=== PATIENT | female | born 1950 | race Caucasian/White ===

== ENCOUNTER → 2019-04-19 | Outpatient (CLI) | payer MEDICARE, OTHER, SELFPAY | PROVIDERS: Family Provider Nurse Practitioner; Visit Provider Nurse Practitioner | DX: R31.29 Other microscopic hematuria (principal) | CPT/HCPCS: 76770 ==

== ENCOUNTER 2019-06-07 19:22 | Emergency (ER) | payer MEDICARE, OTHER, SELFPAY ==
[2019-06-07 19:26] VITALS: BP 150/93; PULSE 60; RESP 16; TEMP 36.4; O2SAT 100; BMI 29.1
--- NOTE | 2019-06-07 19:33 | ED_ITS ---
Entered by Mireya Madden, acting as scribe for Stephanie Alonzo MD, MSM Documented by User: Stephanie Alonzo MD, MSM 06/08/19 00:20 HPI - Psych General: Chief Complaint: Psychiatric Symptoms Stated Complaint: DEPRESSION Time Seen by Provider: 06/07/19 19:33 Source: patient, EMS and RN notes reviewed Mode of arrival: EMS Limitations: no limitations History of Present Illness: HPI Narrative: 69 yo female presents to ED with complaints of depression. The patient states her life is falling apart. She said her oldest daughter & odlest granddaughter live in her house with her. They expect the patient to be at their [place] and call. She feels like she is a maid for them with no appreciation for everything that she does for them. When they are asked to do anything they refuse. She said her house is a disaster area and they will do nothing to help. The patient said she will put a trash bag in the garbage can and all they do is throw the trash on the cabinet or on top of the trash can. The patient's daughter has had epilepsy since she was 4 (she will soon be 38) and the patient's granddaughter is 16 and has been rebellious since she became a teenager and she just gets worse. The patien'ts spouse used to could help calm her (the granddaughter) down but since he the patient can do nothing to help. The patient has tried to get them to change and nothing helps. The patient said she cannot deal with them anymore and she needs help. She said one day they will find her laying on the floor because her body will just give out. The patient said she looked at all of her pill bottles last night and wondered which of them would help her sleep and not wake up. Her daughter had thrown out an old aquarium that had been leaking, just threw it in the yard and it broke, so the patient went out to take care of it and clean up the area when she was cut by a piece of the glass and she began bleeding; she thought of just letting it bleed but she said it would take too long. She does not feel safe at home although she knows they won't hurt her but she is afraid of what she (the patient) will do to hurt herself or them. The granddaughter took all of her granddad's knives and stashed them in different areas of her bedroom. The patient knows there is a loaded shotgun in her daughter's room. The patient said they (patient's daughter and granddaughter) will scream at each other in anger, upsetting the patient more. The patient's other daughter had the patient's granddaughter spend a couple nights at her house away from her mom and the granddaughter was fine when she got back but now it is all bad again. She knows her granddaughter is in a relationship with a 22 year old male that provides alcohol to the granddaughter. The patient knows the granddaughter's boyfriend is involved with methamphetamine users. The patient is scared her granddaughter is going to get and then the patient will have to take care of the baby. The patient is very tearful during entire interview and at times difficult to understand through her tears. MD complaint: suicidal ideation and feels depressed Onset (ago): hour(s) (today) Duration: constant and getting worse History of same: No Relieving factors: none Exacerbating factors: other (family stressors) Context: significant life stressor (family) Associated psychiatric symptoms: depression and suicidal ideation Associated symptoms: Reports depression and suicidal ideation Treatments prior to arrival: none If self harm: admits thoughts of self harm Review of Systems General: Reports: 10 or more systems reviewed and unremarkable except in HPI and below Const: Denies: fever, chills or body aches Eyes: Reports: blind spots; Denies: change in vision or blurry vision ENMT: Denies: throat pain, enlarged tonsils, painful swallowing, hoarseness, mouth pain or swelling of lips/tongue Card: Reports: chest pain; Denies: palpitations, irregular heart rhythm, edema or swelling of feet/ankles Resp: Denies: shortness of breath, productive cough or non-productive cough GI: Denies: abdominal pain, nausea or vomiting : Denies: flank pain, difficulty urinating, painful urination, urinary frequency, urinary urgency or urinary hesitancy Musc: Denies: neck pain, back pain or extremity swelling Skin/Breast: Denies: rash, itching or redness Neuro: Denies: headache, numbness in extremities or weakness in extremities Psych: Reports: depression and suicidal ideation Endo: Denies: excessive urination, excessive thirst or tired all the time PFSH ED PFSH: Social History Smoking and tobacco status: never smoked Physical Exam Const: COMMON NORMALS: average body habitus, oriented x3, no limitations, healthy appearing, alert and well nourished HENMT: COMMON NORMALS: normocephalic, head/scalp atraumatic and moist oral mucous membranes HEAD & SCALP: normocephalic and atraumatic Eye: COMMON NORMALS: PERRL, EOMs intact bilaterally, conjunctivae normal and no scleral icterus CONJUNCTIVA: Yes conjunctivae normal PUPIL: Yes PERRL Neck/C-Spine: COMMON NORMALS: full ROM, supple, no meningeal signs, no JVD and no carotid bruits Chest: COMMONS NORMALS: inspection of chest normal and palpation of chest normal Resp: COMMON NORMALS: normal respiratory effort, no retractions, no use of accessory muscles, clear to auscultation bilaterally and percussion normal AUSCULTATION: clear to auscultation bilaterally PERCUSSION: percussion normal Cardio: COMMON NORMALS: no JVD, regular rate, regular rhythm, S1 normal heart sound, S2 normal heart sound, no gallops, no clicks, no murmurs, no rub and peripheral pulses 2+ throughout RATE: regular rate RHYTHM: regular rhythm HEART SOUNDS: S1 normal and S2 normal PERIPHERAL PULSES: pulses 2+ throughout GI: COMMON NORMALS: normal to inspection, nondistended, normoactive bowel sounds, soft to palpation, non-tender, no hepatosplenomegaly, no masses and no bruits PALPATION: Yes soft and Yes no hepatosplenomegaly : COMMON NORMALS: Yes no CVA tenderness BLADDER/KIDNEY EXAM: Yes no CVA tenderness Back/Pelvis: COMMON NORMALS: no CVA tenderness Extremity: COMMON NORMALS: normal to inspection, full ROM, normal capillary refill, no calf tenderness and no pedal edema Neuro: COMMON NORMALS: oriented x3 SENSORIUM/ORIENTATION: Yes alert MENINGEAL SIGNS: Yes no meningeal signs Psych: ATTITUDE: Yes engaged and Yes other (depressed) MOOD & AFFECT: Yes depressed mood, Yes sad, Yes tearful and Yes fearful THOUGHT CONTENT: Yes suicidality Skin: COMMON NORMALS: no rashes or lesions noted, no wounds, skin turgor normal, no jaundice, no petechiae and no mottling GENERAL SKIN EXAM: no rashes or lesions noted and turgor normal MDM - Psych MDM Narrative: Medical decision making narrative: 69-year-old female patient who is having a lot of family and social issues. She has a daughter and her granddaughter living with her and they are apparently causing her a lot of stress. They do not help which was in the house. Did not help with bills in the house. She is under a lot of stress including financially and it is like the peter are closing in on her. She does not even have money to buy gas to take her to the behavioral health clinic tomorrow. Because of all the stressors this patient is feeling suicidal and feels she will be better off . She thought about overdosing on her medications are caught in her wrist with broken glass. Because of her age she cannot be admitted to this facility. After evaluation by the psychiatrist he believes she would be safer if she is admitted to an inpatient psychiatric facility for further evaluation and management. Medical Records: Attestation: I reviewed the patient's medical records. Lab Data: Attestation: I reviewed the patient's lab results. Labs: Lab Results 06/07/19 06/07/19 06/07/19 Range/Units 19:55 19:55 19:55 WBC (4.0-10.0) 10^3/ uL RBC (4.1-5.3) 10^6/u L Hgb (11.5-15.3) g/dL Hct (37.0-47.0) % MCV (81-99) fL MCH (28.0-34.0) pg MCHC (30.0-36.0) g/dL RDW (12.1-15.1) % Plt Count (130-400) 10^3/c mm MPV (7.4-10.4) fL Neut % (Auto) % Lymph % (Auto) % Roosevelt % (Auto) % Eos % (Auto) % Baso % (Auto) % Neut # (Auto) (1.8-7.7) 10^3/u L Lymph # (Auto) (0.8-4.8) 10^3/u L Roosevelt # (Auto) (0.2-0.9) 10^3/u L Eos # (Auto) (0.0-0.8) 10^3/u L Baso # (Auto) (0.0-0.1) 10^3/u L Nucleated RBC % (a uto) % Nucleated RBCs # /100WBC Sodium (136-145) mmol/L Potassium (3.5-5.1) mmol/L Chloride (98-107) mmol/L Carbon Dioxide (22-29) mmol/L Anion Gap (5-19) BUN (8-23) mg/dL Creatinine (0.5-0.9) mg/dL GFR Calculation (90-130) mL/min Glucose (65-115) mg/dL Calcium (8.5-10.5) mg/dL Total Bilirubin (0.15-1.2) mg/dL AST (0-32) U/L ALT (0-33) U/L Alkaline Phosphata se (35-105) IU/L Total Protein (6.6-8.7) g/dL Albumin (3.5-5.2) g/dL Globulin (1.3-4.6) g/dL TSH (0.27-4.20) uIU/ mL HCG, Qual Negative (Negative) Urine Color Yellow (Yellow) Urine Appearance Clear (CLEAR) Urine pH 8 H (5-7) Ur Specific Gravit y 1.010 (1.005-1.030) Urine Protein Neg (Negative) Urine Glucose (UA) Norm (Normal) Urine Ketones Negative (Negative) Urine Occult Blood Neg (Negative) Urine Nitrate Negative (Negative) Urine Bilirubin Neg (NEGATIVE) Prot Sulfosalicyli c Acd Negative Urine Urobilinogen Norm (Negative) mg/dL Ur Leukocyte Jaimee ase Negative (Negative) Salicylates (3-10) mg/dL Urine Opiates Scre en Negative (Negative) ng/mL Acetaminophen (10-30) ug/mL Ur Barbiturates Sc reen Negative (Negative) ng/mL Ur Phencyclidine S crn Negative (Negative) ng/mL Ur Amphetamines Sc reen Negative (Negative) ng/mL U Benzodiazepines Scrn Negative (Negative) ng/mL Urine Cocaine Scre en Negative (Negative) ng/mL U Marijuana (THC) Screen Negative (Negative) ng/mL Ethyl Alcohol (0-10) mg/dL 06/07/19 06/07/19 Range/Units 21:06 21:06 WBC 9.6 (4.0-10.0) 10^3/ uL RBC 4.24 (4.1-5.3) 10^6/u L Hgb 12.3 (11.5-15.3) g/dL Hct 37.2 (37.0-47.0) % MCV 87.7 (81-99) fL MCH 29.0 (28.0-34.0) pg MCHC 33.1 (30.0-36.0) g/dL RDW 11.9 L (12.1-15.1) % Plt Count 339 (130-400) 10^3/c mm MPV 9.4 (7.4-10.4) fL Neut % (Auto) 69.5 % Lymph % (Auto) 20.1 % Roosevelt % (Auto) 6.9 % Eos % (Auto) 2.5 % Baso % (Auto) 0.6 % Neut # (Auto) 6.7 (1.8-7.7) 10^3/u L Lymph # (Auto) 1.9 (0.8-4.8) 10^3/u L Roosevelt # (Auto) 0.7 (0.2-0.9) 10^3/u L Eos # (Auto) 0.2 (0.0-0.8) 10^3/u L Baso # (Auto) 0.1 (0.0-0.1) 10^3/u L Nucleated RBC % (a uto) 0 % Nucleated RBCs # 0.0 /100WBC Sodium 139 (136-145) mmol/L Potassium 3.6 (3.5-5.1) mmol/L Chloride 103 (98-107) mmol/L Carbon Dioxide 23 (22-29) mmol/L Anion Gap 16.6 (5-19) BUN 12 (8-23) mg/dL Creatinine 1.0 H (0.5-0.9) mg/dL GFR Calculation 55.0 L (90-130) mL/min Glucose 138 H (65-115) mg/dL Calcium 9.6 (8.5-10.5) mg/dL Total Bilirubin 0.8 (0.15-1.2) mg/dL AST 19 (0-32) U/L ALT 13 (0-33) U/L Alkaline Phosphata se 68 (35-105) IU/L Total Protein 7.1 (6.6-8.7) g/dL Albumin 3.8 (3.5-5.2) g/dL Globulin 3.3 (1.3-4.6) g/dL TSH 2.41 (0.27-4.20) uIU/ mL HCG, Qual (Negative) Urine Color (Yellow) Urine Appearance (CLEAR) Urine pH (5-7) Ur Specific Gravit y (1.005-1.030) Urine Protein (Negative) Urine Glucose (UA) (Normal) Urine Ketones (Negative) Urine Occult Blood (Negative) Urine Nitrate (Negative) Urine Bilirubin (NEGATIVE) Prot Sulfosalicyli c Acd Urine Urobilinogen (Negative) mg/dL Ur Leukocyte Jaimee ase (Negative) Salicylates < 0.3 L (3-10) mg/dL Urine Opiates Scre en (Negative) ng/mL Acetaminophen < 5.0 L (10-30) ug/mL Ur Barbiturates Sc reen (Negative) ng/mL Ur Phencyclidine S crn (Negative) ng/mL Ur Amphetamines Sc reen (Negative) ng/mL U Benzodiazepines Scrn (Negative) ng/mL Urine Cocaine Scre en (Negative) ng/mL U Marijuana (THC) Screen (Negative) ng/mL Ethyl Alcohol < 10 (0-10) mg/dL Sign Out Sign Out Data: Patient Sign Out occurred on 06/08/19 at 00:57. Patient's care was discussed, and care was transferred from to Lyndsay Rose. Coding Level of Care Code ED Local Az Truck Driver for Chg Fwd Exam Comprehensive Documented by User: Lyndsay Rose 06/08/19 02:02 HPI - Psych General: Chief Complaint: Psychiatric Symptoms Stated Complaint: DEPRESSION Time Seen by Provider: 06/07/19 19:33 PFSH ED PFSH: Social History Smoking and tobacco status: never smoked MDM - Psych Lab Data: Labs: Lab Results 06/07/19 06/07/19 06/07/19 Range/Units 19:55 19:55 19:55 WBC (4.0-10.0) 10^3/ uL RBC (4.1-5.3) 10^6/u L Hgb (11.5-15.3) g/dL Hct (37.0-47.0) % MCV (81-99) fL MCH (28.0-34.0) pg MCHC (30.0-36.0) g/dL RDW (12.1-15.1) % Plt Count (130-400) 10^3/c mm MPV (7.4-10.4) fL Neut % (Auto) % Lymph % (Auto) % Roosevelt % (Auto) % Eos % (Auto) % Baso % (Auto) % Neut # (Auto) (1.8-7.7) 10^3/u L Lymph # (Auto) (0.8-4.8) 10^3/u L Roosevelt # (Auto) (0.2-0.9) 10^3/u L Eos # (Auto) (0.0-0.8) 10^3/u L Baso # (Auto) (0.0-0.1) 10^3/u L Nucleated RBC % (a uto) % Nucleated RBCs # /100WBC Sodium (136-145) mmol/L Potassium (3.5-5.1) mmol/L Chloride (98-107) mmol/L Carbon Dioxide (22-29) mmol/L Anion Gap (5-19) BUN (8-23) mg/dL Creatinine (0.5-0.9) mg/dL GFR Calculation (90-130) mL/min Glucose (65-115) mg/dL Calcium (8.5-10.5) mg/dL Total Bilirubin (0.15-1.2) mg/dL AST (0-32) U/L ALT (0-33) U/L Alkaline Phosphata se (35-105) IU/L Total Protein (6.6-8.7) g/dL Albumin (3.5-5.2) g/dL Globulin (1.3-4.6) g/dL TSH (0.27-4.20) uIU/ mL HCG, Qual Negative (Negative) Urine Color Yellow (Yellow) Urine Appearance Clear (CLEAR) Urine pH 8 H (5-7) Ur Specific Gravit y 1.010 (1.005-1.030) Urine Protein Neg (Negative) Urine Glucose (UA) Norm (Normal) Urine Ketones Negative (Negative) Urine Occult Blood Neg (Negative) Urine Nitrate Negative (Negative) Urine Bilirubin Neg (NEGATIVE) Prot Sulfosalicyli c Acd Negative Urine Urobilinogen Norm (Negative) mg/dL Ur Leukocyte Jaimee ase Negative (Negative) Salicylates (3-10) mg/dL Urine Opiates Scre en Negative (Negative) ng/mL Acetaminophen (10-30) ug/mL Ur Barbiturates Sc reen Negative (Negative) ng/mL Ur Phencyclidine S crn Negative (Negative) ng/mL Ur Amphetamines Sc reen Negative (Negative) ng/mL U Benzodiazepines Scrn Negative (Negative) ng/mL Urine Cocaine Scre en Negative (Negative) ng/mL U Marijuana (THC) Screen Negative (Negative) ng/mL Ethyl Alcohol (0-10) mg/dL 06/07/19 06/07/19 Range/Units 21:06 21:06 WBC 9.6 (4.0-10.0) 10^3/ uL RBC 4.24 (4.1-5.3) 10^6/u L Hgb 12.3 (11.5-15.3) g/dL Hct 37.2 (37.0-47.0) % MCV 87.7 (81-99) fL MCH 29.0 (28.0-34.0) pg MCHC 33.1 (30.0-36.0) g/dL RDW 11.9 L (12.1-15.1) % Plt Count 339 (130-400) 10^3/c mm MPV 9.4 (7.4-10.4) fL Neut % (Auto) 69.5 % Lymph % (Auto) 20.1 % Roosevelt % (Auto) 6.9 % Eos % (Auto) 2.5 % Baso % (Auto) 0.6 % Neut # (Auto) 6.7 (1.8-7.7) 10^3/u L Lymph # (Auto) 1.9 (0.8-4.8) 10^3/u L Roosevelt # (Auto) 0.7 (0.2-0.9) 10^3/u L Eos # (Auto) 0.2 (0.0-0.8) 10^3/u L Baso # (Auto) 0.1 (0.0-0.1) 10^3/u L Nucleated RBC % (a uto) 0 % Nucleated RBCs # 0.0 /100WBC Sodium 139 (136-145) mmol/L Potassium 3.6 (3.5-5.1) mmol/L Chloride 103 (98-107) mmol/L Carbon Dioxide 23 (22-29) mmol/L Anion Gap 16.6 (5-19) BUN 12 (8-23) mg/dL Creatinine 1.0 H (0.5-0.9) mg/dL GFR Calculation 55.0 L (90-130) mL/min Glucose 138 H (65-115) mg/dL Calcium 9.6 (8.5-10.5) mg/dL Total Bilirubin 0.8 (0.15-1.2) mg/dL AST 19 (0-32) U/L ALT 13 (0-33) U/L Alkaline Phosphata se 68 (35-105) IU/L Total Protein 7.1 (6.6-8.7) g/dL Albumin 3.8 (3.5-5.2) g/dL Globulin 3.3 (1.3-4.6) g/dL TSH 2.41 (0.27-4.20) uIU/ mL HCG, Qual (Negative) Urine Color (Yellow) Urine Appearance (CLEAR) Urine pH (5-7) Ur Specific Gravit y (1.005-1.030) Urine Protein (Negative) Urine Glucose (UA) (Normal) Urine Ketones (Negative) Urine Occult Blood (Negative) Urine Nitrate (Negative) Urine Bilirubin (NEGATIVE) Prot Sulfosalicyli c Acd Urine Urobilinogen (Negative) mg/dL Ur Leukocyte Jaimee ase (Negative) Salicylates < 0.3 L (3-10) mg/dL Urine Opiates Scre en (Negative) ng/mL Acetaminophen < 5.0 L (10-30) ug/mL Ur Barbiturates Sc reen (Negative) ng/mL Ur Phencyclidine S crn (Negative) ng/mL Ur Amphetamines Sc reen (Negative) ng/mL U Benzodiazepines Scrn (Negative) ng/mL Urine Cocaine Scre en (Negative) ng/mL U Marijuana (THC) Screen (Negative) ng/mL Ethyl Alcohol < 10 (0-10) mg/dL Imaging Data^: CXR: My impression: No acute cardiopulmonary findings. Sign Out Sign Out Data: Patient Sign Out occurred on 06/08/19 at 00:57. Patient's care was discussed, and care was transferred from to [facility]. Coding Level of Care Code ED Local Az Truck Driver for Chg Fwd Exam Comprehensive The documentation recorded by the Maryanne werner Valerie R, accurately reflects the service I personally performed and the decisions made by me, Setphanie Alonzo MD, [facility] [place] 07, [place] 19:22
[2019-06-07 21:11] LABS: Basophils # 0.1 10^3/uL (0.0-0.1); Basophils % 0.6 %; Eosinophils # 0.2 10^3/uL (0.0-0.8); Eosinophils % 2.5 %; Hematocrit 37.2 % (37.0-47.0); Hemoglobin 12.3 g/dL (11.5-15.3); Lymphocytes # 1.9 10^3/uL (0.8-4.8); Lymphocytes % 20.1 %; Mean Corpuscular HGB Conc 33.1 g/dL (30.0-36.0); Mean Corpuscular Volume 87.7 fL (81-99); Mean Platelet Volume 9.4 fL (7.4-10.4); Monocytes # 0.7 10^3/uL (0.2-0.9); Monocytes % 6.9 %; Neutrophils # 6.7 10^3/uL (1.8-7.7); Neutrophils % 69.5 %; Nucleated Red Blood Cells % 0 %; Platelet Count 339 10^3/cmm (130-400); Red Blood Count 4.24 10^6/uL (4.1-5.3); Red Cell Distribution Width 11.9 % (12.1-15.1); White Blood Count 9.6 10^3/uL (4.0-10.0)
[2019-06-07 21:16] LABS: Add Urine Microscopic? NO
[2019-06-07 21:21] LABS: HCG Qualitative Urine. Negative (Negative)
[2019-06-07 21:28] LABS: Bilirubin Urine Neg (NEGATIVE); Blood Urine Neg (Negative); Glucose Urine UA Norm (Normal); Ketones Urine Negative (Negative); Leukocyte Esterase Urine Negative (Negative); Nitrate Urine Negative (Negative); Protein Urine Neg (Negative); Sulfosalicylic Acid Urine Negative; Urine Appearance Clear (CLEAR); Urine Color Yellow (Yellow); Urobilinogen Urine Norm (Negative); pH Urine 8 (5-7)
[2019-06-07 21:34] LABS: Amphetamines Screen Urine Negative (Negative); Barbiturates Screen Urine Negative (Negative); Benzodiazepines Screen Urine Negative (Negative); Cocaine Screen Urine Negative (Negative); Opiate Screen Urine Negative (Negative); PCP Screen Urine Negative (Negative); THC Screen Urine Negative (Negative)
[2019-06-07 21:36] LABS: Alanine Aminotransferase 13 U/L (0-33); Albumin Level 3.8 g/dL (3.5-5.2); Alkaline Phosphatase 68 IU/L (35-105); Anion Gap 16.6 (5-19); Aspartate Amino Transferase 19 U/L (0-32); Blood Urea Nitrogen 12 mg/dL (8-23); Calcium 9.6 mg/dL (8.5-10.5); Carbon Dioxide 23 mmol/L (22-29); Chloride 103 mmol/L (98-107); Globulin 3.3 g/dL (1.3-4.6); Glucose 138 mg/dL (65-115); Potassium 3.6 mmol/L (3.5-5.1); Sodium 139 mmol/L (136-145); Thyroid Stimulating Hormone 2.41 uIU/mL (0.27-4.20); Total Bilirubin 0.8 mg/dL (0.15-1.2); Total Protein 7.1 g/dL (6.6-8.7)
[2019-06-07 21:45] LABS: Acetaminophen < 5.0 ug/mL (10-30); Alcohol Level < 10 mg/dL (0-10); Salicylate < 0.3 mg/dL (3-10)
[2019-06-08] VITALS: BP 134/75; PULSE 84; RESP 16; TEMP 36.7; O2SAT 96
--- NOTE | 2019-06-08 00:45 | XR_ITS ---
WS: [id number] XR chest 1V portable [id number] REASON FOR EXAM: psych clearance FINDINGS: The heart and mediastinal interfaces are normal. There are scattered calcified granulomas in both lung flores the pattern is unchanged since June 27, 2017. The lung flores show no definite active infiltrates no pneumonia pleural effusion, no pneumothorax. The hilum and apices are normal. No osseous abnormalities. XR/XR chest 1V portable [id number] IMPRESSION: Granulomatous changes perihilar area unchanged since 2018 The remaining chest is within normal limits.
--- NOTE | 2019-06-08 00:45 | ECG_ITS ---
Measurements Intervals [place] Rate: 63 P: 70 NH: 190 QRS: 24 QRSD: 83 T: 63 QT: 408 QTc: [address] DEPRESSION [0.025+ mV ST DEPRESSION] Compared to ECG 06/27/2017 11:40:34 ST (T wave) deviation now present T-wave abnormality no longer present Electronically Signed On 06-08-2019 16:59:24 IMAGING SERVICES DIRECTOR by Naz Colón M.D. [id number]
[2019-06-08 02:00] VITALS: BP 142/74; PULSE 74; RESP 16; O2SAT 98
[2019-06-08 03:03] LABS: Vitamin B12 354 pg/mL (232-1245)
[2019-06-08 04:00] VITALS: BP 138/72; PULSE 82; RESP 18; O2SAT 95
[2019-06-08 06:00] VITALS: BP 152/68; PULSE 69; RESP 14; O2SAT 95
--- NOTE | 2019-06-08 08:00 | PC.NURSE ---
Pt requesting coffee and food. Ordered breakfast tray and brought pt coffee
--- NOTE | 2019-06-08 09:01 | PC.NURSE ---
Per Dr Terry, he stated it would be ok for pt to take her home meds. Gave her 1 sertraline 100mg, 1 buproprion 150mg and 2 puffs of her symbicort.
[2019-06-08 10:23] VITALS: BP 141/78; PULSE 78; RESP 16; O2SAT 98
== END 2019-06-08 12:22 ==
PROVIDERS: Family Medicine; Emergency Provider Emergency Medicine; Family Provider Nurse Practitioner
DX: F32.9 Major depressive disorder, single episode, unspecified (principal); R45.851 Suicidal ideations
CPT/HCPCS: 36415; 71045; 80053; 80307; 81003; 81025; 82607; 84443; 85025; 93005; 99284; 99285

== ENCOUNTER 2019-06-21 13:15 | Emergency (ER) | payer MEDICARE, OTHER, SELFPAY ==
[2019-06-21 13:46] VITALS: BP 138/109; PULSE 103; RESP 15; TEMP 36.7; O2SAT 95; BMI 28.8
--- NOTE | 2019-06-21 17:01 | ECG_ITS ---
Measurements Intervals [place] Rate: 79 P: 60 OK: 180 QRS: -11 QRSD: 85 T: 76 QT: 368 QTc: [address] & T-WAVE ABNORMALITY Compared to ECG 06/08/2019 01:04:35 T-wave abnormality now present ST (T wave) deviation no longer present Electronically Signed On 06-21-2019 20:25:57 DELIVERY MERCHANDISER by Sharon Pringle M.D. [id number]
[2019-06-21 17:06] VITALS: BP 125/72; PULSE 84; RESP 16; O2SAT 98
--- NOTE | 2019-06-21 17:06 | ED_ITS ---
Entered by Milly Gibson, acting as scribe for Mahendra Torres MD Jun 21, 2019 13:15 HPI - Arrhythmia/Palpitations General: Chief Complaint: Arrhythmia/Palpitations Stated Complaint: Poss afib/ chest discomfort Time Seen by Provider: 06/21/19 17:01 Source: patient Mode of arrival: ambulatory Limitations: no limitations History of Present Illness: HPI narrative: 69 yo female went to a follow up appointment at pcp clinic, they sent her here for Afib. pt denies any symptoms or pain at this time. MD complaint: rapid heart beat, palpitations and atrial fibrillation Onset (ago): day(s) (today) Duration: constant Severity: moderate Context: occurred during rest Associated symptoms: Reports no associated symptoms; Deny syncope Review of Systems General: Reports: 10 or more systems reviewed and unremarkable except as noted in History and below ENMT: Denies: enlarged tonsils Card: Reports: chest pain (twinges of chest discomfort), palpitations and lightheadedness; Denies: syncope Resp: Denies: dyspnea or productive cough PFSH ED PFSH: Medical History Anxiety and depression Asthma Atrial fibrillation by electrocardiogram Benign hypertension High risk medication use EKG from 09/22/2019 showed the QRS duration of 100 ms Mixed hyperlipidemia Vitamin D deficiency Surgical History History of cardiac radiofrequency ablation (RFA) patient is unsure but feels like this was about 20 years ago. History of section History of hysterectomy History of oophorectomy Family History Other Hypertension Social History Smoking and tobacco status: never smoked Second hand smoke exposure: No Smoking risk assessment/counseling performed?: No Alcohol intake: never Desire information about alcohol rehabilitation?: No Counseling given: No Desire information about substance/drug rehabilitation?: No Counseling given: No Caregiver/support person: No Lives independently: Yes Household members: children Marital status: / Number of children: 2 Current occupational status: unemployed Pets and animals: Yes History of recent travel: No Current gender identity: Female Physical Exam Const: COMMON NORMALS: no limitations, alert and well nourished EXAM LIMITATIONS: no altered mental status GENERAL APPEARANCE: cooperative and well developed ORIENTATION/CONSCIOUSNESS: Yes awake; not confused HENMT: COMMON NORMALS: normocephalic, atraumatic, external ears normal and Normal external nose present HEAD & SCALP: normal to inspection, normocepha lic and atraumatic FACE & SINUS: face symmetric NOSE: Normal external nose present EXTERNAL EAR: Yes external ears normal MOUTH: lip normal; no muffled voice Eye: COMMON NORMALS: EOMs intact bilaterally and conjunctivae normal GENERAL EYE: appearance normal, both eyes and all related structures CONJUNCTIVA: Yes conjunctivae normal Neck/C-Spine: COMMON NORMALS: no JVD GENERAL: Yes normal visual inspection and Yes trachea midline Resp: COMMON NORMALS: normal respiratory effort, No use of accessory muscles and clear to auscultation bilaterally EFFORT & INSPECTION: Yes able to speak in complete sentences and Yes symmetric chest movement AUSCULTATION: clear to auscultation bilaterally Cardio: COMMON NORMALS: no JVD; negative for regular rate and negative for regular rhythm RATE: abnormal rate and tachycardic RHYTHM: abnormal rhythm and abnormal rhythm GI: COMMON NORMALS: Soft to palpation INSPECTION: Yes normal to inspection PALPATION: Yes Soft to palpation, No Tenderness to palpation present (GI) and No Guarding due to palpation present (GI) Back/Pelvis: COMMON NORMALS: thoraco-lumbar ROM normal Extremity: COMMON NORMALS: normal to inspection GENERAL: Yes normal exam except as noted and Yes edema (bilateral legs) Neuro: COMMON NORMALS: moves all extremities, no focal motor deficits and no sensory deficits noted SENSORIUM/ORIENTATION: Yes alert Psych: COMMON NORMALS: mental status grossly normal, Normal thought process present, cooperative, normal affect and speech normal SPEECH: Yes normal speech THOUGHT PROCESS: Normal thought process present Skin: COMMON NORMALS: no rashes or lesions noted, turgor normal and no jaundice GENERAL SKIN EXAM: no rashes or lesions noted and turgor normal Course Vital Signs: Vital signs: Vital Signs Temperature 98.1 F 06/21/19 13:46 Pulse Rate 74 06/21/19 18:07 Respiratory Rate 16 06/21/19 18:07 Blood Pressure 131/91 06/21/19 18:07 Pulse Oximetry 100 06/21/19 18:07 MDM - Arrhythmia/Palpitations MDM Narrative: Medical decision making narrative: 69 yo f with recurrence of afib. Control rate. CHADSVASC score suggests patient needs anticoatulated. No contraindication to NOAC. As long as rate and symptoms can be controlled patient will be a candidate for dc and outpatient f/u. Lab Data: Labs: Lab Results 06/21/19 06/21/19 Range/Units 17:13 17:13 WBC 9.6 (4.0-10.0) 10^3/ uL RBC 4.43 (4.1-5.3) 10^6/u L Hgb 12.7 (11.5-15.3) g/dL Hct 39.0 (37.0-47.0) % MCV 88.0 (81-99) fL MCH 28.7 (28.0-34.0) pg MCHC 32.6 (30.0-36.0) g/dL RDW 12.2 (12.1-15.1) % Plt Count 359 (130-400) 10^3/c mm MPV 9.4 (7.4-10.4) fL Neut % (Auto) 60.5 % Lymph % (Auto) 28.1 % [place] % (Auto) 7.3 % Eos % (Auto) 3.0 % Baso % (Auto) 0.8 % Neut # (Auto) 5.8 (1.8-7.7) 10^3/u L Lymph # (Auto) 2.7 (0.8-4.8) 10^3/u L [place] # (Auto) 0.7 (0.2-0.9) 10^3/u L Eos # (Auto) 0.3 (0.0-0.8) 10^3/u L Baso # (Auto) 0.1 (0.0-0.1) 10^3/u L Nucleated RBC % (a uto) 0 % Nucleated RBCs # 0.0 /100WBC Sodium 140 (136-145) mmol/L Potassium 3.8 (3.5-5.1) mmol/L Chloride 102 (98-107) mmol/L Carbon Dioxide 26 (22-29) mmol/L Anion Gap 15.8 (5-19) BUN 12 (8-23) mg/dL Creatinine 1.0 H (0.5-0.9) mg/dL GFR Calculation 55.0 L (90-130) mL/min Glucose 104 (65-115) mg/dL Calculated Osmolal ity 286 (285-295) mOsm/k g Calcium 9.8 (8.5-10.5) mg/dL Magnesium 2.3 (1.7-2.3) mg/dL Discharge Plan Discharge Patient Disposition: Home, Self-Care Clinical Impression: Paroxysmal A-fib Condition: Stable Prescriptions: No Action nitroglycerin 0.4 mg tablet, sublingual 0.4 mg sublingual RF: 0 aspirin 81 mg tablet,delayed release (DR/EC) PO RF: 0 cetirizine 10 mg tablet 10 mg PO RF: 0 fluticasone propionate 50 mcg/actuation spray,suspension INTRANASAL RF: 0 atorvastatin 40 mg tablet 40 mg PO DAILY Qty: 90 RF: 1 budesonide-formoterol 160-4.5 mcg/actuation HFA aerosol inhaler 2 inh INHALATION BID Qty: 10.2 RF: 2 lisinopril 10 mg tablet 10 mg PO DAILY Qty: 90 RF: 1 montelukast 10 mg tablet 10 mg PO DAILY Qty: 90 RF: 1 trazodone 50 mg tablet 150 mg PO .hs Qty: 270 RF: 1 albuterol sulfate 90 mcg/actuation HFA aerosol inhaler 2 inh INHALATION Q6H Qty: 18 RF: 2 tobramycin 0.3 % drops 1 drop ophthalmic (eye) TID 7 Days Qty: 5 RF: 0 rivaroxaban 15 mg tablet 15 mg PO DAILY Qty: 90 RF: 1 aripiprazole 2 mg tablet 2 mg PO DAILY Qty: 30 RF: 0 venlafaxine 50 mg tablet 50 mg PO BID Qty: 60 RF: 0 (DME) blood pressure test kit-large Kit See Rx Instructions .ROUTE .MEDSUPPLY Qty: 1 RF: 0 flecainide 50 mg tablet 75 mg PO Q12H 90 Days Qty: 270 RF: 3 Referrals: Marsha Kelly FNP-C [Family Provider] - 1 week (F/u pAF start xarelto) Discharge Diet: Usual diet Discharge Activity: Resume usual activity Patient Instructions: Atrial Fibrillation (ED) Discharge Date/Time: 06/21/19 18:07 Coding Level of Care Code ED Residential Remodeling Subcontractor for Chg Fwd Exam Comprehensive The documentation recorded by the [email or web address] Bridget Annette, accurately reflects the service I personally performed and the decisions made by me, Mahendra Torres MD Jun 21, 2019 13:15
[2019-06-21 17:20] LABS: Basophils # 0.1 10^3/uL (0.0-0.1); Basophils % 0.8 %; Eosinophils # 0.3 10^3/uL (0.0-0.8); Hemoglobin 12.7 g/dL (11.5-15.3); Lymphocytes # 2.7 10^3/uL (0.8-4.8); Lymphocytes % 28.1 %; Mean Corpuscular HGB Conc 32.6 g/dL (30.0-36.0); Mean Corpuscular Hemoglobin 28.7 pg (28.0-34.0); Mean Platelet Volume 9.4 fL (7.4-10.4); Monocytes # 0.7 10^3/uL (0.2-0.9); Monocytes % 7.3 %; Neutrophils # 5.8 10^3/uL (1.8-7.7); Neutrophils % 60.5 %; Nucleated Red Blood Cells % 0 %; Platelet Count 359 10^3/cmm (130-400); Red Blood Count 4.43 10^6/uL (4.1-5.3); Red Cell Distribution Width 12.2 % (12.1-15.1); White Blood Count 9.6 10^3/uL (4.0-10.0)
[2019-06-21 17:35] LABS: Anion Gap 15.8 (5-19); Blood Urea Nitrogen 12 mg/dL (8-23); Calcium 9.8 mg/dL (8.5-10.5); Carbon Dioxide 26 mmol/L (22-29); Chloride 102 mmol/L (98-107); Glucose 104 mg/dL (65-115); Magnesium 2.3 mg/dL (1.7-2.3); Osmolality Calculated 286 mOsm/kg (285-295); Potassium 3.8 mmol/L (3.5-5.1); Sodium 140 mmol/L (136-145)
[2019-06-21 18:07] VITALS: BP 131/91; PULSE 74; RESP 16; O2SAT 100
--- NOTE | 2019-10-01 09:47 | W.ED.ARRPALP ---
HPI - Arrhythmia/Palpitations General: Chief Complaint: Arrhythmia/Palpitations Stated Complaint: Poss afib/ chest discomfort Time Seen by Provider: 06/21/19 17:01 Source: patient Mode of arrival: ambulatory Limitations: no limitations History of Present Illness: MD complaint: rapid heart beat, palpitations and atrial fibrillation Context: occurred during rest Associated symptoms: Deny syncope Review of Systems General: Reports: 10 or more systems reviewed and unremarkable except in HPI and below Const: Reports: fatigue; Denies: fever(s) Card: Reports: chest pain ( twinges of discomfort), palpitations, irregular heart rhythm and lightheadedness; Denies: syncope or orthopnea Resp: Reports: other (chronic unchanged cough); Denies: dyspnea Neuro: Denies: weakness in extremities or vertigo PFSH ED PFSH: Medical History Anxiety and depression Asthma Atrial fibrillation by electrocardiogram Benign hypertension High risk medication use EKG from 09/22/2019 showed the QRS duration of 100 ms Mixed hyperlipidemia Vitamin D deficiency Surgical History History of cardiac radiofrequency ablation (RFA) patient is unsure but feels like this was about 20 years ago. History of section History of hysterectomy History of oophorectomy Family History Other Hypertension Social History Smoking and tobacco status: never smoked Second hand smoke exposure: No Smoking risk assessment/counseling performed?: No Alcohol intake: never Desire information about alcohol rehabilitation?: No Counseling given: No Desire information about substance/drug rehabilitation?: No Counseling given: No Caregiver/support person: No Lives independently: Yes Household members: children Marital status: / Number of children: 2 Current occupational status: unemployed Pets and animals: Yes History of recent travel: No Current gender identity: Female Physical Exam Const: COMMON NORMALS: no limitations, alert and well nourished EXAM LIMITATIONS: no altered mental status GENERAL APPEARANCE: cooperative and well developed ORIENTATION/CONSCIOUSNESS: Yes awake; not confused HENMT: COMMON NORMALS: normocephalic, atraumatic, external ears normal and Normal external nose present HEAD & SCALP: normal to inspection, normocephalic and atraumatic FACE & SINUS: face symmetric NOSE: Normal external nose present EXTERNAL EAR: Yes external ears normal MOUTH: lip normal; no muffled voice Eye: COMMON NORMALS: EOMs intact bilaterally and conjunctivae normal GENERAL EYE: appearance normal, both eyes and all related structures CONJUNCTIVA: Yes conjunctivae normal Neck/C-Spine: GENERAL: Yes normal visual inspection and Yes trachea midline Resp: COMMON NORMALS: normal respiratory effort and No use of accessory muscles EFFORT & INSPECTION: Yes able to speak in complete sentences and Yes symmetric chest movement Cardio: RATE: tachycardic RHYTHM: abnormal rhythm PERIPHERAL PULSES: radial pulses present GI: COMMON NORMALS: Soft to palpation INSPECTION: Yes normal to inspection PALPATION: Yes Soft to palpation, No Tenderness to palpation present (GI) and No Guarding due to palpation present (GI) Back/Pelvis: COMMON NORMALS: thoraco-lumbar ROM normal Extremity: COMMON NORMALS: normal to inspection GENERAL: Yes normal exam except as noted Neuro: COMMON NORMALS: moves all extremities, no focal motor deficits and no sensory deficits noted SENSORIUM/ORIENTATION: Yes alert Psych: COMMON NORMALS: mental status grossly normal, Normal thought process present, cooperative and speech normal; negative for normal affect SPEECH: Yes normal speech THOUGHT PROCESS: Normal thought process present Skin: COMMON NORMALS: no rashes or lesions noted, turgor normal and no jaundice GENERAL SKIN EXAM: no rashes or lesions noted and turgor normal Course Vital Signs: Vital signs: Vital Signs Temperature 98.1 F 06/21/19 13:46 Pulse Rate 74 06/21/19 18:07 Respiratory Rate 16 06/21/19 18:07 Blood Pressure 131/91 06/21/19 18:07 Pulse Oximetry 100 06/21/19 18:07 MDM - Arrhythmia/Palpitations MDM Narrative: Medical decision making narrative: 69 yo f with recurrence of pAF w/ episodes of RVR reported. Sinus now. Nonspecific st and t changes. Plan for rate control. CHADSVASC score suggests anticoagulation. No contraindications to NOAC. Plan for d/c as long as rate controlled and remains stable. Lab Data: Labs: Lab Results 06/21/19 06/21/19 Range/Units 17:13 17:13 WBC 9.6 (4.0-10.0) 10^3/ uL RBC 4.43 (4.1-5.3) 10^6/u L Hgb 12.7 (11.5-15.3) g/dL Hct 39.0 (37.0-47.0) % MCV 88.0 (81-99) fL MCH 28.7 (28.0-34.0) pg MCHC 32.6 (30.0-36.0) g/dL RDW 12.2 (12.1-15.1) % Plt Count 359 (130-400) 10^3/c mm MPV 9.4 (7.4-10.4) fL Neut % (Auto) 60.5 % Lymph % (Auto) 28.1 % [place] % (Auto) 7.3 % Eos % (Auto) 3.0 % Baso % (Auto) 0.8 % Neut # (Auto) 5.8 (1.8-7.7) 10^3/u L Lymph # (Auto) 2.7 (0.8-4.8) 10^3/u L [place] # (Auto) 0.7 (0.2-0.9) 10^3/u L Eos # (Auto) 0.3 (0.0-0.8) 10^3/u L Baso # (Auto) 0.1 (0.0-0.1) 10^3/u L Nucleated RBC % (a uto) 0 % Nucleated RBCs # 0.0 /100WBC Sodium 140 (136-145) mmol/L Potassium 3.8 (3.5-5.1) mmol/L Chloride 102 (98-107) mmol/L Carbon Dioxide 26 (22-29) mmol/L Anion Gap 15.8 (5-19) BUN 12 (8-23) mg/dL Creatinine 1.0 H (0.5-0.9) mg/dL GFR Calculation 55.0 L (90-130) mL/min Glucose 104 (65-115) mg/dL Calculated Osmolal ity 286 (285-295) mOsm/k g Calcium 9.8 (8.5-10.5) mg/dL Magnesium 2.3 (1.7-2.3) mg/dL Discharge Plan Discharge Patient Disposition: Home, Self-Care Clinical Impression: Paroxysmal A-fib Condition: Stable Prescriptions: No Action nitroglycerin 0.4 mg tablet, sublingual 0.4 mg sublingual RF: 0 aspirin 81 mg tablet,delayed release (DR/EC) PO RF: 0 cetirizine 10 mg tablet 10 mg PO RF: 0 fluticasone propionate 50 mcg/actuation spray,suspension INTRANASAL RF: 0 atorvastatin 40 mg tablet 40 mg PO DAILY Qty: 90 RF: 1 budesonide-formoterol 160-4.5 mcg/actuation HFA aerosol inhaler 2 inh INHALATION BID Qty: 10.2 RF: 2 lisinopril 10 mg tablet 10 mg PO DAILY Qty: 90 RF: 1 montelukast 10 mg tablet 10 mg PO DAILY Qty: 90 RF: 1 trazodone 50 mg tablet 150 mg PO .hs Qty: 270 RF: 1 albuterol sulfate 90 mcg/actuation HFA aerosol inhaler 2 inh INHALATION Q6H Qty: 18 RF: 2 tobramycin 0.3 % drops 1 drop ophthalmic (eye) TID 7 Days Qty: 5 RF: 0 rivaroxaban 15 mg tablet 15 mg PO DAILY Qty: 90 RF: 1 aripiprazole 2 mg tablet 2 mg PO DAILY Qty: 30 RF: 0 venlafaxine 50 mg tablet 50 mg PO BID Qty: 60 RF: 0 (DME) blood pressure test kit-large Kit See Rx Instructions .ROUTE .MEDSUPPLY Qty: 1 RF: 0 flecainide 50 mg tablet 75 mg PO Q12H 90 Days Qty: 270 RF: 3 Referrals: Marsha Kelly FNP-C [Family Provider] - 1 week (F/u pAF start xarelto) Discharge Diet: Usual diet Discharge Activity: Resume usual activity Patient Instructions: Atrial Fibrillation (ED) Discharge Date/Time: 06/21/19 18:07 Coding Level of Care Code ED Ui Software Engineer for Nicole Avalos
== END 2019-06-21 18:07 | disposition home or self-care (01) ==
PROVIDERS: Emergency Provider Emergency Medicine; Family Provider Nurse Practitioner
DX: I48.0 Paroxysmal atrial fibrillation (principal); Z79.82 Long term (current) use of aspirin; I10 Essential (primary) hypertension; E78.2 Mixed hyperlipidemia
CPT/HCPCS: 12345; 36415; 80048; 83735; 85025; 93005; 99282; 99283

== ENCOUNTER 2019-07-07 14:39 | Outpatient (CLI) | payer MEDICARE, OTHER, SELFPAY ==
--- NOTE | 2019-07-07 15:45 | USCV_ITS ---
Mere Preston Age: 69 Gender: F : 1950 Exam Date: 07/07/2019 14:58 Ordering Phys: Sharon Pringle MD ([email or web address]) Technologist: Hima Torres Exam Location: [facility] Indication: IRREG HEART BEAT BP: 125 / 80 HR: 75 Rhythm: Sinus Technical Quality: Fair MEASUREMENTS (Male / Female) Normal Values 2D ECHO LV Diastolic Diameter PLAX 4.1 cm 4.2 - 5.9 / 3.9 - 5.3 cm LV Systolic Diameter PLAX 2.4 cm IVS Diastolic Thickness 1.3 cm 0.6 - 1.0 / 0.6 - 0.9 cm IVS Systolic Thickness 1.2 cm LVPW Diastolic Thickness 0.9 cm 0.6 - 1.0 / 0.6 - 0.9 cm LVPW Systolic Thickness 1.1 cm LVOT Diameter 2.0 cm LV Ejection Fraction 2D Teich 72.6 % LV Ejection Fraction MOD 2C 58.0 % LV Ejection Fraction 2C AL 58.1 % LA Diameter 4.3 cm LA Width 4.6 cm LA Height 6.0 cm RA Width 3.8 cm RA Height 5.0 cm M-MODE LV Diastolic Diameter MM 4.4 cm 4.2 - 5.9 / 3.9 - 5.3 cm LV Systolic Diameter MM 3.3 cm LV Ejection Fraction MM Teich 49.3 % IVS Diastolic Thickness MM 1.1 cm 0.6 - 1.0 / 0.6 - 0.9 cm IVS Systolic Thickness MM 1.3 cm LVPW Diastolic Thickness MM 1.1 cm 0.6 - 1.0 / 0.6 - 0.9 cm LVPW Systolic Thickness MM 1.8 cm RV Diastolic Diameter MM 1.7 cm Aortic Annulus Diameter 3.8 cm LA Ao Ratio MM 1.1 MV E Point Septal Separation 1.5 cm DOPPLER PV Peak Velocity 93.0 cm/s FINDINGS Left Ventricle Normal left ventricular size and systolic function, EF 55 %. No regional wall motion abnormalities. Right Ventricle Normal right ventricular size and systolic function. Right Atrium Mildly increased right atrial size. Left Atrium Mildly increased left atrial size. Mitral Valve Thickened mitral valve. Aortic Valve Thickened aortic valve. Tricuspid Valve No gross abnormalities noted Pulmonic Valve Trace pulmonary valve regurgitation. Pericardium Normal pericardium without effusion. Aorta Normal ascending aorta dimension. CONCLUSIONS Normal left ventricular size and systolic function, EF 55 %. No regional wall motion abnormalities. Mild biatrial enlargement. Thickened aortic and mitral valves. There is no pericardial effusion. There are no intracardiac masses. Compared to the previous study from 09/10/2013, no significant changes in the 2D findings Dr Sharon Pringle MD FACC (Electronically Signed) Final Date: 08 July 2019 08:24 S
== END 2019-07-07 14:40 | disposition home or self-care (01) ==
LOC: RAD 14:43
PROVIDERS: Family Provider Nurse Practitioner; PCP Nurse Practitioner; Visit Provider Internal Medicine Cardiovascular Disease
DX: I48.0 Paroxysmal atrial fibrillation (principal); I51.7 Cardiomegaly
CPT/HCPCS: 93308

== ENCOUNTER → 2019-12-09 13:57 | Outpatient (BNVA) | payer MEDICARE, OTHER, SELFPAY | PROVIDERS: Family Provider Nurse Practitioner; PCP Nurse Practitioner; Visit Provider Nurse Practitioner | DX: R41.3 Other amnesia (principal); I10 Essential (primary) hypertension; E78.2 Mixed hyperlipidemia; F41.9 Anxiety disorder, unspecified; J45.909 Unspecified asthma, uncomplicated; I48.0 Paroxysmal atrial fibrillation; E55.9 Vitamin D deficiency, unspecified; Z12.39 Encounter for other screening for malignant neoplasm of breast; I48.91 Unspecified atrial fibrillation; F32.9 Major depressive disorder, single episode, unspecified | CPT/HCPCS: 71046; 80053; 80061; 82306; 82607; 84443 ==

== ENCOUNTER 2019-12-18 20:30 | Emergency (ER) | payer MEDICARE, OTHER, SELFPAY ==
[2019-12-18 20:37] VITALS: BP 122/72; PULSE 84; RESP 16; TEMP 36.6; O2SAT 98; BMI 30.2
--- NOTE | 2019-12-18 21:09 | ED_ITS ---
HPI - Extremity Problem General: Chief complaint: Extremity Injury, Lower Stated complaint: dropped glass on foot/ pain Time Seen by Provider: 12/18/19 21:08 Source: patient Mode of arrival: ambulatory Limitations: no limitations History of Present Illness: HPI Narrative: Right foot injury. Patient dropped a pane of glass on dorsal right foot. Patient reports increase pain with weight bearing. Patient report incident occured this afternoon. Patient appears well. Patient appears in no acute distress. Review of Systems General: Reports: 10 or more systems reviewed and unremarkable except in HPI and below Musc: Reports: extremity pain Skin/Breast: Reports: other (right foot laceration) [facility] ED PFS: Medical History (Updated 12/18/19 @ 21:48 by MARIBEL Cavanaugh) Anxiety and depression Asthma Atrial fibrillation by electrocardiogram Benign hypertension Environmental and seasonal allergies High risk medication use EKG from 09/22/2019 showed the QRS duration of 100 ms Mixed hyperlipidemia Vitamin D deficiency Surgical History History of cardiac radiofrequency ablation (RFA) patient is unsure but feels like this was about 20 years ago. History of section History of hysterectomy History of oophorectomy Family History Other Hypertension Social History Smoking and tobacco status: never smoked Second hand smoke exposure: No Smoking risk assessment/counseling performed?: No Alcohol intake: never Desire information about alcohol rehabilitation?: No Counseling given: No Desire information about substance/drug rehabilitation?: No Counseling given: No Caregiver/support person: No Lives independently: Yes Household members: children Housing: House Marital status: / Number of children: 2 service: No Current occupational status: unemployed Pets and animals: Yes History of recent travel: Yes ([place]) Out of state: Yes Out of country: No Current gender identity: Female Physical Exam Const: COMMON NORMALS: no acute distress and patient oriented x3 GENERAL APPEARANCE: cooperative HENMT: COMMON NORMALS: normocephalic and Normal external nose present HEAD & SCALP: normal to inspection and normocephalic NOSE: Normal external nose present MOUTH: Normal oral and palatal mucosa present Eye: GENERAL EYE: appearance normal, both eyes and all related structures Neck/C-Spine: COMMON NORMALS: full ROM Chest: COMMONS NORMALS: normal inspection of the chest Resp: COMMON NORMALS: normal respiratory effort EFFORT & INSPECTION: Yes able to speak in complete sentences Cardio: COMMON NORMALS: regular rate and regular rhythm RATE: regular rate RHYTHM: regular rhythm GI: COMMON NORMALS: non-tender Back/Pelvis: COMMON NORMALS: thoracic and lumbar spine normal to inspection Extremity: NARRATIVE EXTREMITY EXAM: right dorsal foot 1.5 cm laceration dorsal right foot, soft tissue tenderness. no foreign body noted Neuro: COMMON NORMALS: patient oriented x3 and moves all extremities Psych: COMMON NORMALS: mental status grossly normal and cooperative Skin: COMMON NORMALS: no rashes or lesions noted GENERAL SKIN EXAM: no rashes or lesions noted Procedures Laceration Laceration 1: Site: lower extremity (right foot) Side (If applicable): right Size (cm): 1 Description: linear Depth: simple, single layer Local Anesthetic: lidocaine 1% Amount of anesthesia used (mL): 4 Pre-repair: wound explored and irrigated extensively Skin layer closed with: nylon Size (cm): 4-0 Number of sutures: 2 Technique: simple, interrupted and horizontal mattress Course Vital Signs: Vital signs: Vital Signs Temperature 97.9 F 12/18/19 20:37 Pulse Rate 78 12/18/19 22:15 Respiratory Rate 16 12/18/19 22:15 Blood Pressure 122/84 12/18/19 22:15 Pulse Oximetry 98 12/18/19 22:15 MDM - Extremity (Nontraumatic) MDM Narrative: Medical decision making narrative: Patient comes in for injury to the right foot. Patient dropped a paint of glass on her foot which caused a small laceration to the dorsal foot. Patient reports pain with ambulation. Differential diagnosis includes but not limited to fracture, contusion, laceration. X-ray noted no fracture. Laceration was closed with 2 stitches. Patient tolerated well. Reviewed exam and recommendations for treatment and follow-up. Patient reported understanding and agreed to plan. Discharge Plan Discharge Patient Disposition: Home Clinical Impression: Laceration Contusion of foot, right Qualifiers: Encounter type: initial encounter Qualified Code(s): S90.31XA - Contusion of right foot, initial encounter Condition: Stable Prescriptions: New cephalexin 500 mg capsule 500 mg PO BID 10 Days Qty: 20 RF: 0 No Action nitroglycerin 0.4 mg tablet, sublingual 0.4 mg sublingual RF: 0 aspirin 81 mg tablet,delayed release (DR/EC) PO RF: 0 cetirizine 10 mg tablet 10 mg PO RF: 0 albuterol sulfate 90 mcg/actuation HFA aerosol inhaler 2 inh INHALATION Q6H Qty: 18 RF: 2 atorvastatin 40 mg tablet 40 mg PO DAILY Qty: 90 RF: 1 budesonide-formoterol 160-4.5 mcg/actuation HFA aerosol inhaler 2 inh INHALATION BID Qty: 10.2 RF: 2 fluticasone propionate 50 mcg/actuation spray,suspension 2 spray INTRANASAL DAILY Qty: 16 RF: 2 lisinopril 10 mg tablet 10 mg PO DAILY Qty: 90 RF: 1 montelukast 10 mg tablet 10 mg PO DAILY Qty: 90 RF: 1 rivaroxaban 15 mg tablet 15 mg PO DAILY Qty: 90 RF: 1 trazodone 50 mg tablet 150 mg PO .hs Qty: 270 RF: 1 venlafaxine 50 mg tablet 50 mg PO BID Qty: 180 RF: 1 aripiprazole 2 mg tablet 2 mg PO DAILY Qty: 90 RF: 1 (DME) blood pressure test kit-large Kit See Rx Instructions .ROUTE .MEDSUPPLY Qty: 1 RF: 0 flecainide 50 mg tablet 75 mg PO Q12H 90 Days Qty: 270 RF: 3 Discharge Orders: Discharge Order (Routine); Ordered 12/18/19 Ordered By: Prosper Choi Referrals: Marsha Kelly, WAREHOUSE DELIVERY MANAGER-C [Primary Care Provider] - Discharge Diet: Usual diet Discharge Activity: Increase activity as tolerated Patient Instructions: Laceration (ED) Activity Restrictions/Additional Instructions: Keep wound clean and dry. Activity as tolerated. Wear a good supportive shoe. Dressed the wound to keep it clean and dry. Follow-up with primary care in 7 days for recheck and removal and suture. Return to the emergency department for new concerns. Discharge Date/Time: 12/18/19 22:19 Coding Level of Care Code ED Upset Operator for Chg Fwd Exam Comprehensive
--- NOTE | 2019-12-18 21:17 | XR_ITS ---
WS: [id number] RIGHT FOOT: 3 VIEW(S) TECHNIQUE: AP, oblique and lateral. HISTORY: injury COMPARISON: None available. No acute fracture or dislocation. Normal tarsal/metatarsal alignment. Soft tissue edema over the dorsal surface of the midfoot. XR/XR foot RT min 3V* [id number] IMPRESSION: Soft tissue edema but no fracture.
[2019-12-18 21:26] VITALS: RESP 16
[2019-12-18] MEDS: lidocaine 1% INJ 20 mL INJECTION (21:29)
[2019-12-18] MEDS: cephALEXin 500 mg Capsule PO (22:13)
[2019-12-18] MEDS: HYDROcodone-acetaminophen 5-325 mg Tablet 1 TAB PO (22:13)
[2019-12-18 22:15] VITALS: BP 122/84; PULSE 78; RESP 16; O2SAT 98
== END 2019-12-18 22:19 | disposition home or self-care (01) ==
PROVIDERS: Emergency Provider Nurse Practitioner Family; PCP Nurse Practitioner
DX: S91.311A Laceration without foreign body, right foot, initial encounter (principal); Z79.82 Long term (current) use of aspirin; W25.XXXA Contact with sharp glass, initial encounter; I48.91 Unspecified atrial fibrillation; I10 Essential (primary) hypertension; E78.2 Mixed hyperlipidemia
CPT/HCPCS: 12001; 12345; 73630; 99281; 99283

== ENCOUNTER → 2019-12-30 14:08 | Outpatient (BNVA) | payer MEDICARE, OTHER, SELFPAY | PROVIDERS: PCP Nurse Practitioner; Visit Provider Nurse Practitioner | DX: R73.9 Hyperglycemia, unspecified (principal) | CPT/HCPCS: 83036 ==

== ENCOUNTER → 2020-02-15 15:18 | Outpatient (BNVA) | payer MEDICARE, OTHER, SELFPAY | PROVIDERS: PCP Nurse Practitioner; Visit Provider Nurse Practitioner | DX: Z11.59 Encounter for screening for other viral diseases (principal); I10 Essential (primary) hypertension; Z20.828 Contact with and (suspected) exposure to other viral communicable diseases | CPT/HCPCS: 85025; 87635 ==

== ENCOUNTER 2020-06-14 13:38 | Outpatient (CLI) | payer MEDICARE, OTHER, SELFPAY ==
--- NOTE | 2020-06-14 14:00 | MM_ITS ---
WS: [id number] BILATERAL DIGITAL SCREENING MAMMOGRAPHY WITH CAD CLINICAL INFORMATION: screen breast HISTORY: Screening mammogram. Right breast soreness COMPARISON: None. TECHNIQUE: Bilateral CC and MLO views. FINDINGS: The breasts are composed of heterogeneous fibroglandular density tissue, which can limit the detectio n of small underlying mass lesions. No suspicious mass, asymmetry, calcifications, or architectural d istortion. No evidence of malignancy. A few punctate and lucent centered calcifications. MM/[place] [id number] IMPRESSION: BI-RADS: 2-Benign FOLLOW UP: 1 Year Follow-up Recommend return to annual screening mammography.
== END 2020-06-14 13:39 | disposition home or self-care (01) ==
LOC: RADSHAW 13:42
PROVIDERS: PCP Nurse Practitioner; Visit Provider Nurse Practitioner
DX: Z12.31 Encounter for screening mammogram for malignant neoplasm of breast (principal)
CPT/HCPCS: 77067

== ENCOUNTER → 2020-06-22 13:53 | Outpatient (BNVA) | payer MEDICARE, OTHER, SELFPAY | PROVIDERS: PCP Nurse Practitioner; Visit Provider Nurse Practitioner | DX: J45.909 Unspecified asthma, uncomplicated (principal); F41.9 Anxiety disorder, unspecified; E78.2 Mixed hyperlipidemia; J30.89 Other allergic rhinitis; I10 Essential (primary) hypertension; I48.91 Unspecified atrial fibrillation; G47.00 Insomnia, unspecified | CPT/HCPCS: 80053; 80061 ==

== ENCOUNTER 2020-08-14 12:20 | Outpatient (CLI) | payer MEDICARE, OTHER, SELFPAY ==
--- NOTE | 2020-08-14 12:27 | XR_ITS ---
WS: [id number] Exam: XR chest 2V* [id number] Date/Time of Exam: 08/14/2020 12:35 PM Reason For Exam: R07.89 - Other chest pain Comparison 12/09/2019. The lungs are clear and fully expanded. Slight blunting of the left costophrenic angle may represent trace pleural effusion. Normal cardiomediastinal structures and bony elements. A battery pack superim poses the anterior central chest. XR/XR chest 2V* [id number] IMPRESSION: 1. Blunted left costophrenic angle suggesting trace left pleural effusion. 2. The lungs as well as the cardiomediastinal structures are otherwise unremark able.
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
== END 2020-08-14 12:21 | disposition home or self-care (01) ==
LOC: RAD 12:23
PROVIDERS: PCP Nurse Practitioner; Visit Provider Nurse Practitioner Family
DX: R07.89 Other chest pain (principal); S22.49XA Multiple fractures of ribs, unspecified side, initial encounter for closed fracture; V89.2XXA Person injured in unspecified motor-vehicle accident, traffic, initial encounter; M25.512 Pain in left shoulder; M19.012 Primary osteoarthritis, left shoulder
CPT/HCPCS: 71046; 71110; 73030

== ENCOUNTER → 2020-09-01 10:06 | Outpatient (BNVA) | payer MEDICARE, OTHER, SELFPAY | PROVIDERS: PCP Nurse Practitioner; Visit Provider Nurse Practitioner | DX: R20.0 Anesthesia of skin (principal); R20.2 Paresthesia of skin; E55.9 Vitamin D deficiency, unspecified | CPT/HCPCS: 82607 ==

== ENCOUNTER → 2020-11-10 10:33 | Outpatient (BNVA) | payer MEDICARE, OTHER, SELFPAY | PROVIDERS: PCP Nurse Practitioner; Visit Provider Emergency Medicine | DX: Z20.822 Contact with and (suspected) exposure to COVID-19 (principal) | CPT/HCPCS: 87635 ==

== ENCOUNTER 2020-11-14 12:34 | Inpatient (IN) | payer MEDICARE, OTHER, SELFPAY ==
[2020-11-14] VITALS (22 sets, daily range): BP systolic 107–145; BP diastolic 73–105; PULSE 77–120; RESP 13–28; TEMP 36.6; O2SAT 92–99; BMI 29.9
--- NOTE | 2020-11-14 | CT_ITS ---
NOTE: Report was unsigned for reason: Order was edited. Original Signature date and time was: 11/14/[address] C SPINE REASON FOR EXAM: fall. black right eye IV CONTRAST ADMINISTERED: Noncontrast TOTAL EXAM DLP: 815.[address] scans at [facility] use at least one of these dose optimization techniques: automated exposure control; mA and/or kV adjustment per patient size (includes targeted exams where dose is matched to clinical indication); or iterative reconstruction. FINDINGS: The examination of the cervical spine does not include C7. Normal odontoid and normal atlantoaxial articulations. No vertebral body abnormality C1-C6. Normal facet joint alignment. Narrowing of the intervertebral disc space at C5-C6. IMPRESSION: Cervical spine imaging only extends from the base of the skull to C6. No abnormality in this region of the cervical spine. [facility] CT/CT cervical spin wo con* [id number] IMPRESSION: Findings in the sinuses are most likely due to chronic sinusitis. The facial bone structures are intact. No fracture of the cervical spine from the base of skull through the cervicotho racic junction.
--- NOTE | 2020-11-14 | CT_ITS ---
NOTE: Report was unsigned for reason: Order was edited. Original Signature date and time was: 11/14/[address] FACIAL BONES REASON FOR EXAM: fall/ neck pain IV CONTRAST ADMINISTERED: Noncontrast TOTAL EXAM DLP: 874.[address] scans at [facility] use at least one of these dose optimization techniques: automated exposure control; mA and/or kV adjustment per patient size (includes targeted exams where dose is matched to clinical indication); or iterative reconstruction. FINDINGS: Cervical spine imaging to the level of C6 was read from the facial bones CT. The cervical spine imaging includes the cervical spine through the cervicothoracic junction. No fracture or dislocation. Evaluation of the facial bones demonstrates mucosal thickening, soft tissue density, and fluid within the ethmoid, maxillary, and sphenoid sinuses. No nasal bone fracture is identified. The bony structure of the orbits and sinuses are unremarkable. The base of the skull is intact. Normal mastoids. The mandible is intact. Zygomatic arches are intact. IMPRESSION: Findings in the sinuses are most likely due to chronic sinusitis. The facial bone structures are intact. No fracture of the cervical spine from the base of skull through the cervicothoracic junction. MTDD CT/CT facial bones wo con* [id number] IMPRESSION: Cervical spine imaging only extends from the base of the skull to C6. No abnorm ality in this region of the cervical spine.
--- NOTE | 2020-11-14 12:32 | CT_ITS ---
WS: [id number] CT head wo con* [id number] REASON FOR EXAM: fall IV CONTRAST ADMINISTERED: Noncontrast TOTAL EXAM DLP: 964.[address] scans at [facility] use at least one of these dose optimization techniques: automat ed exposure control; mA and/or kV adjustment per patient size (includes targeted exams where dose is matched to clinical indication); or iterative reconstruction. FINDINGS: No midline shift or other significant mass effect. No findings of intracranial hemorrhage and no extra-axial fluid collection. No acute focal brain parenchymal abnormality in the cerebral hemispheres, brainstem, or cerebellar he mispheres. There is some low-attenuation in the deep white matter consistent with chronic ischemic demyelination secondary to small vessel disease. The ventricles are normal. The base of the skull and the calvarium are intact. Mucosal thickening and fluid in the maxillary and ethmoid sinuses. CT/CT head wo con* [id number] IMPRESSION: No acute intracranial abnormality. Chronic sinusitis.
--- NOTE | 2020-11-14 12:32 | XR_ITS ---
WS: [id number] XR chest 1V portable [id number] REASON FOR EXAM: covid+/ dyspnea FINDINGS: Reticular nodular and groundglass opacities are seen in the subpleural right lower lung field and lef t lower lung field. There is mild tortuosity the thoracic aorta. The heart is at the upper limits of normal in size. The bony thorax is intact. XR/XR chest 1V portable [id number] IMPRESSION: Pulmonary infiltrates that are fairly typical for Covid pneumonitis.
--- NOTE | 2020-11-14 12:37 | CT_ITS ---
WS: [id number] CT cervical spin wo con* [id number] REASON FOR EXAM: fall/ neck pain IV CONTRAST ADMINISTERED: Noncontrast TOTAL EXAM DLP: 874.[address] scans at [facility] use at least one of these dose optimization techniques: automat ed exposure control; mA and/or kV adjustment per patient size (includes targeted exams where dose is matched to clinical indication); or iterative reconstruction. FINDINGS: Cervical spine imaging to the level of C6 was read from the facial bones CT. The cervical spine imagi ng includes the cervical spine through the cervicothoracic junction. No fracture or dislocation. Evaluation of the facial bones demonstrates mucosal thickening, soft tissue density, and fluid within the ethmoid, maxillary, and sphenoid sinuses. No nasal bone fracture is identified. The bony structure of the orbits and sinuses are unremarkable. The base of the skull is intact. Normal mastoids. The mandible is intact. Zygomatic arches are intact.
--- NOTE | 2020-11-14 12:37 | CT_ITS ---
WS: [id number] CT facial bones wo con* [id number] REASON FOR EXAM: fall. black right eye IV CONTRAST ADMINISTERED: Noncontrast TOTAL EXAM DLP: 815.[address] scans at [facility] use at least one of these dose optimization techniques: automat ed exposure control; mA and/or kV adjustment per patient size (includes targeted exams where dose is matched to clinical indication); or iterative reconstruction. FINDINGS: The examination of the cervical spine does not include C7. Normal odontoid and normal atlantoaxial articulations. No vertebral body abnormality C1-C6. Normal facet joint alignment. Narrowing of the intervertebral disc space at C5-C6.
--- NOTE | 2020-11-14 12:39 | ECG_ITS ---
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 Measurements Intervals [place] Rate: 111 P: DC: QRS: -6 QRSD: 142 T: 103 QT: 382 QTc: 519 Interpretive Statements ATRIAL FIBRILLATION WITH RAPID VENTRICULAR RESPONSE LEFT BUNDLE BRANCH BLOCK [120+ ms QRS DURATION, 80+ ms Q/S IN V1/V2, 85+ ms R IN I/aVL/V5/V6] Compared to ECG 06/21/2019 17:22:27 Left bundle-branch block now present Sinus rhythm no longer present T-wave abnormality no longer present Electronically Signed On 11-30-2020 9:59:06 CDT by Naz Colón M.D. [id number]
--- NOTE | 2020-11-14 13:03 | W.ED.COVID ---
HPI - COVID General: Chief Complaint: Shortness of Breath/Dyspnea Stated Complaint: covid + History of Present Illness: HPI Narrative: The patient is a 70-year-old female with past medical history hypertension, A. fib on rel and tested positive for Covid on November 10 comes to the ER complaining of weakness, nausea, vomiting, dehydration. Couple days ago she fell and hit her right eye on the floor and has ecchymosis to her periorbital region. She says she has difficulty walking and feels lightheaded. EMS brought her in and have given her several 100 cc of IV fluids prior to arrival. Her symptoms began on the for her closest estimation which makes this day 8 of symptoms. She is on an antibiotic but not steroids. She has not been offered antibiotic infusion. On arrival her heart rate is in the 120s A. fib with RVR. EMS reported she was satting in the upper 90s on room air and they added 2 L for her comfort. MD complaint: known COVID positive Prior covid testing: yes, results known COVID 19 common symptoms: positive chills, cough, non-productive cough, dyspnea, fatigue, headache(s), nausea and vomiting; negative throat pain or nasal congestion COVID 19 other sytmptoms: negative chest pain Treatment prior to arrival: antibiotics COVID Results: SARS-CoV-2 RNA (RT-PCR) Detected (NOT DETECTED) A 11/10/20 10:33 11/10/20 Review of Systems General: Reports: 10 or more systems reviewed and unremarkable except in HPI and below Const: Reports: chills and fatigue Eyes: Denies: change in vision, blurry vision or eye redness ENMT: Denies: throat pain, swelling of lips/tongue, ear or mastoid pain or nasal congestion Card: Denies: chest pain, palpitations, irregular heart rhythm, edema, dyspnea on exertion or orthopnea Resp: Reports: dyspnea and non-productive cough GI: Reports: nausea and vomiting; Denies: abdominal pain : Denies: flank pain, difficulty voiding, urinary frequency or urinary urgency Musc: Denies: neck pain, back pain, extremity pain, joint pain, joint redness, limited range of motion or muscle weakness Skin/Breast: Denies: rash, pruritus, erythema, skin pain or skin tenderness Neuro: Reports: headache(s) Psych: Denies: anxiety or depression Endo: Denies: polyuria All/Imm: Denies: urticaria, throat swelling or tongue swelling PFSH ED PFSH: Medical History Anxiety and depression Asthma Atrial fibrillation by electrocardiogram Benign hypertension Environmental and seasonal allergies High risk medication use EKG from 09/22/2019 showed the QRS duration of 100 ms Insomnia Mixed hyperlipidemia Vitamin D deficiency Surgical History History of cardiac radiofrequency ablation (RFA) patient is unsure but feels like this was about 20 years ago. History of section History of hysterectomy History of oophorectomy Family History Father CAD (coronary artery disease) Lung disease Mother CAD (coronary artery disease) Cancer Dementia Other Hypertension Denies family history of Diabetes Clotting disorder Chronic kidney disease (CKD) Suicide Anesthesia complication Bleeding disorder Stroke Social History Second hand smoke exposure: No Smoking risk assessment/counseling performed?: No Alcohol intake: never Desire information about alcohol rehabilitation?: No Counseling given: No Desire information about substance/drug rehabilitation?: No Counseling given: No Caregiver/support person: No Lives independently: Yes Household members: children Housing: House Marital status: / Number of children: 2 service: No Current occupational status: unemployed Pets and animals: Yes History of recent travel: Yes ([place]) Out of state: Yes Out of country: No Current gender identity: Female Physical Exam Const: COMMON NORMALS: no acute distress, average body habitus, patient oriented x3, no limitations, healthy appearing, alert and well nourished GENERAL APPEARANCE: cooperative, comfortable, well kempt and well developed ORIENTATION/CONSCIOUSNESS: Yes awake, Yes oriented to person, Yes oriented to place and Yes oriented to time HENMT: COMMON NORMALS: normocephalic, external ears normal and Normal external nose present HEAD & SCALP: normal to inspection and normocephalic NOSE: Normal external nose present EXTERNAL EAR: Yes external ears normal MOUTH: Normal oral and palatal mucosa present THROAT: posterior oropharynx normal Eye: COMMON NORMALS: Equal, round and reactive pupils present and EOMs intact bilaterally GENERAL EYE: appearance normal, both eyes and all related structures PUPIL: Yes Equal, round and reactive pupils present Neck/C-Spine: COMMON NORMALS: full ROM, no lymphadenopathy, no meningeal signs and no JVD GENERAL: Yes normal visual inspection Lymph: LYMPHATIC: no lymphadenopathy noted Chest: COMMONS NORMALS: normal inspection of the chest and normal palpation of entire chest wall Resp: COMMON NORMALS: normal respiratory effort, No retractions, No use of accessory muscles, clear to auscultation bilaterally and percussion normal EFFORT & INSPECTION: Yes able to speak in complete sentences AUSCULTATION: clear to auscultation bilaterally PERCUSSION: percussion normal Cardio: COMMON NORMALS: no JVD, S1 normal heart sound present, S2 normal heart sound present and Peripheral pulses 2+ throughout RATE: tachycardic RHYTHM: abnormal rhythm irregularly irregular HEART SOUNDS: S1 normal heart sound present and S2 normal heart sound present PERIPHERAL PULSES: Peripheral pulses 2+ throughout GI: COMMON NORMALS: Normal to inspection, nondistended, normoactive bowel sounds present, Soft to palpation, non-tender and no masses INSPECTION: Yes normal to inspection PALPATION: Yes Soft to palpation : COMMON NORMALS: Yes no CVA tenderness BLADDER/KIDNEY EXAM: Yes no CVA tenderness Back/Pelvis: COMMON NORMALS: no CVA tenderness, thoracic and lumbar spine normal to inspection, no thoracic nor lumbar tenderness and thoraco-lumbar ROM normal Extremity: COMMON NORMALS: normal to inspection, full ROM, capillary refill normal, no joint enlargement and no pedal edema GENERAL: Yes normal exam except as noted Neuro: COMMON NORMALS: patient oriented x3, CN's II-XII intact bilaterally, moves all extremities, no focal motor deficits, no sensory deficits noted and gait normal SENSORIUM/ORIENTATION: Yes alert, Yes oriented to person, Yes oriented to place and Yes oriented to time MENINGEAL SIGNS: Yes no meningeal signs Psych: COMMON NORMALS: mental status grossly normal, Normal thought process present, cooperative, normal affect and speech normal APPEARANCE: Yes well kempt ATTITUDE: Yes calm SPEECH: Yes normal speech THOUGHT PROCESS: Normal thought process present Skin: COMMON NORMALS: no rashes or lesions noted GENERAL SKIN EXAM: no rashes or lesions noted Course Vital Signs: Vital signs: Vital Signs Temperature 98 F 11/14/20 22:29 Pulse Rate 82 11/14/20 22:29 Respiratory Rate 20 H 11/14/20 22:29 Blood Pressure 124/73 11/14/20 22:29 Pulse Oximetry 95 11/14/20 22:29 MDM - COVID MDM Narrative: Medical decision making narrative: The patient is a 70-year-old female who came to the ER after suffering with Covid for several days at home. She complains of shortness of breath and productive cough. She also has chronic atrial fibrillation and was complaining of fast heart rate. EKG shows A. fib with RVR. She was given Cardizem and started on a drip. Her heart rate was in the 120s initially and did decrease some however maintained above [address] Bain who accepts for admission. Lab Data: Labs: Lab Results 11/14/20 11/14/20 11/14/20 Range/Units 13:16 13:16 13:16 WBC 4.7 (4.0-10.0) 10^3/ uL RBC 3.62 L (4.1-5.3) 10^6/u L Hgb 8.9 L (11.5-15.3) g/dL Hct 30.4 L (37.0-47.0) % MCV 84.0 (81-99) fL MCH 24.6 L (28.0-34.0) pg MCHC 29.3 L (30.0-36.0) g/dL RDW 13.4 (12.1-15.1) % Plt Count 319 (130-400) 10^3/c mm MPV 9.0 (7.4-10.4) fL Neut % (Auto) 79.2 % Lymph % (Auto) 12.0 % [place] % (Auto) 7.7 % Eos % (Auto) 0.0 % Baso % (Auto) 0.2 % Neut # (Auto) 3.69 (1.8-7.7) 10^3/u L Lymph # (Auto) 0.6 L (0.8-4.8) 10^3/u L [place] # (Auto) 0.4 (0.2-0.9) 10^3/u L Eos # (Auto) 0.0 (0.0-0.8) 10^3/u L Baso # (Auto) 0.0 (0.0-0.1) 10^3/u L Nucleated RBC % (a uto) 0 % Nucleated RBCs # 0.0 /100WBC D-Dimer 0.39 (0-0.59) ug/mIFE U Sodium 139 (136-145) mmol/L Potassium 3.6 (3.5-5.1) mmol/L Chloride 102 (98-107) mmol/L Carbon Dioxide 27 (22-29) mmol/L Anion Gap 13.6 (5-19) BUN 18 (8-23) mg/dL Creatinine 1.0 H (0.5-0.9) mg/dL GFR Calculation 54.8 L (90-130) mL/min Glucose 89 (65-115) mg/dL Calculated Osmolal ity 289 (285-295) mOsm/k g Lactate (0.5-2.2) mmol/L Calcium 7.9 L (8.5-10.5) mg/dL Total Bilirubin 0.4 (0.15-1.2) mg/dL AST 19 (0-32) U/L ALT 8 (0-33) U/L Alkaline Phosphata se 71 (35-105) IU/L Troponin T Baselin e (0-10) ng/L Troponin T 120 Min [place] (0-10) ng/L Delta Troponin T (0-10) ABS# NT-Pro-B Natriuret Pep 866 H (0-125) pg/mL Total Protein 5.4 L (6.6-8.7) g/dL Albumin 3.2 L (3.5-5.2) g/dL Globulin 2.2 (1.3-4.6) g/dL Urine Color (Yellow) Urine Appearance (CLEAR) Urine pH (5-7) Ur Specific Gravit y (1.005-1.030) Urine Protein (Negative) Urine Glucose (UA) (Normal) Urine Ketones (Negative) Urine Blood (Negative) Urine Nitrate (Negative) Urine Bilirubin (Negative) Urine Urobilinogen (Negative) mg/dL Ur Leukocyte Jaimee ase (Negative) Urine RBC (0-2) /hpf Urine WBC (0-5) /hpf Ur Squamous Epith Cells (0-5) /hpf Amorphous Sediment Urine Bacteria (NONE) /hpf 11/14/20 11/14/20 11/14/20 Range/Units 13:16 13:16 15:30 WBC (4.0-10.0) 10^3/ uL RBC (4.1-5.3) 10^6/u L Hgb (11.5-15.3) g/dL Hct (37.0-47.0) % MCV (81-99) fL MCH (28.0-34.0) pg MCHC (30.0-36.0) g/dL RDW (12.1-15.1) % Plt Count (130-400) 10^3/c mm MPV (7.4-10.4) fL Neut % (Auto) % Lymph % (Auto) % [place] % (Auto) % Eos % (Auto) % Baso % (Auto) % Neut # (Auto) (1.8-7.7) 10^3/u L Lymph # (Auto) (0.8-4.8) 10^3/u L [place] # (Auto) (0.2-0.9) 10^3/u L Eos # (Auto) (0.0-0.8) 10^3/u L Baso # (Auto) (0.0-0.1) 10^3/u L Nucleated RBC % (a uto) % Nucleated RBCs # /100WBC D-Dimer (0-0.59) ug/mIFE U Sodium (136-145) mmol/L Potassium (3.5-5.1) mmol/L Chloride (98-107) mmol/L Carbon Dioxide (22-29) mmol/L Anion Gap (5-19) BUN (8-23) mg/dL Creatinine (0.5-0.9) mg/dL GFR Calculation (90-130) mL/min Glucose (65-115) mg/dL Calculated Osmolal ity (285-295) mOsm/k g Lactate 1.0 (0.5-2.2) mmol/L Calcium (8.5-10.5) mg/dL Total Bilirubin (0.15-1.2) mg/dL AST (0-32) U/L ALT (0-33) U/L Alkaline Phosphata se (35-105) IU/L Troponin T Baselin e 19 H (0-10) ng/L Troponin T 120 Min [place] 14.29 H (0-10) ng/L Delta Troponin T -4.71 L (0-10) ABS# NT-Pro-B Natriuret Pep (0-125) pg/mL Total Protein (6.6-8.7) g/dL Albumin (3.5-5.2) g/dL Globulin (1.3-4.6) g/dL Urine Color (Yellow) Urine Appearance (CLEAR) Urine pH (5-7) Ur Specific Gravit y (1.005-1.030) Urine Protein (Negative) Urine Glucose (UA) (Normal) Urine Ketones (Negative) Urine Blood (Negative) Urine Nitrate (Negative) Urine Bilirubin (Negative) Urine Urobilinogen (Negative) mg/dL Ur Leukocyte Jaimee ase (Negative) Urine RBC (0-2) /hpf Urine WBC (0-5) /hpf Ur Squamous Epith Cells (0-5) /hpf Amorphous Sediment Urine Bacteria (NONE) /hpf 11/14/20 Range/Units 15:39 WBC (4.0-10.0) 10^3/ uL RBC (4.1-5.3) 10^6/u L Hgb (11.5-15.3) g/dL Hct (37.0-47.0) % MCV (81-99) fL MCH (28.0-34.0) pg MCHC (30.0-36.0) g/dL RDW (12.1-15.1) % Plt Count (130-400) 10^3/c mm MPV (7.4-10.4) fL Neut % (Auto) % Lymph % (Auto) % [place] % (Auto) % Eos % (Auto) % Baso % (Auto) % Neut # (Auto) (1.8-7.7) 10^3/u L Lymph # (Auto) (0.8-4.8) 10^3/u L [place] # (Auto) (0.2-0.9) 10^3/u L Eos # (Auto) (0.0-0.8) 10^3/u L Baso # (Auto) (0.0-0.1) 10^3/u L Nucleated RBC % (a uto) % Nucleated RBCs # /100WBC D-Dimer (0-0.59) ug/mIFE U Sodium (136-145) mmol/L Potassium (3.5-5.1) mmol/L Chloride (98-107) mmol/L Carbon Dioxide (22-29) mmol/L Anion Gap (5-19) BUN (8-23) mg/dL Creatinine (0.5-0.9) mg/dL GFR Calculation (90-130) mL/min Glucose (65-115) mg/dL Calculated Osmolal ity (285-295) mOsm/k g Lactate (0.5-2.2) mmol/L Calcium (8.5-10.5) mg/dL Total Bilirubin (0.15-1.2) mg/dL AST (0-32) U/L ALT (0-33) U/L Alkaline Phosphata se (35-105) IU/L Troponin T Baselin e (0-10) ng/L Troponin T 120 Min [place] (0-10) ng/L Delta Troponin T (0-10) ABS# NT-Pro-B Natriuret Pep (0-125) pg/mL Total Protein (6.6-8.7) g/dL Albumin (3.5-5.2) g/dL Globulin (1.3-4.6) g/dL Urine Color Yellow (Yellow) Urine Appearance Clear (CLEAR) Urine pH 5 (5-7) Ur Specific Gravit y 1.020 (1.005-1.030) Urine Protein Neg (Negative) Urine Glucose (UA) Norm (Normal) Urine Ketones 1+ H (Negative) Urine Blood 2+ H (Negative) Urine Nitrate Negative (Negative) Urine Bilirubin Neg (Negative) Urine Urobilinogen Norm (Negative) mg/dL Ur Leukocyte Jaimee ase Negative (Negative) Urine RBC 0-4 H (0-2) /hpf Urine WBC None (0-5) /hpf Ur Squamous Epith Cells 0-4 H (0-5) /hpf Amorphous Sediment Not Reportable Urine Bacteria Trace (NONE) /hpf COVID Results: SARS-CoV-2 RNA (RT-PCR) Detected (NOT DETECTED) A 11/10/20 10:33 11/10/20 Discharge Plan Discharge Patient Disposition: Admitted As Inpatient Admit Provider: Jaime Bain Clinical Impression: Atrial fibrillation with rapid ventricular response, COVID-19 Condition: Stable Coding Level of Care Code ED Awning Spreader for Chg Fwd Exam Comprehensive
[2020-11-14] MEDS: dexamethasone 4 mg/mL INJ 6 MG IVP (13:10)
[2020-11-14] MEDS: sodium chloride 0.9% 1,000 ML 500 ML IV (13:10)
[2020-11-14] MEDS: ondansetron 2 mg/ML SDV 2 mL 4 MG IVP (13:12)
[2020-11-14 13:26] LABS: Basophils % 0.2 %; Hematocrit 30.4 % (37.0-47.0); Hemoglobin 8.9 g/dL (11.5-15.3); Lymphocytes # 0.6 10^3/uL (0.8-4.8); Mean Corpuscular HGB Conc 29.3 g/dL (30.0-36.0); Mean Corpuscular Hemoglobin 24.6 pg (28.0-34.0); Monocytes # 0.4 10^3/uL (0.2-0.9); Monocytes % 7.7 %; Neutrophils # 3.69 10^3/uL (1.8-7.7); Neutrophils % 79.2 %; Nucleated Red Blood Cells % 0 %; Platelet Count 319 10^3/cmm (130-400); Red Blood Count 3.62 10^6/uL (4.1-5.3); Red Cell Distribution Width 13.4 % (12.1-15.1); White Blood Count 4.7 10^3/uL (4.0-10.0)
[2020-11-14 13:47] LABS: D Dimer 0.39 ug/mIFEU (0-0.59)
[2020-11-14 13:50] LABS: Troponin(5th) Baseline 19 ng/L (0-10)
[2020-11-14 13:58] LABS: Alanine Aminotransferase 8 U/L (0-33); Albumin Level 3.2 g/dL (3.5-5.2); Alkaline Phosphatase 71 IU/L (35-105); Anion Gap 13.6 (5-19); Aspartate Amino Transferase 19 U/L (0-32); Blood Urea Nitrogen 18 mg/dL (8-23); Calcium 7.9 mg/dL (8.5-10.5); Carbon Dioxide 27 mmol/L (22-29); Chloride 102 mmol/L (98-107); Globulin 2.2 g/dL (1.3-4.6); Glomerular Filtration Rate 54.8 mL/min (90-130); Glucose 89 mg/dL (65-115); NT Pro B Type Natriuretic Pept 866 pg/mL (0-125); Osmolality Calculated 289 mOsm/kg (285-295); Potassium 3.6 mmol/L (3.5-5.1); Sodium 139 mmol/L (136-145); Total Bilirubin 0.4 mg/dL (0.15-1.2); Total Protein 5.4 g/dL (6.6-8.7)
[2020-11-14] MEDS: albuterol 8 gm MDI 2 PUFF INHALATION (14:32)
--- NOTE | 2020-11-14 14:39 | ECG_ITS ---
[facility] Test Date: 2020-11-14 Pat Name: Mere Preston Department: Room: Gender: Female Pit Hand: : 1950 Requested By: Thuan Leon Order Number: [id number] Gagandeep MD: Fei Stanley M.D. Measurements Intervals [place] Rate: 114 P: MO: QRS: 11 QRSD: 129 T: 129 QT: 377 QTc: 520 Interpretive Statements ATRIAL FIBRILLATION WITH RAPID VENTRICULAR RESPONSE WITH ABERRANT CONDUCTION OR VENTRICULAR PREMATURE COMPLEXES MODERATE INTRAVENTRICULAR CONDUCTION DELAY [105+ ms QRS DURATION, 80+ ms Q/S IN V1/V2, NO Q AND 60+ ms R IN I/aVL/V5/V6] ST DEVIATION AND MODERATE T-WAVE ABNORMALITY, CONSIDER LATERAL ISCHEMIA [-0.1+ mV T WAVE IN I/aVL/V5/V6] Compared to ECG 11/14/2020 13:03:06 Ventricular premature complex(es) now present Aberrant conduction of supraventricular beat(s) now present Intraventricular conduction delay now present T-wave abnormality now present Possible ischemia now present Left bundle-branch block no longer present Electronically Signed On 11-15-2020 0:53:53 CDT by Fei Stanley M.D. [id number]
[2020-11-14 16:11] LABS: Urine Appearance Clear (CLEAR); Urine Color Yellow (Yellow); pH Urine 5 (5-7)
[2020-11-14 16:12] LABS: Add Urine Microscopic? YES; Bilirubin Urine Neg (Negative); Blood Urine 2+ (Negative); Glucose Urine UA Norm (Normal); Ketones Urine 1+ (Negative); Leukocyte Esterase Urine Negative (Negative); Nitrate Urine Negative (Negative); Protein Urine Neg (Negative); Urobilinogen Urine Norm (Negative)
[2020-11-14 16:13] LABS: Bacteria Urine TRACE /hpf; RBC Urine 0-4 /hpf (0-2); Squamous Epithelial Cell Urine 0-4 /hpf (0-5)
[2020-11-14 16:24] LABS: Troponin 5 2HR 14.29 ng/L (0-10)
[2020-11-14 16:26] LABS: Troponin 5 2HR Delta -4.71 ABS# (0-10)
--- NOTE | 2020-11-14 18:39 | ECG_ITS ---
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 Measurements Intervals [place] Rate: 101 P: IA: QRS: 21 QRSD: 126 T: 121 QT: 391 QTc: 509 Interpretive Statements ATRIAL FIBRILLATION WITH RAPID VENTRICULAR RESPONSE INFERIOR MYOCARDIAL INFARCTION [40+ ms Q WAVE AND/OR ST/T ABNORMALITY IN II/aVF], PROBABLY OLD Compared to ECG 11/14/2020 15:31:56 Myocardial infarct finding now present Ventricular premature complex(es) no longer present Aberrant conduction of supraventricular beat(s) no longer present Intraventricular conduction delay no longer present T-wave abnormality no longer present Possible ischemia no longer present Electronically Signed On 11-20-2020 0:42:27 CDT by Naz Colón M.D. [email or web address]/[id number]
--- NOTE | 2020-11-14 18:39 | PM.HP ---
Providers/Chief Complaint Primary Care Provider: BENEDICTO Pete Chief Complaint: covid + History of Present Illness Mere Preston is a 70 year old female with history of asthma and atrial fibrillation presents with worsening symptoms of Covid. She first noticed symptoms with diarrhea and a horrible cough. She has sometimes coughed up sputum. She was very weak and progressively getting worse she also complained of dizziness. Today she felt like she could not stay standing and had to sit down due to the symptoms. And she said enough is enough and she came to the hospital. While in the emergency room she was found to have A. fib with RVR. And this was symptomatic to her. She is being admitted for COVID-19 treatment as well as heart rate control. Review of Systems Const: Denies: fever(s) or chills Eyes: Denies: change in vision ENMT: Denies: throat pain or nasal congestion Card: Reports: irregular heart rhythm, pre-syncope and dyspnea on exertion Resp: Reports: dyspnea and productive cough GI: Reports: diarrhea; Denies: nausea or vomiting : Denies: dysuria Musc: Denies: back pain or extremity pain Skin/Breast: Denies: rash or lesions Neuro: Reports: dizziness; Denies: headache(s) Psych: Denies: anxiety or depression Derian/Lymph: Denies: easy bruising or easy bleeding Medications/Allergies Home Medications Medication Instructions Recorded Confirmed Last Taken Type nitroglycerin 0.4 mg sublingual 0.4 mg SUBLINGUAL Q5M PRN tab 06/18/19 11/14/20 Unknown History tablet blood pressure test kit-large #1 each 06/24/19 11/14/20 Unknown Rx flecainide 100 mg tablet 100 mg PO Q12H 90 Days #180 tab 03/01/20 11/14/20 11/14/20 Rx albuterol sulfate 90 mcg/actuation 2 inh INHALATION Q6H #18 gm 06/22/20 11/14/20 11/13/20 Rx aerosol inhaler aripiprazole 2 mg tablet 2 mg PO DAILY #90 tab 06/22/20 11/14/20 11/14/20 Rx atorvastatin 40 mg tablet 40 mg PO DAILY #90 tab 06/22/20 11/14/20 11/13/20 Rx fluticasone propionate 50 2 spray INTRANASAL DAILY #48 g 06/22/20 11/14/20 11/14/20 Rx mcg/actuation nasal spray,suspension montelukast 10 mg tablet 10 mg PO DAILY #90 tab 06/22/20 11/14/20 11/14/20 Rx rivaroxaban 15 mg tablet 15 mg PO DAILY #90 tab 06/22/20 11/14/20 11/13/20 Rx venlafaxine 50 mg tablet 50 mg PO BID #180 tab 06/22/20 11/14/20 11/14/20 Rx cholecalciferol (vitamin D3) 125 125 mcg PO DAILY 08/14/20 11/14/20 11/13/20 History mcg (5,000 unit) capsule cetirizine 10 mg tablet 10 mg PO DAILY tab 10/17/20 11/14/20 11/14/20 History triamcinolone acetonide 0.1 % 1 applic TOPICAL BID #80 g 11/01/20 11/14/20 Unknown Rx topical cream doxycycline hyclate 100 mg tablet 100 mg PO BID 7 Days #14 tab 11/09/20 11/14/20 11/14/20 Rx prednisone 20 mg tablet 20 mg PO DAILY 5 Days #5 tab 11/09/20 11/14/20 Unknown Rx budesonide-formoterol [Symbicort] 2 inh INHALATION BID 11/14/20 11/14/20 11/14/20 History lisinopril 5 mg PO DAILY 11/14/20 11/14/20 11/14/20 History trazodone 150 mg PO BEDTIME 11/14/20 11/14/20 11/13/20 History Allergies Allergy/AdvReac Type Severity Reaction Status Date / Time No Known Allergies Allergy Verified 11/01/20 15:41 PFSH Acute PFSH: Medical History Anxiety and depression Asthma Atrial fibrillation by electrocardiogram Benign hypertension Environmental and seasonal allergies High risk medication use EKG from 09/22/2019 showed the QRS duration of 100 ms Insomnia Mixed hyperlipidemia Vitamin D deficiency Surgical History History of cardiac radiofrequency ablation (RFA) patient is unsure but feels like this was about 20 years ago. History of section History of hysterectomy History of oophorectomy Family History Father CAD (coronary artery disease) Lung disease Mother CAD (coronary artery disease) Cancer Dementia Other Hypertension Denies family history of Diabetes Clotting disorder Chronic kidney disease (CKD) Suicide Anesthesia complication Bleeding disorder Stroke Social History Second hand smoke exposure: No Smoking risk assessment/counseling performed?: No Alcohol intake: never Desire information about alcohol rehabilitation?: No Counseling given: No Desire information about substance/drug rehabilitation?: No Counseling given: No Caregiver/support person: No Lives independently: Yes Household members: children Housing: House Marital status: / Number of children: 2 service: No Current occupational status: unemployed Pets and animals: Yes History of recent travel: Yes ([place]) Out of state: Yes Out of country: No Current gender identity: Female Vitals/I&O/Wt Last Vital Signs Pulse 111 H 11/14/20 18:25 Resp 28 H 11/14/20 18:25 BP 130/89 11/14/20 18:25 Pulse Ox 94 11/14/20 18:25 11/14/20 11/14/20 11/14/20 06:59 14:59 22:59 Intake Total 6.583 / 6.583 Balance 6.583 / 6.583 Weight last 48 hrs Weight 92.079 kg Physical Exam Const: COMMON NORMALS: average body habitus GENERAL APPEARANCE: cooperative, comfortable and ill appearing HENMT: COMMON NORMALS: normocephalic and atraumatic FACE & SINUS: normal facial exam and sinuses nontender NOSE: Normal external nose present and Normal nares present EXTERNAL EAR: Yes external ears normal EXTERNAL AUDITORY CANAL: EAC's normal MOUTH: Normal oral and palatal mucosa present Eye: COMMON NORMALS: Equal, round and reactive pupils present, EOMs intact bilaterally and no scleral icterus Neck/C-Spine: COMMON NORMALS: no lymphadenopathy, supple, no JVD and Thyroid normal Lymph: LYMPHATIC: no lymphadenopathy noted Chest: COMMONS NORMALS: normal inspection of the chest and normal palpation of entire chest wall Resp: COMMON NORMALS: normal respiratory effort AUSCULTATION: diminished lung sounds diffuse Cardio: RATE: tachycardic RHYTHM: abnormal rhythm HEART SOUNDS: no murmurs GI: COMMON NORMALS: Normal to inspection, nondistended, normoactive bowel sounds present and Soft to palpation AUSCULTATION: Yes normoactive bowel sounds PALPATION: Yes Tenderness to palpation present (GI) (diffuse mild tenderness) : COMMON NORMALS: Yes no CVA tenderness Back/Pelvis: COMMON NORMALS: thoracic and lumbar spine normal to inspection Extremity: COMMON NORMALS: normal to inspection and no clubbing, cyanosis or edema Neuro: COMMON NORMALS: patient oriented x3, CN's II-XII intact bilaterally, moves all extremities, no focal motor deficits and no sensory deficits noted Psych: COMMON NORMALS: Normal thought process present, cooperative, normal affect and speech normal Skin: COMMON NORMALS: no rashes or lesions noted Data : 11/14/20 13:16 11/14/20 13:16 A&P Assessment and plan (1) COVID-19 in immunocompromised patient: I believe COVID is cause of afib with RVR and she is very symptomatic for over a week with symptoms requiring hospitalization. oxygen, supportive care redesivir and decadron already on PPI hold prednisone consider pulm consult and eval for other opportunitist infections Status: Acute (2) Atrial fibrillation with rapid ventricular response: continue cardizem drip and titrate as required. once rate controlled convert to short and then long acting calcium jaxon kaylie. 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 Status: Acute (3) Asthma: continue home meds. This makes pt's condition more concerning. Status: Chronic Qualifiers: Asthma severity: moderate Asthma persistence: unspecified Asthma complication type: unspecified Qualified Code(s): J45.909 - Unspecified asthma, uncomplicated (4) Benign hypertension: continue home meds Status: Chronic Attestations Medical Necessity Statement*: I believe COVID is cause of afib with RVR and she is very symptomatic for over a week with symptoms requiring hospitalization. she will require over 2 MN of hospitalization. Coding Level of Care Code Acute Regional Retail Sales Manager for [facility] Fwd Diagnoses COVID-19 in immunocompromised patient U07.1; D84.9 Atrial fibrillation with rapid ventricular response I48.91 Asthma J45.909 Asthma severity: moderate Asthma persistence: unspecified Asthma complication type: unspecified Benign hypertension I10
[2020-11-14 19:47] LABS: Troponin 5 6HR 14.67 ng/L (0-10); Troponin 5 6HR Delta -4.33 ng/L (0-12)
[2020-11-14] MEDS: enoxaparin 40 mg/0.4 mL Syringe SUBCUT (21:24)
--- NOTE | 2020-11-14 22:36 | PC.NURSE ---
Patient arrived to the floor from the ED after report was received via phone. Patient is alert and oriented. Patient states that she uses a walker at home, but that is it not enough to help her. She states she lives with her daughter and granddaughter who help her. She states she had a fall a home , leaving a bruise above her right eye. She states she was tested for COVID Friday and received her positive results Friday. Patient's heart rate is 80s A-fib. Patient arrived with Cardizem drip at 10, which I titrated down per protocol/order. Patient has been oriented to her room and call light and has been educated to not get up without assistance. Will monitor.
[2020-11-14] MEDS: flecainide 100 mg Tablet PO (23:05)
[2020-11-14] MEDS: trazodone 150 mg Tablet PO (23:05)
[2020-11-14] MEDS: remdesivir 200 MG in sodium chloride 0.9% (100 ml) 100 ML 100 MG IV (23:12)
[2020-11-15] VITALS (14 sets, daily range): BP systolic 95–123; BP diastolic 56–84; PULSE 80–110; RESP 16–20; TEMP 36.4–37; O2SAT 92–98
[2020-11-15] MEDS: albuterol 8 gm MDI 2 PUFF INHALATION ×4 (02:10→20:53)
--- NOTE | 2020-11-15 02:19 | PC.NURSE ---
Patient weaned from 2 L NC to RA and oxygen saturation is 92 percent. Will continue to monitor.
[2020-11-15 04:21] LABS: Hematocrit 27.7 % (37.0-47.0); Hemoglobin 8.2 g/dL (11.5-15.3); Lymphocytes # 0.6 10^3/uL (0.8-4.8); Lymphocytes % 20.6 %; Mean Corpuscular HGB Conc 29.6 g/dL (30.0-36.0); Mean Corpuscular Hemoglobin 24.6 pg (28.0-34.0); Mean Corpuscular Volume 83.2 fL (81-99); Mean Platelet Volume 9.5 fL (7.4-10.4); Monocytes # 0.2 10^3/uL (0.2-0.9); Monocytes % 6.7 %; Neutrophils # 1.91 10^3/uL (1.8-7.7); Neutrophils % 71.6 %; Nucleated Red Blood Cells % 0 %; Platelet Count 306 10^3/cmm (130-400); Red Blood Count 3.33 10^6/uL (4.1-5.3); Red Cell Distribution Width 13.3 % (12.1-15.1); White Blood Count 2.7 10^3/uL (4.0-10.0)
[2020-11-15 04:42] LABS: Anion Gap 13.4 (5-19); Blood Urea Nitrogen 20 mg/dL (8-23); Calcium 8.3 mg/dL (8.5-10.5); Carbon Dioxide 24 mmol/L (22-29); Chloride 106 mmol/L (98-107); Glomerular Filtration Rate 54.8 mL/min (90-130); Glucose 126 mg/dL (65-115); Magnesium 1.8 mg/dL (1.7-2.3); Osmolality Calculated 294 mOsm/kg (285-295); Potassium 3.4 mmol/L (3.5-5.1); Sodium 140 mmol/L (136-145)
--- NOTE | 2020-11-15 09:02 | PC.CHAP ---
Pastoral Care Encounter/Spiritual Assessment Type of Contact [] Declined addresser visit [] Patient/Family/Request visit [] Outpatient visit [] Follow-up visit [] Physician referral [] Code/Alert [x] Routine visit [] Staff referral [] Actively dying [] Patient sleeping [] Family support [] [] Out of room [] Palliative care [] [] Receiving care in room [] Pre-surgical visit [] Trauma [] Long length of stay [] ICU visit [x] Other: isolated Relational/Emotional Strength [] Patient feels connected with others/family/visitors/staff [] Distress [] Loneliness/isolation [] Abandonment Spirituality of Patient [] Person of Tania [] Attends Sikh of their Tania [] Believes in Prayer [] Reads Bible or Scientologist materials [] There are Spiritual issues to be addressed Intramural Director Interventions [x] Prayer [] Active listening [] Non-anxious presence [] Spiritual/emotional support [] Crisis/trauma care [] Spiritual counseling [] Bereavement support [] Provided bereavement packet [] Provided Bible/devotional materials [] Provided toy/stuffed animal, coloring book to patient or family member [] Provided Communion [] Anointing/[place] [] Salvation [x] Completed spiritual assessment [] Other: Impact on Illness or Injury [] Angry [] Fearful [] Anxious [] Often cries [] Exhaustion [] Unable to work [] Unable to attend zoroastrian [] Unable to walk/stand [] Unable to read [] Unable to drive [] Unable to eat/drink [] Unable to sleep [] Unable to be with family [] Patient intubated [] Other: Summary Time spent with patient
[2020-11-15] MEDS: lisinopril 5 mg Tablet PO (09:20)
[2020-11-15] MEDS: docusate sodium 100 mg Capsule PO ×2 (09:20→17:38)
[2020-11-15] MEDS: atorvastatin 40 mg Tablet PO ×2 (09:20→21:12)
[2020-11-15] MEDS: cetirizine 10 mg Tablet PO (09:20)
[2020-11-15] MEDS: famotidine 20 mg Tablet PO ×2 (09:20→17:38)
[2020-11-15] MEDS: cholecalciferol (vitamin D3) 5,000 unit Tablet 5000 UNIT PO (09:21)
[2020-11-15] MEDS: fluticasone nasal spray 16gm Btl 2 SPRAY INTRANASAL (09:21)
[2020-11-15] MEDS: montelukast sodium 10 mg Tablet PO (09:21)
[2020-11-15] MEDS: rivaroxaban 10 mg Tablet 15 MG PO (09:22)
[2020-11-15] MEDS: ARIPiprazole 2 mg Tablet PO (10:07)
[2020-11-15] MEDS: venlafaxine 75 mg Tablet 50 MG PO ×2 (10:07→17:38)
[2020-11-15] MEDS: dilTIAZem ER (24HR) 120 mg Capsule PO (10:07)
[2020-11-15] MEDS: flecainide 100 mg Tablet PO ×2 (11:30→23:15)
--- NOTE | 2020-11-15 13:34 | PM.PN ---
Subjective Subjective: Interval history: feeling much better. Doesnt like oxygen. Has been stable off. Doesn't feel heart racing. Medications: Reviewed: Yes Vitals/I&O/Wt Last Vital Signs Temp 97.8 F 11/15/20 12:00 Pulse 92 11/15/20 12:00 Resp 16 11/15/20 12:00 BP 121/77 11/15/20 12:00 Pulse Ox 96 11/15/20 12:00 11/14/20 11/15/20 11/15/20 22:59 06:59 14:59 Intake Total 1051.249 / 1051.249 200 / 1251.249 720 / 720 Balance 1051.249 / 1051.249 200 / 1251.249 720 / 720 Weight last 48 hrs Weight 92.079 kg Physical Exam Narrative: EXAM NARRATIVE: NAD looks improved today H: Irreg irreg without loud murmur L: decreased more on right base, with a few rhonchi A: soft nt/nd nl BS E: no c/c/e Data : 11/15/20 03:20 11/15/20 03:20 A&P Assessment and plan (1) COVID-19: Day 2 remdesivir and decadron - tolerating well. Status: Acute (2) Atrial fibrillation with rapid ventricular response: off cardizem drip. Hr around 90 on long acting cardizem Status: Acute (3) COVID-19 in immunocompromised patient: pt was on prednisone 20 mg daily for ? asthma Status: Acute Attestations Medical Necessity Statement*: Pt requires continued hospitalization for COVID 19 and tachycardia to avoid life threatening change in condition. Coding Level of Care Code Acute Supervisor Tellers for [facility] Fwd Diagnoses COVID-19 U07.1 Atrial fibrillation with rapid ventricular response I48.91 COVID-19 in immunocompromised patient U07.1; D84.9
[2020-11-15] MEDS: dexamethasone 4 mg/mL INJ 6 MG IVP (16:52)
[2020-11-15] MEDS: remdesivir 100 MG in sodium chloride 0.9% (100 ml) 100 ML IV (17:42)
[2020-11-15] MEDS: trazodone 150 mg Tablet PO (21:12)
[2020-11-15] MEDS: enoxaparin 40 mg/0.4 mL Syringe SUBCUT (21:13)
[2020-11-16] VITALS (15 sets, daily range): BP systolic 85–143; BP diastolic 55–88; PULSE 71–99; RESP 16–19; TEMP 36.6–37.1; O2SAT 88–96
[2020-11-16 07:27] LABS: Hematocrit 26.8 % (37.0-47.0); Hemoglobin 7.9 g/dL (11.5-15.3); Lymphocytes # 0.7 10^3/uL (0.8-4.8); Lymphocytes % 13.2 %; Mean Corpuscular HGB Conc 29.5 g/dL (30.0-36.0); Mean Corpuscular Hemoglobin 24.4 pg (28.0-34.0); Mean Corpuscular Volume 82.7 fL (81-99); Mean Platelet Volume 9.7 fL (7.4-10.4); Monocytes # 0.4 10^3/uL (0.2-0.9); Monocytes % 6.9 %; Neutrophils # 4.01 10^3/uL (1.8-7.7); Neutrophils % 78.9 %; Nucleated Red Blood Cells % 0 %; Platelet Count 323 10^3/cmm (130-400); Red Blood Count 3.24 10^6/uL (4.1-5.3); Red Cell Distribution Width 13.6 % (12.1-15.1); White Blood Count 5.1 10^3/uL (4.0-10.0)
[2020-11-16 07:56] LABS: Anion Gap 13.7 (5-19); Blood Urea Nitrogen 21 mg/dL (8-23); Carbon Dioxide 23 mmol/L (22-29); Chloride 110 mmol/L (98-107); Glomerular Filtration Rate 70.9 mL/min (90-130); Glucose 136 mg/dL (65-115); Osmolality Calculated 301 mOsm/kg (285-295); Potassium 3.7 mmol/L (3.5-5.1); Sodium 143 mmol/L (136-145)
[2020-11-16] MEDS: albuterol 8 gm MDI 2 PUFF INHALATION ×3 (09:01→20:44)
[2020-11-16] MEDS: lisinopril 5 mg Tablet PO (09:19)
[2020-11-16] MEDS: montelukast sodium 10 mg Tablet PO (09:19)
[2020-11-16] MEDS: rivaroxaban 10 mg Tablet 15 MG PO (09:19)
[2020-11-16] MEDS: ARIPiprazole 2 mg Tablet PO (09:19)
[2020-11-16] MEDS: cetirizine 10 mg Tablet PO (09:19)
[2020-11-16] MEDS: docusate sodium 100 mg Capsule PO ×2 (09:19→18:01)
[2020-11-16] MEDS: dilTIAZem ER (24HR) 120 mg Capsule PO (09:19)
[2020-11-16] MEDS: cholecalciferol (vitamin D3) 5,000 unit Tablet 5000 UNIT PO (09:19)
[2020-11-16] MEDS: famotidine 20 mg Tablet PO ×2 (09:23→18:01)
[2020-11-16] MEDS: venlafaxine 75 mg Tablet 50 MG PO ×2 (09:23→18:02)
[2020-11-16] MEDS: fluticasone nasal spray 16gm Btl 2 SPRAY INTRANASAL (09:26)
[2020-11-16] MEDS: flecainide 100 mg Tablet PO ×2 (11:07→21:44)
--- NOTE | 2020-11-16 16:58 | PM.PN ---
Subjective Subjective: Interval history: Seen in bed. Got out of bed to sit in chair without difficulty. Not wearing oxygen. No complaints today. Medications: Reviewed: Yes Vitals/I&O/Wt Last Vital Signs Temp 98.4 F 11/16/20 16:00 Pulse 91 11/16/20 16:00 Resp 19 H 11/16/20 16:00 BP 85/59 11/16/20 16:00 Pulse Ox 96 11/16/20 16:00 11/16/20 11/16/20 11/16/20 06:59 14:59 22:59 Intake Total 320 / 1140 480 / 480 Balance 320 / 1140 480 / 480 Physical Exam Narrative: EXAM NARRATIVE: NAD looks even better today H: Irreg irreg without loud murmur L: decreased more on right base, NO rhonchi; better aeration A: soft nt/nd nl BS E: no c/c/e Data : 11/16/20 06:36 11/16/20 06:36 A&P Assessment and plan (1) COVID-19: Day 3 remdesivir and decadron - tolerating well. Status: Acute (2) Atrial fibrillation with rapid ventricular response: On cardizem ER without need for extra doses. Status: Acute (3) COVID-19 in immunocompromised patient: pt was on prednisone 20 mg daily for ? asthma Status: Acute (4) Anemia: Status: Acute Attestations Medical Necessity Statement*: Pt requires continued hospitalization for COVID 19 and tachycardia to avoid life threatening change in condition. Coding Level of Care Code Acute Health And Safety Specialist for [facility] Diagnoses COVID-19 U07.1 Atrial fibrillation with rapid ventricular response I48.91 COVID-19 in immunocompromised patient U07.1; D84.9 Anemia D64.9
[2020-11-16] MEDS: dexamethasone 4 mg/mL INJ 6 MG IVP (18:01)
[2020-11-16] MEDS: remdesivir 100 MG in sodium chloride 0.9% (100 ml) 100 ML IV (18:02)
--- NOTE | 2020-11-16 19:00 | PC.NURSE ---
Shift report received from Karely COLINDRES. Patient is A & O, resting in bed watching TV. Patient voices no C/O of pain or other needs at this time.
[2020-11-16] MEDS: enoxaparin 40 mg/0.4 mL Syringe SUBCUT (20:10)
[2020-11-16] MEDS: trazodone 150 mg Tablet PO (21:44)
[2020-11-16] MEDS: atorvastatin 40 mg Tablet PO (21:44)
[2020-11-17] VITALS (13 sets, daily range): BP systolic 128–178; BP diastolic 74–90; PULSE 82–101; RESP 16–20; TEMP 36.6–37.1; O2SAT 90–96
[2020-11-17 08:45] LABS: Basophils % 0.1 %; Hematocrit 30.1 % (37.0-47.0); Hemoglobin 8.8 g/dL (11.5-15.3); Lymphocytes # 0.8 10^3/uL (0.8-4.8); Lymphocytes % 11.5 %; Mean Corpuscular HGB Conc 29.2 g/dL (30.0-36.0); Mean Corpuscular Hemoglobin 24.8 pg (28.0-34.0); Mean Corpuscular Volume 84.8 fL (81-99); Mean Platelet Volume 10.2 fL (7.4-10.4); Monocytes # 0.4 10^3/uL (0.2-0.9); Monocytes % 5.3 %; Neutrophils # 5.82 10^3/uL (1.8-7.7); Neutrophils % 81.6 %; Nucleated Red Blood Cells % 0 %; Platelet Count 363 10^3/cmm (130-400); Red Blood Count 3.55 10^6/uL (4.1-5.3); Red Cell Distribution Width 13.7 % (12.1-15.1); White Blood Count 7.1 10^3/uL (4.0-10.0)
[2020-11-17 09:15] LABS: Anion Gap 15.1 (5-19); Blood Urea Nitrogen 21 mg/dL (8-23); Calcium 8.4 mg/dL (8.5-10.5); Carbon Dioxide 24 mmol/L (22-29); Chloride 109 mmol/L (98-107); Glomerular Filtration Rate 61.9 mL/min (90-130); Glucose 105 mg/dL (65-115); Osmolality Calculated 301 mOsm/kg (285-295); Potassium 4.1 mmol/L (3.5-5.1); Sodium 144 mmol/L (136-145)
[2020-11-17] MEDS: albuterol 8 gm MDI 2 PUFF INHALATION ×3 (09:38→21:09)
[2020-11-17] MEDS: ARIPiprazole 2 mg Tablet PO (10:09)
[2020-11-17] MEDS: cholecalciferol (vitamin D3) 5,000 unit Tablet 5000 UNIT PO (10:09)
[2020-11-17] MEDS: montelukast sodium 10 mg Tablet PO (10:10)
[2020-11-17] MEDS: dilTIAZem ER (24HR) 120 mg Capsule PO (10:10)
[2020-11-17] MEDS: venlafaxine 75 mg Tablet 50 MG PO ×2 (10:10→18:20)
[2020-11-17] MEDS: docusate sodium 100 mg Capsule PO ×2 (10:10→18:20)
[2020-11-17] MEDS: cetirizine 10 mg Tablet PO (10:10)
[2020-11-17] MEDS: famotidine 20 mg Tablet PO ×2 (10:10→18:20)
[2020-11-17] MEDS: lisinopril 5 mg Tablet PO (10:10)
[2020-11-17] MEDS: fluticasone nasal spray 16gm Btl 2 SPRAY INTRANASAL (10:11)
[2020-11-17] MEDS: rivaroxaban 10 mg Tablet 15 MG PO (10:11)
--- NOTE | 2020-11-17 10:47 | PC.RESP ---
Pulmonary Rehab information sent to patient.
[2020-11-17] MEDS: flecainide 100 mg Tablet PO ×2 (14:06→21:39)
--- NOTE | 2020-11-17 16:13 | PC.SOCIAL ---
IMM update IMM updated with patient. Verbalized an understanding. Initialed, dated, timed, and placed in chart.
[2020-11-17] MEDS: dexamethasone 4 mg/mL INJ 6 MG IVP (18:20)
[2020-11-17] MEDS: remdesivir 100 MG in sodium chloride 0.9% (100 ml) 100 ML IV (18:20)
--- NOTE | 2020-11-17 21:11 | P.PN_ITS ---
Subjective Subjective: Interval history: Seen in bed. Not wearing oxygen. No complaints today. Medications: Reviewed: Yes Vitals/I&O/Wt Last Vital Signs Temp 97.8 F 11/17/20 16:00 Pulse 98 11/17/20 16:30 Resp 16 11/17/20 16:30 BP 128/90 11/17/20 16:00 Pulse Ox 96 11/17/20 16:30 11/17/20 11/17/20 11/17/20 06:59 14:59 22:59 Intake Total 200 / 200 300 / 500 Output Total 100 / 300 Balance -100 / 520 200 / 200 300 / 500 Physical Exam Narrative: EXAM NARRATIVE: NAD resting comfortably H: Irreg irreg without loud murmur L: decreased more on right base, NO rhonchi; better aeration A: soft nt/nd nl BS E: no c/c/e Data : 11/17/20 06:22 11/17/20 06:22 A&P Assessment and plan (1) COVID-19: Day 4 remdesivir and decadron - tolerating well. Status: Acute (2) Atrial fibrillation with rapid ventricular response: On cardizem ER without need for extra doses. Status: Acute (3) COVID-19 in immunocompromised patient: pt was on prednisone 20 mg daily for ? asthma Status: Acute (4) Anemia: Status: Acute Attestations Medical Necessity Statement*: Hospitalized for COVID 19 likely causing afib to become RVR. requires continued care Coding Level of Care Code Acute Buffing Turner And Counter for [facility] Viviana Diagnoses COVID-19 U07.1 Atrial fibrillation with rapid ventricular response I48.91 COVID-19 in immunocompromised patient U07.1; D84.9 Anemia D64.9
[2020-11-17] MEDS: trazodone 150 mg Tablet PO (21:39)
[2020-11-17] MEDS: enoxaparin 40 mg/0.4 mL Syringe SUBCUT (21:39)
[2020-11-17] MEDS: atorvastatin 40 mg Tablet PO (21:39)
[2020-11-18] VITALS (11 sets, daily range): BP systolic 107–146; BP diastolic 82–95; PULSE 91–134; RESP 13–19; TEMP 36.6–36.8; O2SAT 82–97
[2020-11-18] MEDS: albuterol 8 gm MDI 2 PUFF INHALATION (10:08)
[2020-11-18] MEDS: lisinopril 5 mg Tablet PO (11:15)
[2020-11-18] MEDS: docusate sodium 100 mg Capsule PO (11:15)
[2020-11-18] MEDS: cholecalciferol (vitamin D3) 5,000 unit Tablet 5000 UNIT PO (11:15)
[2020-11-18] MEDS: dilTIAZem ER (24HR) 120 mg Capsule PO (11:16)
[2020-11-18] MEDS: cetirizine 10 mg Tablet PO (11:16)
[2020-11-18] MEDS: venlafaxine 75 mg Tablet 50 MG PO (11:16)
[2020-11-18] MEDS: flecainide 100 mg Tablet PO (11:17)
[2020-11-18] MEDS: ARIPiprazole 2 mg Tablet PO (11:17)
[2020-11-18] MEDS: montelukast sodium 10 mg Tablet PO (11:17)
[2020-11-18] MEDS: rivaroxaban 10 mg Tablet 15 MG PO (11:17)
[2020-11-18] MEDS: fluticasone nasal spray 16gm Btl 2 SPRAY INTRANASAL (11:17)
[2020-11-18] MEDS: famotidine 20 mg Tablet PO (11:18)
--- NOTE | 2020-11-20 18:34 | PC.SOCIAL ---
discharge follow up phone call made. patient picked up prescriptions from pharmacy. understands directions for taking. patient aware of stopped medications, doxycycline and change in prednisone dosage. patient is using home o2 at 2L nc and tolerating well. patient has her walker for home use. patient given quarantine end day of 11-24-20. patient will schedule her own follow up date with her pcp due to several planned appointments already made.
--- NOTE | 2020-12-05 13:42 | PM.DCS ---
Discharge Providers Date of Admission: 11/14/20 18:39 Date of Discharge: November 18, 2020 Attending Provider at Admission: Jaime Bain DO Attending Provider at Discharge: Jaime Bain DO Primary Care Provider: BENEDICTO Pete Diagnoses at Discharge Discharge Diagnosis (1) COVID-19: Status: Acute (2) Atrial fibrillation with rapid ventricular response: Status: Acute (3) COVID-19 in immunocompromised patient: Status: Acute Reason for Visit Reason for Visit: covid + Hospital Course Hospital Course Pt admitted with worsening symptoms of COVID along with afib with RVR. She was startd on cardizem drip in ER. She was asymptomatic with afib with RVR. She was given the usual COVID treatment with remdesivir and decadron. She did not require oxygen after a few days and her HR was stable on long acting cardizem. She was discharged to home after 5 days of remdesivir. Physical Exam Narrative: EXAM NARRATIVE: General: improved color and stamina H: irreg with murmur L clear A soft nt/nd nl BS E no edema Discharge Data Data Completed and Pending: Completed Studies During Hospitalization Category Date Time Status CT cervical spin wo con* 82535 Urge nt Cat Scan 11/14/20 12:[address] facial bones w o con* [id number] Urgen t Cat Scan 11/14/20 12:[address] head wo con* 7 0450 Urgent Cat Scan 11/14/20 12:32 Completed XR chest 1V leyla ble [id number] Urgent Exams 11/14/20 12:32 Completed Vitals: Last Vital Signs Temp 98.2 F 11/18/20 16:00 Pulse 119 H 11/18/20 16:00 Resp 19 H 11/18/20 16:00 BP 124/86 11/18/20 16:00 Pulse Ox 92 11/18/20 16:00 Discharge Plan Discharge Patient Disposition: Home Condition: Stable Prescriptions: New atorvastatin 40 mg Tablet 40 mg PO BEDTIME Qty: 30 RF: 0 diltiazem HCl 120 mg Capsule,Extended Release 24hr 120 mg PO DAILY Qty: 30 RF: 0 Continued nitroglycerin 0.4 mg tablet, sublingual 0.4 mg sublingual Q5M PRN (Reason: Chest Pain) RF: 0 cetirizine 10 mg tablet 10 mg PO DAILY RF: 0 cholecalciferol (vitamin D3) 125 mcg (5,000 unit) capsule 125 mcg PO DAILY RF: 0 albuterol sulfate 90 mcg/actuation HFA aerosol inhaler 2 inh INHALATION Q6H Qty: 18 RF: 2 aripiprazole 2 mg tablet 2 mg PO DAILY Qty: 90 RF: 1 fluticasone propionate 50 mcg/actuation spray,suspension 2 spray INTRANASAL DAILY Qty: 48 RF: 1 montelukast 10 mg tablet 10 mg PO DAILY Qty: 90 RF: 1 venlafaxine 50 mg tablet 50 mg PO BID Qty: 180 RF: 1 (DME) blood pressure test kit-large Kit See Rx Instructions .ROUTE .MEDSUPPLY Qty: 1 RF: 0 flecainide 100 mg tablet 100 mg PO Q12H 90 Days Qty: 180 RF: 3 trazodone 50 mg tablet 150 mg PO BEDTIME RF: 0 budesonide-formoterol [Symbicort] 160-4.5 mcg/actuation HFA aerosol inhaler 2 inh INHALATION BID RF: 0 Discontinued atorvastatin 40 mg tablet 40 mg PO DAILY Qty: 90 RF: 1 prednisone 20 mg tablet 20 mg PO DAILY 5 Days Qty: 5 RF: 0 doxycycline hyclate 100 mg tablet 100 mg PO BID 7 Days Qty: 14 RF: 0 No Action Xarelto 15 mg tablet 15 mg PO DAILY RF: 0 cefdinir 300 mg capsule 300 mg PO BID 7 Days Qty: 14 RF: 0 Discharge Orders: Discharge Order (Routine); Ordered 11/18/20 Ordered By: Jaime Bain Other Ambulatory Orders: DME: Oxygen (Order) Location: None Selected Ordered By: Jaime Bain DME: Walker (Order) Location: None Selected Ordered By: Jaime Bain Discharge Diet: Usual diet Discharge Activity: Increase activity as tolerated Patient Instructions: Opioid Safety Discharge Attestations Time Spent in Discharge Care*: greater than 30 min Specific Discharge Activities: educating patient, discussing with egg caser/social workers/dc planners and documenting/other paperwork Quality Metrics Clinical Quality Measures During this hospital stay, did patient experience: None Coding Level of Care Code Acute [facility] DC note Diagnoses COVID-19 U07.1 Atrial fibrillation with rapid ventricular response I48.91 COVID-19 in immunocompromised patient U07.1; D84.9
== END 2020-11-18 18:45 | disposition home or self-care (01) | DRG 178 ==
LOC: ER 15:12 → CSU 20:26 → MS 2A 11-15 14:32
PROVIDERS: Admitting Provider Internal Medicine; Emergency Provider Family Medicine; PCP Nurse Practitioner; Visit Provider Internal Medicine
DX: U07.1 COVID-19 (principal); D84.9 Immunodeficiency, unspecified; J45.40 Moderate persistent asthma, uncomplicated; I48.91 Unspecified atrial fibrillation; F41.8 Other specified anxiety disorders; I10 Essential (primary) hypertension; G47.00 Insomnia, unspecified; E78.2 Mixed hyperlipidemia; E55.9 Vitamin D deficiency, unspecified; Z79.52 Long term (current) use of systemic steroids; D64.9 Anemia, unspecified
CPT/HCPCS: 36415; 70450; 70486; 71045; 72125; 80048; 80053; 81001; 83605; 83735; 83880; 84484; 85025; 85378; 93005; 94640; 96365; 96372; 96375; 97110; 97162; 97165; 97530; 99291; J1100; J1650; J2405; J3490; J3535; J7030

== ENCOUNTER → 2020-11-28 15:03 | Outpatient (BNVA) | payer MEDICARE, OTHER, SELFPAY | PROVIDERS: PCP Nurse Practitioner; Visit Provider Nurse Practitioner | DX: E55.9 Vitamin D deficiency, unspecified (principal); D64.9 Anemia, unspecified | CPT/HCPCS: 80048; 82306; 83540; 85025 ==

== ENCOUNTER 2020-11-30 18:30 | Emergency (ER) | payer MEDICARE, OTHER, SELFPAY ==
[2020-11-30 18:57] VITALS: BP 107/58; PULSE 84; RESP 18; TEMP 36.9; O2SAT 94; BMI 30.5
--- NOTE | 2020-11-30 19:25 | XRR_ITS ---
PROCEDURE INFORMATION: Exam: XR Chest Exam date and time: 11/30/2020 7:25 PM Age: 70 years old Clinical indication: Shortness of breath; Additional info: Weakness TECHNIQUE: Imaging protocol: XR of the chest. Views: 1 view. COMPARISON: CR XR chest 1V portable [id number] 11/14/2020 12:39 PM FINDINGS: Lungs: Patchy peripheral airspace opacities in the lower lungs are present bilaterally although seems improved in the right lung base since prior imaging. Mild emphysema. Pleural spaces: Unremarkable. No pleural effusion. No pneumothorax. Heart/Mediastinum: Unremarkable. No cardiomegaly. Bones/joints: Unremarkable. XR/XR chest 1V portable [id number] IMPRESSION: Radiographic improvement in patchy airspace disease of the lung bases.
--- NOTE | 2020-11-30 19:56 | ED_ITS ---
HPI - Dizziness General: Chief Complaint: Dizziness Stated Complaint: phy ref/abnormal labs Time Seen by Provider: 11/30/20 19:56 History of Present Illness: HPI Narrative: 70-year-old female comes in today with complaints of weakness. Patient was seen by her primary care provider on the for a evaluation after hospitalization for COVID-19. Patient was sent home on steroids and will complete her last dose of steroid tomorrow. Patient had some lab work done on the at her primary care office and noted that she had a elevated white count and some anemia. Patient was referred to the ER due to the elevated white count for repeat x-ray and blood cultures. Patient appears unwell but not toxic. Patient is in no acute distress. Patient does have generalized weakness. Review of Systems General: Reports: 10 or more systems reviewed and unremarkable except in HPI and below Neuro: Reports: other (generalized weakness) [facility] PFSH: Medical History Anemia Anxiety and depression Asthma Atrial fibrillation by electrocardiogram Benign hypertension Environmental and seasonal allergies High risk medication use EKG from 09/22/2019 showed the QRS duration of 100 ms Insomnia Mixed hyperlipidemia Vitamin D deficiency Surgical History History of cardiac radiofrequency ablation (RFA) patient is unsure but feels like this was about 20 years ago. History of section History of hysterectomy History of oophorectomy Family History Father CAD (coronary artery disease) Lung disease Mother CAD (coronary artery disease) Cancer Dementia Other Hypertension Denies family history of Diabetes Clotting disorder Chronic kidney disease (CKD) Suicide Anesthesia complication Bleeding disorder Stroke Social History Second hand smoke exposure: No Smoking risk assessment/counseling performed?: No Alcohol intake: never Desire information about alcohol rehabilitation?: No Counseling given: No Desire information about substance/drug rehabilitation?: No Counseling given: No Caregiver/support person: No Lives independently: Yes Household members: children Housing: House Marital status: / Number of children: 2 service: No Current occupational status: unemployed Pets and animals: Yes History of recent travel: Yes ([place]) Out of state: Yes Out of country: No Current gender identity: Female Physical Exam Const: COMMON NORMALS: no acute distress and patient oriented x3 GENERAL APPEARANCE: cooperative HENMT: COMMON NORMALS: normocephalic and Normal external nose present HEAD & SCALP: normal to inspection and normocephalic NOSE: Normal external nose present MOUTH: Normal oral and palatal mucosa present and other (oral mucosa dry) Eye: GENERAL EYE: appearance normal, both eyes and all related structures Neck/C-Spine: COMMON NORMALS: full ROM Lymph: LYMPHATIC: no lymphadenopathy noted Chest: COMMONS NORMALS: normal inspection of the chest Resp: COMMON NORMALS: normal respiratory effort EFFORT & INSPECTION: Yes able to speak in complete sentences AUSCULTATION: diminished lung sounds Cardio: COMMON NORMALS: regular rate and regular rhythm RATE: regular rate RHYTHM: regular rhythm GI: COMMON NORMALS: non-tender : COMMON NORMALS: Yes no CVA tenderness BLADDER/KIDNEY EXAM: Yes no CVA tenderness Back/Pelvis: COMMON NORMALS: no CVA tenderness and thoracic and lumbar spine normal to inspection Extremity: COMMON NORMALS: normal to inspection Neuro: COMMON NORMALS: patient oriented x3 and moves all extremities Psych: COMMON NORMALS: mental status grossly normal and cooperative Skin: COMMON NORMALS: no rashes or lesions noted GENERAL SKIN EXAM: no rashes or lesions noted Course Vital Signs: Vital signs: Vital Signs Temperature 98.4 F 11/30/20 21:05 Pulse Rate 88 11/30/20 22:17 Respiratory Rate 18 11/30/20 22:17 Blood Pressure 123/75 11/30/20 22:17 Pulse Oximetry 94 11/30/20 22:17 MDM - Dizziness MDM Narrative: Medical decision making narrative: Patient came in today after being referred by her PCP for concerns of weakness and elevated white blood cell count. Patient recently gone through treatment for COVID-19 pneumonia. On exam patient's lung sounds are decreased in the bases. Skin was warm and dry. Vital signs were normal. Differential diagnosis includes but not limited to worsening pneumonia, sepsis, urinary tract infection, bacteremia. Urinalysis had a large amount of white blood cells in it. CBC had a 16,000 white blood cell count. White blood cell count may be secondary to patient's prednisone use. Chest x- ray showed improvement in pneumonia. Blood cultures were collected and sent. We will go ahead and treat for urinary tract infection. Patient will be given cefdinir 300 mg twice a day for 7 days. We will initiate therapy with Rocephin 1000 mg tonight. Patient reported understanding of plan and agreed to follow-up with primary care or return to the ER for worsening symptoms. Lab Data: Labs: Lab Results 11/30/20 11/30/20 11/30/20 Range/Units 20:19 20:19 20:19 WBC 16.7 H (4.0-10.0) 10^3/ uL RBC 3.98 L (4.1-5.3) 10^6/u L Hgb 9.7 L (11.5-15.3) g/dL Hct 33.8 L (37.0-47.0) % MCV 84.9 (81-99) fL MCH 24.4 L (28.0-34.0) pg MCHC 28.7 L (30.0-36.0) g/dL RDW 15.1 (12.1-15.1) % Plt Count 570 H (130-400) 10^3/c mm MPV 9.0 (7.4-10.4) fL Neut % (Auto) 83.8 % Lymph % (Auto) 9.0 % [place] % (Auto) 5.6 % Eos % (Auto) 0.1 % Baso % (Auto) 0.2 % Neut # (Auto) 14.00 H (1.8-7.7) 10^3/u L Lymph # (Auto) 1.5 (0.8-4.8) 10^3/u L [place] # (Auto) 0.9 (0.2-0.9) 10^3/u L Eos # (Auto) 0.0 (0.0-0.8) 10^3/u L Baso # (Auto) 0.0 (0.0-0.1) 10^3/u L Nucleated RBC % (a uto) 0 % Nucleated RBCs # 0.0 /100WBC Sodium 139 (136-145) mmol/L Potassium 4.6 (3.5-5.1) mmol/L Chloride 101 (98-107) mmol/L Carbon Dioxide 29 (22-29) mmol/L Anion Gap 13.6 (5-19) BUN 15 (8-23) mg/dL Creatinine 0.9 (0.5-0.9) mg/dL GFR Calculation 61.9 L (90-130) mL/min Glucose 91 (65-115) mg/dL Calculated Osmolal ity 288 (285-295) mOsm/k g Lactic Acid 1.8 (0.5-2.2) mmol/L Calcium 9.2 (8.5-10.5) mg/dL Total Bilirubin 0.3 (0.15-1.2) mg/dL AST 17 (0-32) U/L ALT 32 (0-33) U/L Alkaline Phosphata se 68 (35-105) IU/L Total Protein 6.3 L (6.6-8.7) g/dL Albumin 3.5 (3.5-5.2) g/dL Globulin 2.8 (1.3-4.6) g/dL Urine Color (Yellow) Urine Appearance (CLEAR) Urine pH (5-7) Ur Specific Gravit y (1.005-1.030) Urine Protein (Negative) Urine Glucose (UA) (Normal) Urine Ketones (Negative) Urine Blood (Negative) Urine Nitrate (Negative) Urine Bilirubin (Negative) Urine Urobilinogen (Negative) mg/dL Ur Leukocyte Jaimee ase (Negative) Urine RBC (0-2) /hpf Urine WBC (0-5) /hpf Ur Squamous Epith Cells (0-5) /hpf Amorphous Sediment Urine Bacteria (NONE) /hpf Urine Mucus /hpf 11/30/20 Range/Units 20:50 WBC (4.0-10.0) 10^3/ uL RBC (4.1-5.3) 10^6/u L Hgb (11.5-15.3) g/dL Hct (37.0-47.0) % MCV (81-99) fL MCH (28.0-34.0) pg MCHC (30.0-36.0) g/dL RDW (12.1-15.1) % Plt Count (130-400) 10^3/c mm MPV (7.4-10.4) fL Neut % (Auto) % Lymph % (Auto) % [place] % (Auto) % Eos % (Auto) % Baso % (Auto) % Neut # (Auto) (1.8-7.7) 10^3/u L Lymph # (Auto) (0.8-4.8) 10^3/u L [place] # (Auto) (0.2-0.9) 10^3/u L Eos # (Auto) (0.0-0.8) 10^3/u L Baso # (Auto) (0.0-0.1) 10^3/u L Nucleated RBC % (a uto) % Nucleated RBCs # /100WBC Sodium (136-145) mmol/L Potassium (3.5-5.1) mmol/L Chloride (98-107) mmol/L Carbon Dioxide (22-29) mmol/L Anion Gap (5-19) BUN (8-23) mg/dL Creatinine (0.5-0.9) mg/dL GFR Calculation (90-130) mL/min Glucose (65-115) mg/dL Calculated Osmolal ity (285-295) mOsm/k g Lactic Acid (0.5-2.2) mmol/L Calcium (8.5-10.5) mg/dL Total Bilirubin (0.15-1.2) mg/dL AST (0-32) U/L ALT (0-33) U/L Alkaline Phosphata se (35-105) IU/L Total Protein (6.6-8.7) g/dL Albumin (3.5-5.2) g/dL Globulin (1.3-4.6) g/dL Urine Color Yellow (Yellow) Urine Appearance Clear (CLEAR) Urine pH 7 (5-7) Ur Specific Gravit y 1.015 (1.005-1.030) Urine Protein Neg (Negative) Urine Glucose (UA) Norm (Normal) Urine Ketones Negative (Negative) Urine Blood Trace H (Negative) Urine Nitrate Negative (Negative) Urine Bilirubin Neg (Negative) Urine Urobilinogen Norm (Negative) mg/dL Ur Leukocyte Jaimee ase Trace H (Negative) Urine RBC 0-4 H (0-2) /hpf Urine WBC 40-55 H (0-5) /hpf Ur Squamous Epith Cells 5-10 H (0-5) /hpf Amorphous Sediment Not Reportable Urine Bacteria Trace (NONE) /hpf Urine Mucus 2+ /hpf Discharge Plan Discharge Patient Disposition: Home Clinical Impression: Acute UTI, Pneumonia due to 2019-nCoV Anemia Qualifiers: Anemia type: unspecified type Qualified Code(s): D64.9 - Anemia, unspecified Condition: Stable Prescriptions: New cefdinir 300 mg capsule 300 mg PO BID 7 Days Qty: 14 RF: 0 No Action nitroglycerin 0.4 mg tablet, sublingual 0.4 mg sublingual Q5M PRN (Reason: Chest Pain) RF: 0 cetirizine 10 mg tablet 10 mg PO DAILY RF: 0 cholecalciferol (vitamin D3) 125 mcg (5,000 unit) capsule 125 mcg PO DAILY RF: 0 albuterol sulfate 90 mcg/actuation HFA aerosol inhaler 2 inh INHALATION Q6H Qty: 18 RF: 2 aripiprazole 2 mg tablet 2 mg PO DAILY Qty: 90 RF: 1 fluticasone propionate 50 mcg/actuation spray,suspension 2 spray INTRANASAL DAILY Qty: 48 RF: 1 montelukast 10 mg tablet 10 mg PO DAILY Qty: 90 RF: 1 venlafaxine 50 mg tablet 50 mg PO BID Qty: 180 RF: 1 (DME) blood pressure test kit-large Kit See Rx Instructions .ROUTE .MEDSUPPLY Qty: 1 RF: 0 flecainide 100 mg tablet 100 mg PO Q12H 90 Days Qty: 180 RF: 3 Xarelto 15 mg tablet 15 mg PO DAILY RF: 0 trazodone 50 mg tablet 150 mg PO BEDTIME RF: 0 budesonide-formoterol [Symbicort] 160-4.5 mcg/actuation HFA aerosol inhaler 2 inh INHALATION BID RF: 0 atorvastatin 40 mg Tablet 40 mg PO BEDTIME Qty: 30 RF: 0 diltiazem HCl 120 mg Capsule,Extended Release 24hr 120 mg PO DAILY Qty: 30 RF: 0 Discharge Orders: Discharge ED (Routine); Ordered 11/30/20 Ordered By: Prosper Choi Referrals: Marsha Kelly, HUMAN SERVICES INSTRUCTOR-C [Primary Care Provider] - Discharge Diet: Usual diet Discharge Activity: Increase activity as tolerated Patient Instructions: Urinary Tract Infection in Women (ED), Opioid Safety Activity Restrictions/Additional Instructions: Drink plenty of fluids. Take antibiotic as directed. Follow-up with primary care for further instruction. Continue with routine medications as ordered. Return to the ER as needed. Coding Level of Care Code ED Nitroglycerin Supervisor for Dilciag Fwd Exam Comprehensive
[2020-11-30 20:37] LABS: Basophils % 0.2 %; Eosinophils % 0.1 %; Hematocrit 33.8 % (37.0-47.0); Hemoglobin 9.7 g/dL (11.5-15.3); Lymphocytes # 1.5 10^3/uL (0.8-4.8); Mean Corpuscular HGB Conc 28.7 g/dL (30.0-36.0); Mean Corpuscular Hemoglobin 24.4 pg (28.0-34.0); Mean Corpuscular Volume 84.9 fL (81-99); Monocytes # 0.9 10^3/uL (0.2-0.9); Monocytes % 5.6 %; Neutrophils % 83.8 %; Nucleated Red Blood Cells % 0 %; Platelet Count 570 10^3/cmm (130-400); Red Blood Count 3.98 10^6/uL (4.1-5.3); Red Cell Distribution Width 15.1 % (12.1-15.1); White Blood Count 16.7 10^3/uL (4.0-10.0)
[2020-11-30 20:50] LABS: Lactic Sepsis W/Reflex 1.8 mmol/L (0.5-2.2)
[2020-11-30 21:05] VITALS: RESP 18; TEMP 36.9; O2SAT 94
[2020-11-30 21:16] LABS: Add Urine Culture? Yes; Add Urine Microscopic? YES; Bacteria Urine TRACE /hpf; Bilirubin Urine Neg (Negative); Blood Urine Trace (Negative); Glucose Urine UA Norm (Normal); Ketones Urine Negative (Negative); Leukocyte Esterase Urine Trace (Negative); Mucus Urine 2+ /hpf; Nitrate Urine Negative (Negative); Protein Urine Neg (Negative); RBC Urine 0-4 /hpf (0-2); Specific Gravity, Urine 1.015 (1.005-1.030); Urine Appearance Clear (CLEAR); Urine Color Yellow (Yellow); Urobilinogen Urine Norm (Negative); WBC Urine 40-55 /hpf (0-5); pH Urine 7 (5-7)
[2020-11-30 21:16] LABS: Alanine Aminotransferase 32 U/L (0-33); Albumin Level 3.5 g/dL (3.5-5.2); Alkaline Phosphatase 68 IU/L (35-105); Anion Gap 13.6 (5-19); Aspartate Amino Transferase 17 U/L (0-32); Blood Urea Nitrogen 15 mg/dL (8-23); Calcium 9.2 mg/dL (8.5-10.5); Carbon Dioxide 29 mmol/L (22-29); Chloride 101 mmol/L (98-107); Globulin 2.8 g/dL (1.3-4.6); Glomerular Filtration Rate 61.9 mL/min (90-130); Glucose 91 mg/dL (65-115); Osmolality Calculated 288 mOsm/kg (285-295); Potassium 4.6 mmol/L (3.5-5.1); Sodium 139 mmol/L (136-145); Total Bilirubin 0.3 mg/dL (0.15-1.2); Total Protein 6.3 g/dL (6.6-8.7)
[2020-11-30] MEDS: cefTRIAXone 1,000 MG in lidocaine 1% 2.1 ML 2.5 MG IM (22:03)
[2020-11-30 22:17] VITALS: BP 123/75; PULSE 88; RESP 18; O2SAT 94
== END 2020-11-30 22:19 | disposition home or self-care (01) ==
PROVIDERS: Emergency Provider Nurse Practitioner Family; PCP Nurse Practitioner
DX: U07.1 COVID-19 (principal); J12.82 Pneumonia due to coronavirus disease 2019; N39.0 Urinary tract infection, site not specified; J45.909 Unspecified asthma, uncomplicated; I48.91 Unspecified atrial fibrillation; I10 Essential (primary) hypertension; E78.2 Mixed hyperlipidemia; Z79.01 Long term (current) use of anticoagulants
CPT/HCPCS: 71045; 80053; 81001; 83605; 85025; 87040; 87086; 96372; 99283; J0696

== ENCOUNTER → 2020-12-14 15:35 | Outpatient (BNVA) | payer MEDICARE, OTHER, SELFPAY | PROVIDERS: PCP Nurse Practitioner; Visit Provider Nurse Practitioner | DX: I95.89 Other hypotension (principal); D64.9 Anemia, unspecified | CPT/HCPCS: 80048; 81000; 85025 ==

== ENCOUNTER 2020-12-15 14:13 | Outpatient (CLI) | payer MEDICARE, OTHER, SELFPAY ==
--- NOTE | 2020-12-15 15:00 | USCV_ITS ---
Mere Preston Age: 70 Gender: F : 1950 Exam Date: 12/15/2020 14:37 Ordering Phys: Sharon Pringle MD ([email or web address]) Technologist: Anabela Wall [place]am [place] [facility] [place]: FOLLOW UP ON PERICARDIAL EFFUSION BP: / HR: 126 Rhythm: Sinus Technical Quality: Adequate MEASUREMENTS (Male / Female) Normal Values 2D ECHO LV Diastolic Diameter PLAX 3.7 cm 4.2 - 5.9 / 3.9 - 5.3 cm LV Systolic Diameter PLAX 2.5 cm LV Chamber Size 3.3 cm IVS Diastolic Thickness 0.9 cm 0.6 - 1.0 / 0.6 - 0.9 cm IVS Systolic Thickness 1.8 cm LVPW Diastolic Thickness 1.5 cm 0.6 - 1.0 / 0.6 - 0.9 cm LVPW Systolic Thickness 1.9 cm RV Chamber Size 2.4 cm LVOT Diameter 2.0 cm LV Ejection Fraction 2D Teich 60.9 % LV Ejection Fraction MOD 2C 69.7 % LV Ejection Fraction 2C AL 70.9 % LA Diameter 4.1 cm LA Width 2.6 cm LA Height 3.7 cm RA Width 3.4 cm RA Height 5.3 cm Aorta at Sinotubular Diameter 3.0 cm M-MODE Aortic Annulus Diameter 3.2 cm LA Ao Ratio MM 1.6 MV E Point Septal Separation 0.3 cm DOPPLER PV Peak Velocity 79.0 cm/s FINDINGS Left Ventricle Normal LV size with borderline low ejection fraction of 50 to 55%. Because of the arrhythmia and tachycardia, the ejection fraction estimation and segmental wall motion analysis could be misleading. Right Ventricle Normal right ventricular size and systolic function. Right Atrium Mildly increased right atrial size. Left Atrium Mildly increased left atrial size. Mitral Valve Thickened mitral valve. Aortic Valve Thickened aortic valve. Trace aortic valve regurgitation. Tricuspid Valve Mild tricuspid valve regurgitation. Pulmonic Valve Pulmonic valve not well visualized. Pericardium Normal pericardium without effusion. Aorta Normal ascending aorta dimension. CONCLUSIONS Normal LV size with borderline low ejection fraction of 50 to 55%. Because of the arrhythmia and tachycardia, the ejection fraction estimation and segmental wall motion analysis could be misleading. Mild biatrial enlargement Minimally thickened aortic and mitral valves. Trace aortic valve regurgitation. There is no pericardial effusion. There are no intracardiac masses. Exact comparison with the previous study from 07/07/2019 is difficult because of the tachy arrhythmia. There may not be a major change Dr Sharon Pringle MD FACC (Electronically Signed) Final Date: 18 December 2020 08:53 S
== END 2020-12-15 14:14 | disposition home or self-care (01) ==
LOC: RAD 14:22
PROVIDERS: PCP Nurse Practitioner; Visit Provider Internal Medicine Cardiovascular Disease
DX: I31.3 Pericardial effusion (noninflammatory) (principal); R07.89 Other chest pain; R06.02 Shortness of breath; I95.9 Hypotension, unspecified; I08.0 Rheumatic disorders of both mitral and aortic valves
CPT/HCPCS: 93308

== ENCOUNTER 2020-12-17 19:56 | Emergency (ER) | payer MEDICARE, OTHER, SELFPAY ==
[2020-12-17 19:57] VITALS: BP 128/97; PULSE 130; RESP 19; TEMP 36.9; O2SAT 100; BMI 30.5
--- NOTE | 2020-12-17 20:16 | ED_ITS ---
HPI - Fall General: Chief Complaint: Fall Stated Complaint: FALL/DIZZY Time Seen by Provider: 12/17/20 20:01 History of Present Illness: HPI Narrative: 70-year-old female presenting with an episode of dizziness causing her to fall outside of a gas station. She states she has a history of these. She describes symptoms as shutters over the sides of her eyes, then a feeling of things tumbling. She felt it coming on, leaned against a building for a while, started to walk again and then fell. She injured her left knee, and fell on her face. She complains of pain to those 2 areas. She denies any chest discomfort or shortness of breath. MD complaint: fall Onset (ago): minute(s) Fall from: standing Fall witnessed: yes, by bystander Place fall occurred: other Loss of consciousness: None Prolonged down time: no Symptoms prior to fall: lightheadedness and dizziness Context: other Location of injury: head Location of injury - extremities: Left: knee Severity: moderate Quality: aching and throbbing Associated symptoms-after fall: Reports headache(s) and lightheadedness; Denies abdominal pain, chest pain, confusion, difficulty walking or neck pain Review of Systems Const: Denies: fever(s) or chills Eyes: Denies: change in vision Card: Reports: lightheadedness; Denies: chest pain, palpitations or edema Resp: Reports: non-productive cough; Denies: dyspnea GI: Denies: abdominal pain Musc: Denies: neck pain Neuro: Reports: headache(s); Denies: difficulty walking or confusion PFS ED PFSH: Medical History Anemia Anxiety and depression Asthma Atrial fibrillation by electrocardiogram Benign hypertension Environmental and seasonal allergies High risk medication use EKG from 09/22/2019 showed the QRS duration of 100 ms Insomnia Mixed hyperlipidemia Vitamin D deficiency Surgical History History of cardiac radiofrequency ablation (RFA) patient is unsure but feels like this was about 20 years ago. History of section History of hysterectomy History of oophorectomy Family History Father CAD (coronary artery disease) Lung disease Mother CAD (coronary artery disease) Cancer Dementia Other Hypertension Denies family history of Diabetes Clotting disorder Chronic kidney disease (CKD) Suicide Anesthesia complication Bleeding disorder Stroke Social History Smoking and tobacco status: never smoked Second hand smoke exposure: No Smoking risk assessment/counseling performed?: No Alcohol intake: never Desire information about alcohol rehabilitation?: No Counseling given: No Desire information about substance/drug rehabilitation?: No Counseling given: No Caregiver/support person: No Lives independently: Yes Household members: children Housing: House Marital status: / Number of children: 2 service: No Current occupational status: unemployed Pets and animals: Yes History of recent travel: Yes ([place]) Out of state: Yes Out of country: No Current gender identity: Female Physical Exam Const: COMMON NORMALS: no acute distress, patient oriented x3 and alert GENERAL APPEARANCE: well kempt and anxious; not ill appearing and not frail appearing Eye: COMMON NORMALS: Equal, round and reactive pupils present and EOMs intact bilaterally PUPIL: Yes Equal, round and reactive pupils present Chest: COMMONS NORMALS: normal inspection of the chest Resp: COMMON NORMALS: normal respiratory effort, No use of accessory muscles, clear to auscultation bilaterally and percussion normal AUSCULTATION: clear t o auscultation bilaterally PERCUSSION: percussion normal Cardio: COMMON NORMALS: Peripheral pulses 2+ throughout RHYTHM: abnormal rhythm irregularly irregular PERIPHERAL PULSES: Peripheral pulses 2+ throughout GI: COMMON NORMALS: Normal to inspection, nondistended, normoactive bowel sounds present, Soft to palpation and non-tender PALPATION: Yes Soft to palp ation Neuro: COMMON NORMALS: patient oriented x3 SENSORIUM/ORIENTATION: Yes alert CRANIAL NERVES: Yes CN normal except as noted COORDINATION/BALANCE: [id number] test normal SPEECH: speech normal SENSORY EXAM: Yes extremities MOTOR EXAM: Pronator motor function not present COORDINATION: [id number] test normal Psych: APPEARANCE: Yes well kempt Course Vital Signs: Vital signs: Vital Signs Temperature 98.5 F 12/18/20 00:08 Pulse Rate 86 12/18/20 01:22 Respiratory Rate 19 H 12/18/20 01:22 Blood Pressure 118/91 12/18/20 01:22 Pulse Oximetry 97 12/18/20 01:22 MDM - Fall MDM Narrative: Medical decision making narrative: 70-year-old female here with a syncopal episode. Injury to left knee and her head. She does have a headache for which she was given some medication. CT is negative. X-ray of the knee shows no fracture. She presents in rapid A. fib. No acute ST changes on EKG. Her troponin was minimally elevated at onset, and did not elevated 2 hours. Hemoglobin is 7.7. She has a history of anemia. She was given a unit of blood, and along with diltiazem, her rate has slowed significantly. She is feeling better. She will be allowed to go home. Lab Data: Labs: Lab Results 12/17/20 12/17/20 12/17/20 Range/Units 21:00 21:00 21:00 WBC 7.6 (4.0-10.0) 10^3/ uL RBC 3.16 L (4.1-5.3) 10^6/u L Hgb 7.7 L (11.5-15.3) g/dL Hct 26.8 L (37.0-47.0) % MCV 84.8 (81-99) fl MCH 24.4 L (28.0-34.0) pg MCHC 28.7 L (30.0-36.0) g/dL RDW 17.2 H (12.1-15.1) % Plt Count 407 H (130-400) 10^3/c mm MPV 9.1 (7.4-10.4) fL Neut % (Auto) 68.9 % Lymph % (Auto) 17.0 % Chester % (Auto) 10.7 % Eos % (Auto) 2.2 % Baso % (Auto) 0.5 % Neut # (Auto) 5.25 (1.8-7.7) 10^3/u L Lymph # (Auto) 1.3 (0.8-4.8) 10^3/u L Chester # (Auto) 0.8 (0.2-0.9) 10^3/u L Eos # (Auto) 0.2 (0.0-0.8) 10^3/u L Baso # (Auto) 0.0 (0.0-0.1) 10^3/u L Nucleated RBC % (a uto) 0 % Nucleated RBCs # 0.0 /100WBC PT 15.70 H (12.1-14.9) SECO NDS INR 1.22 H (0.8-1.2) APTT 31.5 (23.9-36.7) SECO NDS Sodium 138 (136-145) mmol/L Potassium 4.0 (3.5-5.1) mmol/L Chloride 103 (98-107) mmol/L Carbon Dioxide 23 (22-29) mmol/L Anion Gap 16.0 (5-19) BUN 8 (8-23) mg/dL Creatinine 0.8 (0.5-0.9) mg/dL GFR Calculation 70.9 L (90-130) mL/min Glucose 94 (65-115) mg/dL Calculated Osmolal ity 284 L (285-295) mOsm/k g Calcium 8.6 (8.5-10.5) mg/dL Total Bilirubin 0.6 (0.15-1.2) mg/dL AST 15 (0-32) U/L ALT 12 (0-33) U/L Alkaline Phosphata se 74 (35-105) IU/L Creatine Kinase 35 (26-192) U/L Troponin T Baselin e (0-10) ng/L Troponin T 120 Min tosha (0-10) ng/L Delta Troponin T (0-10) ABS# NT-Pro-B Natriuret Pep 1337 H (0-125) pg/mL Total Protein 5.8 L (6.6-8.7) g/dL Albumin 3.5 (3.5-5.2) g/dL Globulin 2.3 (1.3-4.6) g/dL Urine Color (Yellow) Urine Appearance (CLEAR) Urine pH (5-7) Ur Specific Gravit y (1.005-1.030) Urine Protein (Negative) Urine Glucose (UA) (Normal) Urine Ketones (Negative) Urine Blood (Negative) Urine Nitrate (Negative) Urine Bilirubin (Negative) Urine Urobilinogen (Negative) mg/dL Ur Leukocyte Jaimee ase (Negative) Urine RBC (0-2) /hpf Urine WBC (0-5) /hpf Ur Squamous Epith Cells (0-5) /hpf Amorphous Sediment Urine Bacteria (NONE) /hpf Hyaline Casts /lpf Urine Mucus /hpf Blood Type Rho(D) Type Antibody Screen Crossmatch 12/17/20 12/17/20 12/17/20 Range/Units 21:00 21:30 22:10 WBC (4.0-10.0) 10^3/ uL RBC (4.1-5.3) 10^6/u L Hgb (11.5-15.3) g/dL Hct (37.0-47.0) % MCV (81-99) fl MCH (28.0-34.0) pg MCHC (30.0-36.0) g/dL RDW (12.1-15.1) % Plt Count (130-400) 10^3/c mm MPV (7.4-10.4) fL Neut % (Auto) % Lymph % (Auto) % Chester % (Auto) % Eos % (Auto) % Baso % (Auto) % Neut # (Auto) (1.8-7.7) 10^3/u L Lymph # (Auto) (0.8-4.8) 10^3/u L Chester # (Auto) (0.2-0.9) 10^3/u L Eos # (Auto) (0.0-0.8) 10^3/u L Baso # (Auto) (0.0-0.1) 10^3/u L Nucleated RBC % (a uto) % Nucleated RBCs # /100WBC PT (12.1-14.9) SECO NDS INR (0.8-1.2) APTT (23.9-36.7) SECO NDS Sodium (136-145) mmol/L Potassium (3.5-5.1) mmol/L Chloride (98-107) mmol/L Carbon Dioxide (22-29) mmol/L Anion Gap (5-19) BUN (8-23) mg/dL Creatinine (0.5-0.9) mg/dL GFR Calculation (90-130) mL/min Glucose (65-115) mg/dL Calculated Osmolal ity (285-295) mOsm/k g Calcium (8.5-10.5) mg/dL Total Bilirubin (0.15-1.2) mg/dL AST (0-32) U/L ALT (0-33) U/L Alkaline Phosphata se (35-105) IU/L Creatine Kinase (26-192) U/L Troponin T Baselin e 15 H (0-10) ng/L Troponin T 120 Min tosha (0-10) ng/L Delta Troponin T (0-10) ABS# NT-Pro-B Natriuret Pep (0-125) pg/mL Total Protein (6.6-8.7) g/dL Albumin (3.5-5.2) g/dL Globulin (1.3-4.6) g/dL Urine Color Yellow (Yellow) Urine Appearance Clear (CLEAR) Urine pH 6.5 (5-7) Ur Specific Gravit y 1.005 (1.005-1.030) Urine Protein Neg (Negative) Urine Glucose (UA) Norm (Normal) Urine Ketones Negative (Negative) Urine Blood 2+ H (Negative) Urine Nitrate Negative (Negative) Urine Bilirubin Neg (Negative) Urine Urobilinogen Norm (Negative) mg/dL Ur Leukocyte Jaimee ase Negative (Negative) Urine RBC 5-10 H (0-2) /hpf Urine WBC 0-4 H (0-5) /hpf Ur Squamous Epith Cells 10-15 H (0-5) /hpf Amorphous Sediment Not Reportable Urine Bacteria Trace (NONE) /hpf Hyaline Casts 0-4 H /lpf Urine Mucus 1+ /hpf Blood Type A Positive Rho(D) Type Positive Antibody Screen Negative Crossmatch See Detail 12/17/20 Range/Units 22:43 WBC (4.0-10.0) 10^3/ uL RBC (4.1-5.3) 10^6/u L Hgb (11.5-15.3) g/dL Hct (37.0-47.0) % MCV (81-99) fl MCH (28.0-34.0) pg MCHC (30.0-36.0) g/dL RDW (12.1-15.1) % Plt Count (130-400) 10^3/c mm MPV (7.4-10.4) fL Neut % (Auto) % Lymph % (Auto) % Chester % (Auto) % Eos % (Auto) % Baso % (Auto) % Neut # (Auto) (1.8-7.7) 10^3/u L Lymph # (Auto) (0.8-4.8) 10^3/u L Chester # (Auto) (0.2-0.9) 10^3/u L Eos # (Auto) (0.0-0.8) 10^3/u L Baso # (Auto) (0.0-0.1) 10^3/u L Nucleated RBC % (a uto) % Nucleated RBCs # /100WBC PT (12.1-14.9) SECO NDS INR (0.8-1.2) APTT (23.9-36.7) SECO NDS Sodium (136-145) mmol/L Potassium (3.5-5.1) mmol/L Chloride (98-107) mmol/L Carbon Dioxide (22-29) mmol/L Anion Gap (5-19) BUN (8-23) mg/dL Creatinine (0.5-0.9) mg/dL GFR Calculation (90-130) mL/min Glucose (65-115) mg/dL Calculated Osmolal ity (285-295) mOsm/k g Calcium (8.5-10.5) mg/dL Total Bilirubin (0.15-1.2) mg/dL AST (0-32) U/L ALT (0-33) U/L Alkaline Phosphata se (35-105) IU/L Creatine Kinase (26-192) U/L Troponin T Baselin e (0-10) ng/L Troponin T 120 Min tosha 14.35 H (0-10) ng/L Delta Troponin T -0.65 L (0-10) ABS# NT-Pro-B Natriuret Pep (0-125) pg/mL Total Protein (6.6-8.7) g/dL Albumin (3.5-5.2) g/dL Globulin (1.3-4.6) g/dL Urine Color (Yellow) Urine Appearance (CLEAR) Urine pH (5-7) Ur Specific Gravit y (1.005-1.030) Urine Protein (Negative) Urine Glucose (UA) (Normal) Urine Ketones (Negative) Urine Blood (Negative) Urine Nitrate (Negative) Urine Bilirubin (Negative) Urine Urobilinogen (Negative) mg/dL Ur Leukocyte Jaimee ase (Negative) Urine RBC (0-2) /hpf Urine WBC (0-5) /hpf Ur Squamous Epith Cells (0-5) /hpf Amorphous Sediment Urine Bacteria (NONE) /hpf Hyaline Casts /lpf Urine Mucus /hpf Blood Type Rho(D) Type Antibody Screen Crossmatch Discharge Plan Discharge Patient Disposition: Home Clinical Impression: Near syncope, Atrial fibrillation with rapid ventricular response Anemia Qualifiers: Anemia type: other cause Condition: Stable Prescriptions: No Action nitroglycerin 0.4 mg tablet, sublingual 0.4 mg sublingual Q5M PRN (Reason: Chest Pain) RF: 0 cetirizine 10 mg tablet 10 mg PO DAILY RF: 0 cholecalciferol (vitamin D3) 125 mcg (5,000 unit) capsule 125 mcg PO DAILY RF: 0 ferrous gluconate 324 mg (38 mg iron) tablet 324 mg PO BID Qty: 60 RF: 2 albuterol sulfate 90 mcg/actuation HFA aerosol inhaler 2 inh INHALATION Q6H Qty: 18 RF: 2 aripiprazole 2 mg tablet 2 mg PO DAILY Qty: 90 RF: 1 fluticasone propionate 50 mcg/actuation spray,suspension 2 spray INTRANASAL DAILY Qty: 48 RF: 1 montelukast 10 mg tablet 10 mg PO DAILY Qty: 90 RF: 1 venlafaxine 50 mg tablet 50 mg PO BID Qty: 180 RF: 1 (DME) blood pressure test kit-large Kit See Rx Instructions .ROUTE .MEDSUPPLY Qty: 1 RF: 0 flecainide 100 mg tablet 100 mg PO Q12H 90 Days Qty: 180 RF: 3 Xarelto 15 mg tablet 15 mg PO DAILY RF: 0 trazodone 50 mg tablet 150 mg PO BEDTIME RF: 0 budesonide-formoterol [Symbicort] 160-4.5 mcg/actuation HFA aerosol inhaler 2 inh INHALATION BID RF: 0 atorvastatin 40 mg Tablet 40 mg PO BEDTIME Qty: 30 RF: 0 diltiazem HCl 120 mg Capsule,Extended Release 24hr 120 mg PO DAILY Qty: 30 RF: 0 Discharge Orders: Discharge ED (Routine); Ordered 12/18/20 Ordered By: Nate Ignacio Referrals: Marsha Kelly, SURGICAL INSTRUMENT MECHANIC-C [Primary Care Provider] - 1-3 days Discharge Diet: Advance as tolerated Discharge Activity: Increase activity as tolerated Patient Instructions: Atrial Fibrillation (ED), Near Syncope (ED), Anemia (ED) Activity Restrictions/Additional Instructions: Return for repeated episodes of dizziness, syncope or passing out, chest discomfort, shortness of breath, any other concerning symptoms. Coding Level of Care Code ED Elevator Constructor Helper for Chg Fwd Exam Detailed
--- NOTE | 2020-12-17 20:17 | CTR_ITS ---
PROCEDURE INFORMATION: Exam: CT Head Without Contrast Exam date and time: 12/17/2020 8:17 PM Age: 70 years old Clinical indication: Dizziness TECHNIQUE: Imaging protocol: Computed tomography of the head without contrast. Radiation optimization: All CT scans at this facility use at least one of these dose optimization techniques: automated exposure control; mA and/or kV adjustment per patient size (includes targeted exams where dose is matched to clinical indication); or iterative reconstruction. COMPARISON: 1. CT head wo con* [id number] 2020-11-14 13:[address] facial bones wo con* [id number] 2020-11-14 14:02 RADIATION DOSE METRICS: Total DLP (mGy-cm): 913.5 FINDINGS: Brain: Diffuse mild cerebral age related volume loss. Mild patchy low attenuation in the white matter compatible with mild chronic small vessel ischemic disease. No midline shift, mass, fluid collection, or evidence of hemorrhage. Cerebral ventricles: Ventricular enlargement proportional to volume loss. Paranasal sinuses: Visualized sinuses are unremarkable. No fluid levels. Mastoid air cells: Visualized mastoid air cells are well aerated. Bones/joints: Moderate TMJ arthrosis. Mild incidental hyperostosis frontalis of the calvarium. Soft tissues: Mild left periorbital soft tissue contusion. CT/CT head wo con* [id number] IMPRESSION: Mild involutional changes, no acute intracranial abnormality. Radiation Dose CTDIVOL = (mGy): DLP = 913.5 (mGy-cm)
--- NOTE | 2020-12-17 20:17 | XRR_ITS ---
PROCEDURE INFORMATION: Exam: XR Chest Exam date and time: 12/17/2020 8:17 PM Age: 70 years old Clinical indication: Other: Dizzy TECHNIQUE: Imaging protocol: XR of the chest. Views: 1 view. COMPARISON: 1. CR (CHEST, ) 2020-11-30 19:36 2. CR XR chest 1V portable [id number] 2020-11-14 12:39 3. CR XR chest 2V* [id number] 2020-08-14 12:39 4. CR XR chest 2V* [id number] 2019-12-09 13:57 FINDINGS: Lungs: Bilateral lower lung opacities in the periphery are not substantially changed, correlate for atypical infection. Pleural spaces: Unremarkable. No pleural effusion. No pneumothorax. Heart/Mediastinum: Unremarkable. No cardiomegaly. Bones/joints: Unremarkable. XR/XR chest 1V portable [id number] IMPRESSION: Bilateral lower lung opacities in the periphery are not substantially changed, correlate for atypical infection.
--- NOTE | 2020-12-17 20:17 | XRR_ITS ---
PROCEDURE INFORMATION: Exam: XR Left Knee Exam date and time: 12/17/2020 8:17 PM Age: 70 years old Clinical indication: Injury or trauma; Fall; Blunt trauma; Left; Prior surgery; Surgery date: 6+ months; Surgery type: Meniscus lt knee TECHNIQUE: Imaging protocol: XR Left knee. Views: 3 views. COMPARISON: No relevant prior studies available. FINDINGS: Bones/joints: Mild moderate tricompartmental degenerative joint disease.No acute fracture or dislocation. Soft tissues: Normal. XR/XR knee LT 3V* [id number] IMPRESSION: No acute osseous abnormality.
--- NOTE | 2020-12-17 20:18 | ECG_ITS ---
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 Measurements Intervals [place] Rate: 104 P: CO: QRS: 1 QRSD: 122 T: 78 QT: 358 QTc: 472 Interpretive Statements ATRIAL FIBRILLATION WITH RAPID VENTRICULAR RESPONSE INFERIOR MYOCARDIAL INFARCTION , PROBABLY OLD [40+ ms Q WAVE AND/OR ST/T ABNORMALITY IN II/aVF] ANTEROSEPTAL MYOCARDIAL INFARCTION , OF INDETERMINATE AGE [40+ ms Q WAVE IN V1-V4] Compared to ECG 11/14/2020 19:01:58 No significant changes Electronically Signed On 12-18-2020 6:58:08 CDT by Fei Stanley M.D. [id number]
[2020-12-17 21:11] VITALS: BP 154/114; PULSE 120; RESP 16; O2SAT 98
[2020-12-17 21:13] LABS: Basophils % 0.5 %; Eosinophils # 0.2 10^3/uL (0.0-0.8); Eosinophils % 2.2 %; Hematocrit 26.8 % (37.0-47.0); Hemoglobin 7.7 g/dL (11.5-15.3); Lymphocytes # 1.3 10^3/uL (0.8-4.8); Mean Corpuscular HGB Conc 28.7 g/dL (30.0-36.0); Mean Corpuscular Hemoglobin 24.4 pg (28.0-34.0); Mean Corpuscular Volume 84.8 fl (81-99); Mean Platelet Volume 9.1 fL (7.4-10.4); Monocytes # 0.8 10^3/uL (0.2-0.9); Monocytes % 10.7 %; Neutrophils # 5.25 10^3/uL (1.8-7.7); Neutrophils % 68.9 %; Nucleated Red Blood Cells % 0 %; Platelet Count 407 10^3/cmm (130-400); Red Blood Count 3.16 10^6/uL (4.1-5.3); Red Cell Distribution Width 17.2 % (12.1-15.1); White Blood Count 7.6 10^3/uL (4.0-10.0)
[2020-12-17 21:25] LABS: INR 1.22 (0.8-1.2)
[2020-12-17 21:26] LABS: Partial Thromboplastin Time 31.5 SECONDS (23.9-36.7)
[2020-12-17 21:34] LABS: Troponin(5th) Baseline 15 ng/L (0-10)
[2020-12-17 21:41] LABS: Alanine Aminotransferase 12 U/L (0-33); Albumin Level 3.5 g/dL (3.5-5.2); Alkaline Phosphatase 74 IU/L (35-105); Aspartate Amino Transferase 15 U/L (0-32); Blood Urea Nitrogen 8 mg/dL (8-23); Calcium 8.6 mg/dL (8.5-10.5); Carbon Dioxide 23 mmol/L (22-29); Chloride 103 mmol/L (98-107); Creatine Phosphokinase 35 U/L (26-192); Globulin 2.3 g/dL (1.3-4.6); Glomerular Filtration Rate 70.9 mL/min (90-130); Glucose 94 mg/dL (65-115); NT Pro B Type Natriuretic Pept 1337 pg/mL (0-125); Osmolality Calculated 284 mOsm/kg (285-295); Sodium 138 mmol/L (136-145); Total Bilirubin 0.6 mg/dL (0.15-1.2); Total Protein 5.8 g/dL (6.6-8.7)
[2020-12-17 21:43] VITALS: BP 134/104; PULSE 96; RESP 16; O2SAT 98
[2020-12-17 22:19] LABS: Add Urine Microscopic? YES; Bilirubin Urine Neg (Negative); Blood Urine 2+ (Negative); Glucose Urine UA Norm (Normal); Ketones Urine Negative (Negative); Leukocyte Esterase Urine Negative (Negative); Nitrate Urine Negative (Negative); Protein Urine Neg (Negative); Specific Gravity, Urine 1.005 (1.005-1.030); Urine Appearance Clear (CLEAR); Urine Color Yellow (Yellow); Urobilinogen Urine Norm (Negative); pH Urine 6.5 (5-7)
[2020-12-17 22:36] LABS: Add Urine Culture? No; Bacteria Urine TRACE /hpf; Hyaline Casts Urine 0-4 /lpf; Mucus Urine 1+ /hpf; WBC Urine 0-4 /hpf (0-5)
[2020-12-17] MEDS: diphenhydrAMINE 50 mg/mL SDV 1mL 25 MG IVP (22:51)
[2020-12-17] MEDS: HYDROcodone-acetaminophen 5-325 mg Tablet 2 TAB PO (22:51)
[2020-12-17 23:14] LABS: Troponin 5 2HR 14.35 ng/L (0-10)
[2020-12-17 23:15] LABS: Troponin 5 2HR Delta -0.65 ABS# (0-10)
[2020-12-17] MEDS: dilTIAZem 30 mg Tablet 60 MG PO (23:17)
[2020-12-17 23:18] VITALS: PULSE 107; RESP 18; O2SAT 97
[2020-12-17 23:46] VITALS: BP 133/92; PULSE 114; RESP 17; TEMP 36.9; O2SAT 98
[2020-12-18 00:08] VITALS: BP 125/93; PULSE 116; RESP 16; TEMP 36.9; O2SAT 96
[2020-12-18 01:22] VITALS: BP 118/91; PULSE 86; RESP 19; O2SAT 97
[2020-12-18 02:06] VITALS: BP 129/96; PULSE 92; RESP 18; O2SAT 98
--- NOTE | 2020-12-18 02:18 | ECG_ITS ---
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 Measurements Intervals [place] Rate: 125 P: MN: QRS: 14 QRSD: 118 T: 76 QT: 349 QTc: 505 Interpretive Statements ATRIAL FIBRILLATION WITH RAPID VENTRICULAR RESPONSE ANTEROSEPTAL MYOCARDIAL INFARCTION , OF INDETERMINATE AGE [40+ ms Q WAVE IN V1-V4] Compared to ECG 11/14/2020 19:01:58 No significant changes Electronically Signed On 12-18-2020 6:59:24 CDT by Fei Stanley M.D. [id number] f
== END 2020-12-18 02:06 | disposition home or self-care (01) ==
PROVIDERS: Emergency Provider Emergency Medicine; PCP Nurse Practitioner
DX: R55 Syncope and collapse (principal); I48.20 Chronic atrial fibrillation, unspecified; D64.89 Other specified anemias; I10 Essential (primary) hypertension; E78.2 Mixed hyperlipidemia
CPT/HCPCS: 36430; 70450; 71045; 73562; 80053; 81001; 82550; 83880; 84484; 85025; 85610; 85730; 86850; 86900; 86920; 93005; 96361; 96374; 96375; 99284; J1200; J3490; P9016

== ENCOUNTER → 2020-12-26 16:38 | Outpatient (BNVA) | payer MEDICARE, OTHER, SELFPAY | PROVIDERS: PCP Nurse Practitioner; Visit Provider Nurse Practitioner | DX: D64.9 Anemia, unspecified (principal) | CPT/HCPCS: 80048; 85025 ==

== ENCOUNTER → 2021-01-03 10:15 | Outpatient (BNVA) | payer MEDICARE, SELFPAY | PROVIDERS: PCP Nurse Practitioner; Visit Provider Internal Medicine | DX: Z20.822 Contact with and (suspected) exposure to COVID-19 (principal); J06.9 Acute upper respiratory infection, unspecified | CPT/HCPCS: 87635 ==

== ENCOUNTER 2021-01-07 14:40 | Inpatient (IN) | payer MEDICARE, OTHER, SELFPAY ==
[2021-01-07] VITALS (10 sets, daily range): BP systolic 120–142; BP diastolic 63–98; PULSE 85–174; RESP 14–26; TEMP 36.6–36.7; O2SAT 94–98
--- NOTE | 2021-01-07 14:49 | XRR_ITS ---
PROCEDURE INFORMATION: Exam: XR Chest Exam date and time: 01/07/2021 2:49 PM Age: 70 years old Clinical indication: Cough TECHNIQUE: Imaging protocol: XR of the chest. Views: 1 view. COMPARISON: CR (CHEST, ) 12/17/2020 8:30 PM FINDINGS: Lungs: Mildly hyperinflated lungs. No consolidation. Pleural spaces: Unremarkable. No pleural effusion. No pneumothorax. Heart/Mediastinum: Unremarkable. No cardiomegaly. Bones/joints: Visualized osseous structures are intact. XR/XR chest 1V portable [id number] IMPRESSION: Stable exam, no acute findings.
--- NOTE | 2021-01-07 14:50 | ED_ITS ---
HPI - General Adult General: Chief complaint: Shortness of Breath/Dyspnea Stated complaint: SOB Time Seen by Provider: 01/07/21 14:47 History of Present Illness: HPI narrative: This patient is a 70-year-old female who presents to the emergency department with complaint of a cough. Patient states that she has had cough and shortness of breath ever since having Covid in October. And has continued to have issues with pneumonia or bronchitis. Patient states she had intact coughing fit. EMS reports that she had some brief wheezing bilaterally and they gave her an updraft during transport. Patient denies fever. Will do medical evaluation treat as needed Onset (ago): week(s) Associated symptoms: Reports cough and dyspnea; Deny chest pain, headache(s), nausea, rash, palpitations or vomiting Review of Systems General: Reports: 10 or more systems reviewed and unremarkable except in HPI and below Const: Denies: fever(s), chills, body aches or fatigue Eyes: Denies: change in vision or blurry vision ENMT: Denies: throat pain, hoarseness or mouth pain Card: Denies: chest pain, palpitations, irregular heart rhythm, edema, swelling of feet/ankles or lightheadedness Resp: Reports: dyspnea, non-productive cough and wheezing GI: Denies: abdominal pain, nausea or vomiting : Denies: flank pain, difficulty voiding, dysuria, urinary frequency, urinary urgency or urinary hesitancy Musc: Denies: neck pain, back pain, extremity pain, extremity swelling, joint pain, joint swelling, joint redness, joint warmth or limited range of motion Skin/Breast: Denies: rash, pruritus, erythema or skin tenderness Neuro: Denies: headache(s), numbness in extremities or weakness in extremities Psych: Denies: anxiety or depression PFS ED PFSH: Medical History Anemia Anxiety and depression Asthma Atrial fibrillation by electrocardiogram Benign hypertension Environmental and seasonal allergies High risk medication use EKG from 09/22/2019 showed the QRS duration of 100 ms Insomnia Mixed hyperlipidemia Vitamin D deficiency Surgical History History of cardiac radiofrequency ablation (RFA) patient is unsure but feels like this was about 20 years ago. History of section History of hysterectomy History of oophorectomy Family History Father CAD (coronary artery disease) Lung disease Mother CAD (coronary artery disease) Cancer Dementia Other Hypertension Denies family history of Diabetes Clotting disorder Chronic kidney disease (CKD) Suicide Anesthesia complication Bleeding disorder Stroke Social History Second hand smoke exposure: No Smoking risk assessment/counseling performed?: No Alcohol intake: never Desire information about alcohol rehabilitation?: No Counseling given: No Desire information about substance/drug rehabilitation?: No Counseling given: No Caregiver/support person: No Lives independently: Yes Household members: children Housing: House Marital status: / Number of children: 2 service: No Current occupational status: unemployed Pets and animals: Yes History of recent travel: Yes ([place]) Out of state: Yes Out of country: No Current gender identity: Female Physical Exam Const: COMMON NORMALS: no acute distress, average body habitus, patient oriented x3, no limitations, healthy appearing, alert and well nourished HENMT: COMMON NORMALS: normocephalic, atraumatic, hearing grossly normal bilaterally, external ears normal, EAC's normal, TM's normal bilaterally, Normal external nose present, Normal nasal mucous membranes and turbinates present, moist oral mucous membranes, oropharynx normal, dentition normal and gingiva normal HEAD & SCALP: normocephalic and atraumatic NOSE: Normal external nose present and Normal nasal mucous membranes and turbinates present EXTERNAL EAR: Yes external ears normal EXTERNAL AUDITORY CANAL: EAC's normal TYMPANIC MEMBRANE: TM's normal bilaterally Neck/C-Spine: COMMON NORMALS: full ROM, no lymphadenopathy, supple, no meningeal signs, no JVD, Thyroid normal and No carotid bruits THYROID: Thyroid normal Chest: COMMONS NORMALS: normal inspection of the chest, normal palpation of entire chest wall, normal inspection of the breasts and normal palpation of the breasts Breast/axilla inspection: Yes normal inspection of the breasts BREAST/AXILLA PALPATION: Yes normal palpation of the breasts Resp: COMMON NORMALS: normal respiratory effort, No retractions, No use of accessory muscles, clear to auscultation bilaterally and percussion normal AUSCULTATION: clear to auscultation bilaterally PERCUSSION: percussion normal Cardio: COMMON NORMALS: no JVD, regular rate, regular rhythm, S1 normal heart sound present, S2 normal heart sound present, No gallops present (Cardio), No clicks present (Cardio), No murmurs present (Cardio), No rub (Cardio) and Peripheral pulses 2+ throughout RATE: regular rate RHYTHM: regular rhythm HEART SOUNDS: S1 normal heart sound present and S2 normal heart sound present PERIPHERAL PULSES: Peripheral pulses 2+ throughout GI: COMMON NORMALS: Normal to inspection, nondistended, normoactive bowel sounds present, Soft to palpation, non-tender, No hepatosplenomegaly present, no masses and no bruits PALPATION: Yes Soft to palpation and Yes No hepatosplenomegaly present Back/Pelvis: COMMON NORMALS: thoracic and lumbar spine normal to inspection, no thoracic nor lumbar tenderness, thoraco-lumbar ROM normal and straight leg raise negative bilaterally Extremity: COMMON NORMALS: normal to inspection, full ROM, capillary refill normal, no joint enlargement, no clubbing, cyanosis or edema, no calf tenderness and no pedal edema Neuro: COMMON NORMALS: patient oriented x3 SENSORIUM/ORIENTATION: Yes alert MENINGEAL SIGNS: Yes no meningeal signs Course Reevaluation(s): Reevaluation #1: Patient feeling much improved however patient's heart rate still bouncing into the 130s close to 140. Patient is on a Cardizem drip. Patient be admitted to the hospital. Patient states understanding Time: 16:24 Consultations: Consultation #1: I did discuss at length with Dr. Stewart he is accepted this patient for admission to the cardiac stepdown unit. Time: 16:44 Vital Signs: Vital signs: Vital Signs Temperature 98.1 F 01/07/21 15:00 Pulse Rate 120 H 01/07/21 15:46 Respiratory Rate 20 H 01/07/21 15:46 Blood Pressure 120/63 01/07/21 15:46 Pulse Oximetry 96 01/07/21 15:46 MDM - General Adult MDM Narrative: Medical decision making narrative: This patient is a 70-year-old female who presents to the emergency department with complaint of a cough. Patient states that she has had cough and shortness of breath ever since having Covid in October. And has continued to have issues with pneumonia or bronchitis. Patient states she had intact coughing fit. EMS reports that she had some brief wheezing bilaterally and they gave her an updraft during transport. Patient denies fever. Will do medical evaluation treat as needed Patient feeling much improved however patient's heart rate still bouncing into the 130s close to 140. Patient is on a Cardizem drip. Patient be admitted to the hospital. Patient states understanding I did discuss at length with Dr. Stewart he is accepted this patient for admission to the cardiac stepdown unit. Lab Data: Labs: Lab Results 01/07/21 01/07/21 01/07/21 Range/Units 15:28 15:28 15:28 WBC 10.3 H (4.0-10.0) 10^3/ uL RBC 3.88 L (4.1-5.3) 10^6/u L Hgb 10.9 L (11.5-15.3) g/dL Hct 34.9 L (37.0-47.0) % MCV 89.9 (81-99) fl MCH 28.1 (28.0-34.0) pg MCHC 31.2 (30.0-36.0) g/dL RDW 21.7 H (12.1-15.1) % Plt Count 423 H (130-400) 10^3/c mm MPV 9.7 (7.4-10.4) fL Neut % (Auto) 75.5 % Lymph % (Auto) 13.7 % Rosebud % (Auto) 9.1 % Eos % (Auto) 0.8 % Baso % (Auto) 0.5 % Neut # (Auto) 7.75 H (1.8-7.7) 10^3/u L Lymph # (Auto) 1.4 (0.8-4.8) 10^3/u L [place] # (Auto) 0.9 (0.2-0.9) 10^3/u L Eos # (Auto) 0.1 (0.0-0.8) 10^3/u L Baso # (Auto) 0.1 (0.0-0.1) 10^3/u L Nucleated RBC % (a uto) 0 % Nucleated RBCs # 0.0 /100WBC PT 13.60 (12.1-14.9) SECO NDS INR 1.01 (0.8-1.2) APTT 29.2 (23.9-36.7) SECO NDS Sodium 141 (136-145) mmol/L Potassium 3.4 L (3.5-5.1) mmol/L Chloride 105 (98-107) mmol/L Carbon Dioxide 23 (22-29) mmol/L Anion Gap 16.4 (5-19) BUN 8 (8-23) mg/dL Creatinine 0.8 (0.5-0.9) mg/dL GFR Calculation 70.9 L (90-130) mL/min Glucose 117 H (65-115) mg/dL Calculated Osmolal ity 291 (285-295) mOsm/k g Calcium 9.0 (8.5-10.5) mg/dL Total Bilirubin 0.7 (0.15-1.2) mg/dL AST 18 (0-32) U/L ALT 11 (0-33) U/L Alkaline Phosphata se 70 (35-105) IU/L Troponin T Baselin e (0-10) ng/L NT-Pro-B Natriuret Pep 2513 H (0-125) pg/mL Total Protein 6.6 (6.6-8.7) g/dL Albumin 3.4 L (3.5-5.2) g/dL Globulin 3.2 (1.3-4.6) g/dL 01/07/21 Range/Units 15:28 WBC (4.0-10.0) 10^3/ uL RBC (4.1-5.3) 10^6/u L Hgb (11.5-15.3) g/dL Hct (37.0-47.0) % MCV (81-99) fl MCH (28.0-34.0) pg MCHC (30.0-36.0) g/dL RDW (12.1-15.1) % Plt Count (130-400) 10^3/c mm MPV (7.4-10.4) fL Neut % (Auto) % Lymph % (Auto) % Rosebud % (Auto) % Eos % (Auto) % Baso % (Auto) % Neut # (Auto) (1.8-7.7) 10^3/u L Lymph # (Auto) (0.8-4.8) 10^3/u L Rosebud # (Auto) (0.2-0.9) 10^3/u L Eos # (Auto) (0.0-0.8) 10^3/u L Baso # (Auto) (0.0-0.1) 10^3/u L Nucleated RBC % (a uto) % Nucleated RBCs # /100WBC PT (12.1-14.9) SECO NDS INR (0.8-1.2) APTT (23.9-36.7) SECO NDS Sodium (136-145) mmol/L Potassium (3.5-5.1) mmol/L Chloride (98-107) mmol/L Carbon Dioxide (22-29) mmol/L Anion Gap (5-19) BUN (8-23) mg/dL Creatinine (0.5-0.9) mg/dL GFR Calculation (90-130) mL/min Glucose (65-115) mg/dL Calculated Osmolal ity (285-295) mOsm/k g Calcium (8.5-10.5) mg/dL Total Bilirubin (0.15-1.2) mg/dL AST (0-32) U/L ALT (0-33) U/L Alkaline Phosphata se (35-105) IU/L Troponin T Baselin e 27 H (0-10) ng/L NT-Pro-B Natriuret Pep (0-125) pg/mL Total Protein (6.6-8.7) g/dL Albumin (3.5-5.2) g/dL Globulin (1.3-4.6) g/dL EKG Data^: EKG 1: Attestation: I personally reviewed and interpreted this EKG as follows: EKG interpretation date: 01/07/21 EKG interpretation time: 15:06 Prior EKG tracings: available for review Interpretation: Patient appears to have atrial fibrillation with RVR heart rate 142. Patient does take Cardizem at home for the same. Computer generated interpretation: Chest X-Ray 01/07/21 14:49 IMPRESSION: Stable exam, no acute findings. Discharge Plan Discharge Patient Disposition: Admitted As Inpatient Clinical Impression: Atrial fibrillation with rapid ventricular response, Dyspnea Condition: Stable Coding Level of Care Code ED Leadership Intern for Chg Fwd Exam Comprehensive
--- NOTE | 2021-01-07 14:50 | ECG_ITS ---
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
[2021-01-07 15:37] LABS: Basophils # 0.1 10^3/uL (0.0-0.1); Basophils % 0.5 %; Eosinophils # 0.1 10^3/uL (0.0-0.8); Eosinophils % 0.8 %; Hematocrit 34.9 % (37.0-47.0); Hemoglobin 10.9 g/dL (11.5-15.3); Lymphocytes # 1.4 10^3/uL (0.8-4.8); Lymphocytes % 13.7 %; Mean Corpuscular HGB Conc 31.2 g/dL (30.0-36.0); Mean Corpuscular Hemoglobin 28.1 pg (28.0-34.0); Mean Corpuscular Volume 89.9 fl (81-99); Mean Platelet Volume 9.7 fL (7.4-10.4); Monocytes # 0.9 10^3/uL (0.2-0.9); Monocytes % 9.1 %; Neutrophils # 7.75 10^3/uL (1.8-7.7); Neutrophils % 75.5 %; Nucleated Red Blood Cells % 0 %; Platelet Count 423 10^3/cmm (130-400); Red Blood Count 3.88 10^6/uL (4.1-5.3); Red Cell Distribution Width 21.7 % (12.1-15.1); White Blood Count 10.3 10^3/uL (4.0-10.0)
[2021-01-07 15:49] LABS: INR 1.01 (0.8-1.2); Partial Thromboplastin Time 29.2 SECONDS (23.9-36.7)
[2021-01-07 16:06] LABS: Troponin(5th) Baseline 27 ng/L (0-10)
[2021-01-07 16:15] LABS: Alanine Aminotransferase 11 U/L (0-33); Albumin Level 3.4 g/dL (3.5-5.2); Alkaline Phosphatase 70 IU/L (35-105); Anion Gap 16.4 (5-19); Aspartate Amino Transferase 18 U/L (0-32); Blood Urea Nitrogen 8 mg/dL (8-23); Carbon Dioxide 23 mmol/L (22-29); Chloride 105 mmol/L (98-107); Creatinine Clr Calc Pharmacy 84.3402; Globulin 3.2 g/dL (1.3-4.6); Glomerular Filtration Rate 70.9 mL/min (90-130); Glucose 117 mg/dL (65-115); NT Pro B Type Natriuretic Pept 2513 pg/mL (0-125); Osmolality Calculated 291 mOsm/kg (285-295); Potassium 3.4 mmol/L (3.5-5.1); Sodium 141 mmol/L (136-145); Total Bilirubin 0.7 mg/dL (0.15-1.2); Total Protein 6.6 g/dL (6.6-8.7)
--- NOTE | 2021-01-07 16:50 | ECG_ITS ---
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 Measurements Intervals [place] Rate: 127 P: [place]: QRS: 11 QRSD: 89 T: 90 QT: 333 QTc: 485 Interpretive Statements ATRIAL FIBRILLATION WITH RAPID VENTRICULAR RESPONSE NONSPECIFIC ST & T-WAVE ABNORMALITY ABNORMAL RHYTHM ECG Compared to ECG 01/07/2021 15:06:56 No significant changes Electronically Signed On 01-07-2021 18:17:13 CDT by Sharon Pringle M.D. [id number]
[2021-01-07 17:36] LABS: SARS Covid-2 Antigen Negative (Negative)
--- NOTE | 2021-01-07 17:36 | P.HP_ITS ---
Providers/Chief Complaint Admitting Physician: Eric Stewart MD Primary Care Provider: MARIEBL Pete-C Chief Complaint: SOB History of Present Illness Mere Preston is a 70 year old female with PMH of COVID PNA,in october 2020 on 3Ls oxygen post discharge, A.fib on flecanide, asthma , cme in with c/o nagging non productive cough going on since her discharge from the hospital as well as worsening SOB,according to the patient she has SOB all the time. She also complain of SOB with minimal exertion, she is also complaining of SOB even when she is resting in bed.She also experience chest tightness while coughing as well as has episodes of nausea and vomiting. She deny any fever, palpitation, chest pain. Upon arrival in the ER she was worked up for above mention complain. Imaging Studies: XR of the chest.No infiltrates, no pulmonary vascular congestion, no PTX, No effusion. EKG : A.fib with RVR With rate of 140, No acute ST-T Waves changes Pertinent Labs : WBC: 10.3, H&H : 10.9/34.9 PLT: 423 Serum Na: 141 , K :3.4 , BUN/SCR: 8/0.8 , Troponin T: 27, 2H Troponin: 24.95, 2H Delta : - 2.05 ,ProBNP: 2513 Review of Systems Const: Denies: fever(s), chills, body aches, change in appetite or diaphoresis Card: Denies: edema, swelling of feet/ankles or leg pain with exertion Resp: Denies: wheezing or pain on inspiration GI: Denies: abdominal pain, diarrhea or constipation : Denies: flank pain Musc: Denies: back pain, extremity pain or extremity swelling Neuro: Denies: headache(s), difficulty walking or confusion Medications/Allergies Home Medications Medication Instructions Recorded Confirmed Last Taken Type nitroglycerin 0.4 mg sublingual 0.4 mg SUBLINGUAL Q5M PRN tab 06/18/19 01/07/21 Unknown History tablet blood pressure test kit-large #1 each 06/24/19 01/07/21 Unknown Rx flecainide 100 mg tablet 100 mg PO Q12H 90 Days #180 tab 03/01/20 01/07/21 01/07/21 Rx albuterol sulfate 90 mcg/actuation 2 inh INHALATION Q6H #18 gm 06/22/20 01/07/21 11/13/20 Rx aerosol inhaler aripiprazole 2 mg tablet 2 mg PO DAILY #90 tab 06/22/20 01/07/21 01/06/21 Rx fluticasone propionate 50 2 spray INTRANASAL DAILY #48 g 06/22/20 01/07/21 11/30/20 Rx mcg/actuation nasal spray,suspension montelukast 10 mg tablet 10 mg PO DAILY #90 tab 06/22/20 01/07/21 01/07/21 Rx venlafaxine 50 mg tablet 50 mg PO BID #180 tab 06/22/20 01/07/21 01/07/21 Rx cholecalciferol (vitamin D3) 125 125 mcg PO DAILY 08/14/20 01/07/21 01/07/21 History mcg (5,000 unit) capsule cetirizine 10 mg tablet 10 mg PO DAILY tab 10/17/20 01/07/21 01/07/21 History budesonide-formoterol [Symbicort] 2 inh INHALATION BID 11/14/20 01/07/21 History trazodone 150 mg PO BEDTIME 11/14/20 01/07/21 01/06/21 History atorvastatin 40 mg PO BEDTIME #30 tab 11/18/20 01/07/21 01/06/21 Rx rivaroxaban [Xarelto] 15 mg PO DAILY 11/30/20 01/07/21 01/07/21 History ferrous gluconate 324 mg (38 mg 324 mg PO BID #60 tab 12/14/20 01/07/21 01/07/21 Rx iron) tablet Allergies Allergy/AdvReac Type Severity Reaction Status Date / Time No Known Allergies Allergy Verified 01/02/21 14:34 PFSH Acute PFSH: Medical History Anemia Anxiety and depression Asthma Atrial fibrillation by electrocardiogram Benign hypertension Environmental and seasonal allergies High risk medication use EKG from 09/22/2019 showed the QRS duration of 100 ms Insomnia Mixed hyperlipidemia Vitamin D deficiency Surgical History History of cardiac radiofrequency ablation (RFA) patient is unsure but feels like this was about 20 years ago. History of section History of hysterectomy History of oophorectomy Family History Father CAD (coronary artery disease) Lung disease Mother CAD (coronary artery disease) Cancer Dementia Other Hypertension Denies family history of Diabetes Clotting disorder Chronic kidney disease (CKD) Suicide Anesthesia complication Bleeding disorder Stroke Social History Second hand smoke exposure: No Smoking risk assessment/counseling performed?: No Alcohol intake: never Desire information about alcohol rehabilitation?: No Counseling given: No Desire information about substance/drug rehabilitation?: No Counseling given: No Caregiver/support person: No Lives independently: Yes Household members: children Housing: House Marital status: / Number of children: 2 service: No Current occupational status: unemployed Pets and animals: Yes History of recent travel: Yes ([place]) Out of state: Yes Out of country: No Current gender identity: Female Vitals/I&O/Wt Last Vital Signs Temp 98.1 F 01/07/21 15:00 Pulse 125 H 01/07/21 17:10 Resp 24 H 01/07/21 17:10 BP 135/74 01/07/21 17:10 Pulse Ox 94 01/07/21 17:10 Weight last 48 hrs Weight 81.647 kg Physical Exam Const: COMMON NORMALS: patient oriented x3 HENMT: COMMON NORMALS: normocephalic and atraumatic Resp: OTHER: B/L Wheezing, and Coarse breath sounds Cardio: COMMON NORMALS: regular rate, regular rhythm, S1 normal heart sound present, S2 normal heart sound present, No gallops present (Cardio), No murmurs present (Cardio), No rub (Cardio) and Peripheral pulses 2+ throughout RATE: regular rate RHYTHM: regular rhythm HEART SOUNDS: S1 normal heart sound present and S2 normal heart sound present PERIPHERAL PULSES: Peripheral p ulses 2+ throughout GI: COMMON NORMALS: Normal to inspection, nondistended, normoactive bowel sounds present, Soft to palpation, non-tender, No hepatosplenomegaly present and no masses AUSCULTATION: Yes normoactive bowel sounds PALPATION: Yes Soft to palpation and Yes No hepatosplenomegaly present RECTAL EXAM: deferred Extremity: COMMON NORMALS: no clubbing, cyanosis or edema and no pedal edema Neuro: COMMON NORMALS: patient oriented x3 Data : 01/07/21 15:28 01/07/21 15:28 A&P Assessment and plan (1) Atrial fibrillation with rapid ventricular response: Currently on Cardizem Drip. On Home she is on flecanide 100 mg q12 h daily. 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 Continue Symptomatic management. Mucinex 1300 mg po q12 h daily Teslon. Status: Acute (3) Anemia: Normocytic Anemia Anemia Panel Continue ferrous gluconate 324 mg po bid Status: Acute Additional A&P Information Code Status :Full code DVT PPX:Not needed on Xarelto Attestations Medical Necessity Statement*: patient needs to be in hospital for the management of A.fib with RVR. Anticipated LOS Greater then 2 midnights. Coding Level of Care Code Acute Bilingual Executive Assistant for Nicole Avalos Diagnoses Atrial fibrillation with rapid ventricular response I48.91 Dyspnea R06.00 Anemia D64.9
[2021-01-07 17:43] LABS: Troponin 5 2HR 24.95 ng/L (0-10); Troponin 5 2HR Delta -2.05 ABS# (0-10)
[2021-01-07] MEDS: ferrous gluconate 324 mg Tablet PO (19:37)
[2021-01-07] MEDS: flecainide 100 mg Tablet 150 MG PO (19:37)
[2021-01-07] MEDS: lidocaine 1% 5 ML in potassium chloride premix 100 ML 25 ML IV (19:37)
[2021-01-07] MEDS: guaiFENesin 600 mg Tablet 1200 MG PO (19:38)
[2021-01-07] MEDS: acetaminophen 325 mg Tablet 650 MG PO (20:15)
[2021-01-07] MEDS: atorvastatin 40 mg Tablet PO (20:16)
[2021-01-07] MEDS: trazodone 50 mg Tablet 150 MG PO (20:16)
--- NOTE | 2021-01-07 20:50 | ECG_ITS ---
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 Measurements Intervals [place] Rate: 142 P: CT: QRS: 2 QRSD: 90 T: 134 QT: 304 QTc: 469 Interpretive Statements ATRIAL FIBRILLATION WITH RAPID VENTRICULAR RESPONSE NONSPECIFIC ST & T-WAVE ABNORMALITY Compared to ECG 12/17/2020 22:35:16 T-wave abnormality now present Myocardial infarct finding no longer present Electronically Signed On 01-07-2021 18:16:51 CDT by Sharon Pringle M.D. [id number]
[2021-01-07 21:50] LABS: Troponin 5 6HR 23.81 ng/L (0-10)
[2021-01-07 22:13] LABS: Troponin 5 6HR Delta -3.19 ng/L (0-12)
[2021-01-08] VITALS (13 sets, daily range): BP systolic 101–174; BP diastolic 70–103; PULSE 80–108; RESP 13–19; TEMP 36.6–37.7; O2SAT 93–99
[2021-01-08 04:17] LABS: Basophils % 0.4 %; Eosinophils # 0.2 10^3/uL (0.0-0.8); Eosinophils % 2.1 %; Hematocrit 32.1 % (37.0-47.0); Hemoglobin 9.9 g/dL (11.5-15.3); Lymphocytes # 2.2 10^3/uL (0.8-4.8); Lymphocytes % 19.8 %; Mean Corpuscular HGB Conc 30.8 g/dL (30.0-36.0); Mean Corpuscular Volume 90.9 fl (81-99); Mean Platelet Volume 9.7 fL (7.4-10.4); Monocytes % 9.3 %; Neutrophils # 7.39 10^3/uL (1.8-7.7); Neutrophils % 67.9 %; Nucleated Red Blood Cells % 0 %; Platelet Count 363 10^3/cmm (130-400); Red Blood Count 3.53 10^6/uL (4.1-5.3); Red Cell Distribution Width 21.6 % (12.1-15.1); White Blood Count 10.9 10^3/uL (4.0-10.0)
[2021-01-08 04:32] LABS: Reticulocyte % 2.8 % (0.5-2.0)
[2021-01-08 04:39] LABS: Iron 24 ug/dL (37-145); Percent Saturation 10.5 % (20-50); Total Iron Binding Capacity 227 mcg/dl; Transferrin 199 mg/dL (200-360); Unsaturated Iron Binding 203 ug/dL (112-347)
[2021-01-08 04:43] LABS: Alanine Aminotransferase 11 U/L (0-33); Albumin Level 2.9 g/dL (3.5-5.2); Alkaline Phosphatase 66 IU/L (35-105); Anion Gap 14.8 (5-19); Aspartate Amino Transferase 19 U/L (0-32); Blood Urea Nitrogen 9 mg/dL (8-23); Calcium 9.1 mg/dL (8.5-10.5); Carbon Dioxide 23 mmol/L (22-29); Chloride 107 mmol/L (98-107); Creatinine Clr Calc Pharmacy 84.3402; Ferritin 89 ng/mL (15-150); Globulin 3.1 g/dL (1.3-4.6); Glomerular Filtration Rate 82.7 mL/min (90-130); Glucose 117 mg/dL (65-115); Osmolality Calculated 292 mOsm/kg (285-295); Potassium 3.8 mmol/L (3.5-5.1); Sodium 141 mmol/L (136-145); Total Bilirubin 0.6 mg/dL (0.15-1.2)
--- NOTE | 2021-01-08 09:13 | PM.PN ---
Subjective Subjective: Interval history: This morning patient was seen, she tells me that she continues to have a cough, with vomiting after the cough, some wheezing, no fevers, chills, nausea, vomiting, she is still having episodes of A. fib with heart rates in the high 120s, still on the Cardizem drip, she is enjoying breakfast currently, Vitals/I&O/Wt Last Vital Signs Temp 98.2 F 01/08/21 07:38 Pulse 108 H 01/08/21 08:14 Resp 19 H 01/08/21 08:14 BP 174/103 01/08/21 07:38 Pulse Ox 97 01/08/21 08:14 01/07/21 01/08/21 01/08/21 22:59 06:59 14:59 Intake Total 208 / 208 294.667 / 502.667 480 / 480 Balance 208 / 208 294.667 / 502.667 480 / 480 Weight last 48 hrs Weight 81.647 kg Physical Exam Const: COMMON NORMALS: no acute distress and patient oriented x3 Resp: COMMON NORMALS: normal respiratory effort, No retractions and No use of accessory muscles AUSCULTATION: wheezes Cardio: COMMON NORMALS: S1 normal heart sound present and S2 normal heart sound present RATE: tachycardic RHYTHM: abnormal rhythm HEART SOUNDS: S1 normal heart sound present and S2 normal heart sound present GI: COMMON NORMALS: Normal to inspection, nondistended, normoactive bowel sounds present, Soft to palpation, non-tender, No hepatosplenomegaly present, no masses and no bruits PALPATION: Yes Soft to palpation and Yes No hepatosplenomegaly present Extremity: COMMON NORMALS: capillary refill normal, no clubbing, cyanosis or edema, no calf tenderness and no pedal edema Neuro: COMMON NORMALS: patient oriented x3 Psych: COMMON NORMALS: mental status grossly normal Data : 01/08/21 04:00 01/08/21 04:00 A&P Assessment and plan (1) Atrial fibrillation with rapid ventricular response: Currently on Cardizem Drip, will transition off Start Cardizem 60 every 6 hours Home flecainide dose has been increased to 150 every 12 hours, QRS 90 ms, QTC 469 ms Xarelto 15 mg po Daily Telemetry monitoring Status: Acute (2) Dyspnea: Nagging cough with 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 Continue Symptomatic management. Mucinex 1300 mg po q12 h daily Nixonluis Nimco Will add prednisone 40 mg daily, add azithromycin for possible pertussis given whooping nature of cough Status: Acute (3) Anemia: Normocytic Anemia Normal ferritin, iron low at 24, will need an outpatient follow-up for consideration of EGD, continue Protonix 40 twice daily Continue ferrous gluconate 324 mg po bid Status: Acute Additional A&P Information NSTEMI, baseline troponin is 27, 6-hour 23.8, negative delta -BNP 2513 -Likely supply demand ischemia, type II from A. fib -Continue statin, aspirin Elevated BNP, with crackles on exam, and wheezing, will do 1 dose of Lasix Code Status :Full code DVT PPX:Not needed on Xarelto Attestations Medical Necessity Statement*: Patient requires hospitalization for A. fib with RVR, dyspnea, evidence of fluid overload, possible diastolic CHF exacerbation Coding Level of Care Code Acute Credit Union Field Examiner for Chg Fwd Diagnoses Atrial fibrillation with rapid ventricular response I48.91 Dyspnea R06.00 Anemia D64.9
--- NOTE | 2021-01-08 09:17 | USCV_ITS ---
Mere Preston Age: 70 Gender: F : 1950 Exam Date: 01/08/2021 10:08 Ordering Phys: Pierre Stewart MD Technologist: Exam [place] [facility] [place]: SOB BP: 174 / 103 HR: 86 Rhythm: Sinus Technical Quality: Adequate MEASUREMENTS (Male / Female) Normal Values 2D ECHO LV Diastolic Diameter PLAX 3.5 cm 4.2 - 5.9 / 3.9 - 5.3 cm LV Systolic Diameter PLAX 3.0 cm IVS Diastolic Thickness 0.9 cm 0.6 - 1.0 / 0.6 - 0.9 cm IVS Systolic Thickness 1.3 cm LVPW Diastolic Thickness 0.9 cm 0.6 - 1.0 / 0.6 - 0.9 cm LVPW Systolic Thickness 1.4 cm LVOT Diameter 2.1 cm LV Ejection Fraction 2D Teich 29.7 % LV Ejection Fraction MOD 2C 31.6 % LV Ejection Fraction 2C AL 32.4 % LA Diameter 3.6 cm LA Width 3.7 cm LA Height 4.8 cm RA Width 3.6 cm RA Height 4.9 cm Aorta at Sinotubular Diameter 2.7 cm M-MODE MV E Point Septal Separation 1.4 cm FINDINGS Left Ventricle Normal left ventricular cavity size. Normal left ventricular systolic function. No regional wall motion abnormalities. Left ventricular ejection fraction is estimated at 60 %. Right Ventricle The right ventricle is normal in size and function. Right Atrium The right atrium is normal in size. Left Atrium The left atrium is normal in size. Mitral Valve Severely thickened mitral valve. Severe mitral annular calcification. Aortic Valve Aortic valve not well visualized. Tricuspid Valve No tricuspid valve stenosis. Pulmonic Valve Pulmonic valve not well visualized. Pericardium Normal pericardium without effusion. Aorta Normal ascending aorta dimension. CONCLUSIONS 1-Normal left ventricular cavity size. Normal left ventricular systolic function. No regional wall motion abnormalities. Left ventricular ejection fraction is estimated at 60 %. 2-Please note that there was no Doppler data recorded therefore cannot assess valvular hemodynamics. Please redo the echocardiogram with Doppler data to assess hemodynamics and valvular function. 3-There is no pericardial effusion. 4-Cannot compare with prior echocardiogram due to absence of hemodynamics and Doppler data. Mau Segal MD (Electronically Signed) Final Date: 08 January 2021 19:13 S
--- NOTE | 2021-01-08 09:20 | PC.CHAP ---
Pastoral Care Encounter/Spiritual Assessment Type of Contact [] Declined funeral prearrangement counselor visit [] Patient/Family/Request visit [] Outpatient visit [] Follow-up visit [] Physician referral [] Code/Alert [x] Routine visit [] Staff referral [] Actively dying [] Patient sleeping [] Family support [] [] Out of room [] Palliative care [] [x] Receiving care in room [] Pre-surgical visit [] Trauma [] Long length of stay [] ICU visit [] Other: Relational/Emotional Strength [] Patient feels connected with others/family/visitors/staff [] Distress [] Loneliness/isolation [] Abandonment Spirituality of Patient [] Person of Tania [] Attends Sabianism of their Tania [] Believes in Prayer [] Reads Bible or Yazdanism materials [] There are Spiritual issues to be addressed Beach Expert Interventions [x] Prayer [] Active listening [] Non-anxious presence [] Spiritual/emotional support [] Crisis/trauma care [] Spiritual counseling [] Bereavement support [] Provided bereavement packet [] Provided Bible/devotional materials [] Provided toy/stuffed animal, coloring book to patient or family member [] Provided Communion [] Anointing/[place] [] Salvation [x] Completed spiritual assessment [] Other: Impact on Illness or Injury [] Angry [] Fearful [] Anxious [] Often cries [] Exhaustion [] Unable to work [] Unable to attend confucianism [] Unable to walk/stand [] Unable to read [] Unable to drive [] Unable to eat/drink [] Unable to sleep [] Unable to be with family [] Patient intubated [] Other: Summary Time spent with patient
[2021-01-08] MEDS: flecainide 100 mg Tablet 150 MG PO ×2 (09:23→20:15)
[2021-01-08] MEDS: benzonatate 100 mg Capsule PO ×2 (09:23→18:51)
[2021-01-08] MEDS: montelukast sodium 10 mg Tablet PO (09:23)
[2021-01-08] MEDS: ARIPiprazole 2 mg Tablet PO (09:24)
[2021-01-08] MEDS: predniSONE 20 mg Tablet 40 MG PO (09:24)
[2021-01-08] MEDS: potassium chloride ER 20 mEq Tablet 40 MEQ PO (09:24)
[2021-01-08] MEDS: azithromycin 250 mg Tablet 500 MG PO (09:24)
[2021-01-08] MEDS: guaiFENesin 600 mg Tablet 1200 MG PO ×2 (09:24→18:51)
--- NOTE | 2021-01-08 09:24 | PC.NUTR ---
Nutrition Note: Triggered for BMI in error because Pt's height was listed as 59 feet. Spoke with Pt who said she is not the [place] [employer] and is in fact 5'9 . Will FU for LOS or as needed.
[2021-01-08] MEDS: FUROsemide 10 mg/mL SDV 4mL 40 MG IVP (09:25)
[2021-01-08] MEDS: ferrous gluconate 324 mg Tablet PO ×2 (09:25→18:51)
[2021-01-08] MEDS: dilTIAZem 60 mg Tablet PO ×3 (09:26→20:15)
[2021-01-08] MEDS: pantoprazole DR 40 mg Tablet PO ×2 (09:27→18:51)
[2021-01-08] MEDS: aspirin 81 mg EC Tablet PO (09:27)
[2021-01-08] MEDS: rivaroxaban 10 mg Tablet 15 MG PO (09:50)
--- NOTE | 2021-01-08 18:42 | PC.NURSE ---
Shift Note Frequent safety and comfort rounds continue. Orders and/or nursing care completed as indicated. Patient monitored for response to intervention and treatment(s). Education provided includes Plan of care reason for admission and continued care. Patient and/or in store marketing representative verbalized understanding. Will continue to monitor.
[2021-01-08] MEDS: trazodone 50 mg Tablet 150 MG PO (20:14)
[2021-01-08] MEDS: acetaminophen-codeine 120-12 mg/5 mL UDC 2.5 ML PO (20:15)
[2021-01-08] MEDS: atorvastatin 40 mg Tablet PO (20:15)
--- NOTE | 2021-01-08 20:18 | PC.NURSE ---
Dr. Yu notified of patient asking for Flonase nasal spray.
[2021-01-08] MEDS: fluticasone nasal spray 16gm Btl 2 SPRAY NASAL (20:38)
[2021-01-09] VITALS (10 sets, daily range): BP systolic 129; BP diastolic 88–96; PULSE 68–112; RESP 15–21; O2SAT 92–98
[2021-01-09] MEDS: dilTIAZem 60 mg Tablet PO ×3 (02:26→14:44)
[2021-01-09 03:53] LABS: Basophils # 0.1 10^3/uL (0.0-0.1); Basophils % 0.4 %; Eosinophils % 0.2 %; Hematocrit 33.6 % (37.0-47.0); Hemoglobin 9.7 g/dL (11.5-15.3); Lymphocytes # 1.2 10^3/uL (0.8-4.8); Lymphocytes % 10.4 %; Mean Corpuscular HGB Conc 28.9 g/dL (30.0-36.0); Mean Corpuscular Hemoglobin 27.1 pg (28.0-34.0); Mean Corpuscular Volume 93.9 fl (81-99); Mean Platelet Volume 9.6 fL (7.4-10.4); Monocytes # 0.9 10^3/uL (0.2-0.9); Monocytes % 7.7 %; Neutrophils # 9.02 10^3/uL (1.8-7.7); Neutrophils % 80.8 %; Nucleated Red Blood Cells % 0 %; Platelet Count 382 10^3/cmm (130-400); Red Blood Count 3.58 10^6/uL (4.1-5.3); Red Cell Distribution Width 21.2 % (12.1-15.1); White Blood Count 11.2 10^3/uL (4.0-10.0)
[2021-01-09 04:24] LABS: Alanine Aminotransferase 22 U/L (0-33); Albumin Level 3.2 g/dL (3.5-5.2); Alkaline Phosphatase 77 IU/L (35-105); Anion Gap 16.9 (5-19); Aspartate Amino Transferase 27 U/L (0-32); Blood Urea Nitrogen 11 mg/dL (8-23); Calcium 9.5 mg/dL (8.5-10.5); Carbon Dioxide 21 mmol/L (22-29); Chloride 108 mmol/L (98-107); Creatinine Clr Calc Pharmacy 84.3402; Globulin 3.2 g/dL (1.3-4.6); Glomerular Filtration Rate 70.9 mL/min (90-130); Glucose 133 mg/dL (65-115); Osmolality Calculated 295 mOsm/kg (285-295); Potassium 3.9 mmol/L (3.5-5.1); Sodium 142 mmol/L (136-145); Total Bilirubin 0.5 mg/dL (0.15-1.2); Total Protein 6.4 g/dL (6.6-8.7)
[2021-01-09] MEDS: acetaminophen-codeine 120-12 mg/5 mL UDC 2.5 ML PO (05:41)
[2021-01-09] MEDS: flecainide 100 mg Tablet 150 MG PO (08:44)
[2021-01-09] MEDS: guaiFENesin 600 mg Tablet 1200 MG PO (08:44)
[2021-01-09] MEDS: ferrous gluconate 324 mg Tablet PO (08:44)
[2021-01-09] MEDS: ARIPiprazole 2 mg Tablet PO (08:45)
[2021-01-09] MEDS: montelukast sodium 10 mg Tablet PO (08:45)
[2021-01-09] MEDS: pantoprazole DR 40 mg Tablet PO (08:45)
[2021-01-09] MEDS: azithromycin 250 mg Tablet PO (08:45)
[2021-01-09] MEDS: rivaroxaban 10 mg Tablet 15 MG PO (08:45)
[2021-01-09] MEDS: predniSONE 20 mg Tablet 40 MG PO (08:46)
[2021-01-09] MEDS: fluticasone nasal spray 16gm Btl 2 SPRAY NASAL (08:46)
[2021-01-09] MEDS: aspirin 81 mg EC Tablet PO (08:46)
--- NOTE | 2021-01-09 08:51 | PC.CHAP ---
Pastoral Care Encounter/Spiritual Assessment Type of Contact [] Declined sign poster visit [] Patient/Family/Request visit [] Outpatient visit [] Follow-up visit [] Physician referral [] Code/Alert [x] Routine visit [] Staff referral [] Actively dying [] Patient sleeping [] Family support [] [] Out of room [] Palliative care [] [] Receiving care in room [] Pre-surgical visit [] Trauma [] Long length of stay [] ICU visit [] Other: Relational/Emotional Strength [x] Patient feels connected with others/family/visitors/staff [] Distress [] Loneliness/isolation [] Abandonment Spirituality of Patient [x] Person of Tania [x] Attends Orthodox of their Tania [x] Believes in Prayer [x] Reads Bible or Buddhist materials [] There are Spiritual issues to be addressed [employer] Technical Assistant Interventions [x] Prayer [x] Active listening [x] Non-anxious presence [x] Spiritual/emotional support [] Crisis/trauma care [] Spiritual counseling [] Bereavement support [] Provided bereavement packet [] Provided Bible/devotional materials [] Provided toy/stuffed animal, coloring book to patient or family member [] Provided Communion [] Anointing/[place] [] Salvation [x] Completed spiritual assessment [] Other: Impact on Illness or Injury [] Angry [] Fearful [] Anxious [] Often cries [] Exhaustion [] Unable to work [] Unable to attend latter day [] Unable to walk/stand [] Unable to read [] Unable to drive [] Unable to eat/drink [] Unable to sleep [] Unable to be with family [] Patient intubated [] Other: Summary Began speaking with Pt and RT arrived for treatment. [employer] Technical Assistant sensed Pt wanted to talk, so sign poster waited during the treatment and continued the conversation after. Pt is having family issues with a daughter. This seems to be weighing heavy on her mind. 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 However, her recent health issues has hampered her attendance. Tried to encourage Pt letting her know the doctors will figure out how to regulate her meds. Time spent with patient
--- NOTE | 2021-01-09 13:24 | P.DS_ITS ---
Discharge Providers Date of Admission: 01/07/21 17:21 Date of Discharge: January 09, 2021 Attending Provider at Admission: Eric Stewart MD Attending Provider at Discharge: Pierre Stewart MD Primary Care Provider: BENEDICTO Pete Diagnoses at Discharge Discharge Diagnosis (1) Atrial fibrillation with rapid ventricular response: Status: Acute (2) Dyspnea: Status: Acute (3) Anemia: Status: Acute Reason for Visit Reason for Visit: SOB Hospital Course Hospital Course This is a 70-year-old female with a past medical history of COVID-19 pneumonia back in October 2020, currently on 3 L, has a chronic cough, history of atrial fibrillation on flecainide and Xarelto, chronic anemia, asthma, hypertension, insomnia, hyperlipidemia, who presents [facility] due to complaints of shortness of breath, cough, chest palpitations Patient was admitted to [facility] for A. fib with RVR, she was started on a Cardizem drip, and her flecainide dose was increased. After discussion with cardiology it was decided to keep her at flecainide 100 mg twice daily, her rate heart rates improved with Cardizem, transition off of the drip to p.o. Cardizem to Cardizem 120 twice daily. I will discharge the patient on flecainide 100 mg twice daily, Cardizem 120 twice daily, with close follow-up with cardiology as outpatient. Patient was advised if she were to have e chest pain or palpitations to come back to the emergency room. 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 Patient was treated with azithromycin and prednisone, her shortness of breath and wheezing improved. However she continues to have a chronic cough, I will have patient follow-up with pulmonary as outpatient. Patient has chronic anemia, is on Xarelto therapy, ferritin was normal, low iron, has some component of iron deficiency anemia, continue iron supplementation, will have primary care provider recheck hemoglobin in 1 week. Follow-up with Dr. Brown for consideration of EGD and colonoscopy. Hemoglobin discharge 9.7. Patient had elevated troponin during her hospitalization, likely second to A. fib as above, no complaints of chest pain, will have patient follow-up with cardiology Physical Exam Const: COMMON NORMALS: no acute distress and patient oriented x3 Resp: COMMON NORMALS: normal respiratory effort, No retractions, No use of accessory muscles and clear to auscultation bilaterally AUSCULTATION: clear to auscultation bilaterally Cardio: COMMON NORMALS: regular rate, S1 normal heart sound present and S2 normal heart sound present RATE: regular rate HEART SOUNDS: S1 normal h eart sound present and S2 normal heart sound present GI: COMMON NORMALS: Normal to inspection, nondistended, normoactive bowel sounds present, Soft to palpation and non-tender PALPATION: Yes Soft to palpation Extremity: COMMON NORMALS: no pedal edema Neuro: COMMON NORMALS: patient oriented x3 Psych: COMMON NORMALS: mental status grossly normal Discharge Data Data Completed and Pending: Completed Studies During Hospitalization Category Date Time Status XR chest 1V leyla ble [id number] Stat Exams 01/07/21 14:49 Completed CV. echo limited [id number] Routine Ultrasound 01/08/21 09:17 Completed Pending at discharge Category Date Time Status Complete Blood Co unt w/Auto AM LABS Lab 01/10/21 04:00 Ordered Comprehensive Met abolic Panel AM LA BS Lab 01/10/21 04:00 Ordered Labs from last 24 hours 01/09/21 01/09/21 03:24 03:24 WBC 11.2 H RBC 3.58 L Hgb 9.7 L Hct 33.6 L MCV 93.9 MCH 27.1 L MCHC 28.9 L D RDW 21.2 H Plt Count 382 MPV 9.6 Neut % (Auto) 80.8 Lymph % (Auto) 10.4 Republic % (Auto) 7.7 Eos % (Auto) 0.2 Baso % (Auto) 0.4 Neut # (Auto) 9.02 H Lymph # (Auto) 1.2 Republic # (Auto) 0.9 Eos # (Auto) 0.0 Baso # (Auto) 0.1 Nucleated RBC % (a uto) 0 Nucleated RBCs # 0.0 Sodium 142 Potassium 3.9 Chloride 108 H Carbon Dioxide 21 L Anion Gap 16.9 BUN 11 Creatinine 0.8 GFR Calculation 70.9 L Glucose 133 H Calculated Osmolal ity 295 Calcium 9.5 Total Bilirubin 0.5 AST 27 ALT 22 Alkaline Phosphata se 77 Total Protein 6.4 L Albumin 3.2 L Globulin 3.2 Vitals: Last Vital Signs Temp 98 F 01/08/21 19:38 Pulse 89 01/09/21 11:48 Resp 18 01/09/21 11:45 BP 129/96 01/09/21 02:26 Pulse Ox 92 01/09/21 11:45 Discharge Plan Discharge Patient Disposition: Home Condition: Stable Prescriptions: New benzonatate 100 mg Capsule 100 mg PO TID PRN (Reason: Cough) 15 Days Qty: 45 RF: 0 prednisone 20 mg Tablet 40 mg PO DAILY 3 Days Qty: 3 RF: 0 pantoprazole 40 mg Tablet,Delayed Release (Dr/Ec) 40 mg PO BID 30 Days Qty: 60 RF: 0 azithromycin 250 mg Tablet 250 mg PO DAILY 3 Days Qty: 3 RF: 0 diltiazem HCl [Cardizem] 120 mg tablet 120 mg PO Q12H 30 Days Qty: 60 RF: 0 sucralfate [Carafate] 1 gram tablet 1 g PO BID 28 Days Qty: 56 RF: 0 Continued nitroglycerin 0.4 mg tablet, sublingual 0.4 mg sublingual Q5M PRN (Reason: Chest Pain) RF: 0 cetirizine 10 mg tablet 10 mg PO DAILY RF: 0 cholecalciferol (vitamin D3) 125 mcg (5,000 unit) capsule 125 mcg PO DAILY RF: 0 ferrous gluconate 324 mg (38 mg iron) tablet 324 mg PO BID Qty: 60 RF: 2 albuterol sulfate 90 mcg/actuation HFA aerosol inhaler 2 inh INHALATION Q6H Qty: 18 RF: 2 aripiprazole 2 mg tablet 2 mg PO DAILY Qty: 90 RF: 1 fluticasone propionate 50 mcg/actuation spray,suspension 2 spray INTRANASAL DAILY Qty: 48 RF: 1 montelukast 10 mg tablet 10 mg PO DAILY Qty: 90 RF: 1 venlafaxine 50 mg tablet 50 mg PO BID Qty: 180 RF: 1 (DME) blood pressure test kit-large Kit See Rx Instructions .ROUTE .MEDSUPPLY Qty: 1 RF: 0 Xarelto 15 mg tablet 15 mg PO DAILY RF: 0 trazodone 50 mg tablet 150 mg PO BEDTIME RF: 0 budesonide-formoterol [Symbicort] 160-4.5 mcg/actuation HFA aerosol inhaler 2 inh INHALATION BID RF: 0 atorvastatin 40 mg Tablet 40 mg PO BEDTIME Qty: 30 RF: 0 flecainide 100 mg tablet 100 mg PO Q12H 90 Days Qty: 180 RF: 3 Discharge Orders: Discharge Order (Routine); Ordered 01/09/21 Ordered By: Pierre Stewart Referrals: Leandro Brown MD [Physician] - 1 week (egd and colonoscopy) Marsha Kelly, PROTECTIVE SIGNAL REPAIRER HELPER-C [Primary Care Provider] - Mau Segal MD [Physician] - 1-3 days (follow up with dr beavers [employer]) Isaura Delarosa MD [Physician] - 1 month (covid 19 ) Discharge Diet: Cardiac Discharge Activity: Resume usual activity Patient Instructions: Opioid Safety Activity Restrictions/Additional Instructions: -Continue flecainide 100 every 12 hours, and added Cardizem 120 twice daily, please follow-up with cardiology in the next week -If you have worsening shortness of breath, chest palpitations please come back to the emergency room -For your chronic cough and shortness of breath please follow-up with Dr. Delarosa, COVID-19 -I recommend that he have sleep study due to evidence of sleep apnea -For your anemia, follow-up with primary care provider recheck hemoglobin in 1 week -Follow-up with Dr. Brown for consideration of EGD and colonoscopy given anemia -For now I have discharged you on Protonix and Carafate Discharge Attestations Time Spent in Discharge Care*: less than 30 min Quality Metrics Clinical Quality Measures During this hospital stay, did patient experience: None Coding Level of Care Code Acute Chg FW DC note Diagnoses Atrial fibrillation with rapid ventricular response I48.91 Dyspnea R06.00 Anemia D64.9
--- NOTE | 2021-01-09 17:07 | PC.NURSE ---
Discharge Note Patient discharged to Home via private vehicle accompanied by friend. Discharge instructions reviewed with patient and/or practice representative. Mobile pharmacy medications and/or prescriptions provided. Belongings/home medications returned.
--- NOTE | 2021-01-11 11:13 | PC.SOCIAL ---
multiple calls made today and yesterday for discharge follow up, unable to reach patient. message left.
--- NOTE | 2021-01-15 14:30 | PC.SOCIAL ---
Patient returned call from message left by Alanis Segundo RN CM last week. We reviewed new medications and she was able to get all of them and verbalizes she understands why they were ordered. She did see Dr Brown as scheduled and will have a colonoscopy done on 01/19/2021. She will see Marsha tomorrow as scheduled. She did see Prudence Duckworth on 01/[address] Delarosa on Feb 12. She is wearing her O2 at 3L and indicates she is improving some. She is up ambulating within the home and building her strength. She is still short of breath but indicates this symptoms seems to be improving some. She asked for GI Lab number since she missed a call from them and this was provided. She has no further questions or concerns.
== END 2021-01-09 17:09 | disposition home or self-care (01) | DRG 310 ==
LOC: ER 16:53 → CSU 17:36
PROVIDERS: Admitting Provider Internal Medicine; Emergency Provider Emergency Medicine; PCP Nurse Practitioner; Visit Provider Family Medicine
DX: I48.91 Unspecified atrial fibrillation (principal); R05 Cough; B94.8 Sequelae of other specified infectious and parasitic diseases; D50.9 Iron deficiency anemia, unspecified; F41.8 Other specified anxiety disorders; J45.909 Unspecified asthma, uncomplicated; I11.0 Hypertensive heart disease with heart failure; G47.00 Insomnia, unspecified; E78.2 Mixed hyperlipidemia; Z87.01 Personal history of pneumonia (recurrent); Z99.81 Dependence on supplemental oxygen; Z79.01 Long term (current) use of anticoagulants
CPT/HCPCS: 36415; 71045; 80053; 82728; 83540; 83550; 83735; 83880; 84466; 84484; 85025; 85045; 85610; 85730; 87426; 93005; 93308; 94640; 96374; 97110; 97116; 97161; 97530; 99285; J1940; J3480; J3490; J7512; J7611; Q0144

== ENCOUNTER 2021-01-10 09:03 | Outpatient (CLI) | payer MEDICARE, OTHER, SELFPAY ==
--- NOTE | 2021-01-10 10:00 | CT_ITS ---
WS: [id number] CT CHEST, ABDOMEN, AND PELVIS TECHNIQUE: Noncontrast CT of the chest, abdomen, and pelvis with coronal and sagittal reformatted tana ges. CLINICAL INFORMATION: D64.9 - Anemia, unspecified COMPARISON: CT abdomen pelvis March 24, 2008 DLP: 1574.[address] scans at [facility] use at least one of these dose optimization techniques: automated e xposure control; mA and/or kV adjustment per patient size (includes targeted exams where dose is matc hed to clinical indication); or iterative reconstruction. CT CHEST: Mild chronic emphysematous changes. Patchy hazy groundglass subpleural infiltrates scattered within b oth lungs more prominent in the mid lung and lower lobes. Subsegmental atelectasis and pleural thicke andreia in the lung bases. Recommend correlation for COVID 19 pneumonia. Findings likely infectious or i nflammatory. Upper lobes are better aerated. Small left pleural effusion. A few reactive anterior med iastinal lymph nodes. Calcified subcarinal lymph nodes. No axillary lymphadenopathy. Mild thoracic curve. Mild thoracic kyphosis. Chronic healed rib fractures. CT ABDOMEN AND PELVIS: Noncontrast liver is normal. Normal noncontrast gallbladder. Adrenal glands are normal. Small esophag eal hiatal hernia. Tiny duodenal diverticulum. Fatty atrophy of the pancreas. Adrenal glands are norm al. No hydronephrosis in either kidney. No evidence of high-grade small or large bowel obstruction. Adrenal glands are normal. No hydronephro sis in either kidney. Normal caliber abdominal aorta. No abdominal lymphadenopathy. No pelvic lymphad enopathy. No inguinal lymphadenopathy. Mild disc space narrowing L5-S1. CT/CT chest abd pel wo con IMPRESSION: 1. Mild chronic emphysematous changes with patchy subpleural groundglass and m icronodular infiltrates. Findings likely infectious or inflammatory. Recommend Correlation for atypical infection and COVID 19 pneumonia. 2. Small left pleural effusion. 3. Small esophageal hiatal hernia. 4. No adenopathy in the abdomen or pelvis. A few reactive mediastinal lymph no allyssa. 5. Normal caliber abdominal aorta. 6. No hydronephrosis. 7. No other significant findings.
[2021-01-10] MEDS: iohexol 300 mg/mL 50 mL Btl PO (11:02)
== END 2021-01-10 09:04 | disposition home or self-care (01) ==
LOC: RAD 09:07
PROVIDERS: PCP Nurse Practitioner; Visit Provider Nurse Practitioner
DX: D64.9 Anemia, unspecified (principal); Z86.16 Personal history of COVID-19; J90 Pleural effusion, not elsewhere classified; K44.9 Diaphragmatic hernia without obstruction or gangrene
CPT/HCPCS: 71250; 74176

== ENCOUNTER → 2021-01-15 10:29 | Outpatient (BNVA) | payer MEDICARE, OTHER, SELFPAY | PROVIDERS: PCP Nurse Practitioner; Visit Provider Internal Medicine | DX: Z01.812 Encounter for preprocedural laboratory examination (principal); D50.9 Iron deficiency anemia, unspecified; Z20.822 Contact with and (suspected) exposure to COVID-19 | CPT/HCPCS: 87635 ==

== ENCOUNTER 2021-01-19 08:22 | Day surgery (SDC) | payer MEDICARE, OTHER, SELFPAY ==
[2021-01-19 08:34] VITALS: BMI 30.2
[2021-01-19 08:45] VITALS: BP 112/74; RESP 16; TEMP 36.2; O2SAT 97
[2021-01-19] MEDS: sodium chloride 0.9% 1,000 ML 30 ML IV (09:07)
--- NOTE | 2021-01-19 09:14 | ANES.PREANE2 ---
Pre-Anesthetic Assessment Pre-Anesthetic Assessment: Height/Weight: Height 1.75 m Weight 92.986 kg Temp Resp BP Pulse Ox 97.2 F L 16 112/74 97 01/19/21 08:45 01/19/21 08:45 01/19/21 08:45 01/19/21 08:45 Preop Diagnosis: anemia Proposed Procedure: Operation Date: 01/19/21 10:00 Proposed Procedures p EGD/colon 19325 [id number] D50.9(Not Applicable) - Leandro Brown MD s Colonoscopy(Not Applicable) - Leandro Brown MD Familial anesthetic complications: none Was Beta Abdoulaye taken within 24 hours: N/A Was Clonidine taken within 24 hours: N/A Last intake: Intake Last Liquid Date 02/17/21 Last Liquid Time 21:30 Last Solid Date 01/17/21 Last Solid Time 19:30 Social: Social History: Tobacco and No alcohol Exam: Pre-Anes Outpt Exam: alert, oriented x 3, clear to auscultation bilaterally (coarse breath sounds b/l (R> L)) and regular rate & rhythm Airway: Cervical ROM: WNL MP: 3 Dentition: Chipped Pulmonary: Pulmonary: Asthma and COPD (on 3 L NC continuously) CV/HEM: CV/HEM: Afib, Anemia, Angina (Stable) and HTN Comments: Echo 01/08 CONCLUSIONS 1-Normal left ventricular cavity size. Normal left ventricular systolic function. No regional wall motion abnormalities. Left ventricular ejection fraction is estimated at 60 %. 2-Please note that there was no Doppler data recorded therefore cannot assess valvular hemodynamics. Please redo the echocardiogram with Doppler data to assess hemodynamics and valvular function. 3-There is no pericardial effusion. 4-Cannot compare with prior echocardiogram due to absence of hemodynamics and Doppler data. Anesthetic Plan: ASA status: 4 Anesthesia: MAC Risk of > 500 ml blood loss (7ml/kg in children): No Meds/Allergies Current Medications: Current Medications Generic Name Dose Route Start Last Admin Trade Name Freq PRN Reason Stop Dose Admin Sodium Chloride 1,000 mls @ 30 ml s/hr 01/19/21 08:45 01/19/21 09:07 Sodium Chloride 0.9% IV 30 mls/hr .Q24H ROSS Administration PFSH Anesthesia PFSH: Medical History (Updated 01/16/21 @ 14:14 by FAIZAN PeteP-C) Anemia Anxiety and depression Asthma Atrial fibrillation by electrocardiogram Benign hypertension COPD (chronic obstructive pulmonary disease) Environmental and seasonal allergies High risk medication use EKG from 09/22/2019 showed the QRS duration of 100 ms Insomnia Mixed hyperlipidemia Vitamin D deficiency Surgical History History of cardiac radiofrequency ablation (RFA) patient is unsure but feels like this was about 20 years ago. History of section History of hysterectomy History of oophorectomy Family History Father CAD (coronary artery disease) Lung disease Mother CAD (coronary artery disease) Cancer Dementia Other Hypertension Denies family history of Diabetes Clotting disorder Chronic kidney disease (CKD) Suicide Anesthesia complication Bleeding disorder Stroke Social History Second hand smoke exposure: No Smoking risk assessment/counseling performed?: No Alcohol intake: never Desire information about alcohol rehabilitation?: No Counseling given: No Desire information about substance/drug rehabilitation?: No Counseling given: No Caregiver/support person: No Lives independently: Yes Household members: children Housing: House Marital status: / Number of children: 2 service: No Current occupational status: unemployed Pets and animals: Yes History of recent travel: Yes ([place]) Out of state: Yes Out of country: No Current gender identity: Female Data Anesthesia Cardiac Studies: Cardiac Event Monitor 07/25/20 Holter Monitor 08/20/19
--- NOTE | 2021-01-19 09:20 | P.HP_ITS ---
Same Day Surgery H&P Indication for Procedure/HPI DATE OF PROCEDURE: January 19, 2021 CHIEF COMPLAINT/INDICATIONFOR SURGICAL PROCEDURE: Iron deficiency anemia PREOP DIAGNOSIS: anemia PLANNED PROCEDRUE: Operation Date: 01/19/21 10:00 Proposed Procedures p EGD/colon 18069 [id number] D50.9(Not Applicable) - Leandro Brown MD s Colonoscopy(Not Applicable) - Leandro Brown MD Medications/Allergies* Home Medications Medication Instructions Recorded Confirmed Type nitroglycerin 0.4 mg sublingual 0.4 mg SUBLINGUAL Q5M PRN tab 06/18/19 01/16/21 History tablet cholecalciferol (vitamin D3) 125 125 mcg PO DAILY 08/14/20 01/19/21 History mcg (5,000 unit) capsule cetirizine 10 mg tablet 10 mg PO DAILY tab 10/17/20 01/19/21 History Allergies/Adverse Reactions Allergy/AdvReac Type Severity Reaction Status Date / Time No Known Allergies Allergy Verified 01/15/21 14:30 Current Medications: Generic Name Dose Route Start Last Admin Trade Name Freq PRN Reason Stop Dose Admin Sodium Chloride 1,000 mls @ 30 mls/hr 01/19/21 08:45 01/19/21 09:07 Sodium Chloride 0.9% IV 30 mls/hr .Q24H ROSS Administration Pertinent History/Comorbid Conditions* Medical History (Updated 01/16/21 @ 14:14 by BENEDICTO Pete) Anemia Anxiety and depression Asthma Atrial fibrillation by electrocardiogram Benign hypertension COPD (chronic obstructive pulmonary disease) Environmental and seasonal allergies High risk medication use EKG from 09/22/2019 showed the QRS duration of 100 ms Insomnia Mixed hyperlipidemia Vitamin D deficiency Surgical History (Updated 06/21/19 @ 11:54 by BENEDICTO Pete) History of cardiac radiofrequency ablation (RFA) patient is unsure but feels like this was about 20 years ago. History of section History of hysterectomy History of oophorectomy Family History (Updated 07/24/20 @ 15:34 by Alanis Chavez RN) CAD (coronary artery disease) Father Mother Dementia Mother Lung disease Father Cancer Mother Hypertension Denies family history of Diabetes Clotting disorder Chronic kidney disease (CKD) Suicide Anesthesia complication Bleeding disorder Stroke Social History Second hand smoke exposure: No Smoking risk assessment/counseling performed?: No Alcohol intake: never Desire information about alcohol rehabilitation?: No Counseling given: No Desire information about substance/drug rehabilitation?: No Counseling given: No Caregiver/support person: No Lives independently: Yes Household members: children Housing: House Marital status: / Number of children: 2 service: No Current occupational status: unemployed Pets and animals: Yes History of recent travel: Yes ([place]) Out of state: Yes Out of country: No Current gender identity: Female Pertinent Exam Findings alert, oriented x 3, clear to auscultation bilaterally, regular rate & rhythm, operative site marked and procedure specific exam findings Recommendations Surgery/Procedure today Coding Level of Care Code Acute Feed 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
[2021-01-19 10:57] VITALS: BP 99/57; PULSE 89; RESP 18; TEMP 36.1; O2SAT 93
[2021-01-19 11:08] VITALS: BP 108/91; PULSE 70; RESP 16; O2SAT 98
--- NOTE | 2021-01-19 12:24 | ANE.PACU2 ---
Inpatient post-anesthesia follow up: Airway intact: Yes Vital signs: Temperature 97.0 F Pulse Rate 70 Respiratory Rate 16 Blood Pressure 108/91 Pulse Oximetry 98 Oxygen Delivery Me thod Room Air Oxygen Flow Rate Fraction of Inspir ed Oxygen Hydration adequate: Yes Nausea and vomiting: No Pain level: 1 Mental status: Baseline
[2021-01-22 06:05] LABS: H. Pylori / CLO Test Negative
== END 2021-01-19 11:28 | disposition home or self-care (01) ==
PROVIDERS: PCP Nurse Practitioner; Visit Provider Internal Medicine
PROC: 0DJ08ZZ Inspection of Upper Intestinal Tract, Via Natural or Artificial Opening Endoscopic (ICD-10-PCS; CPT 43235; principal; 2021-01-19 10:00)
PROC: 0DJD8ZZ Inspection of Lower Intestinal Tract, Via Natural or Artificial Opening Endoscopic (ICD-10-PCS; CPT 45378; 2021-01-19 10:00)
DX: D50.9 Iron deficiency anemia, unspecified (principal); Q27.30 Arteriovenous malformation, site unspecified; D12.2 Benign neoplasm of ascending colon; K29.70 Gastritis, unspecified, without bleeding; F41.9 Anxiety disorder, unspecified; F32.9 Major depressive disorder, single episode, unspecified; I10 Essential (primary) hypertension; J44.9 Chronic obstructive pulmonary disease, unspecified; E78.2 Mixed hyperlipidemia; E55.9 Vitamin D deficiency, unspecified
CPT/HCPCS: 43239; 45382; 45384; 87077; 88305; 96360; 96361; J2704; J7030

== ENCOUNTER → 2021-01-22 10:44 | Outpatient (BNVA) | payer MEDICARE, OTHER, SELFPAY | PROVIDERS: PCP Nurse Practitioner; Visit Provider Nurse Practitioner | DX: D50.9 Iron deficiency anemia, unspecified (principal) | CPT/HCPCS: 80048; 85025 ==

== ENCOUNTER → 2021-02-15 09:11 | Outpatient (BNVA) | payer MEDICARE, OTHER, SELFPAY | PROVIDERS: PCP Nurse Practitioner; Visit Provider Nurse Practitioner | DX: D50.9 Iron deficiency anemia, unspecified (principal) | CPT/HCPCS: 83540; 84443; 85025 ==

== ENCOUNTER → 2021-05-29 16:09 | Outpatient (BNVA) | payer MEDICARE, OTHER, SELFPAY | PROVIDERS: PCP Nurse Practitioner; Visit Provider Nurse Practitioner | DX: R25.1 Tremor, unspecified (principal); J45.909 Unspecified asthma, uncomplicated; F41.9 Anxiety disorder, unspecified; E78.2 Mixed hyperlipidemia; J44.9 Chronic obstructive pulmonary disease, unspecified; I48.91 Unspecified atrial fibrillation; F32.9 Major depressive disorder, single episode, unspecified; D50.9 Iron deficiency anemia, unspecified; E55.9 Vitamin D deficiency, unspecified | CPT/HCPCS: 80053; 80061; 81000; 82306; 83540; 84443; 85025 ==

== ENCOUNTER 2021-07-17 12:20 | Outpatient (CLI) | payer MEDICARE, OTHER, SELFPAY ==
--- NOTE | 2021-07-17 12:28 | MM_ITS ---
WS: [id number] VIEWS: MLO and CC views both breasts. 3D digital tomosynthesis is also included in this exam. Comparison made with prior exam of 06/14/2020. Findings: There was no sign of mass, architectural distortion or suspicious calcification in either breast. Sc attered fibroglandular densities MM/[place] [id number] Impression: BI-RADS: 2-Benign FOLLOW-UP: 1 Year Follow-up This mammogram was also analyzed by the Computer Aided Detection System R2 Imag e Flotation Tender.
== END 2021-07-17 12:21 | disposition home or self-care (01) ==
LOC: RAD 12:22
PROVIDERS: PCP Nurse Practitioner; Visit Provider Nurse Practitioner
DX: Z12.31 Encounter for screening mammogram for malignant neoplasm of breast (principal)
CPT/HCPCS: 77063; 77067

== ENCOUNTER → 2021-08-02 16:45 | Outpatient (BNVA) | payer MEDICARE, OTHER, SELFPAY | PROVIDERS: PCP Nurse Practitioner; Visit Provider Nurse Practitioner | DX: L98.9 Disorder of the skin and subcutaneous tissue, unspecified (principal) | CPT/HCPCS: 88305 ==

== ENCOUNTER → 2021-09-04 11:15 | Outpatient (BNVA) | payer MEDICARE, OTHER, SELFPAY | PROVIDERS: PCP Nurse Practitioner; Visit Provider Internal Medicine Cardiovascular Disease | DX: I48.20 Chronic atrial fibrillation, unspecified (principal); E78.2 Mixed hyperlipidemia; J44.9 Chronic obstructive pulmonary disease, unspecified; I95.9 Hypotension, unspecified | CPT/HCPCS: 99214 ==

== ENCOUNTER → 2021-09-18 09:04 | Outpatient (BNVA) | payer MEDICARE, OTHER, SELFPAY | PROVIDERS: PCP Nurse Practitioner; Visit Provider Internal Medicine Cardiovascular Disease | DX: I48.91 Unspecified atrial fibrillation (principal); R94.31 Abnormal electrocardiogram [ECG] [EKG] | CPT/HCPCS: 93005 ==

== ENCOUNTER → 2021-12-11 13:50 | Outpatient (BNVA) | payer MEDICARE, OTHER, SELFPAY | PROVIDERS: PCP Nurse Practitioner; Visit Provider Nurse Practitioner | DX: J45.909 Unspecified asthma, uncomplicated (principal); F41.9 Anxiety disorder, unspecified; E78.2 Mixed hyperlipidemia; F32.9 Major depressive disorder, single episode, unspecified; E55.9 Vitamin D deficiency, unspecified; D50.9 Iron deficiency anemia, unspecified; I48.91 Unspecified atrial fibrillation | CPT/HCPCS: 80053; 80061; 81000; 82306; 83540; 84443; 85025 ==

== ENCOUNTER → 2021-12-20 12:43 | Outpatient (BNVA) | payer MEDICARE, OTHER, SELFPAY | PROVIDERS: PCP Nurse Practitioner; Visit Provider Nurse Practitioner Family | DX: I48.20 Chronic atrial fibrillation, unspecified (principal); R53.81 Other malaise | CPT/HCPCS: 93005; 99214 ==

== ENCOUNTER 2022-01-06 14:52 | Emergency (ER) | payer MEDICARE, OTHER, SELFPAY ==
[2022-01-06 14:52] VITALS: BP 124/82; PULSE 65; RESP 16; TEMP 36.6; O2SAT 94; BMI 30.4
--- NOTE | 2022-01-06 15:11 | CTR_ITS ---
PROCEDURE INFORMATION: Exam: CT Head Without Contrast Exam date and time: 01/06/2022 4:33 PM Age: 71 years old Clinical indication: Dizziness TECHNIQUE: Imaging protocol: Computed tomography of the head without contrast. Radiation optimization: All CT scans at this facility use at least one of these dose optimization techniques: automated exposure control; mA and/or kV adjustment per patient size (includes targeted exams where dose is matched to clinical indication); or iterative reconstruction. COMPARISON: CT head wo con* [id number] 12/17/2020 8:40 PM RADIATION DOSE METRICS: Total DLP (mGy-cm): 1116.28 FINDINGS: Brain: No hemorrhage. No edema. Mild diffuse cerebral atrophy and sequela of chronic small vessel ischemic disease. No mass effect. Cerebral ventricles: No ventriculomegaly. Paranasal sinuses: Visualized sinuses are unremarkable. No fluid levels. Mastoid air cells: Visualized mastoid air cells are well aerated. Bones/joints: Unremarkable. No acute fracture. Soft tissues: Unremarkable. CT/CT head wo con* [id number] IMPRESSION: No acute intracranial abnormality.
--- NOTE | 2022-01-06 15:12 | ECG_ITS ---
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 Measurements Intervals [place] Rate: 72 P: AL: QRS: -2 QRSD: 91 T: 81 QT: 397 QTc: 434 Interpretive Statements ATRIAL FIBRILLATION Unusual R wave progression, POSSIBLE ANTERIOR MYOCARDIAL INFARCTION , PROBABLY OLD [30 ms Q WAVE IN V3/V4, OR R < 0.2 mV IN V4] ABNORMAL RHYTHM ECG Compared to ECG 01/07/2021 18:32:50 Myocardial infarct finding now present T-wave abnormality no longer present Electronically Signed On 01-06-2022 17:37:06 CDT by Barak Corcoran M.D. [id number]
--- NOTE | 2022-01-06 15:38 | W.ED.DIZZY ---
HPI - Dizziness General: Chief Complaint: Dizziness Stated Complaint: DIZZY, NAUSEA Time Seen by Provider: 01/06/22 14:52 History of Present Illness: HPI Narrative: 71-year-old female brought in by EMS. Patient comes in with complaint of dizziness patient reports that this morning she had what she felt like a whooshing noise in her head that she is little bit dizzy. That she has some nausea and she just does not feel well. She denies any fever, chills. Patient has not vomited. She describes the dizziness as being off balance present does not feel like she leans in one direction of the next. She denies any focal weakness. She denies any vision changes. Associated symptoms: Reports malaise and nausea; Denies chest pain, chills, headache(s), palpitations or vomiting Associated neuro symptoms: Deny numbness in extremities Review of Systems Const: Reports: malaise; Denies: fever(s) or chills Eyes: Denies: change in vision or blurry vision ENMT: Denies: throat pain or ear or mastoid pain Card: Denies: chest pain or palpitations Resp: Denies: dyspnea, productive cough or wheezing GI: Reports: nausea; Denies: abdominal pain or vomiting : Denies: flank pain, difficulty voiding or dysuria Musc: Denies: neck pain or back pain Skin/Breast: Denies: rash or pruritus Neuro: Reports: dizziness; Denies: headache(s), numbness in extremities, weakness in extremities, lack of coordination, vertigo or Slurred speech present Psych: Denies: anxiety or depression [facility] PFSH: Medical History (Updated 01/06/22 @ 17:16 by Everett Mckinney DO) Adult onset hypothyroidism Anemia Anxiety and depression Asthma Atrial fibrillation by electrocardiogram Benign hypertension COPD (chronic obstructive pulmonary disease) Environmental and seasonal allergies High risk medication use EKG from 09/22/2019 showed the QRS duration of 100 ms Insomnia Mixed hyperlipidemia Pneumonia due to 2019-nCoV Vitamin D deficiency Surgical History History of cardiac radiofrequency ablation (RFA) patient is unsure but feels like this was about 20 years ago. History of section History of hysterectomy History of oophorectomy Family History Father CAD (coronary artery disease) Lung disease Mother CAD (coronary artery disease) Cancer Dementia Other Hypertension Denies family history of Diabetes Clotting disorder Chronic kidney disease (CKD) Suicide Anesthesia complication Bleeding disorder Stroke Social History Smoking and tobacco status: never smoked Second hand smoke exposure: No Smoking risk assessment/counseling performed?: No Alcohol intake: never Desire information about alcohol rehabilitation?: No Counseling given: No Desire information about substance/drug rehabilitation?: No Counseling given: No Caregiver/support person: No Lives independently: Yes Household members: children Housing: House Marital status: / Number of children: 2 service: No Current occupational status: unemployed Pets and animals: Yes History of recent travel: Yes ([place]) Out of state: Yes Out of country: No Current gender identity: Female Course Vital Signs: Vital signs: Vital Signs Temperature 97.9 F 01/06/22 14:52 Pulse Rate 65 01/06/22 14:52 Respiratory Rate 16 01/06/22 14:52 Blood Pressure 124/82 01/06/22 14:52 Pulse Oximetry 94 01/06/22 14:52 Oxygen Delivery Me thod 01/06/22 14:52 MDM - Dizziness Medical Decision Making Patient with no neurologic findings on physical exam. Patient with no acute findings on CT or labs. Discussed with patient there is multiple causes for dizziness and her symptoms. I recommend she follow-up with her primary care provider. They can discuss may be further outpatient evaluation with MRI versus may be a cardiology or ENT consults. Patient is stable and discharged home Lab Data : 01/06/22 15:52 01/06/22 15:[address] 01/06/22 15:11 IMPRESSION: No acute intracranial abnormality. Laboratory Results WBC 7.4 10^3/uL (4.0-10.0) 01/06/22 15:52 RBC 4.26 10^6/uL (4.1-5.3) 01/06/22 15:52 Hgb 13.0 g/dL (11.5-15.3) 01/06/22 15:52 Hct 39.7 % (37.0-47.0) 01/06/22 15:52 MCV 93.2 fl (81-99) 01/06/22 15:52 MCH 30.5 pg (28.0-34.0) 01/06/22 15:52 MCHC 32.7 g/dL (30.0-36.0) 01/06/22 15:52 RDW 12.0 % (12.1-15.1) L 01/06/22 15:52 Plt Count 306 10^3/cmm (130-400) 01/06/22 15:52 MPV 9.4 fL (7.4-10.4) 01/06/22 15:52 Neut % (Auto) 66.5 % 01/06/22 15:52 Lymph % (Auto) 20.8 % 01/06/22 15:52 Harris % (Auto) 8.8 % 01/06/22 15:52 Eos % (Auto) 2.7 % 01/06/22 15:52 Baso % (Auto) 0.7 % 01/06/22 15:52 Neut # (Auto) 4.89 10^3/uL (1.8-7.7) 01/06/22 15:52 Lymph # (Auto) 1.5 10^3/uL (0.8-4.8) 01/06/22 15:52 Harris # (Auto) 0.7 10^3/uL (0.2-0.9) 01/06/22 15:52 Eos # (Auto) 0.2 10^3/uL (0.0-0.8) 01/06/22 15:52 Baso # (Auto) 0.1 10^3/uL (0.0-0.1) 01/06/22 15:52 Nucleated RBC % (auto) 0 % 01/06/22 15:52 Nucleated RBCs # 0.0 /100WBC 01/06/22 15:52 Sodium 141 mmol/L (136-145) 01/06/22 15:52 Potassium 4.0 mmol/L (3.5-5.1) 01/06/22 15:52 Chloride 106 mmol/L (98-107) 01/06/22 15:52 Carbon Dioxide 27 mmol/L (22-29) 01/06/22 15:52 Anion Gap 12.0 (5-19) 01/06/22 15:52 BUN 16 mg/dL (8-23) 01/06/22 15:52 Creatinine 1.0 mg/dL (0.5-0.9) H 01/06/22 15:52 GFR Calculation Not Reportable 01/06/22 15:52 Glucose 120 mg/dL (65-115) H 01/06/22 15:52 Calculated Osmolality 294 mOsm/kg (285-295) 01/06/22 15:52 Calcium 9.2 mg/dL (8.5-10.5) 01/06/22 15:52 Magnesium 2.1 mg/dL (1.7-2.3) 01/06/22 15:52 Total Bilirubin 0.5 mg/dL (0.15-1.2) 01/06/22 15:52 AST 14 U/L (0-32) 01/06/22 15:52 ALT 12 U/L (0-33) 01/06/22 15:52 Alkaline Phosphatase 80 U/L (35-105) 01/06/22 15:52 Troponin T Gen 5 ng/L 14 ng/L (0-10) H 01/06/22 15:52 Total Protein 6.2 g/dL (6.6-8.7) L 01/06/22 15:52 Albumin 3.6 g/dL (3.5-5.2) 01/06/22 15:52 Globulin 2.6 g/dL (1.3-4.6) 01/06/22 15:52 EKG Data EKG 1: I personally reviewed and interpreted this EKG as follows: EKG interpretation date: 01/06/22 EKG interpretation time: 16:07 Interpretation: hr 72, afib, questionable q wave v3,v4, no acute st elevation or depression, qrs 91 Discharge Plan Discharge Patient Disposition: Home Clinical Impression: Dizziness of unknown etiology Condition: Stable Prescriptions: No Action nitroglycerin 0.4 mg tablet, sublingual 0.4 mg sublingual Q5M PRN (Reason: Chest Pain) cholecalciferol (vitamin D3) 125 mcg (5,000 unit) capsule 125 mcg PO DAILY diltiazem HCl 90 mg capsule,extended release 12 hr 90 mg PO BID Qty: 60 5RF albuterol sulfate 90 mcg/actuation HFA aerosol inhaler 2 inh INHALATION Q6H Qty: 18 2RF aripiprazole 2 mg tablet 2 mg PO DAILY Qty: 90 1RF atorvastatin 40 mg tablet 40 mg PO BEDTIME Qty: 90 1RF budesonide-formoterol [Symbicort] 160-4.5 mcg/actuation HFA aerosol inhaler 2 inh INHALATION BID Qty: 30.6 1RF fluticasone propionate 50 mcg/actuation spray,suspension 2 spray INTRANASAL DAILY Qty: 48 1RF Xarelto 15 mg tablet 15 mg PO DAILY Qty: 90 1RF Rx Instructions: must administer with evening meal venlafaxine 50 mg tablet 50 mg PO BID Qty: 180 1RF trazodone 100 mg tablet 200 mg PO BEDTIME Qty: 180 1RF zafirlukast [Accolate] 10 mg tablet 10 mg PO BID Qty: 180 1RF Rx Instructions: must be taken on empty stomach, at least 1 hr before or 2 hrs after a meal/food levothyroxine 25 mcg tablet 25 mcg PO DAILY Qty: 90 0RF Discharge Orders: Discharge ED (Routine); Ordered 01/06/22 Ordered By: Everett Mckinney Referrals: Marsha Kelly, HE[facility] RESEARCHER-C [Primary Care Provider] - Discharge Diet: Usual diet Discharge Activity: Resume usual activity Patient Instructions: Opioid Safety, Pain Management, Dizziness Activity Restrictions/Additional Instructions: Follow-up with your primary care provider in the next 1 to 2 days for further evaluation and recheck of your symptoms Coding Level of Care Code ED Supervisor Phosphorus Processing for Nicole Avalos
[2022-01-06 16:04] LABS: Basophils # 0.1 10^3/uL (0.0-0.1); Basophils % 0.7 %; Eosinophils # 0.2 10^3/uL (0.0-0.8); Eosinophils % 2.7 %; Hematocrit 39.7 % (37.0-47.0); Lymphocytes # 1.5 10^3/uL (0.8-4.8); Lymphocytes % 20.8 %; Mean Corpuscular HGB Conc 32.7 g/dL (30.0-36.0); Mean Corpuscular Hemoglobin 30.5 pg (28.0-34.0); Mean Corpuscular Volume 93.2 fl (81-99); Mean Platelet Volume 9.4 fL (7.4-10.4); Monocytes # 0.7 10^3/uL (0.2-0.9); Monocytes % 8.8 %; Neutrophils # 4.89 10^3/uL (1.8-7.7); Neutrophils % 66.5 %; Nucleated Red Blood Cells % 0 %; Platelet Count 306 10^3/cmm (130-400); Red Blood Count 4.26 10^6/uL (4.1-5.3); White Blood Count 7.4 10^3/uL (4.0-10.0)
[2022-01-06 16:19] LABS: Alanine Aminotransferase 12 U/L (0-33); Albumin Level 3.6 g/dL (3.5-5.2); Alkaline Phosphatase 80 U/L (35-105); Aspartate Amino Transferase 14 U/L (0-32); Blood Urea Nitrogen 16 mg/dL (8-23); Calcium 9.2 mg/dL (8.5-10.5); Carbon Dioxide 27 mmol/L (22-29); Chloride 106 mmol/L (98-107); Globulin 2.6 g/dL (1.3-4.6); Glucose 120 mg/dL (65-115); Magnesium 2.1 mg/dL (1.7-2.3); Osmolality Calculated 294 mOsm/kg (285-295); Sodium 141 mmol/L (136-145); Total Bilirubin 0.5 mg/dL (0.15-1.2); Total Protein 6.2 g/dL (6.6-8.7)
[2022-01-06 16:32] LABS: Troponin T (5th) Once 14 ng/L (0-10)
[2022-01-06] MEDS: meclizine 25 mg tablet PO (16:59)
[2022-01-06 18:17] VITALS: BP 141/70; PULSE 78; RESP 14; O2SAT 96
== END 2022-01-06 18:18 | disposition home or self-care (01) ==
PROVIDERS: Emergency Provider Student in an Organized Health Care Education/Training Program; PCP Nurse Practitioner
DX: R42 Dizziness and giddiness (principal); J44.9 Chronic obstructive pulmonary disease, unspecified; I10 Essential (primary) hypertension; E78.2 Mixed hyperlipidemia
CPT/HCPCS: 70450; 80053; 83735; 84484; 85025; 93005; 99285; J8597

== ENCOUNTER → 2022-02-11 08:16 | Outpatient (BNVA) | payer MEDICARE, OTHER, SELFPAY | PROVIDERS: PCP Nurse Practitioner; Visit Provider Nurse Practitioner | DX: E03.8 Other specified hypothyroidism (principal); R73.9 Hyperglycemia, unspecified | CPT/HCPCS: 80053; 83036; 84443 ==

== ENCOUNTER 2022-03-05 09:21 | Outpatient (CLI) | payer MEDICARE, OTHER, SELFPAY ==
--- NOTE | 2022-03-05 09:15 | USCV_ITS ---
Mere Preston Age: 71 Gender: F : 1950 Exam Date: 03/05/2022 09:47 Ordering Phys: Prudence Duckworth Technologist: RADHA Exam Location: [facility] [place] Indication: A FIB, WORSENING EF BP: 118 / 82 HR: 95 Rhythm: Atrial fibrillation Technical Quality: Adequate MEASUREMENTS (Male / Female) Normal Values 2D ECHO LVOT Diameter 2.0 cm LV Ejection Fraction MOD 2C 40.5 % LV Ejection Fraction 2C AL 38.8 % LA Diameter 4.4 cm LA Width 4.2 cm LA Height 6.9 cm RA Width 3.9 cm RA Height 6.2 cm Aorta at Sinotubular Diameter 2.5 cm M-MODE Aortic Annulus Diameter 3.0 cm LA Ao Ratio MM 1.4 MV E Point Septal Separation 1.0 cm DOPPLER AV Peak Velocity 169.3 cm/s LVOT Peak Velocity 89.0 cm/s AV Area Cont Eq vti 1.7 cm squared AV Area Cont Eq pk 1.7 cm squared MV Peak Velocity 81.0 cm/s MV Area PHT 4.8 cm squared MV E' Velocity 48.5 cm/s Mitral E to MV E' Ratio 6.5 Mitral E to LV E' Lateral Ratio 5.0 Mitral E to LV E' Septal Ratio 9.3 TR Peak Velocity 148.5 cm/s TR Peak Gradient 8.8 mmHg TR Mean Velocity 120.5 cm/s TR Mean Gradient 6.0 mmHg TR Velocity Time Integral 37.7 cm TV Peak E Velocity 56.0 cm/s Right Atrial Pressure 8.0 mmHg Pulmonary Artery Systolic Pressu 16.8 mmHg PV Peak Velocity 101.0 cm/s RV Acceleration Time 0.1 s RV Ejection Time 0.3 s RV AcT/ET 0.2 FINDINGS Left Ventricle Normal LV size with diminished LV ejection fraction of 44%. Diffuse hypokinesia of the left ventricle. Right Ventricle Normal right ventricular size and systolic function. Right Atrium Moderately increased right atrial size. Left Atrium Moderately increased left atrial size. Mitral Valve Thickened mitral valve. Mild mitral annular calcification. Mild mitral valve regurgitation. Aortic Valve Thickened aortic valve. Tricuspid Valve Trace tricuspid valve regurgitation. Pulmonic Valve Pulmonic valve not well visualized. Pericardium No pericardial effusion. Aorta Normal aortic annulus size. IVC Inferior vena cava not visualized. CONCLUSIONS Normal LV size with diminished LV ejection fraction of 44%. Diffuse hypokinesia of the left ventricle. Normal right ventricular size and systolic function. Moderate biatrial enlargement Thickened mitral and aortic valves. Mild mitral annular calcification. Mild mitral valve regurgitation. Trace tricuspid valve regurgitation. There is no pericardial effusion. There are no intracardiac masses. Compared to the study from 12/28/2020, the ejection fraction has decreased from 60% to 44% Dr Sharon Pringle MD [facility] (Electronically Signed) Final Date: 07 March 2022 09:30 S
== END 2022-03-05 09:22 | disposition home or self-care (01) ==
PROVIDERS: PCP Nurse Practitioner; Visit Provider Nurse Practitioner Family
DX: R53.83 Other fatigue (principal); I48.91 Unspecified atrial fibrillation; I08.3 Combined rheumatic disorders of mitral, aortic and tricuspid valves
CPT/HCPCS: 93306

== ENCOUNTER → 2022-03-13 10:10 | Outpatient (BNVA) | payer MEDICARE, OTHER, SELFPAY | PROVIDERS: PCP Nurse Practitioner; Visit Provider Internal Medicine Cardiovascular Disease | DX: I48.91 Unspecified atrial fibrillation (principal); J44.9 Chronic obstructive pulmonary disease, unspecified; R06.02 Shortness of breath; E78.2 Mixed hyperlipidemia; R07.9 Chest pain, unspecified; G47.00 Insomnia, unspecified | CPT/HCPCS: 80048; 83880; 93005; 99214 ==

== ENCOUNTER 2022-04-11 06:55 | Outpatient (CLI) | payer MEDICARE, OTHER, SELFPAY ==
[2022-04-11 07:14] VITALS: BMI 30.4
--- NOTE | 2022-04-11 07:18 | NMCV_ITS ---
NM elaine perf SPECT r/s* [id number] Mere Preston Age: 71 Gender: F : 1950 Exam Date: 04/11/2022 08:13 Ordering Phys: Prudence Duckworth Technologist: IFEOMA Persaud Exam Location: [facility] [address] Indications: EXERCISE INTOLERANCE STRESS TEST Please see separate stress test report in [facility] for full findings IMAGE PROTOCOL Rest/Stress 1 Lexiscan Day Radiopharmaceutical Dose (mCi) Administration Site Administered by Rest: Tc-99m 10.9 IV IFEOMA Bynum Sestamibi Stress:Tc-99m 32.9 IV IFEOMA Bynum Sestamibi Rest: 11-Apr-2022 60 Discovery 630 Stress: 11-Apr-2022 30 Discovery 630 0.4mg Lexiscan. Images obtained in supine and prone position. SPECT RESULTS Technical Quality: Excellent Raw Data Analysis: Normal Image Corrections: No attenuation or motion correction applied Summed Stress Score: 0 Summed Rest Score: 0 Summed Difference Score: 0 PERFUSION FINDINGS SPECT images demonstrate homogeneous tracer distribution throughout the myocardium. FUNCTIONAL RESULTS (calculated via Gated SPECT) Stress Image LV EF (%): 45 Stress EDV (mL):83 TID: 1.12 Stress ESV (mL):46 FUNCTIONAL FINDINGS: The left ventricle is normal in size. Transient Ischemia Dilatation of 1.1. The left ventricular ejection fraction is mildly reduced with a value of 45%. There is mild global hypokinesis. IMPRESSIONS 1. Myocardial perfusion imaging is normal. 2. The left ventricular ejection fraction is mildly reduced with a value of 45%. 3. There is mild global hypokinesis. 4. EKG portion of the study will be reported separately. Naz Colón MD (Electronically Signed) Final Date: 12 April 2022 15:56 S
--- NOTE | 2022-04-11 07:18 | ECG_ITS ---
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 Interpretive Statements NAME OF STUDY: LEXISCAN SESTAMIBI STRESS TEST INDICATION: Worsening Fatigue; Functional Decline, SOB PROCEDURE: At the baseline, the blood pressure was 106/77 mm Hg with a heart rate of 81 bpm. The electrocardiogram showed atrial fibrillation, normal axis and non specific ST-T wave changes. ??? The Lexiscan was infused over a period of 20 seconds. A total of 0.4 milligrams of Lexiscan was infused. The stress phase was continued for a total of 5 minutes. Heart rate at the end of the stress phase was 90 bpm with a blood pressure of 93/54 mm Hg. The EKG at the peak infusion revealed no significant ST-T wave changes. ??? Sestamibi was injected 20 seconds after the Lexiscan infusion. ??? Blood pressure at the end of the recovery phase was 106/65 mm Hg with a heart rate of 84 per minute. ??? CONCLUSION: 1. No significant EKG changes with the LexiScan infusion. 2. No LexiScan induced chest pain or cardiac arrhythmia. 3. Normal blood pressure and heart rate response. 4. Sestamibi/sestamibi perfusion scan pending; see separate report. Electronically Signed On 04-15-2022 6:16:21 REFRIGERATION PLANT CORK INSULATOR by Naz Colón M.D. [email or web address] ([employer]: [place])[id number]
[2022-04-11] MEDS: regadenoson 0.4 Mg/5 ml Syringe IVP (09:30)
[2022-04-11 09:46] VITALS: BP 106/73; PULSE 90
== END 2022-04-11 06:56 | disposition home or self-care (01) ==
LOC: CDL 06:56
PROVIDERS: PCP Nurse Practitioner; Visit Provider Nurse Practitioner Family
DX: R53.83 Other fatigue (principal)
CPT/HCPCS: 36415; 78452; 93017; 96374; A9500; J2785

== ENCOUNTER → 2022-05-29 11:03 | Outpatient (BNVA) | payer MEDICARE, OTHER, SELFPAY | PROVIDERS: PCP Nurse Practitioner; Visit Provider Nurse Practitioner | DX: J44.9 Chronic obstructive pulmonary disease, unspecified (principal); E03.8 Other specified hypothyroidism; E78.2 Mixed hyperlipidemia; D50.9 Iron deficiency anemia, unspecified | CPT/HCPCS: 71046; 80053; 80061; 83540; 84443; 85025 ==

== ENCOUNTER → 2022-07-19 09:34 | Outpatient (BNVA) | payer MEDICARE, OTHER, SELFPAY | PROVIDERS: PCP Nurse Practitioner; Visit Provider Nurse Practitioner Family | DX: I48.20 Chronic atrial fibrillation, unspecified (principal); I50.20 Unspecified systolic (congestive) heart failure | CPT/HCPCS: 99214 ==

== ENCOUNTER → 2022-08-01 13:37 | Outpatient (BNVA) | payer MEDICARE, OTHER, SELFPAY | PROVIDERS: PCP Nurse Practitioner; Visit Provider Nurse Practitioner | DX: D50.9 Iron deficiency anemia, unspecified (principal); J44.9 Chronic obstructive pulmonary disease, unspecified; E03.9 Hypothyroidism, unspecified | CPT/HCPCS: 71046; 80053; 84443; 85025 ==

== ENCOUNTER → 2022-08-02 08:35 | Outpatient (BNVA) | payer MEDICARE, OTHER, SELFPAY | PROVIDERS: PCP Nurse Practitioner; Visit Provider Nurse Practitioner | DX: J44.9 Chronic obstructive pulmonary disease, unspecified (principal); D50.9 Iron deficiency anemia, unspecified | CPT/HCPCS: 81000 ==

== ENCOUNTER → 2022-08-13 08:12 | Outpatient (BNVA) | payer MEDICARE, OTHER, SELFPAY | PROVIDERS: PCP Nurse Practitioner; Visit Provider Nurse Practitioner | DX: E87.6 Hypokalemia (principal) | CPT/HCPCS: 80048 ==

== ENCOUNTER → 2022-08-16 09:08 | Outpatient (BNVA) | payer MEDICARE, OTHER, SELFPAY | PROVIDERS: PCP Nurse Practitioner; Visit Provider Nurse Practitioner Family | DX: I50.20 Unspecified systolic (congestive) heart failure (principal); I48.20 Chronic atrial fibrillation, unspecified | CPT/HCPCS: 99214 ==

== ENCOUNTER → 2022-10-09 13:31 | Outpatient (BNVA) | payer MEDICARE, OTHER, SELFPAY | PROVIDERS: PCP Nurse Practitioner; Visit Provider Specialist | DX: I95.9 Hypotension, unspecified (principal); E78.2 Mixed hyperlipidemia; I42.9 Cardiomyopathy, unspecified | CPT/HCPCS: 99214 ==

== ENCOUNTER 2022-12-12 06:17 | Emergency (ER) | payer MEDICARE, OTHER, SELFPAY ==
[2022-12-12] VITALS (15 sets, daily range): BP systolic 125–166; BP diastolic 70–112; PULSE 66–126; RESP 15–94; TEMP 37.1; O2SAT 94–98; BMI 29.2
--- NOTE | 2022-12-12 06:23 | ECG_ITS ---
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 Measurements Intervals [place] Rate: 115 P: 0 MD: 0 QRS: -17 QRSD: 92 T: 93 QT: 348 QTc: 483 Interpretive Statements ATRIAL FIBRILLATION WITH RAPID VENTRICULAR RESPONSE LOW QRS VOLTAGE IN PRECORDIAL LEADS [QRS DEFLECTION < 1.0 mV IN CHEST LEADS] POSSIBLE ANTERIOR MYOCARDIAL INFARCTION , PROBABLY OLD [30 ms Q WAVE IN V3/V4, OR R < 0.2 mV IN V4] INFERIOR MYOCARDIAL INFARCTION , PROBABLY OLD [40+ ms Q WAVE AND/OR ST/T ABNORMALITY IN II/aVF] Compared to ECG 01/06/2022 16:07:28 Low QRS voltage now present Myocardial infarct finding still present Electronically Signed On 12-12-2022 7:50:30 CDT by Fei Stanley M.D. [email or web address] [id number]
--- NOTE | 2022-12-12 06:26 | W.ED.GENADLT ---
HPI - General Adult General: Chief complaint: Headache Stated complaint: htn, headache, blurred vision Time Seen by Provider: 12/12/22 06:18 Source: patient Mode of arrival: ambulatory History of Present Illness: 72-year-old female presents to the emergency room with complaints of elevated blood pressure. Patient states last night she became dizzy and weak she noticed this morning and early hours her blood pressure elevated she had headaches started checking her blood pressure every 5 minutes. She states she is continue to take all of her medications including her carvedilol but she has not taken it yet this morning. She did a little bit of chest discomfort radiating to her left shoulder at times no diaphoresis or shortness of breath no orthopnea. On presentation she is in A-fib with RVR with a rate in the 120s to 130s. Onset (ago): minute(s) Relieving factors: none Exacerbating factors: none Associated symptoms: Reports palpitations; Deny chest pain, confusion, cough, diaphoresis, decreased appetite, dyspnea, fevers/chills, headache(s), malaise, nausea, rash, seizures, short of breath, syncope, vomiting or weakness Treatments prior to arrival: none Review of Systems Const: Denies: fever(s), chills, malaise or diaphoresis Eyes: Reports: change in vision Card: Reports: palpitations and irregular heart rhythm; Denies: chest pain, edema, swelling of feet/ankles or syncope Resp: Denies: dyspnea GI: Denies: abdominal pain, nausea or vomiting : Denies: flank pain, difficulty voiding, dysuria, urinary frequency or urinary urgency Skin/Breast: Denies: rash Neuro: Denies: headache(s) or confusion PFS ED PFSH: Medical History Adult onset hypothyroidism Anemia Anxiety and depression Asthma Atrial fibrillation by electrocardiogram Benign hypertension COPD (chronic obstructive pulmonary disease) Environmental and seasonal allergies High risk medication use EKG from 09/22/2019 showed the QRS duration of 100 ms Insomnia Mixed hyperlipidemia Pneumonia due to 2019-V Vitamin D deficiency Surgical History History of cardiac radiofrequency ablation (RFA) patient is unsure but feels like this was about 20 years ago. History of section History of hysterectomy History of oophorectomy Family History Father CAD (coronary artery disease) Lung disease Mother CAD (coronary artery disease) Cancer Dementia Other Hypertension Denies family history of Diabetes Clotting disorder Chronic kidney disease (CKD) Suicide Anesthesia complication Bleeding disorder Stroke Social History Smoking and tobacco status: never smoked Second hand smoke exposure: No Smoking risk assessment/counseling performed?: No Alcohol intake: never Desire information about alcohol rehabilitation?: No Counseling given: No Substance/Drug Use: never Desire information about substance/drug rehabilitation?: No Counseling given: No Caregiver/support person: No Lives independently: Yes Household members: children Housing: House Marital status: / Number of children: 2 service: No Current occupational status: unemployed Pets and animals: Yes Do you think of yourself as: Straight/Heterosexual Current gender identity: Female Physical Exam Const: GENERAL APPEARANCE: cooperative and comfortable ORIENTATION/CONSCIOUSNESS: Yes awake, Yes oriented to person, Yes oriented to place and Yes oriented to time HENMT: COMMON NORMALS: normocephalic, atraumatic and hearing grossly normal bilaterally HEAD & SCALP: normocephalic and atraumatic Resp: COMMON NORMALS: normal respiratory effort, No retractions, No use of accessory muscles and clear to auscultation bilaterally AUSCULTATION: clear to auscultation bilaterally Cardio: COMMON NORMALS: No murmurs present (Cardio) RATE: tachycardic RHYTHM: abnormal rhythm irregularly irregular GI: COMMON NORMALS: Soft to palpation and No hepatosplenomegaly present AUSCULTATION: Yes normoactive bowel sounds PALPATION: Yes Soft to palpation, No Tenderness to palpation present (GI), No Guarding due to palpation present (GI) and Yes No hepatosplenomegaly present Extremity: COMMON NORMALS: normal to inspection, capillary refill normal, no clubbing, cyanosis or edema, no calf tenderness and no pedal edema Neuro: SENSORIUM/ORIENTATION: Yes oriented to person, Yes oriented to place and Yes oriented to time Skin: COMMON NORMALS: no rashes or lesions noted GENERAL SKIN EXAM: no rashes or lesions noted Course Vital Signs: Vital signs: Vital Signs Temperature 98.7 F 12/12/22 06:19 Pulse Rate 81 12/12/22 10:15 Respiratory Rate 19 H 12/12/22 10:15 Blood Pressure 143/98 12/12/22 10:15 Pulse Oximetry 96 12/12/22 10:15 Oxygen Delivery Me thod Room Air 12/12/22 07:48 MDM - General Adult Medical Decision Making Patient's blood pressure and heart rate are improved. Carvedilol is on her list when she first arrived here but when pharmacy verified she has not actually been taking them not sure how that got unless patient states she never heard of the medicine before we did give her a dose here which actually seem to work fairly well. When I reviewed her cardiology notes however they had last set her on diltiazem sustained release 90 mg twice a day. She had also previously been on flecainide she had some problems with hypotension as eventually looks like she was weaned off of all of those but remained on the rivaroxaban. We will restart her on the diltiazem at 90 mg twice a day. This should be effective for blood pressure and rate control. Have her follow-up with a planning official within the next 7 to 10 days. Medical Records I reviewed the patient's medical records. Lab Data I reviewed the patient's lab results. 12/12/22 07:24 12/12/22 07:24 Laboratory Results WBC 9.79 10^3/uL (3.29-11.43) 12/12/22 07:24 RBC 4.09 10^6/uL (3.85-5.65) 12/12/22 07:24 Hgb 12.30 g/dL (11.27-16.99) 12/12/22 07:24 Hct 38.4 % (36-47) 12/12/22 07:24 MCV 93.9 fl (85-98) 12/12/22 07:24 MCH 30.1 pg (27-33) 12/12/22 07:24 MCHC 32.0 g/dL (30-55) 12/12/22 07:24 RDW 13.2 % (12.1-15.1) 12/12/22 07:24 Plt Count 277 10^3/cmm (157-399) 12/12/22 07:24 MPV 9.6 fL (7.4-10.4) 12/12/22 07:24 Neut % (Auto) 72.4 % 12/12/22 07:24 Lymph % (Auto) 15.1 % 12/12/22 07:24 [place] % (Auto) 8.7 % 12/12/22 07:24 Eos % (Auto) 2.6 % 12/12/22 07:24 Baso % (Auto) 0.8 % 12/12/22 07:24 Neut # (Auto) 7.09 10^3/uL (1.8-7.7) 12/12/22 07:24 Lymph # (Auto) 1.5 10^3/uL (0.8-4.8) 12/12/22 07:24 [place] # (Auto) 0.9 10^3/uL (0.2-0.9) 12/12/22 07:24 Eos # (Auto) 0.3 10^3/uL (0.0-0.8) 12/12/22 07: Baso # (Auto) 0.1 10^3/uL (0.0-0.1) 12/12/22 07:24 Nucleated RBC % (auto) 0 % 12/12/22 07: Nucleated RBCs # 0.0 /100WBC 12/12/22 07:24 Sodium 139 mmol/L (136-145) 12/12/22 07:24 Potassium 4.2 mmol/L (3.5-5.1) 12/12/22 07:24 Chloride 105 mmol/L (98-107) 12/12/22 07:24 Carbon Dioxide 26 mmol/L (22-29) 12/12/22 07:24 Anion Gap 12.2 (5-19) 12/12/22 07:24 BUN 13 mg/dL (8-23) 12/12/22 07:24 Creatinine 0.8 mg/dL (0.5-0.9) 12/12/22 07:24 GFR Calculation Not Reportable 12/12/22 07:24 Glucose 93 mg/dL (65-115) 12/12/22 07:24 Calculated Osmolality 288 mOsm/kg (285-295) 12/12/22 07:24 Calcium 8.6 mg/dL (8.5-10.5) 12/12/22 07:24 Total Bilirubin 0.9 mg/dL (0.15-1.2) 12/12/22 07:24 AST 14 U/L (0-32) 12/12/22 07:24 ALT 11 U/L (0-33) 12/12/22 07:24 Alkaline Phosphatase 87 U/L (35-105) 12/12/22 07:24 Troponin T Baseline 17 ng/L (0-10) H 12/12/22 07:24 Troponin T 120 Minute 15.82 ng/L (0-10) H 12/12/22 09:10 Delta Troponin T -1.18 ABS# (0-10) L 12/12/22 09:10 Total Protein 6.2 g/dL (6.6-8.7) L 12/12/22 07:24 Albumin 3.5 g/dL (3.5-5.2) 12/12/22 07:24 Globulin 2.7 g/dL (1.3-4.6) 12/12/22 07:24 Urine Color Straw (Yellow) 12/12/22 07:37 Urine Appearance Clear (CLEAR) 12/12/22 07:37 Urine pH 5 (5-7) 12/12/22 07:37 Ur Specific [place] 1.010 (1.005-1.030) 12/12/22 07:37 Urine Protein Neg (Negative) 12/12/22 07:37 Urine Glucose (UA) Norm (Normal) 12/12/22 07:37 Urine Ketones Negative (Negative) 12/12/22 07:37 Urine Blood Neg (Negative) 12/12/22 07:37 Urine Nitrate Negative (Negative) 12/12/22 07:37 Urine Bilirubin Neg (Negative) 12/12/22 07:37 Urine Urobilinogen Norm mg/dL (Negative) 12/12/22 07:37 Ur Leukocyte Esterase 1+ (Negative) H 12/12/22 07:37 Urine RBC 0-4 /hpf (0-2) H 12/12/22 07:37 Urine WBC 5-10 /hpf (0-5) H 12/12/22 07:37 Ur Squamous Epith Cells 0-4 /hpf (0-5) H 12/12/22 07:37 Amorphous Sediment Not Reportable 12/12/22 07:37 Urine Bacteria Trace /hpf (NONE) 12/12/22 07:37 Urine Mucus Trace /hpf 12/12/22 07:37 Discharge Plan Discharge Patient Disposition: Home Clinical Impression: Chronic atrial fibrillation, HTN (hypertension) Condition: Stable Prescriptions: New diltiazem HCl 90 mg capsule,extended release 12 hr 90 mg PO BID Qty: 60 0RF No Action nitroglycerin 0.4 mg tablet, sublingual 0.4 mg sublingual Q5M PRN (Reason: Chest Pain) cholecalciferol (vitamin D3) 125 mcg (5,000 unit) capsule 125 mcg PO DAILY albuterol sulfate 90 mcg/actuation HFA aerosol inhaler 2 inh INHALATION Q6H Qty: 18 2RF fluticasone propionate 50 mcg/actuation spray,suspension 2 spray INTRANASAL DAILY Qty: 48 1RF (DME) Blood Pressure Cuff Misc See Rx Instructions .Route Qty: 1 0RF Rx Instructions: As directed (DME) nebulizers Misc See Rx Instructions .ROUTE .MEDSUPPLY Qty: 1 0RF Rx Instructions: As directed albuterol sulfate 2.5 mg /3 mL (0.083 %) solution for nebulization 2.5 mg inhalation QID PRN (Reason: shortness of breath or wheezing) Qty: 75 0RF potassium chloride 20 mEq packet 20 meq PO DAILY Qty: 100 3RF furosemide 20 mg tablet 20 mg PO DAILY Qty: 90 3RF aripiprazole 2 mg tablet 2 mg PO DAILY Qty: 90 0RF atorvastatin 40 mg tablet 40 mg PO BEDTIME Qty: 90 0RF budesonide-formoterol [Symbicort] 160-4.5 mcg/actuation HFA aerosol inhaler 2 inh INHALATION BID Qty: 30.6 0RF cetirizine [Zyrtec] 10 mg tablet 10 mg PO DAILY Qty: 90 0RF levothyroxine 50 mcg tablet 50 mcg PO DAILY Qty: 90 0RF Xarelto 15 mg tablet 15 mg PO DAILY Qty: 90 0RF Rx Instructions: must administer with evening meal venlafaxine 50 mg tablet 50 mg PO BID Qty: 180 0RF zafirlukast [Accolate] 10 mg tablet 10 mg PO BID Qty: 180 0RF Rx Instructions: must be taken on empty stomach, at least 1 hr before or 2 hrs after a meal/food hydroxyzine pamoate 100 mg capsule 100 mg PO .AT BEDTIME PRN (Reason: Sleep) Discharge Orders: Discharge ED (Routine); Ordered 12/12/22 Ordered By: Mian Medrano Referrals: Marsha Kelly, GROUP HOME COUNSELOR-C [Primary Care Provider] - Patient Instructions: Opioid Safety, Pain Management Activity Restrictions/Additional Instructions: Follow-up with cardiology within the next week. Coding Level of Care Code ED [place] for Nicole Avalos
--- NOTE | 2022-12-12 06:32 | XR_ITS ---
WS: [id number] EXAMINATION: XR chest 1V portable [id number] REASON FOR EXAM: dyspnea/cough COMPARISON: 08/01/2022 ORDER DATE: 12/12/2022 6:32 AM TECHNIQUE: A single, portable frontal chest x-ray was obtained. X-RAY FINDINGS: . There may be a cluster of micronodules corresponding with a vague opacity about 15 mm in diameter possibly infiltrate in the mid lateral right lung which contained a single nodule on the previous yoko dy. Pleural spaces are clear. No pleural effusions or pneumothorax. Cardiomediastinal silhouette is normal. No evidence for pulmonary edema. Soft tissue and osseous structures are unremarkable. No tubes or lines are present. IMPRESSION: Small focal area of interval change in the lateral mid right lung as compared with the previous study possibilities include inflammatory, infectious or neoplastic process. Follow-up including lateral ch est radiography initially may be of benefit or if the process remains on clarified CT imaging of the chest may be obtained.
[2022-12-12] MEDS: carvedilol 3.125 mg Tablet PO (06:48)
[2022-12-12] MEDS: dilTIAZem 100 MG in sodium chloride 0.9% (add-van) 100 ML IV (06:52)
[2022-12-12] MEDS: dilTIAZem 5 mg/mL SDV 5 mL 20 MG IVP (06:53)
[2022-12-12 07:30] LABS: Basophils # 0.1 10^3/uL (0.0-0.1); Basophils % 0.8 %; Eosinophils # 0.3 10^3/uL (0.0-0.8); Eosinophils % 2.6 %; Hematocrit 38.4 % (36-47); Lymphocytes # 1.5 10^3/uL (0.8-4.8); Lymphocytes % 15.1 %; Mean Corpuscular Hemoglobin 30.1 pg (27-33); Mean Corpuscular Volume 93.9 fl (85-98); Mean Platelet Volume 9.6 fL (7.4-10.4); Monocytes # 0.9 10^3/uL (0.2-0.9); Monocytes % 8.7 %; Neutrophils # 7.09 10^3/uL (1.8-7.7); Neutrophils % 72.4 %; Nucleated Red Blood Cells % 0 %; Platelet Count 277 10^3/cmm (157-399); Red Blood Count 4.09 10^6/uL (3.85-5.65); Red Cell Distribution Width 13.2 % (12.1-15.1); White Blood Count 9.79 10^3/uL (3.29-11.43)
[2022-12-12 07:48] LABS: Alanine Aminotransferase 11 U/L (0-33); Albumin Level 3.5 g/dL (3.5-5.2); Alkaline Phosphatase 87 U/L (35-105); Anion Gap 12.2 (5-19); Aspartate Amino Transferase 14 U/L (0-32); Blood Urea Nitrogen 13 mg/dL (8-23); Calcium 8.6 mg/dL (8.5-10.5); Carbon Dioxide 26 mmol/L (22-29); Chloride 105 mmol/L (98-107); Globulin 2.7 g/dL (1.3-4.6); Glucose 93 mg/dL (65-115); Osmolality Calculated 288 mOsm/kg (285-295); Potassium 4.2 mmol/L (3.5-5.1); Sodium 139 mmol/L (136-145); Total Bilirubin 0.9 mg/dL (0.15-1.2); Total Protein 6.2 g/dL (6.6-8.7); Troponin(5th) Baseline 17 ng/L (0-10)
[2022-12-12 08:27] LABS: Add Urine Microscopic? YES; Bilirubin Urine Neg (Negative); Blood Urine Neg (Negative); Glucose Urine UA Norm (Normal); Ketones Urine Negative (Negative); Leukocyte Esterase Urine 1+ (Negative); Nitrate Urine Negative (Negative); Protein Urine Neg (Negative); Urine Appearance Clear (CLEAR); Urine Color Straw (Yellow); Urobilinogen Urine Norm (Negative); pH Urine 5 (5-7)
[2022-12-12 08:28] LABS: Add Urine Culture? No; Bacteria Urine TRACE /hpf; Mucus Urine TRACE /hpf; RBC Urine 0-4 /hpf (0-2); Squamous Epithelial Cell Urine 0-4 /hpf (0-5)
[2022-12-12 09:35] LABS: Troponin 5 2HR 15.82 ng/L (0-10)
[2022-12-12 09:39] LABS: Troponin 5 2HR Delta -1.18 ABS# (0-10)
== END 2022-12-12 10:53 | disposition home or self-care (01) ==
PROVIDERS: Emergency Provider Family Medicine; PCP Nurse Practitioner
DX: I48.20 Chronic atrial fibrillation, unspecified (principal); I10 Essential (primary) hypertension; J44.9 Chronic obstructive pulmonary disease, unspecified; E78.2 Mixed hyperlipidemia
CPT/HCPCS: 36415; 71045; 80053; 81001; 84484; 85025; 93005; 96365; 96375; 99285; J3490

== ENCOUNTER → 2022-12-17 15:18 | Outpatient (BNVA) | payer MEDICARE, OTHER, SELFPAY | PROVIDERS: PCP Nurse Practitioner; Visit Provider Nurse Practitioner | DX: E03.8 Other specified hypothyroidism (principal) | CPT/HCPCS: 84443 ==

== ENCOUNTER → 2023-01-09 13:24 | Outpatient (BNVA) | payer MEDICARE, OTHER, SELFPAY | PROVIDERS: PCP Nurse Practitioner; Visit Provider Nurse Practitioner Family | DX: I42.9 Cardiomyopathy, unspecified (principal); I50.20 Unspecified systolic (congestive) heart failure; I48.20 Chronic atrial fibrillation, unspecified | CPT/HCPCS: 93005; 99214 ==

== ENCOUNTER → 2023-01-13 15:00 | Outpatient (BNVA) | payer MEDICARE, OTHER, SELFPAY | PROVIDERS: PCP Nurse Practitioner; Visit Provider Nurse Practitioner | DX: D50.9 Iron deficiency anemia, unspecified (principal); J44.9 Chronic obstructive pulmonary disease, unspecified | CPT/HCPCS: 80053; 83540; 85025 ==

== ENCOUNTER 2023-01-17 05:56 | Outpatient (CLI) | payer MEDICARE, OTHER, SELFPAY ==
--- NOTE | 2023-01-17 06:30 | CT_ITS ---
WS: [id number] CT chest w con* [id number] HISTORY: J44.9 - Chronic obstructive pulmonary disease, unspecified TECHNIQUE: Axial imaging performed through the thorax. Coronal and sagittal reformats are submitted. All CT scans at [facility] use at least one of these dose optimization techniques: automated exposure control; mA and/or kV adjustment per patient size (includes targeted exams where dose is mat ched to clinical indication); or iterative reconstruction. CONTRAST: Omnipaque 350; 100 mL IV. DLP: 448.93 mGy.cm COMPARISON: 01/10/2021 Lungs and central airway: Mild pulmonary hyperexpansion. Significant improvement in aeration througho ut both lungs since the prior examination. Benign granuloma adjacent to the fissure RIGHT lower lobe. There is a focal nodule with surrounding increased attenuation centered near the RIGHT hilum extendi ng into the RIGHT middle lobe. There is a nodule measuring 8.6 mm with adjacent postobstructive atele ctasis. These changes have progressed since the prior study of 01/10/2021. This will need long-term ann rveillance. Otherwise no acute findings within the lungs. Pleura: Normal. No pleural effusion. Heart and pericardium: Moderate cardiomegaly. No RIGHT heart strain. Mediastinum and mary: Calcified subcarinal lymph node. No new or enlarging lymph nodes. Vessels: Mild atherosclerosis aorta. Pulmonary artery is mildly prominent. Chest wall and lower neck: No soft tissue masses. Upper abdomen: Mild hepatic steatosis. Negative gallbladder. No adrenal mass. Small hiatal hernia. Osseous structures: Diffuse osteopenia. IMPRESSION: 1. Increased soft tissue with a focal 8.6 mm nodule centered in the medial RIGHT middle lobe. There i s an associated calcification within the soft tissue nodularity. There is also small amount of atelec tasis distally extending along the fissures. Nodule is more prominent than on the prior examination a nd needs to be followed to ensure there is no enlargement over time. Recommend follow-up chest CT in 3 months with IV contrast. 2. Mild chronic emphysema. 3. No adenopathy. 4. Moderate cardiomegaly.
[2023-01-17] MEDS: iohexol 350 mg/mL 500 mL Btl (per mL) IV (07:02)
== END 2023-01-17 05:57 | disposition home or self-care (01) ==
PROVIDERS: PCP Nurse Practitioner; Visit Provider Nurse Practitioner
DX: J43.8 Other emphysema (principal); R93.89 Abnormal findings on diagnostic imaging of other specified body structures; I51.7 Cardiomegaly
CPT/HCPCS: 71260; Q9967

== ENCOUNTER 2023-02-04 18:34 | Emergency (ER) | payer MEDICARE, OTHER, SELFPAY ==
--- NOTE | 2023-02-04 18:38 | XRR_ITS ---
PROCEDURE INFORMATION: Exam: XR Chest Exam date and time: 02/04/2023 6:49 PM Age: 72 years old Clinical indication: Other: A fib; Additional info: SOB TECHNIQUE: Imaging protocol: Radiologic exam of the chest. Views: 1 view. COMPARISON: CT chest w con* [id number] 01/17/2023 6:50 AM FINDINGS: Lungs: Mild emphysematous change. Small amount of infiltrate/atelectasis adjacent or inferior to the minor fissure mid right lung, suggested on CT chest 01/17/2023, though more prominent than prior portable chest 12/12/2022. Mild increased interstitial markings mid to lower right lung as well with today's exam. No consolidation or significant effusion. No pneumothorax. Pleural spaces: See Lungs finding. Heart/Mediastinum: Cardiac size is upper limits. Bones/joints: Visualized osseous structures show no acute abnormality. XR/XR chest 1V portable [id number] IMPRESSION: Mild emphysematous change. Small amount of infiltrate/atelectasis adjacent or inferior to the minor fissure on the right reported with prior CT chest 01/17/2023. Suggestion of mild increased interstitial markings mid to lower right lung and consider interstitial pneumonitis. No consolidation or effusion.
--- NOTE | 2023-02-04 18:41 | ECG_ITS ---
[facility] Test Date: 2023-02-04 Pat Name: Mere Preston Department: Room: Gender: Female Cl[place] In: : 1950 Requested By: Maciel Klein Order Number: [id number] Reading MD: Naz Colón M.D. Measurements Intervals [place] Rate: 115 P: 0 [place]: 0 QRS: -19 QRSD: 94 T: 82 QT: 339 QTc: 469 Interpretive Statements ATRIAL FIBRILLATION WITH RAPID VENTRICULAR RESPONSE INFERIOR MYOCARDIAL INFARCTION , PROBABLY OLD [40+ ms Q WAVE AND/OR ST/T ABNORMALITY IN II/aVF] Compared to ECG 01/09/2023 13:29:41 Myocardial infarct finding now present Electronically Signed On 02-04-2023 21:57:14 CDT by Naz Colón M.D. [email or web address]
[2023-02-04 18:42] VITALS: BP 168/115; PULSE 114; RESP 17; TEMP 36.4; O2SAT 97; BMI 29.9
--- NOTE | 2023-02-04 18:47 | W.ED.CHESTPA ---
HPI - Chest Pain General: Stated Complaint: AFIB issues, sob Time Seen by Provider: 02/04/23 18:47 PFSH ED PFSH: Medical History Adult onset hypothyroidism Anemia Anxiety and depression Asthma Atrial fibrillation by electrocardiogram Benign hypertension COPD (chronic obstructive pulmonary disease) Environmental and seasonal allergies High risk medication use EKG from 09/22/2019 showed the QRS duration of 100 ms Insomnia Mixed hyperlipidemia Pneumonia due to 2018-V Vitamin D deficiency Surgical History History of cardiac radiofrequency ablation (RFA) patient is unsure but feels like this was about 20 years ago. History of section History of hysterectomy History of oophorectomy Family History Father CAD (coronary artery disease) Lung disease Mother CAD (coronary artery disease) Cancer Dementia Other Hypertension Denies family history of Diabetes Clotting disorder Chronic kidney disease (CKD) Suicide Anesthesia complication Bleeding disorder Stroke Social History Smoking and tobacco/nicotine status: never used tobacco/nicotine Second hand smoke exposure: No Alcohol intake: never Substance/Drug Use: never Caregiver/support person: No Lives independently: Yes Household members: children Housing: House Marital status: / Number of children: 2 service: No Current occupational status: unemployed Pets and animals: Yes Do you think of yourself as: Straight/Heterosexual Current gender identity: Female Course Vital Signs: Vital signs: Vital Signs Temperature 97.6 F 02/04/23 18:42 Pulse Rate 114 H 02/04/23 18:42 Respiratory Rate 17 02/04/23 18:42 Blood Pressure 168/115 02/04/23 18:42 Pulse Oximetry 97 02/04/23 18:42 Oxygen Delivery Me thod Room Air 02/04/23 18:42 Discharge Plan Discharge Condition: Stable Prescriptions: No Action nitroglycerin 0.4 mg tablet, sublingual 0.4 mg sublingual Q5M PRN (Reason: Chest Pain) cholecalciferol (vitamin D3) 125 mcg (5,000 unit) capsule 125 mcg PO DAILY albuterol sulfate 90 mcg/actuation HFA aerosol inhaler 2 inh INHALATION Q6H Qty: 18 2RF (DME) Blood Pressure Cuff Misc See Rx Instructions .Route Qty: 1 0RF Rx Instructions: As directed (DME) nebulizers [facility] See Rx Instructions .ROUTE .MEDSUPPLY Qty: 1 0RF Rx Instructions: As directed albuterol sulfate 2.5 mg /3 mL (0.083 %) solution for nebulization 2.5 mg inhalation QID PRN (Reason: shortness of breath or wheezing) Qty: 75 0RF carvedilol [Coreg] 3.125 mg tablet 3.125 mg PO Q12H Rx Instructions: must administer with a meal/food aripiprazole 2 mg tablet 2 mg PO DAILY Qty: 90 0RF atorvastatin 40 mg tablet 40 mg PO BEDTIME Qty: 90 0RF budesonide-formoterol [Symbicort] 160-4.5 mcg/actuation HFA aerosol inhaler 2 inh INHALATION BID Qty: 30.6 0RF cetirizine [Zyrtec] 10 mg tablet 10 mg PO DAILY Qty: 90 0RF fluticasone propionate 50 mcg/actuation spray,suspension 2 spray INTRANASAL DAILY Qty: 48 1RF Xarelto 15 mg tablet 15 mg PO DAILY Qty: 90 0RF Rx Instructions: must administer with evening meal venlafaxine 50 mg tablet 50 mg PO BID Qty: 180 0RF zafirlukast [Accolate] 10 mg tablet 10 mg PO BID Qty: 180 0RF Rx Instructions: must be taken on empty stomach, at least 1 hr before or 2 hrs after a meal/food levothyroxine 50 mcg tablet 50 mcg PO DAILY Qty: 90 0RF potassium chloride 20 mEq packet 20 meq PO DAILY Qty: 100 3RF furosemide 20 mg tablet 20 mg PO DAILY Qty: 90 3RF hydroxyzine pamoate 100 mg capsule 100 mg PO .AT BEDTIME PRN (Reason: Sleep) diltiazem HCl 90 mg capsule,extended release 12 hr 90 mg PO BID Qty: 60 0RF Referrals: Marsha Kelly FNP-C [Primary Care Provider] - Coding Level of Care Code ED [employer] Super[employer] for Nicole Avalos
--- NOTE | 2023-02-04 19:02 | W.ED.ARRPALP ---
HPI - Arrhythmia/Palpitations General: Chief Complaint: Chest Pain Stated Complaint: AFIB issues, sob Time Seen by Provider: 02/04/23 18:47 Source: patient Mode of arrival: ambulatory Limitations: no limitations History of Present Illness: 72-year-old female history of COPD along with has been in A-fib with heart rates in the 130s to 140s she states that is causing her have some discomfort in her chest states she also had some increased dyspnea she states this is typical with her A-fib at times she denies any severe cough denies any severe pain. Associated symptoms: Deny nausea or vomiting Review of Systems Const: Denies: fever(s), chills, body aches or change in appetite ENMT: Denies: throat pain or dental pain Card: Reports: chest pain and irregular heart rhythm Resp: Reports: dyspnea GI: Denies: abdominal pain, nausea, vomiting or diarrhea Musc: Denies: neck pain or back pain Skin/Breast: Denies: rash Neuro: Denies: headache(s) PFSH ED PFSH: Medical History Adult onset hypothyroidism Anemia Anxiety and depression Asthma Atrial fibrillation by electrocardiogram Benign hypertension COPD (chronic obstructive pulmonary disease) Environmental and seasonal allergies High risk medication use EKG from 09/22/2019 showed the QRS duration of 100 ms Insomnia Mixed hyperlipidemia Pneumonia due to 2019-V Vitamin D deficiency Surgical History History of cardiac radiofrequency ablation (RFA) patient is unsure but feels like this was about 20 years ago. History of section History of hysterectomy History of oophorectomy Family History Father CAD (coronary artery disease) Lung disease Mother CAD (coronary artery disease) Cancer Dementia Other Hypertension Denies family history of Diabetes Clotting disorder Chronic kidney disease (CKD) Suicide Anesthesia complication Bleeding disorder Stroke Social History Smoking and tobacco/nicotine status: never used tobacco/nicotine Second hand smoke exposure: No Alcohol intake: never Substance/Drug Use: never Caregiver/support person: No Lives independently: Yes Household members: children Housing: House Marital status: / Number of children: 2 service: No Current occupational status: unemployed Pets and animals: Yes Do you think of yourself as: Straight/Heterosexual Current gender identity: Female Physical Exam Const: COMMON NORMALS: patient oriented x3 HENMT: COMMON NORMALS: normocephalic and atraumatic HEAD & SCALP: normocephalic and atraumatic Eye: COMMON NORMALS: Equal, round and reactive pupils present and EOMs intact bilaterally PUPIL: Yes Equal, round and reactive pupils present Neck/C-Spine: COMMON NORMALS: full ROM and supple Chest: COMMONS NORMALS: normal inspection of the chest and normal palpation of entire chest wall Resp: COMMON NORMALS: normal respiratory effort, No retractions, No use of accessory muscles and clear to auscultation bilaterally AUSCULTATION: clear to auscultation bilaterally Cardio: COMMON NORMALS: No murmurs present (Cardio) RATE: tachycardic RHYTHM: abnormal rhythm irregularly irregular GI: COMMON NORMALS: Normal to inspection, nondistended, normoactive bowel sounds present, Soft to palpation, non-tender and no masses PALPATION: Yes Soft to palpation Extremity: COMMON NORMALS: normal to inspection and full ROM Neuro: COMMON NORMALS: patient oriented x3, moves all extremities and no focal motor deficits Psych: COMMON NORMALS: mental status grossly normal, Normal thought process present and cooperative THOUGHT PROCESS: Normal thought process present Skin: COMMON NORMALS: no rashes or lesions noted and no wounds GENERAL SKIN EXAM: no rashes or lesions noted Course Vital Signs: Vital signs: Vital Signs Temperature 97.6 F 02/04/23 18:42 Pulse Rate 100 02/04/23 20:50 Respiratory Rate 14 02/04/23 20:50 Blood Pressure 176/101 02/04/23 20:50 Pulse Oximetry 96 02/04/23 20:50 Oxygen Delivery Me thod Room Air 02/04/23 19:18 MDM - Arrhythmia/Palpitations Medical Decision Making Patient presents with A-fib with RVR heart rate is now in the 80s blood pressure here is improved as well believe her symptoms likely from her A-fib she has no signs of pulmonary embolism troponins here are normal we will increase her Coreg to 6.25 twice daily she is to follow-up with her PCP and return if worsening. Medical Records I reviewed the patient's medical records. Lab Data I reviewed the patient's lab results. 02/04/23 18:56 02/04/23 18:56 Radiology Impressions Chest X-Ray 02/04/23 18:38 IMPRESSION: Mild emphysematous change. Small amount of infiltrate/atelectasis adjacent or inferior to the minor fissure on the right reported with prior CT chest 01/17/2023. Suggestion of mild increased interstitial markings mid to lower right lung and consider interstitial pneumonitis. No consolidation or effusion. Laboratory Results WBC 9.10 10^3/uL (3.29-11.43) 02/04/23 18:56 RBC 4.26 10^6/uL (3.85-5.65) 02/04/23 18:56 Hgb 13.00 g/dL (11.27-16.99) 02/04/23 18:56 Hct 39.7 % (36-47) 02/04/23 18:56 MCV 93.2 fl (85-98) 02/04/23 18:56 MCH 30.5 pg (27-33) 02/04/23 18:56 MCHC 32.7 g/dL (30-55) 02/04/23 18:56 RDW 12.1 % (12.1-15.1) 02/04/23 18:56 Plt Count 342 10^3/cmm (157-399) 02/04/23 18:56 MPV 9.8 fL (7.4-10.4) 02/04/23 18:56 Neut % (Auto) 64.7 % 02/04/23 18:56 Lymph % (Auto) 22.3 % 02/04/23 18:56 Miner % (Auto) 9.2 % 02/04/23 18:56 Eos % (Auto) 2.7 % 02/04/23 18:56 Baso % (Auto) 0.7 % 02/04/23 18:56 Neut # (Auto) 5.88 10^3/uL (1.8-7.7) 02/04/23 18:56 Lymph # (Auto) 2.0 10^3/uL (0.8-4.8) 02/04/23 18:56 Miner # (Auto) 0.8 10^3/uL (0.2-0.9) 02/04/23 18:56 Eos # (Auto) 0.3 10^3/uL (0.0-0.8) 02/04/23 18:56 Baso # (Auto) 0.1 10^3/uL (0.0-0.1) 02/04/23 18:56 Nucleated RBC % (auto) 0 % 02/04/23 18:56 Nucleated RBCs # 0.0 /100WBC 02/04/23 18:56 PT 16.00 SECONDS (12.1-14.9) H 02/04/23 18:56 INR 1.23 (0.8-1.2) H 02/04/23 18:56 Sodium 144 mmol/L (136-145) 02/04/23 18:56 Potassium 4.0 mmol/L (3.5-5.1) 02/04/23 18:56 Chloride 107 mmol/L (98-107) 02/04/23 18:56 Carbon Dioxide 23 mmol/L (22-29) 02/04/23 18:56 Anion Gap 18.0 (5-19) 02/04/23 18:56 BUN 17 mg/dL (8-23) 02/04/23 18:56 Creatinine 1.1 mg/dL (0.5-0.9) H 02/04/23 18:56 GFR Calculation Not Reportable 02/04/23 18:56 Glucose 101 mg/dL (65-115) 02/04/23 18:56 Calculated Osmolality 300 mOsm/kg (285-295) H 02/04/23 18:56 Calcium 9.4 mg/dL (8.5-10.5) 02/04/23 18:56 Total Bilirubin 1.1 mg/dL (0.15-1.2) 02/04/23 18:56 AST 16 U/L (0-32) 02/04/23 18:56 ALT 16 U/L (0-33) 02/04/23 18:56 Alkaline Phosphatase 99 U/L (35-105) 02/04/23 18:56 Troponin T Baseline 21 ng/L (0-10) H 02/04/23 18:56 Troponin T 120 Minute 17.41 ng/L (0-10) H 02/04/23 21:19 Delta Troponin T -3.59 ABS# (0-10) L 02/04/23 21:19 NT-Pro-B Natriuret Pep 5603 pg/mL (0-125) H 02/04/23 18:56 Total Protein 6.3 g/dL (6.6-8.7) L 02/04/23 18:56 Albumin 3.8 g/dL (3.5-5.2) 02/04/23 18:56 Globulin 2.5 g/dL (1.3-4.6) 02/04/23 18:56 All radiology interpretation(s) finalized by discharge Discharge Plan Discharge Patient Disposition: Home Clinical Impression: Atrial fibrillation with rapid ventricular response, Hypertension Condition: Stable Prescriptions: New Coreg 6.25 mg tablet 6.25 mg PO BID Qty: 60 0RF Rx Instructions: must administer with a meal/food Discontinued carvedilol [Coreg] 3.125 mg tablet 3.125 mg PO Q12H Rx Instructions: must administer with a meal/food No Action nitroglycerin 0.4 mg tablet, sublingual 0.4 mg sublingual Q5M PRN (Reason: Chest Pain) cholecalciferol (vitamin D3) 125 mcg (5,000 unit) capsule 125 mcg PO DAILY albuterol sulfate 90 mcg/actuation HFA aerosol inhaler 2 inh INHALATION Q6H Qty: 18 2RF (DME) Blood Pressure Cuff Misc See Rx Instructions .Route Qty: 1 0RF Rx Instructions: As directed (DME) nebulizers Misc See Rx Instructions .ROUTE .MEDSUPPLY Qty: 1 0RF Rx Instructions: As directed albuterol sulfate 2.5 mg /3 mL (0.083 %) solution for nebulization 2.5 mg inhalation QID PRN (Reason: shortness of breath or wheezing) Qty: 75 0RF aripiprazole 2 mg tablet 2 mg PO DAILY Qty: 90 0RF atorvastatin 40 mg tablet 40 mg PO BEDTIME Qty: 90 0RF budesonide-formoterol [Symbicort] 160-4.5 mcg/actuation HFA aerosol inhaler 2 inh INHALATION BID Qty: 30.6 0RF cetirizine [Zyrtec] 10 mg tablet 10 mg PO DAILY Qty: 90 0RF fluticasone propionate 50 mcg/actuation spray,suspension 2 spray INTRANASAL DAILY Qty: 48 1RF Xarelto 15 mg tablet 15 mg PO DAILY Qty: 90 0RF Rx Instructions: must administer with evening meal venlafaxine 50 mg tablet 50 mg PO BID Qty: 180 0RF zafirlukast [Accolate] 10 mg tablet 10 mg PO BID Qty: 180 0RF Rx Instructions: must be taken on empty stomach, at least 1 hr before or 2 hrs after a meal/food levothyroxine 50 mcg tablet 50 mcg PO DAILY Qty: 90 0RF potassium chloride 20 mEq packet 20 meq PO DAILY Qty: 100 3RF furosemide 20 mg tablet 20 mg PO DAILY Qty: 90 3RF hydroxyzine pamoate 100 mg capsule 100 mg PO .AT BEDTIME PRN (Reason: Sleep) diltiazem HCl 90 mg capsule,extended release 12 hr 90 mg PO BID Qty: 60 0RF Discharge Orders: Discharge ED (Routine); Ordered 02/04/23 Ordered By: Maciel Klein Referrals: Marsha Kelly, RAVIC [Primary Care Provider] - 1-3 days Discharge Diet: Advance as tolerated Discharge Activity: Resume usual activity Patient Instructions: A-fib (Atrial Fibrillation) (ED), Hypertension (ED) Coding Level of Care Code ED Factory Process Workers for Nicole Avalos
[2023-02-04 19:06] LABS: Basophils # 0.1 10^3/uL (0.0-0.1); Basophils % 0.7 %; Eosinophils # 0.3 10^3/uL (0.0-0.8); Eosinophils % 2.7 %; Hematocrit 39.7 % (36-47); Lymphocytes % 22.3 %; Mean Corpuscular HGB Conc 32.7 g/dL (30-55); Mean Corpuscular Hemoglobin 30.5 pg (27-33); Mean Corpuscular Volume 93.2 fl (85-98); Mean Platelet Volume 9.8 fL (7.4-10.4); Monocytes # 0.8 10^3/uL (0.2-0.9); Monocytes % 9.2 %; Neutrophils # 5.88 10^3/uL (1.8-7.7); Neutrophils % 64.7 %; Nucleated Red Blood Cells % 0 %; Platelet Count 342 10^3/cmm (157-399); Red Blood Count 4.26 10^6/uL (3.85-5.65); Red Cell Distribution Width 12.1 % (12.1-15.1)
[2023-02-04] MEDS: dilTIAZem 5 mg/mL SDV 5 mL 20 MG IVP (19:11)
[2023-02-04 19:18] VITALS: BP 136/87; PULSE 86; RESP 12; O2SAT 96
[2023-02-04 19:19] VITALS: BP 127/103
[2023-02-04 19:24] LABS: INR 1.23 (0.8-1.2)
[2023-02-04 19:34] LABS: Troponin(5th) Baseline 21 ng/L (0-10)
[2023-02-04 19:39] LABS: Alanine Aminotransferase 16 U/L (0-33); Albumin Level 3.8 g/dL (3.5-5.2); Alkaline Phosphatase 99 U/L (35-105); Aspartate Amino Transferase 16 U/L (0-32); Blood Urea Nitrogen 17 mg/dL (8-23); Calcium 9.4 mg/dL (8.5-10.5); Carbon Dioxide 23 mmol/L (22-29); Chloride 107 mmol/L (98-107); Globulin 2.5 g/dL (1.3-4.6); Glucose 101 mg/dL (65-115); NT Pro B Type Natriuretic Pept 5603 pg/mL (0-125); Osmolality Calculated 300 mOsm/kg (285-295); Sodium 144 mmol/L (136-145); Total Bilirubin 1.1 mg/dL (0.15-1.2); Total Protein 6.3 g/dL (6.6-8.7)
--- NOTE | 2023-02-04 19:42 | ECG_ITS ---
[facility] Test Date: 2023-02-04 Pat Name: Mere Preston Department: Room: Gender: Female Geographic Information Systems Manager: : 1950 Requested By: Prosper Yu Order Number: [id number] Gagandeep MD: Naz Colón M.D. Measurements Intervals [place] Rate: 85 P: 0 [place]: 0 QRS: -7 QRSD: 88 T: 76 QT: 388 QTc: 462 Interpretive Statements ATRIAL FIBRILLATION NONSPECIFIC ST & T-WAVE ABNORMALITY ABNORMAL RHYTHM ECG Compared to ECG 01/09/2023 13:29:41 T-wave abnormality now present Electronically Signed On 02-04-2023 21:56:31 CDT by Naz Colón M.D. [id number]
[2023-02-04] MEDS: metoprolol tartrate 50 mg Tablet PO (20:49)
[2023-02-04 20:50] VITALS: BP 176/101; PULSE 100; RESP 14; O2SAT 96
[2023-02-04 21:41] LABS: Troponin 5 2HR 17.41 ng/L (0-10); Troponin 5 2HR Delta -3.59 ABS# (0-10)
[2023-02-04 22:09] VITALS: BP 170/132; PULSE 94; RESP 17; O2SAT 95
== END 2023-02-04 22:13 | disposition home or self-care (01) ==
PROVIDERS: Emergency Provider Emergency Medicine; PCP Nurse Practitioner
DX: I48.20 Chronic atrial fibrillation, unspecified (principal); I10 Essential (primary) hypertension; J44.9 Chronic obstructive pulmonary disease, unspecified; E78.2 Mixed hyperlipidemia
CPT/HCPCS: 36415; 71045; 80053; 83880; 84484; 85025; 85610; 93005; 96374; 99285; J3490

== ENCOUNTER → 2023-02-06 08:51 | Outpatient (BNVA) | payer MEDICARE, OTHER, SELFPAY | PROVIDERS: PCP Nurse Practitioner; Visit Provider Nurse Practitioner | DX: M25.512 Pain in left shoulder | CPT/HCPCS: 73030 ==

== ENCOUNTER → 2023-02-11 14:36 | Outpatient (BNVA) | payer MEDICARE, OTHER, SELFPAY | PROVIDERS: PCP Nurse Practitioner; Referring Provider Nurse Practitioner; Visit Provider Internal Medicine Pulmonary Disease | DX: R91.1 Solitary pulmonary nodule (principal); J82.83 Eosinophilic asthma; Z77.22 Contact with and (suspected) exposure to environmental tobacco smoke (acute) (chronic) | CPT/HCPCS: 99204 ==

== ENCOUNTER → 2023-03-31 16:57 | Outpatient (BNVA) | payer MEDICARE, OTHER, SELFPAY | PROVIDERS: PCP Nurse Practitioner; Visit Provider Nurse Practitioner | DX: E55.9 Vitamin D deficiency, unspecified (principal); E03.8 Other specified hypothyroidism; E78.2 Mixed hyperlipidemia; M25.562 Pain in left knee; J45.909 Unspecified asthma, uncomplicated; F41.9 Anxiety disorder, unspecified; I48.91 Unspecified atrial fibrillation; F32.9 Major depressive disorder, single episode, unspecified; I48.20 Chronic atrial fibrillation, unspecified; J30.89 Other allergic rhinitis | CPT/HCPCS: 80061; 82306; 84443; 85651; 86140 ==

== ENCOUNTER 2023-04-01 14:22 | Emergency (ER) | payer MEDICARE, OTHER, SELFPAY ==
--- NOTE | 2023-04-01 14:24 | XR_ITS ---
WS: [id number] Exam: XR chest 1V portable [id number] Date/Time of Exam: 04/01/2023 2:27 PM Reason For Exam: chest pain Comparison 02/04/2023. The lungs are clear and fully inflated. Cardiomediastinal silhouette is normal in appearance. No pleu ral effusion. Bony structures are intact. IMPRESSION: 1. No acute cardiopulmonary process.
--- NOTE | 2023-04-01 14:30 | ECG_ITS ---
[facility] Test Date: 2023-04-01 Pat Name: Mere Preston Department: Room: Gender: Female Dining Room Supervisor: : 1950 Requested By: Mian Kumari Order Number: [id number] Reading MD: Fei Stanley M.D. Measurements Intervals [place] Rate: 87 P: 0 [place]: 0 QRS: 9 QRSD: 97 T: 85 QT: 396 QTc: 477 Interpretive Statements ATRIAL FIBRILLATION NONSPECIFIC ST & T-WAVE ABNORMALITY Compared to ECG 02/04/2023 19:42:52 No significant changes Electronically Signed On 04-01-2023 16:54:10 FUND RAISER by Fei Stanley M.D. [id number] f
[2023-04-01 14:31] VITALS: BP 112/85; PULSE 68; RESP 18; TEMP 36.6; O2SAT 95
--- NOTE | 2023-04-01 14:31 | ED_ITS ---
HPI - Chest Pain 2 General: Chief Complaint: Chest Pain Stated Complaint: chest pain Time Seen by Provider: 04/01/23 14:24 Source: patient Mode of arrival: EMS History of Present Illness: 72-year-old female presents emergency ro om complaining of chest discomfort. It is very positional when she sits up moves takes a deep breath or palpates it worsens. States she was watching TV earlier today and began. She has a history of atrial fibrillation no history of any known coronary artery disease. She was given aspirin and nitro x 3 and route had no relief of pain. Blood pressure did decrease she was given IV fluid bolus and blood pressure improved. At rest she has no chest pain but with any movement sitting up in the exam room or palpation along the anterior axillary line on the left she has worsening of chest discomfort. She denies any fever sweats chills or productive cough no dysuria urgency or frequency or abdominal pain. States she has had previous episodes similar that were less intense than this MD complaint: chest pain Onset (ago): hour(s) Timing of current episode: episodic Prior episodes: Yes Onset: during rest Pain location: left chest (Left anterior axillary line) Pain radiation: back Severity: severe Quality: sharp Relieving factors: rest Exacerbating factors: inspiration, palpation and movement (Repositioning in bed such as sitting up) Associated symptoms: Deny abdominal pain, diaphoresis, dyspnea, fever(s), leg edema, nausea, palpitations, sense of impending doom, syncope or vomiting Treatment prior to arrival: aspirin, nitroglycerin (No relief) and oxygen Review of Systems 2 Const: Denies: fever(s), chills or diaphoresis Card: Reports: chest pain; Denies: palpitations or syncope Resp: Denies: dyspnea GI: Denies: abdominal pain, nausea or vomiting : Denies: dysuria, urinary frequency or urinary urgency Musc: Denies: neck pain or back pain Skin/Breast: Denies: rash PFSH ED 2 PFSH: Medical History Adult onset hypothyroidism COPD (chronic obstructive pulmonary disease) Pneumonia due to 2018- Anemia Insomnia Environmental and seasonal allergies High risk medication use EKG from 09/22/2019 showed the QRS duration of 100 ms Atrial fibrillation by electrocardiogram Asthma Benign hypertension Anxiety and depression Mixed hyperlipidemia Vitamin D deficiency Surgical History History of section History of hysterectomy History of oophorectomy History of cardiac radiofrequency ablation (RFA) patient is unsure but feels like this was about 20 years ago. Family History Father CAD (coronary artery disease) Lung disease Mother CAD (coronary artery disease) Cancer Dementia Other Hypertension Denies family history of Diabetes Clotting disorder Chronic kidney disease (CKD) Suicide Anesthesia complication Bleeding disorder Stroke Social History Smoking and tobacco/nicotine status: never used tobacco/nicotine Second hand smoke exposure: No Alcohol intake: never Substance/Drug Use: never Caregiver/support person: No Lives independently: Yes Household members: children Housing: House Marital status: / Number of children: 2 service: No Current occupational status: unemployed Pets and animals: Yes Do you think of yourself as: Straight/Heterosexual Current gender identity: Female Physical Exam 2 Const: COMMON NORMALS: no acute distress GENERAL APPEARANCE: cooperative and comfortable ORIENTATION/CONSCIOUSNESS: Yes awake, Yes oriented to person, Yes oriented to place and Yes oriented to time HENMT: COMMON NORMALS: normocephalic, atraumatic and hearing grossly normal bilaterally HEAD & SCALP: normocephalic and atraumatic Chest: OTHER: Chest pain reproducible palpation of the left or anterior axillary line at the level of the breast also with repositioning in bed such as sitting up and with deep inspiration Resp: COMMON NORMALS: normal respiratory effort, No retractions, No use of accessory muscles and clear to auscultation bilaterally AUSCULTATION: clear to auscultation bilaterally Cardio: COMMON NORMALS: regular rate, regular rhythm and No murmurs present (Cardio) RATE: regular rate RHYTHM: regular rhythm GI: COMMON NORMALS: Soft to palpation and No hepatosplenomegaly present A USCULTATION: Yes normoactive bowel sounds PALPATION: Yes Soft to palpation, No Tenderness to palpation present (GI), No Guarding due to palpation present (GI) and Yes No hepatosplenomegaly present Extremity: COMMON NORMALS: normal to inspection, capillary refill normal, no clubbing, cyanosis or edema, no calf tenderness and no pedal edema Neuro: SENSORIUM/ORIENTATION: Yes oriented to person, Yes oriented to place and Yes oriented to time Skin: COMMON NORMALS: no rashes or lesions noted GENERAL SKIN EXAM: no rashes or lesions noted Course 2 Vital Signs: Vital signs: Vital Signs Temperature 97.8 F 04/01/23 14:31 Pulse Rate 98 04/01/23 17:08 Respiratory Rate 18 04/01/23 17:08 Blood Pressure 112/85 04/01/23 17:08 Pulse Oximetry 96 04/01/23 17:08 Oxygen Delivery Me thod Room Air 04/01/23 14:45 MDM - Chest Pain Medical Decision Making EKG is unremarkable no acute ST changes noted she does have atrial fibrillation with a rate is well-controlled. Cardiac enzymes unremarkable. Chest pain reproducible with change in position and palpation. Will discharge home with tramadol to use as needed and follow-up with primary care provider as needed Medical Records I reviewed the patient's medical records. Lab Data I reviewed the patient's lab results. 04/01/23 14:40 04/01/23 14:40 Laboratory Results WBC 6.87 10^3/uL (3.29-11.43) 04/01/23 14:40 RBC 4.57 10^6/uL (3.85-5.65) 04/01/23 14:40 Hgb 13.80 g/dL (11.27-16.99) 04/01/23 14:40 Hct 41.3 % (36-47) 04/01/23 14:40 MCV 90.4 fl (85-98) 04/01/23 14:40 MCH 30.2 pg (27-33) 04/01/23 14:40 MCHC 33.4 g/dL (30-55) 04/01/23 14:40 RDW 12.4 % (12.1-15.1) 04/01/23 14:40 Plt Count 332 10^3/cmm (157-399) 04/01/23 14:40 MPV 9.0 fL (7.4-10.4) 04/01/23 14:40 Neut % (Auto) 68.5 % 04/01/23 14:40 Lymph % (Auto) 18.5 % 04/01/23 14:40 Harlan % (Auto) 9.5 % 04/01/23 14:40 Eos % (Auto) 1.9 % 04/01/23 14:40 Baso % (Auto) 1.0 % 04/01/23 14:40 Neut # (Auto) 4.71 10^3/uL (1.8-7.7) 04/01/23 14:40 Lymph # (Auto) 1.3 10^3/uL (0.8-4.8) 04/01/23 14:40 Harlan # (Auto) 0.7 10^3/uL (0.2-0.9) 04/01/23 14:40 Eos # (Auto) 0.1 10^3/uL (0.0-0.8) 04/01/23 14:40 Baso # (Auto) 0.1 10^3/uL (0.0-0.1) 04/01/23 14:40 Nucleated RBC % (auto) 0 % 04/01/23 14:40 Nucleated RBCs # 0.0 /100WBC 04/01/23 14:40 Sodium 143 mmol/L (136-145) 04/01/23 14:40 Potassium 4.0 mmol/L (3.5-5.1) 04/01/23 14:40 Chloride 110 mmol/L (98-107) H 04/01/23 14:40 Carbon Dioxide 25 mmol/L (22-29) 04/01/23 14:40 Anion Gap 12.0 (5-19) 04/01/23 14:40 BUN 14 mg/dL (8-23) 04/01/23 14:40 Creatinine 1.0 mg/dL (0.5-0.9) H 04/01/23 14:40 GFR Calculation Not Reportable 04/01/23 14:40 Glucose 103 mg/dL (65-115) 04/01/23 14:40 Calculated Osmolality 297 mOsm/kg (285-295) H 04/01/23 14:40 Calcium 8.7 mg/dL (8.5-10.5) 04/01/23 14:40 Total Bilirubin 0.9 mg/dL (0.15-1.2) 04/01/23 14:40 AST 15 U/L (0-32) 04/01/23 14:40 ALT 11 U/L (0-33) 04/01/23 14:40 Alkaline Phosphatase 87 U/L (35-105) 04/01/23 14:40 Troponin T Baseline 13 ng/L (0-10) H 04/01/23 14:40 Troponin T 120 Minute 13.29 ng/L (0-10) H 04/01/23 16:38 Delta Troponin T 0.29 ABS# (0-10) 04/01/23 16:38 Total Protein 6.4 g/dL (6.6-8.7) L 04/01/23 14:40 Albumin 3.7 g/dL (3.5-5.2) 04/01/23 14:40 Globulin 2.7 g/dL (1.3-4.6) 04/01/23 14:40 All radiology interpretation(s) finalized by discharge Discharge Plan Discharge Patient Disposition: Home Clinical Impression: Chest wall pain Condition: Stable Prescriptions: New tramadol 50 mg tablet 50 mg PO Q6H PRN (Reason: pain) Qty: 10 0RF No Action nitroglycerin 0.4 mg tablet, sublingual 0.4 mg sublingual Q5M PRN (Reason: Chest Pain) cholecalciferol (vitamin D3) 125 mcg (5,000 unit) capsule 125 mcg PO DAILY budesonide-formoterol [Symbicort] 160-4.5 mcg/actuation HFA aerosol inhaler 2 puff inhalation BID albuterol sulfate 2.5 mg /3 mL (0.083 %) solution for nebulization 2.5 mg inhalation QID PRN (Reason: shortness of breath or wheezing) Qty: 300 0RF (DME) Blood Pressure Cuff Misc See Rx Instructions .Route Qty: 1 0RF Rx Instructions: As directed (DME) nebulizers Misc See Rx Instructions .ROUTE .MEDSUPPLY Qty: 1 0RF Rx Instructions: As directed fluticasone propionate 50 mcg/actuation spray,suspension 2 spray INTRANASAL DAILY Qty: 48 1RF valsartan [Diovan] 80 mg tablet 80 mg PO DAILY Qty: 30 0RF atorvastatin 40 mg tablet 40 mg PO BEDTIME Qty: 90 0RF Hold Instructions: Sore muscle zafirlukast [Accolate] 10 mg tablet 10 mg PO BID Qty: 180 1RF Rx Instructions: must be taken on empty stomach, at least 1 hr before or 2 hrs after a meal/food venlafaxine 50 mg tablet 50 mg PO BID Qty: 180 1RF Xarelto 15 mg tablet 15 mg PO DAILY Qty: 90 1RF Rx Instructions: must administer with evening meal levothyroxine 50 mcg tablet 50 mcg PO DAILY Qty: 90 1RF diltiazem HCl 90 mg capsule,extended release 12 hr 90 mg PO BID Qty: 180 1RF cetirizine [Zyrtec] 10 mg tablet 10 mg PO DAILY Qty: 90 1RF Coreg 6.25 mg tablet 6.25 mg PO BID Qty: 180 1RF Rx Instructions: must administer with a meal/food aripiprazole 2 mg tablet 2 mg PO DAILY Qty: 90 1RF potassium chloride 20 mEq packet 20 meq PO DAILY Qty: 100 3RF furosemide 20 mg tablet 20 mg PO DAILY Qty: 90 3RF hydroxyzine pamoate 100 mg capsule 100 mg PO BEDTIME PRN (Reason: Sleep) albuterol sulfate 90 mcg/actuation HFA aerosol inhaler 2 inh INHALATION Q6H PRN (Reason: Shortness Of Breath) Discharge Orders: Discharge ED (Routine); Ordered 04/01/23 Ordered By: Mian Medrano Referrals: Marsha Kelly, BENEDICTO [Primary Care Provider] - Discharge Diet: Usual diet Discharge Activity: Increase activity as tolerated Patient Instructions: Opioid Safety, Pain Management Activity Restrictions/Additional Instructions: Thank you for choosing [facility] for your healthcare needs today. Please realize this is an emergency room and that we are providing you with a medical screening exam and this may not be complete and all inclusive of all the testing and or work up that you may need to determine your ailment or severity of your illness. It is very important that you follow up as instructed or that you return to the Emergency Department should you have concerns or if your condition changes or worsens in any way. You are seen today for atypical chest pain chest pain is noncardiac in nature your cardiac enzymes and EKG were unremarkable you are given pain medications to use to relieve the chest pain. If symptoms persist follow-up with your primary care doctor. Coding Level of Care Code ED Sfdc Consultant for Nicole Avalos
[2023-04-01 14:45] VITALS: BP 112/85; PULSE 68; RESP 18; O2SAT 95
[2023-04-01 14:47] LABS: Basophils # 0.1 10^3/uL (0.0-0.1); Eosinophils # 0.1 10^3/uL (0.0-0.8); Eosinophils % 1.9 %; Hematocrit 41.3 % (36-47); Lymphocytes # 1.3 10^3/uL (0.8-4.8); Lymphocytes % 18.5 %; Mean Corpuscular HGB Conc 33.4 g/dL (30-55); Mean Corpuscular Hemoglobin 30.2 pg (27-33); Mean Corpuscular Volume 90.4 fl (85-98); Monocytes # 0.7 10^3/uL (0.2-0.9); Monocytes % 9.5 %; Neutrophils # 4.71 10^3/uL (1.8-7.7); Neutrophils % 68.5 %; Nucleated Red Blood Cells % 0 %; Platelet Count 332 10^3/cmm (157-399); Red Blood Count 4.57 10^6/uL (3.85-5.65); Red Cell Distribution Width 12.4 % (12.1-15.1); White Blood Count 6.87 10^3/uL (3.29-11.43)
[2023-04-01 15:08] LABS: Alanine Aminotransferase 11 U/L (0-33); Albumin Level 3.7 g/dL (3.5-5.2); Alkaline Phosphatase 87 U/L (35-105); Aspartate Amino Transferase 15 U/L (0-32); Blood Urea Nitrogen 14 mg/dL (8-23); Calcium 8.7 mg/dL (8.5-10.5); Carbon Dioxide 25 mmol/L (22-29); Chloride 110 mmol/L (98-107); Globulin 2.7 g/dL (1.3-4.6); Glucose 103 mg/dL (65-115); Osmolality Calculated 297 mOsm/kg (285-295); Sodium 143 mmol/L (136-145); Total Bilirubin 0.9 mg/dL (0.15-1.2); Total Protein 6.4 g/dL (6.6-8.7)
[2023-04-01 15:09] LABS: Troponin(5th) Baseline 13 ng/L (0-10)
[2023-04-01 15:23] VITALS: BP 112/85; PULSE 77; RESP 18; O2SAT 95
--- NOTE | 2023-04-01 16:24 | ECG_ITS ---
[facility] Test Date: 2023-04-01 Pat Name: Mere Preston Department: Room: Gender: Female Ophthalmology Assistant: : 1950 Requested By: Mian Kumari Order Number: [id number] Gagandeep MD: Fei Stanley M.D. Measurements Intervals [place] Rate: 70 P: 0 [place]: 0 QRS: -8 QRSD: 93 T: 84 QT: 422 QTc: 458 Interpretive Statements ATRIAL FIBRILLATION NONSPECIFIC ST & T-WAVE ABNORMALITY Compared to ECG 04/01/2023 14:30:37 No significant changes Electronically Signed On 04-01-2023 17:00:48 RECREATION PROFESSOR by Fei Stanley M.D. [email or web address]/[id number]
[2023-04-01 17:08] VITALS: BP 112/85; PULSE 98; RESP 18; O2SAT 96
[2023-04-01 17:09] LABS: Troponin 5 2HR 13.29 ng/L (0-10); Troponin 5 2HR Delta 0.29 ABS# (0-10)
== END 2023-04-01 18:48 | disposition home or self-care (01) ==
PROVIDERS: Emergency Provider Family Medicine; PCP Nurse Practitioner
DX: R07.89 Other chest pain (principal); J44.9 Chronic obstructive pulmonary disease, unspecified; I10 Essential (primary) hypertension; E78.2 Mixed hyperlipidemia
CPT/HCPCS: 36415; 71045; 80053; 84484; 85025; 93005; 99285

== ENCOUNTER 2023-04-04 13:24 | Outpatient (CLI) | payer MEDICARE, OTHER, SELFPAY ==
--- NOTE | 2023-04-04 13:31 | XR_ITS ---
WS: [id number] Exam: XR knee LT 3V* [id number] Date/Time of Exam: 04/04/2023 1:52 PM Reason For Exam: [id number] - Pain in left knee Comparison 12/17/2020. No fracture or dislocation. Mild to moderate degenerative narrowing of the medial joint compartment. No joint effusion. Normal soft tissues. IMPRESSION1. Mild to moderate degenerative narrowing of the medial compartment. The LEFT knee is othe rwise unremarkable.
== END 2023-04-04 13:25 | disposition home or self-care (01) ==
LOC: RAD 13:25
PROVIDERS: PCP Nurse Practitioner; Visit Provider Nurse Practitioner
DX: M17.12 Unilateral primary osteoarthritis, left knee (principal); M25.562 Pain in left knee
CPT/HCPCS: 73562

== ENCOUNTER → 2023-04-29 11:30 | Outpatient (BNVA) | payer MEDICARE, OTHER, SELFPAY | PROVIDERS: PCP Nurse Practitioner; Visit Provider Nurse Practitioner | DX: I10 Essential (primary) hypertension (principal); J06.9 Acute upper respiratory infection, unspecified | CPT/HCPCS: 80048 ==

== ENCOUNTER 2023-05-09 12:50 | Outpatient (CLI) | payer MEDICARE, OTHER, SELFPAY ==
--- NOTE | 2023-05-09 13:00 | CT_ITS ---
WS: [id number] CT chest w con* [id number] HISTORY: R93.89 - Abnormal findings on diagnostic imaging of other... TECHNIQUE: Axial imaging performed through the thorax. Coronal and sagittal reformats are submitted. All CT scans at [facility] use at least one of these dose optimization techniques: automated exposure control; mA and/or kV adjustment per patient size (includes targeted exams where dose is mat ched to clinical indication); or iterative reconstruction. CONTRAST: Omnipaque 350; 100 mL IV. DLP: 444.41 mGy.cm COMPARISON: 01/17/2023 and 01/10/2021 Lungs and central airway: Hyperinflated lungs with emphysema. Previously described central nodule kunal ng the medial most RIGHT middle lobe has slightly increased in size now with a maximum diameter of 10 .7 mm as compared to 8.6 mm. The soft tissue that extends along the fissures of the RIGHT middle lobe has also become more prominent. These findings are new since 01/10/2021. Benign granuloma RIGHT lower lobe. No additional mass or nodule. Pleura: Normal. No pleural effusion. Heart and pericardium: Mild cardiomegaly. Mediastinum and mary: No mediastinum or hilar adenopathy. Vessels: Mild atherosclerosis aorta. Normal sized pulmonary artery and aorta. Chest wall and lower neck: No soft tissue masses. Upper abdomen: Moderate hiatal hernia. Hepatic steatosis. Osseous structures: No destructive process. IMPRESSION: 1. Previously described soft tissue nodule in the medial RIGHT middle lobe has slightly increased in size since 01/17/2023. Nodule has increased from 8.6 to 10.7 mm. There is additional more prominent s oft tissue extending along the fissure. These findings are new since 01/10/2021. Recommend PET/CT imag ing. Bronchoscopy may be of benefit. This would not be accessible for percutaneous biopsy. 2. There are additional calcifications at the RIGHT hilum and RIGHT lower lobe granulomata. 3. Small hiatal hernia.
[2023-05-09] MEDS: iohexol 350 mg/mL 500 mL Btl (per mL) IV (13:32)
== END 2023-05-09 12:51 | disposition home or self-care (01) ==
LOC: RAD 12:50
PROVIDERS: PCP Nurse Practitioner; Visit Provider Nurse Practitioner
DX: R93.89 Abnormal findings on diagnostic imaging of other specified body structures (principal); R91.1 Solitary pulmonary nodule; R91.8 Other nonspecific abnormal finding of lung field; J84.10 Pulmonary fibrosis, unspecified; K44.9 Diaphragmatic hernia without obstruction or gangrene
CPT/HCPCS: 71260; Q9967

== ENCOUNTER → 2023-06-05 13:08 | Outpatient (BNVA) | payer MEDICARE, OTHER, SELFPAY | PROVIDERS: PCP Nurse Practitioner; Visit Provider Internal Medicine Pulmonary Disease | DX: R91.1 Solitary pulmonary nodule (principal); J82.83 Eosinophilic asthma | CPT/HCPCS: 99214 ==

== ENCOUNTER → 2023-07-10 16:45 | Outpatient (BNVA) | payer MEDICARE, OTHER, SELFPAY | PROVIDERS: PCP Nurse Practitioner; Visit Provider Internal Medicine Cardiovascular Disease | DX: Z79.899 Other long term (current) drug therapy (principal); R06.02 Shortness of breath; I10 Essential (primary) hypertension | CPT/HCPCS: 36415; 80048; 83880; 99214 ==

== ENCOUNTER 2023-07-15 12:36 | Outpatient (CLI) | payer OTHER, MEDICARE, SELFPAY ==
--- NOTE | 2023-07-15 13:00 | PETR_ITS ---
PROCEDURE INFORMATION: Exam: PET/CT Skull Base to Mid-thigh Exam date and time: 07/15/2023 1:20 PM Age: 73 years old Clinical indication: Abnormal findings; Solitary pulmonary nodule; Additional info: R91.1 - solitary pulmonary nodule LABS AND CLINICAL REPORTS: Glucose: 104 mg/dl Treatment strategy for malignancy (PET staging): Initial Staging (PI) TECHNIQUE: Imaging protocol: Following at least four-hour fasting and following the injection of radiopharmaceutical, low dose CT images were obtained. Then, PET images were obtained. Attenuation corrected images were constructed using the CT scan. Fused images of PET and CT were reviewed. The standardized uptake values (SUV) reported below are maximum values within a region of interest, expressed in gm/ml. Exam includes orbital meatal line to mid-thigh. Radiopharmaceutical: 13.63 mCi F-18 FDG (Fluorodeoxyglucose), IV. Time of imaging post radiopharmaceutical administration: 1 hour Injection site: Left antecubital COMPARISON: [place] [id number] 01/10/2021 10:54 AM FINDINGS: Brain: Visualized brain has normal physiologic uptake. Pharynx: No abnormal uptake. Larynx: No abnormal uptake. Lungs, pleura and trachea: There is a 7 mm nodule in the right upper lung which is partially calcified consistent with granuloma series 3, image 75. No abnormal uptake. Heart: Normal physiologic uptake. Mediastinal space: No abnormal uptake. Liver: No abnormal uptake. Gallbladder and bile ducts: No abnormal uptake. Pancreas: No abnormal uptake. Spleen: No abnormal uptake. Adrenal glands: No abnormal uptake. Kidneys and ureters: Normal physiologic uptake. Stomach and bowel: No abnormal uptake. Vasculature: No abnormal uptake. Lymph nodes: No abnormal uptake. No lymphadenopathy in the head, neck, chest, abdomen, pelvis, and extremities. Bones/joints: No abnormal uptake in the visualized axial and appendicular skeleton. Soft tissues: No abnormal uptake in the visualized head, neck, chest, abdomen, pelvis, and extremities. [facility] INIT[facility] [id number] IMPRESSION: No abnormal radiotracer uptake.
== END 2023-07-15 12:37 | disposition home or self-care (01) ==
LOC: RAD 12:37
PROVIDERS: PCP Nurse Practitioner; Visit Provider Nurse Practitioner
DX: R91.1 Solitary pulmonary nodule (principal)
CPT/HCPCS: 78815; A9552

== ENCOUNTER → 2023-07-16 13:43 | Outpatient (BNVA) | payer MEDICARE, OTHER, SELFPAY | PROVIDERS: PCP Nurse Practitioner; Visit Provider Internal Medicine Cardiovascular Disease | DX: Z79.899 Other long term (current) drug therapy (principal); I48.91 Unspecified atrial fibrillation; I49.3 Ventricular premature depolarization | CPT/HCPCS: 93246 ==

== ENCOUNTER 2023-07-19 19:24 | Emergency (ER) | payer MEDICARE, OTHER, SELFPAY ==
[2023-07-19] VITALS (7 sets, daily range): BP systolic 113–162; BP diastolic 79–130; PULSE 83–103; RESP 18; TEMP 36.6; O2SAT 94–98; BMI 29.0
--- NOTE | 2023-07-19 19:27 | XRR_ITS ---
PROCEDURE INFORMATION: Exam: XR Chest Exam date and time: 07/19/2023 7:38 PM Age: 73 years old Clinical indication: Angina pectoris; Prior surgery; Surgery date: 6+ months; Patient HX: Chest pain; Afib; HX cardiac ablation x 20yr ago TECHNIQUE: Imaging protocol: Radiologic exam of the chest. Views: 1 view. COMPARISON: CT chest w con* [id number] 05/09/2023 1:24 PM FINDINGS: Lungs: Unremarkable. No consolidation. Pleural spaces: Unremarkable. No pleural effusion. No pneumothorax. Heart/Mediastinum: Unremarkable. No cardiomegaly. Bones/joints: Unremarkable. XR/XR chest 1V portable [id number] IMPRESSION: No acute findings.
--- NOTE | 2023-07-19 19:28 | ECG_ITS ---
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 Measurements Intervals [place] Rate: 99 P: 0 HI: 0 QRS: -6 QRSD: 94 T: 91 QT: 376 QTc: 484 Interpretive Statements ATRIAL FIBRILLATION LOW QRS VOLTAGE IN PRECORDIAL LEADS [QRS DEFLECTION < 1.0 mV IN CHEST LEADS] POSSIBLE ANTERIOR MYOCARDIAL INFARCTION , PROBABLY OLD [30 ms Q WAVE IN V3/V4, OR R < 0.2 mV IN V4] ABNORMAL RHYTHM ECG Compared to ECG 04/01/2023 16:53:49 Low QRS voltage now present Myocardial infarct finding now present T-wave abnormality no longer present Electronically Signed On 07-20-2023 18:36:20 CDT by Sharon Pringle M.D. [email or web address]/[id number] f
--- NOTE | 2023-07-19 19:52 | W.ED.CHESTPA ---
HPI - Chest Pain General: Chief Complaint: Chest Pain Stated Complaint: CP Time Seen by Provider: 07/19/23 19:27 History of Present Illness: 73-year-old female with no prior history of coronary disease, but she does have a history of atrial fibrillation chronically. She says her chest pain started around 5 PM while sitting in a recliner. She was short of breath as well. She is not having palpitations. Nitroglycerin and aspirin in the ambulance did not seem to help her pain, but fentanyl relieved her pain. She currently has a Holter monitor on her chest, because she has been having problems with her heart rate and blood pressure according to her. She denies any other recent illness. She says she coughed a few times in the ambulance, but not prior. No increased leg swelling. No fevers. Associated symptoms: Reports dyspnea; Deny abdominal pain, fever(s), nausea, palpitations or vomiting Review of Systems Const: Denies: fever(s), chills or body aches Eyes: Denies: change in vision Card: Reports: chest pain; Denies: palpitations Resp: Reports: dyspnea; Denies: productive cough, non-productive cough or wheezing GI: Denies: abdominal pain, nausea, vomiting, diarrhea or hematochezia : Denies: difficulty voiding Skin/Breast: Denies: rash Neuro: Denies: headache(s), weakness in extremities, dizziness or confusion PFS ED PFSH: Medical History Adult onset hypothyroidism COPD (chronic obstructive pulmonary disease) Pneumonia due to 2019-nCoV Anemia Insomnia Environmental and seasonal allergies High risk medication use EKG from 09/22/2019 showed the QRS duration of 100 ms Atrial fibrillation by electrocardiogram Asthma Benign hypertension Anxiety and depression Mixed hyperlipidemia Vitamin D deficiency Surgical History History of section History of hysterectomy History of oophorectomy History of cardiac radiofrequency ablation (RFA) patient is unsure but feels like this was about 20 years ago. Family History Father CAD (coronary artery disease) Lung disease Mother CAD (coronary artery disease) Cancer Dementia Other Hypertension Denies family history of Diabetes Clotting disorder Chronic kidney disease (CKD) Suicide Anesthesia complication Bleeding disorder Stroke Social History Smoking and tobacco/nicotine status: never used tobacco/nicotine Second hand smoke exposure: No Alcohol intake: never Substance/Drug Use: never Caregiver/support person: No Lives independently: Yes Household members: children Housing: House Marital status: / Number of children: 2 service: No Current occupational status: unemployed Pets and animals: Yes Do you think of yourself as: Straight/Heterosexual Current gender identity: Female Physical Exam Const: COMMON NORMALS: no acute distress GENERAL APPEARANCE: cooperative; not ill appearing and not frail appearing HENMT: COMMON NORMALS: normocephalic, atraumatic and Normal external nose present HEAD & SCALP: normocephalic and atraumatic FACE & SINUS: normal facial exam and face symmetric NOSE: Normal external nose present Eye: COMMON NORMALS: Equal, round and reactive pupils present and EOMs intact bilaterally PUPIL: Yes Equal, round and reactive pupils present Neck/C-Spine: GENERAL: Yes trachea midline Chest: CHEST: Yes Symmetrical chest wall rise Resp: COMMON NORMALS: normal respiratory effort, No retractions, No use of accessory muscles and clear to auscultation bilaterally AUSCULTATION: clear to auscultation bilaterally Cardio: RATE: tachycardic RHYTHM: abnormal rhythm irregularly irregular GI: COMMON NORMALS: Normal to inspection, nondistended, normoactive bowel sounds present Extremity: COMMON NORMALS: no pedal edema Neuro: MONIQUE COMA SCALE: document GCS findings Monique coma scale eye opening: Spontaneous Monique coma scale verbal response: Orientated Monique coma scale motor response: Obey commands Quin[place] coma scale total score: 15 SENSORY EXAM: Yes extremities (intact) Psych: COMMON NORMALS: speech normal SPEECH: Yes normal speech Skin: COMMON NORMALS: no rashes or lesions noted GENERAL SKIN EXAM: no rashes or lesions noted Course Vital Signs: Vital signs: Vital Signs Temperature 98 F 07/19/23 19:26 Pulse Rate 86 07/19/23 23:23 Respiratory Rate 18 07/19/23 23:23 Blood Pressure 138/89 07/19/23 23:23 Pulse Oximetry 94 07/19/23 23:23 Oxygen Delivery Me thod Room Air 07/19/23 22:36 MDM - Chest Pain Medical Decision Making 73-year-old female presenting with chest discomfort. She is in atrial fibrillation. Rate is slightly elevated, but she is not overly tachycardic. She was given IV metoprolol with increased control of her heart rate. She is hypertensive here, this is improved with administration of antihypertensives. Her CBC is normal. Her BMP is not remarkable. Her first troponin is 13, her 2-hour delta is normal. BNP is slightly elevated at 1800, however chest x-ray is negative. Her EKG shows atrial fibrillation, with no acute ST wave changes. Pain improved after morphine here and control of her blood pressure. I suspect her chest discomfort is related either to hypertension or atrial fibrillation or both. Close outpatient follow-up. For now she is stable for discharge. Lab Data 07/19/23 19:50 07/19/23 19:50 Radiology Impressions Chest X-Ray 07/19/23 19:27 IMPRESSION: No acute findings. Laboratory Results WBC 7.07 10^3/uL (3.29-11.43) 07/19/23 19:50 RBC 4.25 10^6/uL (3.85-5.65) 07/19/23 19:50 Hgb 12.80 g/dL (11.27-16.99) 07/19/23 19:50 Hct 38.4 % (36-47) 07/19/23 19:50 MCV 90.4 fl (85-98) 07/19/23 19:50 MCH 30.1 pg (27-33) 07/19/23 19:50 MCHC 33.3 g/dL (30-55) 07/19/23 19:50 RDW 12.3 % (12.1-15.1) 07/19/23 19:50 Plt Count 321 10^3/cmm (157-399) 07/19/23 19:50 MPV 9.5 fL (7.4-10.4) 07/19/23 19:50 Neut % (Auto) 57.4 % 07/19/23 19:50 Lymph % (Auto) 29.6 % 07/19/23 19:50 [place] % (Auto) 9.5 % 07/19/23 19:50 Eos % (Auto) 2.1 % 07/19/23 19:50 Baso % (Auto) 1.1 % 07/19/23 19:50 Neut # (Auto) 4.06 10^3/uL (1.8-7.7) 07/19/23 19:50 Lymph # (Auto) 2.1 10^3/uL (0.8-4.8) 07/19/23 19:50 [place] # (Auto) 0.7 10^3/uL (0.2-0.9) 07/19/23 19:50 Eos # (Auto) 0.2 10^3/uL (0.0-0.8) 07/19/23 19:50 Baso # (Auto) 0.1 10^3/uL (0.0-0.1) 07/19/23 19:50 Nucleated RBC % (auto) 0 % 07/19/23 19:50 Nucleated RBCs # 0.0 /100WBC 07/19/23 19:50 PT 13.70 SECONDS (12.1-14.9) 07/19/23 19:50 INR 1.01 (0.8-1.2) 07/19/23 19:50 Sodium 141 mmol/L (136-145) 07/19/23 19:50 Potassium 4.1 mmol/L (3.5-5.1) 07/19/23 19:50 Chloride 106 mmol/L (98-107) 07/19/23 19:50 Carbon Dioxide 24 mmol/L (22-29) 07/19/23 19:50 Anion Gap 15.1 (5-19) 07/19/23 19:50 BUN 15 mg/dL (8-23) 07/19/23 19:50 Creatinine 1.0 mg/dL (0.5-0.9) H 07/19/23 19:50 GFR Calculation Not Reportable 07/19/23 19:50 Glucose 100 mg/dL (65-115) 07/19/23 19:50 Calculated Osmolality 293 mOsm/kg (285-295) 07/19/23 19:50 Calcium 9.2 mg/dL (8.5-10.5) 07/19/23 19:50 Total Bilirubin 0.5 mg/dL (0.15-1.2) 07/19/23 19:50 AST 19 U/L (0-32) 07/19/23 19:50 ALT 14 U/L (0-33) 07/19/23 19:50 Alkaline Phosphatase 100 U/L (35-105) 07/19/23 19:50 Troponin T Baseline 13 ng/L (0-10) H 07/19/23 19:50 Troponin T 120 Minute 12.52 ng/L (0-10) H 07/19/23 21:04 Delta Troponin T -0.48 ABS# (0-10) L 07/19/23 21:04 NT-Pro-B Natriuret Pep 1868 pg/mL (0-125) H 07/19/23 19:50 Total Protein 6.4 g/dL (6.6-8.7) L 07/19/23 19:50 Albumin 3.7 g/dL (3.5-5.2) 07/19/23 19:50 Globulin 2.7 g/dL (1.3-4.6) 07/19/23 19:50 All radiology interpretation(s) finalized by discharge Discharge Plan Discharge Patient Disposition: Home Clinical Impression: Atrial fibrillation with rapid ventricular response, Chest pain Condition: Stable Prescriptions: Continued tramadol 50 mg tablet 50 mg PO Q6H PRN (Reason: pain) Qty: 10 0RF No Action nitroglycerin 0.4 mg tablet, sublingual 0.4 mg sublingual Q5M PRN (Reason: Chest Pain) cholecalciferol (vitamin D3) 125 mcg (5,000 unit) capsule 125 mcg PO DAILY albuterol sulfate 2.5 mg /3 mL (0.083 %) solution for nebulization 2.5 mg inhalation QID PRN (Reason: shortness of breath or wheezing) Qty: 300 0RF atorvastatin 40 mg tablet 40 mg PO BEDTIME Qty: 90 1RF Hold Instructions: Sore muscle valsartan [Diovan] 80 mg tablet 80 mg PO DAILY Qty: 90 1RF Dulera 100-5 mcg/actuation HFA aerosol inhaler 2 puff inhalation Q12H Qty: 13 2RF (DME) Blood Pressure Cuff Misc See Rx Instructions .Route Qty: 1 0RF Rx Instructions: As directed (DME) nebulizers Misc See Rx Instructions .ROUTE .MEDSUPPLY Qty: 1 0RF Rx Instructions: As directed fluticasone propionate 50 mcg/actuation spray,suspension 2 spray INTRANASAL DAILY Qty: 48 1RF venlafaxine 50 mg tablet 50 mg PO BID Qty: 180 1RF Xarelto 15 mg tablet 15 mg PO DAILY Qty: 90 1RF Rx Instructions: must administer with evening meal levothyroxine 50 mcg tablet 50 mcg PO DAILY Qty: 90 1RF diltiazem HCl 90 mg capsule,extended release 12 hr 90 mg PO BID Qty: 180 1RF cetirizine [Zyrtec] 10 mg tablet 10 mg PO DAILY Qty: 90 1RF Coreg 6.25 mg tablet 6.25 mg PO BID Qty: 180 1RF Rx Instructions: must administer with a meal/food aripiprazole 2 mg tablet 2 mg PO DAILY Qty: 90 1RF furosemide 20 mg tablet 20 mg PO DAILY Qty: 90 1RF promethazine-DM 6.25-15 mg/5 mL syrup 5 ml PO .every 12 hours PRN (Reason: cough) Qty: 120 0RF potassium chloride 20 mEq packet 20 meq PO DAILY Qty: 100 3RF hydroxyzine pamoate 100 mg capsule 100 mg PO BEDTIME PRN (Reason: Sleep) albuterol sulfate 90 mcg/actuation HFA aerosol inhaler 2 inh INHALATION Q6H PRN (Reason: Shortness Of Breath) Discharge Orders: Discharge ED (Routine); Ordered 07/19/23 Ordered By: Nate Ignacio Referrals: Marsha Kelly, [employer] [Primary Care Provider] - 1-3 days Patient Instructions: A-fib (Atrial Fibrillation) (ED), Chest Pain (ED), Opioid Safety, Pain Management Activity Restrictions/Additional Instructions: Watch your heart rate and blood pressure closely over the next couple of days. Write numbers down. Report them to your doctor. See your doctor next week. Use pain medication as needed for discomfort. Return for any problems. Coding Level of Care Code ED Mathematical Scientist for Nicole Avalos
[2023-07-19] MEDS: metoprolol tartrate 1 mg/1 mL SDV 5 mL 2.5 MG IVP (20:01)
[2023-07-19 20:02] LABS: Basophils # 0.1 10^3/uL (0.0-0.1); Basophils % 1.1 %; Eosinophils # 0.2 10^3/uL (0.0-0.8); Eosinophils % 2.1 %; Hematocrit 38.4 % (36-47); Lymphocytes # 2.1 10^3/uL (0.8-4.8); Lymphocytes % 29.6 %; Mean Corpuscular HGB Conc 33.3 g/dL (30-55); Mean Corpuscular Hemoglobin 30.1 pg (27-33); Mean Corpuscular Volume 90.4 fl (85-98); Mean Platelet Volume 9.5 fL (7.4-10.4); Monocytes # 0.7 10^3/uL (0.2-0.9); Monocytes % 9.5 %; Neutrophils # 4.06 10^3/uL (1.8-7.7); Neutrophils % 57.4 %; Nucleated Red Blood Cells % 0 %; Platelet Count 321 10^3/cmm (157-399); Red Blood Count 4.25 10^6/uL (3.85-5.65); Red Cell Distribution Width 12.3 % (12.1-15.1); White Blood Count 7.07 10^3/uL (3.29-11.43)
[2023-07-19 20:12] LABS: INR 1.01 (0.8-1.2)
[2023-07-19 20:19] LABS: Troponin(5th) Baseline 13 ng/L (0-10)
[2023-07-19 20:27] LABS: Alanine Aminotransferase 14 U/L (0-33); Albumin Level 3.7 g/dL (3.5-5.2); Alkaline Phosphatase 100 U/L (35-105); Anion Gap 15.1 (5-19); Aspartate Amino Transferase 19 U/L (0-32); Blood Urea Nitrogen 15 mg/dL (8-23); Calcium 9.2 mg/dL (8.5-10.5); Carbon Dioxide 24 mmol/L (22-29); Chloride 106 mmol/L (98-107); Creatinine Clr Calc Pharmacy 59.6893; Globulin 2.7 g/dL (1.3-4.6); Glucose 100 mg/dL (65-115); NT Pro B Type Natriuretic Pept 1868 pg/mL (0-125); Osmolality Calculated 293 mOsm/kg (285-295); Potassium 4.1 mmol/L (3.5-5.1); Sodium 141 mmol/L (136-145); Total Bilirubin 0.5 mg/dL (0.15-1.2); Total Protein 6.4 g/dL (6.6-8.7)
[2023-07-19 21:28] LABS: Troponin 5 2HR 12.52 ng/L (0-10)
--- NOTE | 2023-07-19 21:28 | ECG_ITS ---
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 Measurements Intervals [place] Rate: 78 P: 0 WI: 0 QRS: -17 QRSD: 84 T: 67 QT: 391 QTc: 447 Interpretive Statements ATRIAL FIBRILLATION LOW QRS VOLTAGE IN PRECORDIAL LEADS [QRS DEFLECTION < 1.0 mV IN CHEST LEADS] INFERIOR MYOCARDIAL INFARCTION , PROBABLY OLD [40+ ms Q WAVE AND/OR ST/T ABNORMALITY IN II/aVF] Compared to ECG 07/19/2023 19:30:21 No significant changes Electronically Signed On 07-20-2023 18:56:45 CDT by Sharon Pringle M.D. [email or web address]/[id number]
[2023-07-19 21:30] LABS: Troponin 5 2HR Delta -0.48 ABS# (0-10)
[2023-07-19] MEDS: enalaprilat 2.5 mg/2 mL SDV 1.25 MG IVP (22:29)
[2023-07-19] MEDS: labetalol 5 mg/mL SDV 20mL 10 MG IVP (22:31)
[2023-07-19] MEDS: morphine 4 mg/mL SDV 1 mL IVP (22:34)
== END 2023-07-19 23:20 | disposition home or self-care (01) ==
PROVIDERS: Emergency Medicine; Emergency Provider Emergency Medicine; PCP Nurse Practitioner
DX: I48.20 Chronic atrial fibrillation, unspecified (principal); R07.9 Chest pain, unspecified; J44.9 Chronic obstructive pulmonary disease, unspecified; I10 Essential (primary) hypertension; E78.2 Mixed hyperlipidemia
CPT/HCPCS: 71045; 80053; 83880; 84484; 85025; 85610; 93005; 96374; 96375; 99285; J2270; J3490

== ENCOUNTER 2023-07-23 16:01 | Outpatient (CLI) | payer MEDICARE, OTHER, SELFPAY ==
--- NOTE | 2023-07-23 16:30 | USCV_ITS ---
Mere Preston Age: 73 Gender: F : 1950 Exam Date: 07/23/2023 16:07 Ordering Phys: Sharon Pringle MD ([email or web address]) Technologist: [place] [facility] [place]: chf BP: 146 / 109 HR: Rhythm: Sinus Technical Quality: Adequate MEASUREMENTS (Male / Female) Normal Values 2D ECHO LV Diastolic Diameter PLAX 4.0 cm 4.2 - 5.9 / 3.9 - 5.3 cm IVS Diastolic Thickness 1.3 cm 0.6 - 1.0 / 0.6 - 0.9 cm IVS Systolic Thickness 1.8 cm LVPW Diastolic Thickness 1.4 cm 0.6 - 1.0 / 0.6 - 0.9 cm LVPW Systolic Thickness 1.8 cm LVOT Diameter 1.4 cm LV Ejection Fraction 2D Teich 61.3 % LV Ejection Fraction MOD 2C 49.3 % LV Ejection Fraction 2C AL 53.3 % LA Diameter 3.3 cm RA Systolic Volume 4C AL 39.3 ml RA Systolic Volume 4C MOD 39.3 ml IVC Diameter 1.9 cm M-MODE LA Ao Ratio MM 1.7 AV Cusp Separation MM 2.3 cm FINDINGS Left Ventricle Mild diffuse hypokinesia left ventricule with an ejection fraction of 49%. Right Ventricle Normal right ventricular size and systolic function. Right Atrium Mildly increased right atrial size. Left Atrium Moderately increased left atrial size. Mitral Valve Mild mitral annular calcification. Aortic Valve No gross abnormalities noted Tricuspid Valve No gross abnormalities noted Pulmonic Valve No gross abnormalities noted Pericardium No pericardial effusion. Aorta Normal aortic annulus size. IVC Normal inferior vena cava. CONCLUSIONS Mild diffuse hypokinesia left ventricule with an ejection fraction of 49%. Moderately increased left atrial size. Mildly increased right atrial size. Normal right ventricular size and systolic function. There is no pericardial effusion. There are no intracardiac masses. Compared to the study from 03/05/2022, there is some improvement in the LV ejection fraction from 44% to 49% Dr Sharon Pringle MD FAC (Electronically Signed) Final Date: 25 July 2023 09:57 S
== END 2023-07-23 16:02 | disposition home or self-care (01) ==
LOC: RAD 16:01
PROVIDERS: PCP Nurse Practitioner; Visit Provider Internal Medicine Cardiovascular Disease
DX: I42.9 Cardiomyopathy, unspecified (principal)
CPT/HCPCS: 93308

== ENCOUNTER → 2023-09-08 15:09 | Outpatient (BNVA) | payer MEDICARE, OTHER, SELFPAY | PROVIDERS: PCP Nurse Practitioner; Visit Provider Specialist | DX: M25.562 Pain in left knee (principal); M17.12 Unilateral primary osteoarthritis, left knee; G89.29 Other chronic pain | CPT/HCPCS: 73560; 73565; 99204 ==

== ENCOUNTER → 2023-10-09 11:26 | Outpatient (BNVA) | payer MEDICARE, OTHER, SELFPAY | PROVIDERS: PCP Nurse Practitioner; Visit Provider Nurse Practitioner | DX: I10 Essential (primary) hypertension (principal); E03.8 Other specified hypothyroidism; Z78.9 Other specified health status; J44.9 Chronic obstructive pulmonary disease, unspecified; Z79.899 Other long term (current) drug therapy | CPT/HCPCS: 80053; 85025 ==

== ENCOUNTER 2023-10-30 23:03 | Emergency (ER) | payer MEDICARE, OTHER, SELFPAY ==
[2023-10-30 23:04] VITALS: BP 148/90; PULSE 78; RESP 16; TEMP 36.7; O2SAT 100; BMI 30.4
--- NOTE | 2023-10-30 23:08 | XRR_ITS ---
PROCEDURE INFORMATION: Exam: XR Chest Exam date and time: 10/30/2023 11:34 PM Age: 73 years old Clinical indication: Other: Palpitations TECHNIQUE: Imaging protocol: Radiologic exam of the chest. Views: 1 view. COMPARISON: CR XR chest 1V portable [id number] 07/19/2023 7:38 PM FINDINGS: Lungs: Stable mild interstitial prominence, consistent with chronic lung change. No consolidation. Pleural spaces: No pleural effusion or pneumothorax. Heart/Mediastinum: Heart size is within normal limits. Bones/joints: No acute osseous abnormalities are seen. XR/XR chest 1V portable [id number] IMPRESSION: No acute cardiopulmonary disease.
--- NOTE | 2023-10-30 23:09 | ECG_ITS ---
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 Measurements Intervals [place] Rate: 80 P: 0 IN: 0 QRS: 17 QRSD: 93 T: 123 QT: 390 QTc: 452 Interpretive Statements ATRIAL FIBRILLATION LOW QRS VOLTAGE IN PRECORDIAL LEADS [QRS DEFLECTION < 1.0 mV IN CHEST LEADS] NONSPECIFIC ST & T-WAVE ABNORMALITY INTERPRETATION BASED ON A DEFAULT AGE OF 40 YEARS Compared to ECG 07/19/2023 21:22:15 T-wave abnormality now present Myocardial infarct finding no longer present Electronically Signed On 10-30-2023 23:28:25 CDT by Sharon Pringle M.D. [id number] f
[2023-10-30 23:12] VITALS: BP 148/90; PULSE 83; RESP 9
[2023-10-30 23:45] LABS: Basophils # 0.1 10^3/uL (0.0-0.1); Basophils % 0.9 %; Eosinophils # 0.4 10^3/uL (0.0-0.8); Eosinophils % 4.4 %; Hematocrit 39.6 % (36-47); Lymphocytes # 2.1 10^3/uL (0.8-4.8); Lymphocytes % 24.2 %; Mean Corpuscular HGB Conc 33.8 g/dL (30-55); Mean Corpuscular Hemoglobin 30.1 pg (27-33); Mean Platelet Volume 9.2 fL (7.4-10.4); Monocytes # 0.9 10^3/uL (0.2-0.9); Monocytes % 9.9 %; Neutrophils # 5.33 10^3/uL (1.8-7.7); Neutrophils % 60.1 %; Nucleated Red Blood Cells % 0 %; Platelet Count 333 10^3/cmm (157-399); Red Blood Count 4.45 10^6/uL (3.85-5.65); Red Cell Distribution Width 11.9 % (12.1-15.1); White Blood Count 8.86 10^3/uL (3.29-11.43)
[2023-10-31] VITALS: PULSE 97; RESP 14; O2SAT 99
[2023-10-31 00:02] LABS: Lactic Sepsis W/Reflex 1.6 mmol/L (0.5-2.2)
[2023-10-31 00:08] LABS: Troponin(5th) Baseline 16 ng/L (0-10)
[2023-10-31 00:15] LABS: Alanine Aminotransferase 16 U/L (0-33); Alkaline Phosphatase 107 U/L (35-105); Anion Gap 18.6 (5-19); Aspartate Amino Transferase 20 U/L (0-32); Blood Urea Nitrogen 16 mg/dL (8-23); C Reactive Protein 7.2 mg/L (0.0-4.9); Calcium 9.1 mg/dL (8.5-10.5); Carbon Dioxide 24 mmol/L (22-29); Chloride 103 mmol/L (98-107); Creatinine Clr Calc Pharmacy 60.9808; Globulin 2.6 g/dL (1.3-4.6); Glucose 97 mg/dL (65-115); Magnesium 1.8 mg/dL (1.7-2.3); Osmolality Calculated 295 mOsm/kg (285-295); Potassium 3.6 mmol/L (3.5-5.1); Sodium 142 mmol/L (136-145); Thyroid Stimulating Hormone 2.18 uIU/mL (0.27-4.20); Total Bilirubin 0.8 mg/dL (0.15-1.2); Total Protein 6.6 g/dL (6.6-8.7)
[2023-10-31 01:01] VITALS: BP 130/89; PULSE 89; RESP 18; O2SAT 99
--- NOTE | 2023-10-31 01:16 | ECG_ITS ---
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 Measurements Intervals [place] Rate: 89 P: 0 PA: 0 QRS: 10 QRSD: 96 T: 115 QT: 387 QTc: 472 Interpretive Statements ATRIAL FIBRILLATION LOW QRS VOLTAGE IN PRECORDIAL LEADS [QRS DEFLECTION < 1.0 mV IN CHEST LEADS] NONSPECIFIC ST & T-WAVE ABNORMALITY Compared to ECG 10/30/2023 23:10:13 No significant changes Electronically Signed On 10-31-2023 11:45:29 CDT by Bailey Bonilla M.D. [email or web address] [facility].[email or web address]/store/OM/[id number]
[2023-10-31 02:01] VITALS: BP 125/91; PULSE 95; RESP 18
[2023-10-31 02:07] LABS: Troponin 5 2HR 14.57 ng/L (0-10)
[2023-10-31 02:10] LABS: Troponin 5 2HR Delta -1.43 ABS# (0-10)
--- NOTE | 2023-10-31 02:16 | W.ED.GENADLT ---
HPI - General Adult General: Chief complaint: General Medical Stated complaint: Weakness, Chest pain Time Seen by Provider: 10/30/23 23:04 History of Present Illness: 73-year-old female with a history of COPD, A-fib, on Xarelto, depression, hypothyroidism, hypertension and COPD who presents to the emergency room with labile blood pressures. She says it has been up and down and she has been feeling funny. Some dizziness. She is also had some dysuria. No chest pain. No shortness of breath. No nausea or vomiting. No abdominal pain. Review of Systems Narrative: Constitutional symptoms: Negative except as documented in HPI. Skin symptoms: Negative except as documented in HPI. Eye symptoms: Negative except as documented in HPI. ENMT symptoms: Negative except as documented in HPI. Respiratory symptoms: Negative except as documented in HPI. Cardiovascular symptoms: Negative except as documented in HPI. Gastrointestinal symptoms: Negative except as documented in HPI. Genitourinary symptoms: Negative except as documented in HPI. Musculoskeletal symptoms: Negative except as documented in HPI. Neurologic symptoms: Negative except as documented in HPI. Psychiatric symptoms: Negative except as documented in HPI. Endocrine symptoms: Negative except as documented in HPI. [facility] ED PFSH: Medical History Adult onset hypothyroidism COPD (chronic obstructive pulmonary disease) Pneumonia due to 2019-nCoV Anemia Insomnia Environmental and seasonal allergies High risk medication use EKG from 09/22/2019 showed the QRS duration of 100 ms Atrial fibrillation by electrocardiogram Asthma Benign hypertension Anxiety and depression Mixed hyperlipidemia Vitamin D deficiency Surgical History History of section History of hysterectomy History of oophorectomy History of cardiac radiofrequency ablation (RFA) patient is unsure but feels like this was about 20 years ago. Family History Father CAD (coronary artery disease) Lung disease Mother CAD (coronary artery disease) Cancer Dementia Other Hypertension Denies family history of Diabetes Clotting disorder Chronic kidney disease (CKD) Suicide Anesthesia complication Bleeding disorder Stroke Social History Smoking and tobacco/nicotine status: never used tobacco/nicotine Second hand smoke exposure: No Alcohol intake: never Substance/Drug Use: never Caregiver/support person: No Lives independently: Yes Household members: children Housing: House Marital status: / Number of children: 2 service: No Current occupational status: unemployed Pets and animals: Yes Do you think of yourself as: Straight/Heterosexual Current gender identity: Female Physical Exam Narrative: EXAM NARRATIVE: General: Alert, no acute distress. Skin: Warm, dry. Head: Normocephalic, atraumatic. Neck: Supple, trachea midline. Eye: Extraocular movements are intact. Ears, nose, mouth and throat: mucosa moist. Cardiovascular: Regular, Normal peripheral perfusion. Respiratory: Lungs are clear to auscultation, respirations are non-labored, breath sounds are equal, Symmetrical chest wall expansion. Gastrointestinal: Soft, Nontender, Non distended Musculoskeletal: Normal ROM, no deformity. Neurological: Alert and oriented, No focal neurological deficit observed. Psychiatric: Cooperative, patient seems a bit angry. Course Vital Signs: Vital signs: Vital Signs Temperature 98.0 F 10/30/23 23:04 Pulse Rate 95 10/31/23 02:01 Respiratory Rate 18 10/31/23 02:01 Blood Pressure 125/91 10/31/23 02:01 Pulse Oximetry 99 10/31/23 01:01 Oxygen Delivery Me thod Room Air 10/30/23 23:04 [facility] - General Adult Medical Decision Making Medical decision making: Differential diagnosis including but not limited to and based on the above HPI, review of systems and physical exam: Patient presents with hypertension: Essential hypertension. Stroke. acute coronary syndrome. kidney failure. congestive heart failure. anxiety. Also patient has concern for UTI. Orders placed to evaluate differential diagnosis based on the above differential, HPI and physical exam these include an EKG to evaluate for any ischemic changes, chest x-ray to evaluate for cardiomegaly, and basic lab work including a troponin and a BMP look at renal function. EKG: Time 2310. Rate 80. Atrial fibrillation with controlled rate, No ST-T changes, no ectopy, This was reviewed and interpreted by myself the ER physician at 2315. Repeat EKG: Time 1:16 AM. Rate 89. Atrial fibrillation with controlled rate, No ST-T changes, no ectopy, This was reviewed and interpreted by myself the ER physician at 1:20 AM. No change from previous EKG. Chest x-ray: No acute process. No infiltrate. No pneumothorax. This was reviewed and interpreted by myself the emergency room physician. I also reviewed the radiology report. Lab Review: Laboratory results were reviewed and interpreted by myself the emergency room physician. Lab work is unremarkable. Serial troponins are negative. No anemia. No leukocytosis. No renal failure. She does have a UTI. I reviewed the patient's medical record. Reexamination: Patient remained stable. No altered mental status. No increased work of breathing. Blood pressures remain fairly normal as well as heart rate. Assessment and plan: Urinary tract infection ?IV Rocephin in the emergency room ? Discharged home - Discussed findings and plan with patient. Answered any questions. - All laboratory values were reviewed and interpreted personally by myself, the ER physician - All imaging was reviewed and interpreted personally by myself, the ER physician. - Evaluation and treatment of this problem were appropriate in the emergency setting Lab Data 10/30/23 23:35 10/30/23 23:35 Radiology Impressions Chest X-Ray 10/30/23 23:08 IMPRESSION: No acute cardiopulmonary disease. Laboratory Results WBC 8.86 10^3/uL (3.29-11.43) 10/30/23 23:35 RBC 4.45 10^6/uL (3.85-5.65) 10/30/23 23:35 Hgb 13.40 g/dL (11.27-16.99) 10/30/23 23:35 Hct 39.6 % (36-47) 10/30/23 23:35 MCV 89.0 fl (85-98) 10/30/23 23:35 MCH 30.1 pg (27-33) 10/30/23 23:35 MCHC 33.8 g/dL (30-55) 10/30/23 23:35 RDW 11.9 % (12.1-15.1) L 10/30/23 23:35 Plt Count 333 10^3/cmm (157-399) 10/30/23 23:35 MPV 9.2 fL (7.4-10.4) 10/30/23 23:35 Neut % (Auto) 60.1 % 10/30/23 23:35 Lymph % (Auto) 24.2 % 10/30/23 23:35 [place] % (Auto) 9.9 % 10/30/23 23:35 Eos % (Auto) 4.4 % 10/30/23 23:35 Baso % (Auto) 0.9 % 10/30/23 23:35 Neut # (Auto) 5.33 10^3/uL (1.8-7.7) 10/30/23 23:35 Lymph # (Auto) 2.1 10^3/uL (0.8-4.8) 10/30/23 23:35 [place] # (Auto) 0.9 10^3/uL (0.2-0.9) 10/30/23 23:35 Eos # (Auto) 0.4 10^3/uL (0.0-0.8) 10/30/23 23:35 Baso # (Auto) 0.1 10^3/uL (0.0-0.1) 10/30/23 23:35 Nucleated RBC % (auto) 0 % 10/30/23 23:35 Nucleated RBCs # 0.0 /100WBC 10/30/23 23:35 Sodium 142 mmol/L (136-145) 10/30/23 23:35 Potassium 3.6 mmol/L (3.5-5.1) 10/30/23 23:35 Chloride 103 mmol/L (98-107) 10/30/23 23:35 Carbon Dioxide 24 mmol/L (22-29) 10/30/23 23:35 Anion Gap 18.6 (5-19) 10/30/23 23:35 BUN 16 mg/dL (8-23) 10/30/23 23:35 Creatinine 1.0 mg/dL (0.5-0.9) H 10/30/23 23:35 GFR Calculation Not Reportable 10/30/23 23:35 Glucose 97 mg/dL (65-115) 10/30/23 23:35 Calculated Osmolality 295 mOsm/kg (285-295) 10/30/23 23:35 Lactic Acid 1.6 mmol/L (0.5-2.2) 10/30/23 23:35 Calcium 9.1 mg/dL (8.5-10.5) 10/30/23 23:35 Magnesium 1.8 mg/dL (1.7-2.3) 10/30/23 23:35 Total Bilirubin 0.8 mg/dL (0.15-1.2) 10/30/23 23:35 AST 20 U/L (0-32) 10/30/23 23:35 ALT 16 U/L (0-33) 10/30/23 23:35 Alkaline Phosphatase 107 U/L (35-105) H 10/30/23 23:35 Troponin T Baseline 16 ng/L (0-10) H 10/30/23 23:35 Troponin T 120 Minute 14.57 ng/L (0-10) H 10/31/23 01:31 Delta Troponin T -1.43 ABS# (0-10) L 10/31/23 01:31 C-Reactive Protein 7.2 mg/L (0.0-4.9) H 10/30/23 23:35 Total Protein 6.6 g/dL (6.6-8.7) 10/30/23 23:35 Albumin 4.0 g/dL (3.5-5.2) 10/30/23 23:35 Globulin 2.6 g/dL (1.3-4.6) 10/30/23 23:35 TSH 2.18 uIU/mL (0.27-4.20) 10/30/23 23:35 Urine Color Dark yellow (Yellow) A 10/31/23 02:50 Urine Appearance Slightly cloudy (CLEAR) 10/31/23 02:50 Urine pH 5 (5-7) 10/31/23 02:50 Ur Specific [place] 1.020 (1.005-1.030) 10/31/23 02:50 Urine Protein Trace (Negative) 10/31/23 02:50 Urine Glucose (UA) Norm (Normal) 10/31/23 02:50 Urine Ketones Negative (Negative) 10/31/23 02:50 Urine Blood Neg (Negative) 10/31/23 02:50 Urine Nitrate Negative (Negative) 10/31/23 02:50 Urine Bilirubin Neg (Negative) 10/31/23 02:50 Urine Urobilinogen Neg mg/dL (Negative) 10/31/23 02:50 Ur Leukocyte Esterase 2+ (Negative) H 10/31/23 02:50 Urine RBC 5-10 /hpf (0-2) H 10/31/23 02:50 Urine WBC 15-25 /hpf (0-5) H 10/31/23 02:50 Ur Squamous Epith Cells 0-4 /hpf (0-5) H 10/31/23 02:50 Amorphous Sediment Not Reportable 10/31/23 02:50 Urine Bacteria 1+ /hpf (NONE) H 10/31/23 02:50 Urine Mucus 2+ /hpf 10/31/23 02:50 All radiology interpretation(s) finalized by discharge Discharge Plan Discharge Patient Disposition: Home Clinical Impression: Labile blood pressure Condition: Stable Prescriptions: New cefdinir 300 mg capsule 300 mg PO BID 5 Days Qty: 10 0RF No Action nitroglycerin 0.4 mg tablet, sublingual 0.4 mg sublingual Q5M PRN (Reason: Chest Pain) cholecalciferol (vitamin D3) 125 mcg (5,000 unit) capsule 125 mcg PO DAILY albuterol sulfate 2.5 mg /3 mL (0.083 %) solution for nebulization 2.5 mg inhalation QID PRN (Reason: shortness of breath or wheezing) Qty: 300 0RF valsartan [Diovan] 80 mg tablet 40 mg PO DAILY Qty: 1 0RF Rx Instructions: No med sent has at home (DME) Blood Pressure Cuff Misc See Rx Instructions .Route Qty: 1 0RF Rx Instructions: As directed (DME) nebulizers Misc See Rx Instructions .ROUTE .MEDSUPPLY Qty: 1 0RF Rx Instructions: As directed promethazine-DM 6.25-15 mg/5 mL syrup 5 ml PO .every 12 hours PRN (Reason: cough) Qty: 120 0RF aripiprazole 2 mg tablet 2 mg PO DAILY Qty: 90 1RF atorvastatin 40 mg tablet 40 mg PO BEDTIME Qty: 90 1RF Hold Instructions: Sore muscle cetirizine [Zyrtec] 10 mg tablet 10 mg PO DAILY Qty: 90 1RF Coreg 6.25 mg tablet 6.25 mg PO BID Qty: 180 1RF Rx Instructions: must administer with a meal/food fluticasone propionate 50 mcg/actuation spray,suspension 2 spray INTRANASAL DAILY Qty: 48 1RF furosemide 20 mg tablet 20 mg PO DAILY Qty: 90 1RF levothyroxine 50 mcg tablet 50 mcg PO DAILY Qty: 90 1RF Dulera 100-5 mcg/actuation HFA aerosol inhaler 2 puff inhalation Q12H Qty: 13 2RF Xarelto 15 mg tablet 15 mg PO DAILY Qty: 90 1RF Rx Instructions: must administer with evening meal venlafaxine 50 mg tablet 50 mg PO BID Qty: 180 1RF potassium chloride 20 mEq packet 20 meq PO DAILY Qty: 100 3RF diltiazem HCl 120 mg capsule,extended release 12 hr 120 mg PO BID Qty: 180 0RF hydroxyzine pamoate 100 mg capsule 100 mg PO BEDTIME PRN (Reason: Sleep) albuterol sulfate 90 mcg/actuation HFA aerosol inhaler 2 inh INHALATION Q6H PRN (Reason: Shortness Of Breath) tramadol 50 mg tablet 50 mg PO Q6H PRN (Reason: pain) Qty: 10 0RF Discharge Orders: Discharge ED (Routine); Ordered 10/31/23 Ordered By: Meenakshi Granda Referrals: Marsha Kelly, EXCHANGE FLOOR MANAGER-C [Primary Care Provider] - Discharge Diet: As Directed Discharge Activity: Increase activity as tolerated Patient Instructions: Urinary Tract Infection in Older Adults (ED) Activity Restrictions/Additional Instructions: Thank you for choosing [facility] for your healthcare needs today. Please realize this is an emergency room and that we are providing you with a medical screening exam and this may not be complete and all inclusive of all the testing and or work up that you may need to determine your ailment or severity of your illness. You have been screened and evaluated and felt safe for discharge. Health conditions do change or evolve sometimes and as such it is important that you follow up with your Primary Doctor to be re checked, 3-5 days is a general good time frame for follow up. You are always welcome to return to the ED for re assessment if your symptoms are worsening or you have new concerns Coding Level of Care Code ED Fitting Room Inspector for Nicole Avalos
[2023-10-31] MEDS: acetaminophen 500 mg Tablet 1000 MG PO (02:21)
[2023-10-31 03:13] LABS: Add Urine Culture? Yes; Bacteria Urine 1+ /hpf; Bilirubin Urine Neg (Negative); Blood Urine Neg (Negative); Glucose Urine UA Norm (Normal); Ketones Urine Negative (Negative); Leukocyte Esterase Urine 2+ (Negative); Mucus Urine 2+ /hpf; Nitrate Urine Negative (Negative); Protein Urine Trace (Negative); Squamous Epithelial Cell Urine 0-4 /hpf (0-5); Urine Appearance Slightly Cloudy (CLEAR); Urine Color Dark Yellow (Yellow); Urobilinogen Urine Neg (Negative); WBC Urine 15-25 /hpf (0-5); pH Urine 5 (5-7)
[2023-10-31] MEDS: cefTRIAXone 1,000 mg SDV 1000 MG IVP (03:56)
[2023-10-31 04:26] VITALS: BP 110/72; PULSE 88; RESP 16; O2SAT 100
== END 2023-10-31 04:28 | disposition home or self-care (01) ==
PROVIDERS: Emergency Provider Emergency Medicine; PCP Nurse Practitioner
DX: R09.89 Other specified symptoms and signs involving the circulatory and respiratory systems (principal); I48.91 Unspecified atrial fibrillation; J44.9 Chronic obstructive pulmonary disease, unspecified; I10 Essential (primary) hypertension; E78.2 Mixed hyperlipidemia
CPT/HCPCS: 36415; 71045; 80053; 81001; 83605; 83735; 84443; 84484; 85025; 86140; 87040; 87086; 93005; 96374; 99285; J0696

== ENCOUNTER → 2023-11-03 14:56 | Outpatient (BNVA) | payer MEDICARE, OTHER, SELFPAY | PROVIDERS: PCP Nurse Practitioner; Visit Provider Nurse Practitioner | DX: F41.9 Anxiety disorder, unspecified (principal); I10 Essential (primary) hypertension | CPT/HCPCS: 81000 ==

== ENCOUNTER 2023-11-14 21:14 | Emergency (ER) | payer MEDICARE, OTHER, SELFPAY ==
[2023-11-14 21:16] VITALS: BP 144/86; PULSE 103; RESP 18; TEMP 36.6; O2SAT 98
--- NOTE | 2023-11-14 21:47 | XRR_ITS ---
PROCEDURE INFORMATION: Exam: XR Chest Exam date and time: 11/14/2023 9:52 PM Age: 73 years old Clinical indication: Shortness of breath and other: Anxiety; Additional info: AMS TECHNIQUE: Imaging protocol: Radiologic exam of the chest. Views: 1 view. COMPARISON: CR (CHEST, ) 10/30/2023 11:34 PM FINDINGS: Lungs: Unremarkable. No consolidation. Pleural spaces: Unremarkable. No pleural effusion. No pneumothorax. Heart/Mediastinum: Unremarkable. No cardiomegaly. Bones/joints: Unremarkable. XR/XR chest 1V portable [id number] IMPRESSION: No acute findings.
--- NOTE | 2023-11-14 21:57 | ECG_ITS ---
[facility] Test Date: 2023-11-14 Pat Name: Mree Preston Department: Room: Gender: Female Gang Investigator: : 1950 Requested By: Nate Larson Order Number: [id number] Gagandeep MD: Bailey Bonilla M.D. Measurements Intervals [place] Rate: 104 P: 0 TX: 0 QRS: 14 QRSD: 97 T: 88 QT: 366 QTc: 483 Interpretive Statements ATRIAL FIBRILLATION WITH RAPID VENTRICULAR RESPONSE NONSPECIFIC ST & T-WAVE ABNORMALITY ABNORMAL RHYTHM ECG Compared to ECG 10/31/2023 01:16:43 No significant changes Electronically Signed On 11-15-2023 16:46:54 CDT by Bailey Bonilla M.D. [email or web address]
[2023-11-14 22:16] LABS: Basophils # 0.1 10^3/uL (0.0-0.1); Basophils % 0.6 %; Eosinophils # 0.9 10^3/uL (0.0-0.8); Eosinophils % 8.1 %; Hematocrit 34.9 % (36-47); Lymphocytes # 2.5 10^3/uL (0.8-4.8); Lymphocytes % 23.1 %; Mean Corpuscular Hemoglobin 30.3 pg (27-33); Mean Corpuscular Volume 92.1 fl (85-98); Mean Platelet Volume 9.3 fL (7.4-10.4); Monocytes # 1.1 10^3/uL (0.2-0.9); Monocytes % 10.1 %; Neutrophils # 6.25 10^3/uL (1.8-7.7); Neutrophils % 57.5 %; Nucleated Red Blood Cells % 0 %; Platelet Count 298 10^3/cmm (157-399); Red Blood Count 3.79 10^6/uL (3.85-5.65); Red Cell Distribution Width 12.4 % (12.1-15.1); White Blood Count 10.88 10^3/uL (3.29-11.43)
[2023-11-14 22:25] LABS: Amphetamines Screen Urine Negative (Negative); Barbiturates Screen Urine Negative (Negative); Benzodiazepines Screen Urine Negative (Negative); Cocaine Screen Urine Negative (Negative); Opiate Screen Urine Negative (Negative); PCP Screen Urine Negative (Negative); THC Screen Urine Negative (Negative)
--- NOTE | 2023-11-14 22:25 | W.ED.PSYCHS ---
HPI - Psych General: Chief Complaint: Psychiatric Symptoms Stated Complaint: ANXIETY Time Seen by Provider: 11/14/23 21:34 History of Present Illness: 73-year-old female with a history of atrial fibrillation. She presents with anxiety and a panic attack at home. She does have a history of anxiety. She states that her daughter and her have not been getting along. She tells me I just want to go somewhere and hide until she goes away . She has asked for God to take her life, as she will not take her own. She also mentions to my nursing staff that she has had thoughts about poisoning her daughter. She has not had to be admitted to the hospital for depression prior. Review of Systems Const: Denies: fever(s), chills or body aches Eyes: Denies: change in vision Card: Denies: chest pain or palpitations Resp: Denies: dyspnea, productive cough, non-productive cough or wheezing GI: Reports: diarrhea; Denies: abdominal pain, nausea, vomiting or hematochezia : Denies: difficulty voiding Skin/Breast: Denies: rash Neuro: Denies: headache(s), weakness in extremities, dizziness or confusion PFS ED PFSH: Medical History Adult onset hypothyroidism COPD (chronic obstructive pulmonary disease) Pneumonia due to 2019-nCoV Anemia Insomnia Environmental and seasonal allergies High risk medication use EKG from 09/22/2019 showed the QRS duration of 100 ms Atrial fibrillation by electrocardiogram Asthma Benign hypertension Anxiety and depression Mixed hyperlipidemia Vitamin D deficiency Surgical History History of section History of hysterectomy History of oophorectomy History of cardiac radiofrequency ablation (RFA) patient is unsure but feels like this was about 20 years ago. Family History Father CAD (coronary artery disease) Lung disease Mother CAD (coronary artery disease) Cancer Dementia Other Hypertension Denies family history of Diabetes Clotting disorder Chronic kidney disease (CKD) Suicide Anesthesia complication Bleeding disorder Stroke Social History Smoking and tobacco/nicotine status: never used tobacco/nicotine Second hand smoke exposure: No Alcohol intake: never Substance/Drug Use: never Caregiver/support person: No Lives independently: Yes Household members: children Housing: House Marital status: / Number of children: 2 service: No Current occupational status: unemployed Pets and animals: Yes Do you think of yourself as: Straight/Heterosexual Current gender identity: Female Physical Exam Const: COMMON NORMALS: no acute distress and alert GENERAL APPEARANCE: cooperative, anxious and frail appearing (Mildly); not ill appearing HENMT: COMMON NORMALS: normocephalic, atraumatic and Normal external nose present HEAD & SCALP: normocephalic and atraumatic FACE & SINUS: normal facial exam and face symmetric NOSE: Normal external nose present Eye: COMMON NORMALS: Equal, round and reactive pupils present and EOMs intact bilaterally PUPIL: Yes Equal, round and reactive pupils present Neck/C-Spine: GENERAL: Yes trachea midline Chest: CHEST: Yes Symmetrical chest wall rise Resp: COMMON NORMALS: normal respiratory effort, No retractions, No use of accessory muscles and clear to auscultation bilaterally AUSCULTATION: clear to auscultation bilaterally Cardio: COMMON NORMALS: regular rate RATE: regular rate RHYTHM: abnormal rhythm irregularly irregular GI: COMMON NORMALS: Normal to inspection, nondistended, normoactive bowel sounds present Extremity: COMMON NORMALS: no pedal edema Neuro: MONIQUE COMA SCALE: document GCS findings Monique coma scale eye opening: Spontaneous [place] coma scale verbal response: Orientated [place] coma scale motor response: Obey commands Monique coma scale total score: 15 SENSORIUM/ORIENTATION: Yes alert SENSORY EXAM: Yes extremities (intact) Psych: COMMON NORMALS: speech normal SPEECH: Yes normal speech Skin: COMMON NORMALS: no rashes or lesions noted GENERAL SKIN EXAM: no rashes or lesions noted Course Vital Signs: Vital signs: Vital Signs Temperature 97.8 F 11/14/23 21:16 Pulse Rate 76 11/15/23 03:12 Respiratory Rate 16 11/15/23 03:12 Blood Pressure 155/98 11/15/23 03:12 Pulse Oximetry 97 11/15/23 03:12 Oxygen Delivery Me thod Room Air 11/14/23 21:16 MDM - Psych Medical Decision Making Creatinine is 1.1. Chest x-ray is negative. Other laboratory markers in terms of serum workup were not remarkable. She does have a mild urinary tract infection for which she has been given cefdinir here. Urine drug screen and alcohol are negative. She agrees to admission to geriatric psychiatry. She has been accepted to the facility in [facility]. She will go by ground transport when available. Medically she is quite stable. Lab Data 11/14/23 22:13 11/14/23 22:13 Radiology Impressions Chest X-Ray 11/14/23 21:47 IMPRESSION: No acute findings. Laboratory Results WBC 10.88 10^3/uL (3.29-11.43) 11/14/23 22:13 RBC 3.79 10^6/uL (3.85-5.65) L 11/14/23 22:13 Hgb 11.50 g/dL (11.27-16.99) 11/14/23 22:13 Hct 34.9 % (36-47) L 11/14/23 22:13 MCV 92.1 fl (85-98) 11/14/23 22:13 MCH 30.3 pg (27-33) 11/14/23 22:13 MCHC 33.0 g/dL (30-55) 11/14/23 22:13 RDW 12.4 % (12.1-15.1) 11/14/23 22:13 Plt Count 298 10^3/cmm (157-399) 11/14/23 22:13 MPV 9.3 fL (7.4-10.4) 11/14/23 22:13 Neut % (Auto) 57.5 % 11/14/23 22:13 Lymph % (Auto) 23.1 % 11/14/23 22:13 [place] % (Auto) 10.1 % 11/14/23 22:13 Eos % (Auto) 8.1 % 11/14/23 22:13 Baso % (Auto) 0.6 % 11/14/23 22:13 Neut # (Auto) 6.25 10^3/uL (1.8-7.7) 11/14/23 22:13 Lymph # (Auto) 2.5 10^3/uL (0.8-4.8) 11/14/23 22:13 [place] # (Auto) 1.1 10^3/uL (0.2-0.9) H 11/14/23 22:13 Eos # (Auto) 0.9 10^3/uL (0.0-0.8) H 11/14/23 22:13 Baso # (Auto) 0.1 10^3/uL (0.0-0.1) 11/14/23 22:13 Nucleated RBC % (auto) 0 % 11/14/23 22:13 Nucleated RBCs # 0.0 /100WBC 11/14/23 22:13 PT 12.10 SECONDS (12.1-14.9) 11/14/23 22:13 INR 0.87 (0.8-1.2) 11/14/23 22:13 Sodium 145 mmol/L (136-145) 11/14/23 22:13 Potassium 3.5 mmol/L (3.5-5.1) 11/14/23 22:13 Chloride 109 mmol/L (98-107) H 11/14/23 22:13 Carbon Dioxide 25 mmol/L (22-29) 11/14/23 22:13 Anion Gap 14.5 (5-19) 11/14/23 22:13 BUN 21 mg/dL (8-23) 11/14/23 22:13 Creatinine 1.1 mg/dL (0.5-0.9) H 11/14/23 22:13 GFR Calculation Not Reportable 11/14/23 22:13 Glucose 102 mg/dL (65-115) 11/14/23 22:13 Calculated Osmolality 303 mOsm/kg (285-295) H 11/14/23 22:13 Calcium 8.9 mg/dL (8.5-10.5) 11/14/23 22:13 Total Bilirubin 0.6 mg/dL (0.15-1.2) 11/14/23 22:13 AST 18 U/L (0-32) 11/14/23 22:13 ALT 14 U/L (0-33) 11/14/23 22:13 Alkaline Phosphatase 96 U/L (35-105) 11/14/23 22:13 Total Protein 6.5 g/dL (6.6-8.7) L 11/14/23 22:13 Albumin 3.7 g/dL (3.5-5.2) 11/14/23 22:13 Globulin 2.8 g/dL (1.3-4.6) 11/14/23 22:13 TSH 1.60 uIU/mL (0.27-4.20) 11/14/23 22:13 Urine Color Yellow (Yellow) 11/14/23 22:01 Urine Appearance Clear (CLEAR) 11/14/23 22:01 Urine pH 5 (5-7) 11/14/23 22:01 Ur Specific [place] 1.015 (1.005-1.030) 11/14/23 22:01 Urine Protein Trace (Negative) 11/14/23 22:01 Urine Glucose (UA) Norm (Normal) 11/14/23 22:01 Urine Ketones Negative (Negative) 11/14/23 22:01 Urine Blood Neg (Negative) 11/14/23 22:01 Urine Nitrate Negative (Negative) 11/14/23 22: Urine Bilirubin Neg (Negative) 11/14/23 22:01 Urine Urobilinogen Neg mg/dL (Negative) 11/14/23 22:01 Ur Leukocyte Esterase 2+ (Negative) H 11/14/23 22:01 Urine RBC 5-10 /hpf (0-2) H 11/14/23 22:01 Urine WBC 15-25 /hpf (0-5) H 11/14/23 22:01 Ur Squamous Epith Cells 0-4 /hpf (0-5) H 11/14/23 22:01 Amorphous Sediment Not Reportable 11/14/23 22:01 Urine Bacteria Trace /hpf (NONE) 11/14/23 22:01 Urine Mucus 1+ /hpf 11/14/23 22:01 Salicylates < 0.3 mg/dL (3-10) L 11/14/23 22:13 Urine Opiates Screen Negative ng/mL (Negative) 11/14/23 22:01 Acetaminophen < 5.0 ug/mL (10-30) L 11/14/23 22:13 Ur Barbiturates Screen Negative ng/mL (Negative) 11/14/23 22:01 Ur Phencyclidine Scrn Negative ng/mL (Negative) 11/14/23 22:01 Ur Amphetamines Screen Negative ng/mL (Negative) 11/14/23 22:01 U Benzodiazepines Scrn Negative ng/mL (Negative) 11/14/23 22:01 Urine Cocaine Screen Negative ng/mL (Negative) 11/14/23 22:01 U Marijuana (THC) Screen Negative ng/mL (Negative) 11/14/23 22:01 Ethyl Alcohol < 10 mg/dL (0-10) 11/14/23 22:13 Influenza Type A Ag negative (Negative) 11/15/23 01:01 Influenza Type B Ag negative (Negative) 11/15/23 01:01 SARS-CoV-2 Ag (Rapid) negative (Negative) 11/15/23 01:01 All radiology interpretation(s) finalized by discharge Discharge Plan Discharge Patient Disposition: Xfer Psychiatric Hosp Clinical Impression: Anxiety and depression, Suicidal ideation Condition: Stable Referrals: Marsha Kelly, FOOD AND BEVERAGE ORDER CLERK-C [Primary Care Provider] - Coding Level of Care Code ED Head Housekeeper for Nicole Avalos
[2023-11-14 22:33] LABS: INR 0.87 (0.8-1.2)
[2023-11-14 22:43] LABS: Add Urine Microscopic? YES; Bacteria Urine TRACE /hpf; Bilirubin Urine Neg (Negative); Blood Urine Neg (Negative); Glucose Urine UA Norm (Normal); Ketones Urine Negative (Negative); Leukocyte Esterase Urine 2+ (Negative); Mucus Urine 1+ /hpf; Nitrate Urine Negative (Negative); Protein Urine Trace (Negative); Specific Gravity, Urine 1.015 (1.005-1.030); Squamous Epithelial Cell Urine 0-4 /hpf (0-5); Urine Appearance Clear (CLEAR); Urine Color Yellow (Yellow); Urobilinogen Urine Neg (Negative); WBC Urine 15-25 /hpf (0-5); pH Urine 5 (5-7)
[2023-11-14 22:50] LABS: Alanine Aminotransferase 14 U/L (0-33); Albumin Level 3.7 g/dL (3.5-5.2); Alkaline Phosphatase 96 U/L (35-105); Anion Gap 14.5 (5-19); Aspartate Amino Transferase 18 U/L (0-32); Blood Urea Nitrogen 21 mg/dL (8-23); Calcium 8.9 mg/dL (8.5-10.5); Carbon Dioxide 25 mmol/L (22-29); Chloride 109 mmol/L (98-107); Creatinine Clr Calc Pharmacy 55.3065; Globulin 2.8 g/dL (1.3-4.6); Glucose 102 mg/dL (65-115); Osmolality Calculated 303 mOsm/kg (285-295); Potassium 3.5 mmol/L (3.5-5.1); Sodium 145 mmol/L (136-145); Total Bilirubin 0.6 mg/dL (0.15-1.2); Total Protein 6.5 g/dL (6.6-8.7)
[2023-11-14 22:57] LABS: Acetaminophen < 5.0 ug/mL (10-30); Alcohol Level < 10 mg/dL (0-10); Salicylate < 0.3 mg/dL (3-10)
[2023-11-15] MEDS: cefdinir 300 MG CAPSULE PO (00:03)
[2023-11-15 01:27] LABS: Influenza A by IFA negative (Negative); Influenza B by IFA negative (Negative); SARS Covid-2 Antigen negative (Negative)
[2023-11-15 03:12] VITALS: BP 155/98; PULSE 76; RESP 16; O2SAT 97
[2023-11-15] MEDS: albuterol 8 gm MDI 2 PUFF INHALATION (05:17)
== END 2023-11-15 08:33 ==
PROVIDERS: Emergency Provider Emergency Medicine; PCP Nurse Practitioner
DX: F41.8 Other specified anxiety disorders (principal); R45.851 Suicidal ideations; Z11.52 Encounter for screening for COVID-19; J44.9 Chronic obstructive pulmonary disease, unspecified; I10 Essential (primary) hypertension; E78.2 Mixed hyperlipidemia
CPT/HCPCS: 36415; 71045; 80053; 80306; 80307; 81001; 84443; 85025; 85610; 87426; 87804; 93005; 99285; J3535

== ENCOUNTER → 2023-12-25 10:45 | Outpatient (BNVA) | payer MEDICARE, OTHER, SELFPAY | PROVIDERS: PCP Nurse Practitioner; Visit Provider Nurse Practitioner | DX: I10 Essential (primary) hypertension (principal); E03.8 Other specified hypothyroidism; E55.9 Vitamin D deficiency, unspecified; R19.7 Diarrhea, unspecified | CPT/HCPCS: 80053; 80061; 82306; 84443 ==

== ENCOUNTER → 2024-01-12 15:12 | Outpatient (BNVA) | payer MEDICARE, OTHER, SELFPAY | PROVIDERS: PCP Nurse Practitioner; Visit Provider Internal Medicine Cardiovascular Disease | DX: I48.91 Unspecified atrial fibrillation (principal); E78.2 Mixed hyperlipidemia; I42.8 Other cardiomyopathies; I11.0 Hypertensive heart disease with heart failure; I50.20 Unspecified systolic (congestive) heart failure | CPT/HCPCS: 99214 ==

== ENCOUNTER 2024-02-03 10:59 | Outpatient (CLI) | payer MEDICARE, OTHER, SELFPAY ==
--- NOTE | 2024-02-03 11:00 | MM_ITS ---
WS: [id number] Bilateral screening 3D tomosynthesis digital mammogram, 02/03/2024 10:59 AM Clinical Data: Z12.31 - Encounter for screening mammogram for malignant ... Comparison: 07/17/2021, 06/14/2020 Findings: No spiculated masses or clustered calcifications are seen. There are no secondary signs of carcinoma . MM/MM scr BI tomosynthesis [id number] Impression: Negative bilateral mammogram unchanged. Recommend annual screening mammograms. BIRADS: 1 - Negative. FOLLOW UP: 1 Year Follow-up DENSITY: There are scattered areas of fibroglandular density. The CAD box car checker was used
== END 2024-02-03 11:00 | disposition home or self-care (01) ==
LOC: MOBLMAM 11:07
PROVIDERS: PCP Nurse Practitioner; Visit Provider Nurse Practitioner
DX: Z12.31 Encounter for screening mammogram for malignant neoplasm of breast (principal)
CPT/HCPCS: 77063; 77067

== ENCOUNTER 2024-05-08 12:40 | Emergency (ER) | payer MEDICARE, OTHER, SELFPAY ==
[2024-05-08] VITALS (7 sets, daily range): BP systolic 112–148; BP diastolic 65–104; PULSE 76–83; RESP 16; TEMP 36.4; O2SAT 93–99
--- NOTE | 2024-05-08 13:29 | XRR_ITS ---
PROCEDURE INFORMATION: Exam: XR Chest Exam date and time: 05/08/2024 1:47 PM Age: 73 years old Clinical indication: Cough and wheezing; Patient HX: Cough; Wheezing TECHNIQUE: Imaging protocol: Radiologic exam of the chest. Views: 2 views. COMPARISON: CR XR chest 1V portable [id number] 11/14/2023 9:52 PM FINDINGS: Lungs: No focal consolidation. Pleural spaces: No evidence of pneumothorax. No evidence of pleural effusion. Heart/Mediastinum: Cardiomediastinal silhouette is within normal limits. Bones/joints: No evidence of acute osseous abnormality. Chronic left-sided rib fractures. XR/XR chest 2V* [id number] IMPRESSION: 1. No acute cardiopulmonary abnormality.
--- NOTE | 2024-05-08 13:31 | ECG_ITS ---
[facility] Test Date: 2024-05-08 Pat Name: Mere Preston Department: Room: Gender: Female Parking Enforcement Specialist: : 1950 Requested By: Michael Colon Order Number: [id number] Reading MD: BARBRA WEISS Measurements Intervals [place] Rate: 79 P: 0 [place]: 0 QRS: -2 QRSD: 89 T: 117 QT: 404 QTc: 465 Interpretive Statements ATRIAL FIBRILLATION ST DEVIATION AND MODERATE T-WAVE ABNORMALITY, CONSIDER LATERAL ISCHEMIA [-0.1+ mV T-WAVE IN I/aVL/V5/V6] Compared to ECG 11/14/2023 21:57:56 Possible ischemia now present T-wave abnormality still present Electronically Signed On 05-10-2024 23:15:26 BORDER INSPECTOR by BARBRA WEISS [id number]
--- NOTE | 2024-05-08 13:44 | W.ED.GENADLT ---
HPI - General Adult General: Chief complaint: General Medical Stated complaint: hypertension History of Present Illness: Mere Preston is a 73-year-old female that presents to the emergency department with concerns of hypertension. Patient reports over the last week she has had issues with hypertension. Today's blood pressure was 160/112. She is currently taking losartan and states that this blood pressure was approximately 2 hours after taking her morning dose. On further discussion, patient also notes that URI type symptoms. She was seen by her primary care doctor this week and started on doxycycline and prednisone for COPD exacerbation. Patient notes fever 101.8 today, wheezing, cough. Patient has had some nausea but no vomiting. Medical history includes COPD, CHF, CAD, hypertension, hyperlipidemia, atrial fibrillation, hypothyroidism. She is anticoagulated on Xarelto. Related Data Home Medications Medication Instructions Recorded Confirmed nitroglycerin 0.4 mg sublingual 0.4 mg sublingual Q5M PRN Chest 06/18/19 05/08/24 tablet Pain cholecalciferol (vitamin D3) 125 125 mcg PO DAILY 08/14/20 05/08/24 mcg (5,000 unit) capsule albuterol sulfate 90 mcg/actuation 2 inh inhalation Q6H PRN Shortness 04/01/23 05/08/24 aerosol inhaler Of Breath Previous Rx's Medication Instructions Recorded potassium chloride 20 mEq oral 20 meq PO DAILY #100 ea 03/13/22 packet nebulizers #1 ea 08/01/22 miscellaneous medical supply #1 ea 08/16/22 (Blood Pressure Cuff) albuterol sulfate 2.5 mg/3 mL 2.5 mg (3 mL) inhalation QID PRN 02/20/23 (0.083 %) solution for nebulization shortness of breath or wheezing #300 mL diltiazem HCl 120 mg 120 mg PO BID #180 caps 08/19/23 capsule,extended release 12 hr fluticasone propionate 50 2 spray intranasal DAILY #48 grams 12/25/23 mcg/actuation nasal spray,suspension metoprolol tartrate 50 mg tablet 50 mg PO Q12H #180 tabs 01/12/24 aripiprazole 5 mg tablet 5 mg PO DAILY #90 tabs 03/11/24 atorvastatin 40 mg tablet 40 mg PO BEDTIME #90 tabs 03/11/24 cetirizine 10 mg tablet (Zyrtec) 10 mg PO DAILY #90 tabs 03/11/24 furosemide 20 mg tablet 20 mg PO DAILY #90 tabs 03/11/24 levothyroxine 50 mcg tablet 50 mcg PO DAILY #90 tabs 03/11/24 mometasone-formoterol HFA 100 2 puff inhalation Q12H #13 grams 03/11/24 mcg-5 mcg/actuation aerosol inhaler (Dulera) quetiapine 25 mg tablet 25 mg PO .HS #90 tabs 03/11/24 rivaroxaban 15 mg tablet (Xarelto) 15 mg PO DAILY #90 tabs 03/11/24 venlafaxine 75 mg tablet 75 mg PO BID #180 tabs 03/11/24 doxycycline hyclate 100 mg capsule 100 mg PO BID #20 caps 05/03/24 prednisone 10 mg tablet 10 mg PO DAILY #10 tabs 05/03/24 valsartan 320 mg tablet 320 mg PO DAILY #90 tabs 05/03/24 Allergies Allergy/AdvReac Type Severity Reaction Status Date / Time No Known Allergies Allergy Verified 05/03/24 09:24 Review of Systems Narrative: Reports: Cough with purulent sputum intermittently, wheezing, fevers, chills, nausea, hypertension, headache. She reports recent travel?just back from [place]. She reports her daughter whom she traveled with has similar symptoms. [facility] PFSH: Medical History Adult onset hypothyroidism COPD (chronic obstructive pulmonary disease) Pneumonia due to 2019-nCoV Anemia Insomnia Environmental and seasonal allergies High risk medication use EKG from 09/22/2019 showed the QRS duration of 100 ms Atrial fibrillation by electrocardiogram Asthma Benign hypertension Anxiety and depression Mixed hyperlipidemia Vitamin D deficiency Surgical History History of section History of hysterectomy History of oophorectomy History of cardiac radiofrequency ablation (RFA) patient is unsure but feels like this was about 20 years ago. Family History Father CAD (coronary artery disease) Lung disease Mother CAD (coronary artery disease) Cancer Dementia Other Hypertension Denies family history of Diabetes Clotting disorder Chronic kidney disease (CKD) Suicide Anesthesia complication Bleeding disorder Stroke Social History Smoking and tobacco/nicotine status: never used tobacco/nicotine Second hand smoke exposure: No Alcohol intake: never Substance/Drug Use: never Caregiver/support person: No Lives independently: Yes Household members: children Housing: House Marital status: / Number of children: 2 service: No Current occupational status: unemployed Pets and animals: Yes Do you think of yourself as: Straight/Heterosexual Current gender identity: Female Physical Exam Const: GENERAL APPEARANCE: cooperative, comfortable and well kempt ORIENTATION/CONSCIOUSNESS: Yes oriented to person, Yes oriented to place and Yes oriented to time HENMT: COMMON NORMALS: external ears normal and Normal nasal mucous membranes and turbinates present NOSE: Normal nasal mucous membranes and turbinates present and No nasal discharge present EXTERNAL EAR: Yes external ears normal MOUTH: Normal oral and palatal mucosa present Eye: COMMON NORMALS: Equal, round and reactive pupils present and conjunctivae normal EYELID: eyelids normal CONJUNCTIVA: Yes conjunctivae normal PUPIL: Yes Equal, round and reactive pupils present Neck/C-Spine: GENERAL: Yes normal visual inspection CERVICAL SPINE: Yes cervical ROM normal Lymph: LYMPHATIC: no lymphadenopathy noted Chest: CHEST: Yes Symmetrical chest wall rise Resp: EFFORT & INSPECTION: Yes able to speak in complete sentences AUSCULTATION: wheezes expiratory wheezes, scattered wheezes and throughout Cardio: COMMON NORMALS: regular rate RATE: regular rate RHYTHM: abnormal rhythm (irregular ) HEART SOUNDS: Murmur heart sound present (moderate ) GI: COMMON NORMALS: Soft to palpation INSPECTION: Yes normal to inspection AUSCULTATION: Yes normoactive bowel sounds PALPATION: Yes Soft to palpation and No Tenderness to palpation present (GI) Extremity: GENERAL: No edema Neuro: SENSORIUM/ORIENTATION: Yes oriented to person, Yes oriented to place and Yes oriented to time SPEECH: speech normal GAIT: Yes Antalgic gait present (left) Psych: COMMON NORMALS: speech normal APPEARANCE: Yes well kempt ATTITUDE: Yes engaged ACTIVITY/MOTOR BEHAVIOR: Yes appropriate eye contact SPEECH: Yes normal speech MOOD & AFFECT: Yes elevated mood THOUGHT CONTENT: No Suicidality present and No Homicidality present Skin: GENERAL SKIN EXAM: no ecchymo and no erythema Course Vital Signs: Vital signs: Vital Signs Temperature 97.6 F 05/08/24 12:43 Pulse Rate 76 05/08/24 15:00 Respiratory Rate 16 05/08/24 15:00 Blood Pressure 138/104 05/08/24 15:00 Pulse Oximetry 94 05/08/24 15:00 Oxygen Delivery Me thod Room Air 05/08/24 15:00 MDM - General Adult Medical Decision Making Patient is a 73-year-old female that presents to the emergency department with concerns of hypertension. Here in the emergency department her initial blood pressure is 115/69. Despite this, patient does have symptoms of URI. She is currently being treated with prednisone and antibiotics. This was started on 05/03/2024. Her concerns of blood pressure have resolved at least for the time being. I talked with her about taking her blood pressure cuff with her to her primary care office next time she is there to see if it is calibrated appropriately. While here in the emergency department I wanted to reevaluate her for her cough, fever. We obtained a chest x-ray which reveals Laboratory evaluation which reveals no leukocytosis, anemias, electrolyte abnormalities. Renal and liver function are within normal limits. The troponin series revealed a initial troponin of 15 with a 2-hour delta of -2.6. This is at her baseline. Patient also underwent BNP which was 2300. Her last was 1800 and the time before that was 5000. This seems to be her baseline. She has no chest complaints and her blood pressure has remained stable. EKG performed at 1345 reveals atrial fibrillation at a rate of 79 beats a minute. No ST elevation. Curb 65-1 point, low risk for continued outpatient treatment. I did review case with Dr. Klein. He is in agreement the patient can continue management outpatient. She needs to continue her doxycycline and prednisone. I want her to follow-up with her primary care. At that time she is going to take her blood pressure cuff to ensure that it is calibrated appropriately. Patient is agreeable with plan and all questions were answered Patient will need notified of her respiratory panel results. Nursing made aware Lab Data 05/08/24 12:45 05/08/24 12:45 Radiology Impressions Chest X-Ray 05/08/24 13:29 IMPRESSION: 1. No acute cardiopulmonary abnormality. Laboratory Results WBC 9.45 10^3/uL (3.29-11.43) 05/08/24 12:45 RBC 4.41 10^6/uL (3.85-5.65) 05/08/24 12:45 Hgb 13.30 g/dL (11.27-16.99) 05/08/24 12:45 Hct 41.1 % (36-47) 05/08/24 12:45 MCV 93.2 fl (85-98) 05/08/24 12:45 MCH 30.2 pg (27-33) 05/08/24 12:45 MCHC 32.4 g/dL (30-55) 05/08/24 12:45 RDW 12.7 % (12.1-15.1) 05/08/24 12:45 Plt Count 338 10^3/cmm (157-399) 05/08/24 12:45 MPV 10.1 fL (7.4-10.4) 05/08/24 12:45 Neut % (Auto) 73.3 % 05/08/24 12:45 Lymph % (Auto) 18.7 % 05/08/24 12:45 [place] % (Auto) 5.9 % 05/08/24 12:45 Eos % (Auto) 0.4 % 05/08/24 12:45 Baso % (Auto) 0.4 % 05/08/24 12:45 Neut # (Auto) 6.92 10^3/uL (1.8-7.7) 05/08/24 12:45 Lymph # (Auto) 1.8 10^3/uL (0.8-4.8) 05/08/24 12:45 [place] # (Auto) 0.6 10^3/uL (0.2-0.9) 05/08/24 12:45 Eos # (Auto) 0.0 10^3/uL (0.0-0.8) 05/08/24 12:45 Baso # (Auto) 0.0 10^3/uL (0.0-0.1) 05/08/24 12:45 Nucleated RBC % (auto) 0 % 05/08/24 12:45 Nucleated RBCs # 0.0 /100WBC 05/08/24 12:45 Sodium 141 mmol/L (136-145) 05/08/24 12:45 Potassium 3.5 mmol/L (3.5-5.1) 05/08/24 12:45 Chloride 106 mmol/L (98-107) 05/08/24 12:45 Carbon Dioxide 21 mmol/L (22-29) L 05/08/24 12:45 Anion Gap 17.5 (5-19) 05/08/24 12:45 BUN 15 mg/dL (8-23) 05/08/24 12:45 Creatinine 0.8 mg/dL (0.5-0.9) 05/08/24 12:45 GFR Calculation Not Reportable 05/08/24 12:45 Glucose 142 mg/dL (65-115) H 05/08/24 12:45 Calculated Osmolality 295 mOsm/kg (285-295) 05/08/24 12:45 Calcium 8.8 mg/dL (8.5-10.5) 05/08/24 12:45 Total Bilirubin 0.9 mg/dL (0.15-1.2) 05/08/24 12:45 AST 17 U/L (0-32) 05/08/24 12:45 ALT 14 U/L (0-33) 05/08/24 12:45 Alkaline Phosphatase 90 U/L (35-105) 05/08/24 12:45 Troponin T Baseline 15 ng/L (0-10) H 05/08/24 12:45 Troponin T 120 Minute 12.43 ng/L (0-10) H 05/08/24 14:46 Delta Troponin T -2.57 ABS# (0-10) L 05/08/24 14:46 NT-Pro-B Natriuret Pep 2326 pg/mL (0-125) H 05/08/24 12:45 Total Protein 6.2 g/dL (6.6-8.7) L 05/08/24 12:45 Albumin 3.7 g/dL (3.5-5.2) 05/08/24 12:45 Globulin 2.5 g/dL (1.3-4.6) 05/08/24 12:45 All radiology interpretation(s) finalized by discharge Discharge Plan Discharge Patient Disposition: Home Clinical Impression: Hypertension, COPD exacerbation, URI (upper respiratory infection) Condition: Stable Prescriptions: No Action nitroglycerin 0.4 mg tablet, sublingual 0.4 mg sublingual Q5M PRN (Reason: Chest Pain) cholecalciferol (vitamin D3) 125 mcg (5,000 unit) capsule 125 mcg PO DAILY albuterol sulfate 2.5 mg /3 mL (0.083 %) solution for nebulization 2.5 mg inhalation QID PRN (Reason: shortness of breath or wheezing) Qty: 300 0RF fluticasone propionate 50 mcg/actuation spray,suspension 2 spray INTRANASAL DAILY Qty: 48 1RF aripiprazole 5 mg tablet 5 mg PO DAILY Qty: 90 1RF atorvastatin 40 mg tablet 40 mg PO BEDTIME Qty: 90 1RF Hold Instructions: Sore muscle cetirizine [Zyrtec] 10 mg tablet 10 mg PO DAILY Qty: 90 1RF furosemide 20 mg tablet 20 mg PO DAILY Qty: 90 1RF levothyroxine 50 mcg tablet 50 mcg PO DAILY Qty: 90 1RF Dulera 100-5 mcg/actuation HFA aerosol inhaler 2 puff inhalation Q12H Qty: 13 2RF quetiapine 25 mg tablet 25 mg PO .HS Qty: 90 1RF Xarelto 15 mg tablet 15 mg PO DAILY Qty: 90 1RF Rx Instructions: must administer with evening meal venlafaxine 75 mg tablet 75 mg PO BID Qty: 180 1RF (DME) Blood Pressure Cuff Misc See Rx Instructions .Route Qty: 1 0RF Rx Instructions: As directed (DME) nebulizers Misc See Rx Instructions .ROUTE .MEDSUPPLY Qty: 1 0RF Rx Instructions: As directed metoprolol tartrate 50 mg tablet 50 mg PO Q12H Qty: 180 3RF valsartan 320 mg tablet 320 mg PO DAILY Qty: 90 1RF Rx Instructions: dose increase doxycycline hyclate 100 mg capsule 100 mg PO BID Qty: 20 0RF prednisone 10 mg tablet 10 mg PO DAILY Qty: 10 0RF potassium chloride 20 mEq packet 20 meq PO DAILY Qty: 100 3RF diltiazem HCl 120 mg capsule,extended release 12 hr 120 mg PO BID Qty: 180 0RF albuterol sulfate 90 mcg/actuation HFA aerosol inhaler 2 inh INHALATION Q6H PRN (Reason: Shortness Of Breath) Discharge Orders: Discharge ED (Routine); Ordered 05/08/24 [facility] By: [facility] Referrals: Marsha Kelly FNP-C [Primary Care Provider] - Patient Instructions: Upper Respiratory Infection (ED), COPD (Chronic Obstructive Pulmonary Disease) (ED), Opioid Safety, Pain Management Activity Restrictions/Additional Instructions: Please return to the emergency department for new, concerning, worsening symptoms. Please continue to take your doxycycline and prednisone. Please follow-up with your primary care doctor this week. Call Friday to set up an appointment. Remember to take your blood pressure cuff with you when you follow-up at your primary care office. Coding Level of Care Code ED Recycling Program Manager for Nicole Avalos
[2024-05-08 13:45] LABS: Basophils % 0.4 %; Eosinophils % 0.4 %; Hematocrit 41.1 % (36-47); Lymphocytes # 1.8 10^3/uL (0.8-4.8); Lymphocytes % 18.7 %; Mean Corpuscular HGB Conc 32.4 g/dL (30-55); Mean Corpuscular Hemoglobin 30.2 pg (27-33); Mean Corpuscular Volume 93.2 fl (85-98); Mean Platelet Volume 10.1 fL (7.4-10.4); Monocytes # 0.6 10^3/uL (0.2-0.9); Monocytes % 5.9 %; Neutrophils # 6.92 10^3/uL (1.8-7.7); Neutrophils % 73.3 %; Nucleated Red Blood Cells % 0 %; Platelet Count 338 10^3/cmm (157-399); Red Blood Count 4.41 10^6/uL (3.85-5.65); Red Cell Distribution Width 12.7 % (12.1-15.1); White Blood Count 9.45 10^3/uL (3.29-11.43)
[2024-05-08] MEDS: ipratropium-albuterol 3 mL Neb INHALATION (13:47)
[2024-05-08 14:02] LABS: Troponin(5th) Baseline 15 ng/L (0-10)
[2024-05-08 14:23] LABS: Alanine Aminotransferase 14 U/L (0-33); Albumin Level 3.7 g/dL (3.5-5.2); Alkaline Phosphatase 90 U/L (35-105); Anion Gap 17.5 (5-19); Aspartate Amino Transferase 17 U/L (0-32); Blood Urea Nitrogen 15 mg/dL (8-23); Calcium 8.8 mg/dL (8.5-10.5); Carbon Dioxide 21 mmol/L (22-29); Chloride 106 mmol/L (98-107); Creatinine Clr Calc Pharmacy 76.5847; Globulin 2.5 g/dL (1.3-4.6); Glucose 142 mg/dL (65-115); NT Pro B Type Natriuretic Pept 2326 pg/mL (0-125); Osmolality Calculated 295 mOsm/kg (285-295); Potassium 3.5 mmol/L (3.5-5.1); Sodium 141 mmol/L (136-145); Total Bilirubin 0.9 mg/dL (0.15-1.2); Total Protein 6.2 g/dL (6.6-8.7)
[2024-05-08 15:08] LABS: Troponin 5 2HR 12.43 ng/L (0-10)
[2024-05-08 15:10] LABS: Troponin 5 2HR Delta -2.57 ABS# (0-10)
--- NOTE | 2024-05-08 15:34 | ECG_ITS ---
[facility] Test Date: 2024-05-08 Pat Name: Mere Preston Department: Room: Gender: Female Tetryl Nitrator Operator: : 1950 Requested By: Michael Colon Order Number: [id number] Reading MD: BARBRA WEISS Measurements Intervals [place] Rate: 86 P: 0 [place]: 0 QRS: -19 QRSD: 93 T: 119 QT: 402 QTc: 483 Interpretive Statements ATRIAL FIBRILLATION MINIMAL VOLTAGE CRITERIA FOR LVH, CONSIDER NORMAL VARIANT [MEETS CRITERIA IN ONE OF: R(aVL), S(V1), R(V5), R(V5/V6)+S(V1)] INFERIOR MYOCARDIAL INFARCTION , PROBABLY OLD [40+ ms Q WAVE AND/OR ST/T ABNORMALITY IN II/aVF] MODERATE T-WAVE ABNORMALITY, CONSIDER LATERAL ISCHEMIA [-0.1+ mV T-WAVE IN I/aVL/V5/V6] Compared to ECG 05/08/2024 13:45:15 Myocardial infarct finding now present T-wave abnormality still present Possible ischemia still present Electronically Signed On 05-10-2024 23:21:42 NEWSPAPER MANAGER by BARBRA WEISS [id number]
[2024-05-08 15:59] LABS: Adenovirus Not Detected (NOT DETECT); Chlamydia Pneumoniae Not Detected (NOT DETECT); Coronavirus 229E,HKU1,NL63,OC4 Not Detected (NOT DETECT); Human Metapneumovirus Not Detected (NOT DETECT); Human Rhinovirus/Enterovirus Not Detected (NOT DETECT); Influenza A Not Detected (NOT DETECT); Influenza A H1 Not Detected (NOT DETECT); Influenza A H1-2009 Not Detected (NOT DETECT); Influenza A H3 Not Detected (NOT DETECT); Influenza B Not Detected (NOT DETECT); Mycoplasma Pneumoniae Not Detected (NOT DETECT); Parainfluenza Virus Type 1 Not Detected (NOT DETECT); Parainfluenza Virus Type 2 Not Detected (NOT DETECT); Parainfluenza Virus Type 3 Not Detected (NOT DETECT); Parainfluenza Virus Type 4 Not Detected (NOT DETECT); Respiratory Syncytial Virus A Not Detected (NOT DETECT); Respiratory Syncytial Virus B Not Detected (NOT DETECT); SARS-COV-2 Not Detected (NOT DETECT)
== END 2024-05-08 16:31 | disposition home or self-care (01) ==
PROVIDERS: Emergency Provider Nurse Practitioner; PCP Nurse Practitioner
DX: I10 Essential (primary) hypertension (principal); J44.1 Chronic obstructive pulmonary disease with (acute) exacerbation; N39.0 Urinary tract infection, site not specified; E78.2 Mixed hyperlipidemia
CPT/HCPCS: 71046; 80053; 83880; 84484; 85025; 87486; 87581; 87633; 93005; 94640; 99285

== ENCOUNTER 2024-05-18 14:47 | Observation (INO) | payer MEDICARE, OTHER, SELFPAY ==
[2024-05-18] VITALS (11 sets, daily range): BP systolic 107–164; BP diastolic 60–92; PULSE 69–112; RESP 14–21; TEMP 36.5–36.6; O2SAT 88–100; BMI 30.4
--- NOTE | 2024-05-18 14:57 | XR_ITS ---
WS: [id number] Exam: XR chest 1V portable [id number] Date/Time of Exam: 05/18/2024 3:04 PM Reason For Exam: weakness Comparison 05/08/2024. The lungs are clear and fully inflated. Unremarkable cardiomediastinal silhouette. Bony structures ar e intact. XR/XR chest 1V portable [id number] IMPRESSION: 1. No acute cardiopulmonary finding.
--- NOTE | 2024-05-18 14:57 | CTR_ITS ---
PROCEDURE INFORMATION: Exam: CT Head Without Contrast Exam date and time: 05/18/2024 3:08 PM Age: 74 years old Clinical indication: Dizziness TECHNIQUE: Imaging protocol: Computed tomography of the head without contrast. Radiation optimization: All CT scans at this facility use at least one of these dose optimization techniques: automated exposure control; mA and/or kV adjustment per patient size (includes targeted exams where dose is matched to clinical indication); or iterative reconstruction. COMPARISON: CT head wo con* [id number] 01/06/2022 4:33 PM RADIATION DOSE METRICS: Total DLP (mGy-cm): 1083.78 FINDINGS: Brain: Mild nonspecific white matter low attenuation which may be related to microvascular ischemic changes. No acute confluent lobar ischemic infarct. No acute intracranial hemorrhage. Cerebral ventricles: The ventricles and sulci are prominent in size compatible with mild atrophy. Paranasal sinuses: No fluid levels. Mastoid air cells: Visualized mastoid air cells are well aerated. Bones: No acute calvarial fracture. Soft tissues: Visualized soft tissues are unremarkable. CT/CT head wo con* [id number] IMPRESSION: No acute intracranial abnormality. If symptoms persist, consider further evaluation with MRI, if there are no contraindications to obtaining a MRI scan.
--- NOTE | 2024-05-18 14:58 | ECG_ITS ---
[facility]: [facility]24[facility]18 Pat Name: Mere Preston Department: Room: Gender: Female Local Announcer: : 1950 Requested By: Maciel Klein Order Number: [id number] Reading MD: Fei Stanley M.D. Measurements Intervals [place] Rate: 96 P: 0 [place]: 0 QRS: -14 QRSD: 93 T: 91 QT: 379 QTc: 480 Interpretive Statements ATRIAL FIBRILLATION INFERIOR MYOCARDIAL INFARCTION , PROBABLY OLD [40+ ms Q WAVE AND/OR ST/T ABNORMALITY IN II/aVF] Compared to ECG 05/08/2024 15:34:28 T-wave abnormality no longer present Possible ischemia no longer present Myocardial infarct finding still present Electronically Signed On 05-20-2024 11:21:57 DRESSMAKER OR TAILOR by Fei Stanley M.D. [id number]
--- NOTE | 2024-05-18 14:58 | W.ED.ARRPALP ---
HPI - Arrhythmia/Palpitations General: Chief Complaint: Arrhythmia/Palpitations Stated Complaint: A Fib Time Seen by Provider: 05/18/24 14:50 Source: patient and EMS Mode of arrival: EMS Limitations: no limitations History of Present Illness: 74-year-old female here from [facility] she has a history of A-fib patient went there today she has been having some dizziness. She states she has been having dizziness going on for a week and some palpitations she was found to be in A-fib with RVR there heart rate in the 150s she had had a near syncopal event as well. Patient given 20 mg of Cardizem and route heart rates now in the 90s. She denies any chest pain denies any headache states she does feel quite dizzy and has a hard time walking but this has been going on for a week Associated symptoms: Deny nausea or vomiting Related Data Home Medications Medication Instructions Recorded Confirmed cholecalciferol (vitamin D3) 125 125 mcg PO DAILY 08/14/20 05/18/24 mcg (5,000 unit) capsule albuterol sulfate 90 mcg/actuation 2 inh inhalation Q6H PRN Shortness 04/01/23 05/18/24 aerosol inhaler Of Breath Previous Rx's Medication Instructions Recorded potassium chloride 20 mEq oral 20 meq PO DAILY #100 ea 03/13/22 packet nebulizers #1 ea 08/01/22 miscellaneous medical supply #1 ea 08/16/22 (Blood Pressure Cuff) albuterol sulfate 2.5 mg/3 mL 2.5 mg (3 mL) inhalation QID PRN 02/20/23 (0.083 %) solution for nebulization shortness of breath or wheezing #300 mL diltiazem HCl 120 mg 120 mg PO BID #180 caps 08/19/23 capsule,extended release 12 hr fluticasone propionate 50 2 spray intranasal DAILY #48 grams 12/25/23 mcg/actuation nasal spray,suspension metoprolol tartrate 50 mg tablet 50 mg PO Q12H #180 tabs 01/12/24 aripiprazole 5 mg tablet 5 mg PO DAILY #90 tabs 03/11/24 atorvastatin 40 mg tablet 40 mg PO BEDTIME #90 tabs 03/11/24 cetirizine 10 mg tablet (Zyrtec) 10 mg PO DAILY #90 tabs 03/11/24 furosemide 20 mg tablet 20 mg PO DAILY #90 tabs 03/11/24 levothyroxine 50 mcg tablet 50 mcg PO DAILY #90 tabs 03/11/24 mometasone-formoterol HFA 100 2 puff inhalation Q12H #13 grams 03/11/24 mcg-5 mcg/actuation aerosol inhaler (Dulera) quetiapine 25 mg tablet 25 mg PO .HS #90 tabs 03/11/24 rivaroxaban 15 mg tablet (Xarelto) 15 mg PO DAILY #90 tabs 03/11/24 venlafaxine 75 mg tablet 75 mg PO BID #180 tabs 03/11/24 valsartan 320 mg tablet 320 mg PO DAILY #90 tabs 05/03/24 levofloxacin 750 mg tablet 750 mg PO DAILY #7 tabs 05/10/24 Allergies Allergy/AdvReac Type Severity Reaction Status Date / Time No Known Allergies Allergy Verified 05/18/24 13:20 Review of Systems Const: Denies: fever(s), chills, body aches or change in appetite Eyes: Denies: blurry vision or eye discomfort ENMT: Denies: throat pain or dental pain Card: Reports: palpitations and irregular heart rhythm; Denies: chest pain Resp: Denies: dyspnea GI: Denies: abdominal pain, nausea, vomiting or diarrhea Musc: Denies: neck pain or back pain Skin/Breast: Denies: rash Neuro: Reports: difficulty walking; Denies: headache(s) [facility] PFSH: Medical History Adult onset hypothyroidism COPD (chronic obstructive pulmonary disease) Pneumonia due to 2019-nCoV Anemia Insomnia Environmental and seasonal allergies High risk medication use EKG from 09/22/2019 showed the QRS duration of 100 ms Atrial fibrillation by electrocardiogram Asthma Benign hypertension Anxiety and depression Mixed hyperlipidemia Vitamin D deficiency Surgical History History of section History of hysterectomy History of oophorectomy History of cardiac radiofrequency ablation (RFA) patient is unsure but feels like this was about 20 years ago. Family History Father CAD (coronary artery disease) Lung disease Mother CAD (coronary artery disease) Cancer Dementia Other Hypertension Denies family history of Diabetes Clotting disorder Chronic kidney disease (CKD) Suicide Anesthesia complication Bleeding disorder Stroke Social History Smoking and tobacco/nicotine status: never used tobacco/nicotine Second hand smoke exposure: No Alcohol intake: never Substance/Drug Use: never Caregiver/support person: No Lives independently: Yes Household members: children Housing: House Marital status: / Number of children: 2 service: No Current occupational status: unemployed Pets and animals: Yes Do you think of yourself as: Straight/Heterosexual Current gender identity: Female Physical Exam Const: COMMON NORMALS: no acute distress, patient oriented x3 and healthy appearing HENMT: COMMON NORMALS: normocephalic and atraumatic HEAD & SCALP: normocephalic and atraumatic Eye: COMMON NORMALS: Equal, round and reactive pupils present and EOMs intact bilaterally PUPIL: Yes Equal, round and reactive pupils present Neck/C-Spine: COMMON NORMALS: full ROM and supple Chest: COMMONS NORMALS: normal inspection of the chest and normal palpation of entire chest wall Resp: COMMON NORMALS: normal respiratory effort, No retractions, No use of accessory muscles and clear to auscultation bilaterally AUSCULTATION: clear to auscultation bilaterally Cardio: RATE: tachycardic RHYTHM: abnormal rhythm irregularly irregular GI: COMMON NORMALS: Normal to inspection, nondistended, normoactive bowel sounds present, Soft to palpation, non-tender and no masses PALPATION: Yes Soft to palpation Extremity: COMMON NORMALS: normal to inspection and full ROM Neuro: COMMON NORMALS: patient oriented x3, moves all extremities and no focal motor deficits Psych: COMMON NORMALS: mental status grossly normal, Normal thought process present and cooperative THOUGHT PROCESS: Normal thought process present Skin: COMMON NORMALS: no rashes or lesions noted and no wounds GENERAL SKIN EXAM: no rashes or lesions noted Course Vital Signs: Vital signs: Vital Signs Temperature 97.9 F 05/18/24 14:49 Pulse Rate 112 H 05/18/24 16:09 Respiratory Rate 16 05/18/24 16:09 Blood Pressure 113/71 05/18/24 16:09 Pulse Oximetry 90 05/18/24 15:45 Oxygen Delivery Me thod Room Air 05/18/24 14:49 MDM - Arrhythmia/Palpitations Medical Decision Making Patient presents here with A-fib with RVR did start her on a Cardizem drip here she has had some dizziness head CT is normal her dizziness has been going on for a week. Has been having no chest pain or shortness of breath I spoke to hospitalist will admit for her A-fib with RVR at this time Medical Records I reviewed the patient's medical records. Lab Data I reviewed the patient's lab results. 05/18/24 15:24 05/18/24 15:24 Radiology Impressions Chest X-Ray 05/18/24 14:57 IMPRESSION: 1. No acute cardiopulmonary finding. Head CT 05/18/24 14:57 IMPRESSION: No acute intracranial abnormality. If symptoms persist, consider further evaluation with MRI, if there are no contraindications to obtaining a MRI scan. Laboratory Results WBC 12.90 10^3/uL (3.29-11.43) H 05/18/24 15:24 RBC 4.21 10^6/uL (3.85-5.65) 05/18/24 15:24 Hgb 12.90 g/dL (11.27-16.99) 05/18/24 15:24 Hct 40.1 % (36-47) 05/18/24 15:24 MCV 95.2 fl (85-98) 05/18/24 15:24 MCH 30.6 pg (27-33) 05/18/24 15:24 MCHC 32.2 g/dL (30-55) 05/18/24 15:24 RDW 12.9 % (12.1-15.1) 05/18/24 15:24 Plt Count 293 10^3/cmm (157-399) 05/18/24 15:24 MPV 9.7 fL (7.4-10.4) 05/18/24 15:24 Neut % (Auto) 74.5 % 05/18/24 15:24 Lymph % (Auto) 14.0 % 05/18/24 15:24 Crawford % (Auto) 9.3 % 05/18/24 15:24 Eos % (Auto) 0.7 % 05/18/24 15:24 Baso % (Auto) 0.5 % 05/18/24 15:24 Neut # (Auto) 9.61 10^3/uL (1.8-7.7) H 05/18/24 15:24 Lymph # (Auto) 1.8 10^3/uL (0.8-4.8) 05/18/24 15:24 Crawford # (Auto) 1.2 10^3/uL (0.2-0.9) H 05/18/24 15:24 Eos # (Auto) 0.1 10^3/uL (0.0-0.8) 05/18/24 15:24 Baso # (Auto) 0.1 10^3/uL (0.0-0.1) 05/18/24 15:24 Nucleated RBC % (auto) 0 % 05/18/24 15:24 Nucleated RBCs # 0.0 /100WBC 05/18/24 15:24 PT 19.30 SECONDS (12.1-14.9) H 05/18/24 15:24 INR 1.52 (0.8-1.2) H 05/18/24 15:24 Sodium 141 mmol/L (136-145) 05/18/24 15:24 Potassium 3.4 mmol/L (3.5-5.1) L 05/18/24 15:24 Chloride 103 mmol/L (98-107) 05/18/24 15:24 Carbon Dioxide 26 mmol/L (22-29) 05/18/24 15:24 Anion Gap 15.4 (5-19) 05/18/24 15:24 BUN 17 mg/dL (8-23) 05/18/24 15:24 Creatinine 1.0 mg/dL (0.5-0.9) H 05/18/24 15:24 GFR Calculation Not Reportable 05/18/24 15:24 Glucose 95 mg/dL (65-115) 05/18/24 15:24 POC Glucose 87 mg/dL (70-110) 05/18/24 15:49 Calculated Osmolality 293 mOsm/kg (285-295) 05/18/24 15:24 Calcium 8.2 mg/dL (8.5-10.5) L 05/18/24 15:24 Total Bilirubin 1.0 mg/dL (0.15-1.2) 05/18/24 15:24 AST 17 U/L (0-32) 05/18/24 15:24 ALT 12 U/L (0-33) 05/18/24 15:24 Alkaline Phosphatase 89 U/L (35-105) 05/18/24 15:24 Total Protein 5.8 g/dL (6.6-8.7) L 05/18/24 15:24 Albumin 3.3 g/dL (3.5-5.2) L 05/18/24 15:24 Globulin 2.5 g/dL (1.3-4.6) 05/18/24 15:24 TSH 1.25 uIU/mL (0.27-4.20) 05/18/24 15:24 Urine Color Yellow (Yellow) 05/18/24 15:02 Urine Appearance Clear (CLEAR) 05/18/24 15:02 Urine pH 6.0 (5-7) 05/18/24 15:02 Ur Specific [place] 1.014 (1.005-1.030) 05/18/24 15:02 Urine Protein Negative (Negative) 05/18/24 15:02 Urine Glucose (UA) Negative (Normal) 05/18/24 15:02 Urine Ketones Negative (Negative) 05/18/24 15:02 Urine Blood Negative (Negative) 05/18/24 15:02 Urine Nitrate Negative (Negative) 05/18/24 15:02 Urine Bilirubin Negative (Negative) 05/18/24 15:02 Urine Urobilinogen 0.2 mg/dL (Negative) 05/18/24 15:02 Ur Leukocyte Esterase 1+ (Negative) A 05/18/24 15:02 Urine RBC 0-2 /hpf (0-2) 05/18/24 15:02 Urine WBC 21-50 /hpf (0-5) H 05/18/24 15:02 Ur Squamous Epith Cells 0-5 /hpf (0-5) 05/18/24 15:02 Amorphous Sediment Not Reportable 05/18/24 15:02 Urine Bacteria None seen /hpf (NONE) 05/18/24 15:02 Hyaline Casts 3.30 /lpf 05/18/24 15:02 All radiology interpretation(s) finalized by discharge EKG Data EKG 1: I personally reviewed and interpreted this EKG as follows: EKG interpretation date: 05/18/24 EKG interpretation time: 14:52 Interpretation: afib hr [address] elevatin qrs 93 qtc 433 Other EKG comments: Chest X-Ray 05/18/24 14:57 IMPRESSION: 1. No acute cardiopulmonary finding. Head CT 05/18/24 14:57 IMPRESSION: No acute intracranial abnormality. If symptoms persist, consider further evaluation with MRI, if there are no contraindications to obtaining a MRI scan. Discharge Plan Discharge Patient Disposition: Admitted As Inpatient Clinical Impression: Atrial fibrillation with rapid ventricular response, Dizziness Condition: Stable Prescriptions: No Action cholecalciferol (vitamin D3) 125 mcg (5,000 unit) capsule 125 mcg PO DAILY albuterol sulfate 2.5 mg /3 mL (0.083 %) solution for nebulization 2.5 mg inhalation QID PRN (Reason: shortness of breath or wheezing) Qty: 300 0RF fluticasone propionate 50 mcg/actuation spray,suspension 2 spray INTRANASAL DAILY Qty: 48 1RF aripiprazole 5 mg tablet 5 mg PO DAILY Qty: 90 1RF atorvastatin 40 mg tablet 40 mg PO BEDTIME Qty: 90 1RF Hold Instructions: Sore muscle cetirizine [Zyrtec] 10 mg tablet 10 mg PO DAILY Qty: 90 1RF furosemide 20 mg tablet 20 mg PO DAILY Qty: 90 1RF levothyroxine 50 mcg tablet 50 mcg PO DAILY Qty: 90 1RF Dulera 100-5 mcg/actuation HFA aerosol inhaler 2 puff inhalation Q12H Qty: 13 2RF quetiapine 25 mg tablet 25 mg PO .HS Qty: 90 1RF Xarelto 15 mg tablet 15 mg PO DAILY Qty: 90 1RF Rx Instructions: must administer with evening meal venlafaxine 75 mg tablet 75 mg PO BID Qty: 180 1RF (DME) Blood Pressure Cuff Misc See Rx Instructions .Route Qty: 1 0RF Rx Instructions: As directed (DME) nebulizers Misc See Rx Instructions .ROUTE .MEDSUPPLY Qty: 1 0RF Rx Instructions: As directed metoprolol tartrate 50 mg tablet 50 mg PO Q12H Qty: 180 3RF valsartan 320 mg tablet 320 mg PO DAILY Qty: 90 1RF Rx Instructions: dose increase levofloxacin 750 mg tablet 750 mg PO DAILY Qty: 7 0RF potassium chloride 20 mEq packet 20 meq PO DAILY Qty: 100 3RF diltiazem HCl 120 mg capsule,extended release 12 hr 120 mg PO BID Qty: 180 0RF albuterol sulfate 90 mcg/actuation HFA aerosol inhaler 2 inh INHALATION Q6H PRN (Reason: Shortness Of Breath) Referrals: Marsha Kelly FNP-C [Primary Care Provider] - Coding Level of Care Code ED Software Engineer Mobile for Nicole Avalos
[2024-05-18 15:14] LABS: Bilirubin Urine Negative (Negative); Blood Urine Negative (Negative); Glucose Urine UA Negative (Normal); Ketones Urine Negative (Negative); Leukocyte Esterase Urine 1+ (Negative); Nitrate Urine Negative (Negative); Protein Urine Negative (Negative); Specific Gravity, Urine 1.014 (1.005-1.030); Urine Appearance Clear (CLEAR); Urine Color Yellow (Yellow); Urobilinogen Urine 0.2 mg/dL (Negative)
[2024-05-18 15:16] LABS: Add Urine Microscopic? YES; Bacteria Urine None Seen /hpf; RBC Urine 0-2 /hpf (0-2); Squamous Epithelial Cell Urine 0-5 /hpf (0-5); WBC Urine 21-50 /hpf (0-5)
[2024-05-18 15:35] LABS: Basophils # 0.1 10^3/uL (0.0-0.1); Basophils % 0.5 %; Eosinophils # 0.1 10^3/uL (0.0-0.8); Eosinophils % 0.7 %; Hematocrit 40.1 % (36-47); Lymphocytes # 1.8 10^3/uL (0.8-4.8); Mean Corpuscular HGB Conc 32.2 g/dL (30-55); Mean Corpuscular Hemoglobin 30.6 pg (27-33); Mean Corpuscular Volume 95.2 fl (85-98); Mean Platelet Volume 9.7 fL (7.4-10.4); Monocytes # 1.2 10^3/uL (0.2-0.9); Monocytes % 9.3 %; Neutrophils # 9.61 10^3/uL (1.8-7.7); Neutrophils % 74.5 %; Nucleated Red Blood Cells % 0 %; Platelet Count 293 10^3/cmm (157-399); Red Blood Count 4.21 10^6/uL (3.85-5.65); Red Cell Distribution Width 12.9 % (12.1-15.1)
[2024-05-18 15:38] LABS: Add Urine Culture? Yes
[2024-05-18 15:52] LABS: Glucose Point of Care 87 mg/dL (70-110)
[2024-05-18 15:55] LABS: INR 1.52 (0.8-1.2)
[2024-05-18] MEDS: dilTIAZem 100 MG in sodium chloride 0.9% (add-van) 100 ML IV (16:04)
[2024-05-18 16:05] LABS: Alanine Aminotransferase 12 U/L (0-33); Albumin Level 3.3 g/dL (3.5-5.2); Alkaline Phosphatase 89 U/L (35-105); Anion Gap 15.4 (5-19); Aspartate Amino Transferase 17 U/L (0-32); Blood Urea Nitrogen 17 mg/dL (8-23); Calcium 8.2 mg/dL (8.5-10.5); Carbon Dioxide 26 mmol/L (22-29); Chloride 103 mmol/L (98-107); Creatinine Clr Calc Pharmacy 60.0706; Globulin 2.5 g/dL (1.3-4.6); Glucose 95 mg/dL (65-115); Osmolality Calculated 293 mOsm/kg (285-295); Potassium 3.4 mmol/L (3.5-5.1); Sodium 141 mmol/L (136-145); Thyroid Stimulating Hormone 1.25 uIU/mL (0.27-4.20); Total Protein 5.8 g/dL (6.6-8.7)
--- NOTE | 2024-05-18 17:57 | USCV_ITS ---
Mere Preston Age: 74 Gender: F : 1950 Exam Date: 05/18/2024 23:01 Ordering Phys: Carlee Motley MD Technologist: HEATHER Exam Location[place] [facility] [place] Indication: afib BP: 109 / 60 HR: 82 Rhythm: Atrial fibrillation Technical Quality: Adequate MEASUREMENTS (Male / Female) Normal Values 2D ECHO LV Diastolic Diameter PLAX 4.0 cm 4.2 - 5.9 / 3.9 - 5.3 cm IVS Diastolic Thickness 1.3 cm 0.6 - 1.0 / 0.6 - 0.9 cm IVS Systolic Thickness 1.4 cm LVPW Diastolic Thickness 1.6 cm 0.6 - 1.0 / 0.6 - 0.9 cm LVPW Systolic Thickness 1.5 cm LVOT Diameter 1.8 cm LV Ejection Fraction 2D Teich 45.1 % LV Ejection Fraction MOD 4C 44.5 % LA Diameter 4.8 cm LA Sys Volume AL 96.2 cm cubed LA Sys Volume Index AL 44.6 cm cubed/m squared Aorta at Sinotubular Diameter 3.0 cm IVC Diameter 0.9 cm M-MODE LA Ao Ratio MM 1.4 AV Cusp Separation MM 1.4 cm DOPPLER AV Peak Velocity 107.0 cm/s LVOT Peak Velocity 68.0 cm/s AV Area Cont Eq vti 1.6 cm squared AV Area Cont Eq pk 1.6 cm squared MV Peak Velocity 88.0 cm/s MV Area PHT 3.5 cm squared Mitral E to A Ratio 0.0 TV Peak Velocity 194.0 cm/s TR Peak Velocity 215.0 cm/s TR Peak Gradient 18.5 mmHg TV Peak E Velocity 46.0 cm/s PV Peak Velocity 54.0 cm/s FINDINGS Left Ventricle Mildly increased left ventricular cavity size. Moderately decreased left ventricular systolic function. Global left ventricular hypokinesis. Left ventricular ejection fraction is estimated at 45 %. Grade III/IV diastolic dysfunction (restrictive filling pattern), severely elevated filling pressures. Right Ventricle The right ventricle is normal in size and function. Right Atrium The right atrium is normal in size. Left Atrium Moderately increased left atrial size. Mildly increased left atrial size. Mitral Valve Structurally normal mitral valve without significant stenosis or prolapse. There is no mitral regurgitation. Aortic Valve Structurally normal aortic valve without significant sclerosis or stenosis. There is no aortic regurgitation. Tricuspid Valve Structurally normal tricuspid valve without significant stenosis or regurgitation. Pulmonary artery systolic pressure is normal. Pulmonic Valve Structurally normal pulmonic valve without significant stenosis. There is no pulmonic regurgitation. Pericardium Normal pericardium without effusion. Aorta Normal ascending aorta dimension. IVC The inferior vena cava appears normal. CONCLUSIONS Mildly increased left ventricular cavity size. Moderately decreased left ventricular systolic function. Global left ventricular hypokinesis. Left ventricular ejection fraction is estimated at 45 %. Grade III/IV diastolic dysfunction (restrictive filling pattern), severely elevated filling pressures. Moderately increased left atrial size. Mildly increased left atrial size. No significant valve abnormalities. There is no pericardial effusion. Right atrial pressure is around 5 mm of mercury. Mau Segal MD (Electronically Signed) Final Date: 19 May 2024 17:31 S
[2024-05-18 19:23] LABS: Procalcitonin 0.04 ng/mL (0-0.5)
[2024-05-18] MEDS: metoprolol tartrate 50 mg Tablet PO (19:27)
--- NOTE | 2024-05-18 19:49 | P.HP_ITS ---
Providers/Chief Complaint 2 Admitting Physician: Carlee Motley MD Primary Care Provider: Marsha Kelly, MARIBEL-C Chief Complaint: A Fib History of Present Illness Mere Preston is a 74 year old female chronic A-fib, failed ablation, on metoprolol and diltiazem, rivaroxaban presented with chief complaint of worsening of palpitations and dizziness on exertion. Patient is stating that she was at PCP clinic today when she started becoming dizzy, her heart rate went up and she became pale. She was sent to the ED for further evaluation. She did not experience any fever nausea vomiting chest pain or shortness of breath. She describes her dizziness as lightheadedness. She is compliant with medications. Does not smoke. In the ER she was put on Cardizem drip at the time of evaluation Cardizem drip is at 5 I have requested nurse to turn off the drip because I will give her p.o. metoprolol and Cardizem increase dose her heart rate is around 80s with A-fib, blood pressure stable Review of Systems 2 Const: Denies: fever(s) Eyes: Denies: change in vision ENMT: Denies: throat pain Card: Denies: chest pain Resp: Reports: dyspnea GI: Denies: abdominal pain Neuro: Reports: dizziness Medications/Allergies Home Medications Medication Instructions Recorded Confirmed Last Taken Type cholecalciferol (vitamin D3) 125 125 mcg PO DAILY 08/14/20 05/18/24 05/18/24 History mcg (5,000 unit) capsule potassium chloride 20 mEq oral 20 meq PO DAILY #100 03/13/22 05/18/24 05/18/24 Rx packet nebulizers #1 08/01/22 05/18/24 Unknown Rx miscellaneous medical supply #1 08/16/22 05/18/24 Unknown Rx (Blood Pressure Cuff) albuterol sulfate 2.5 mg/3 mL 2.5 mg (3 mL) inhalation QID PRN 02/20/23 05/18/24 05/08/24 Rx (0.083 %) solution for nebulization shortness of breath or wheezing #300 mL albuterol sulfate 90 mcg/actuation 2 inh inhalation Q6H PRN Shortness 04/01/23 05/18/24 05/08/24 History aerosol inhaler Of Breath diltiazem HCl 120 mg 120 mg PO BID #180 caps 08/19/23 05/18/24 05/18/24 07:00 Rx capsule,extended release 12 hr fluticasone propionate 50 2 spray intranasal DAILY #48 grams 12/25/23 05/18/24 05/18/24 Rx mcg/actuation nasal spray,suspension metoprolol tartrate 50 mg tablet 50 mg PO Q12H #180 tabs 01/12/24 05/18/24 05/18/24 Rx aripiprazole 5 mg tablet 5 mg PO DAILY #90 tabs 03/11/24 05/18/24 05/18/24 Rx atorvastatin 40 mg tablet 40 mg PO BEDTIME #90 tabs 03/11/24 05/18/24 05/17/24 Rx cetirizine 10 mg tablet (Zyrtec) 10 mg PO DAILY #90 tabs 03/11/24 05/18/24 05/18/24 Rx furosemide 20 mg tablet 20 mg PO DAILY #90 tabs 03/11/24 05/18/24 05/18/24 Rx levothyroxine 50 mcg tablet 50 mcg PO DAILY #90 tabs 03/11/24 05/18/24 05/18/24 Rx mometasone-formoterol HFA 100 2 puff inhalation Q12H #13 grams 03/11/24 05/18/24 05/18/24 07:00 Rx mcg-5 mcg/actuation aerosol inhaler (Dulera) quetiapine 25 mg tablet 25 mg PO .HS #90 tabs 03/11/24 05/18/24 05/17/24 Rx rivaroxaban 15 mg tablet (Xarelto) 15 mg PO DAILY #90 tabs 03/11/24 05/18/24 05/08/24 Rx venlafaxine 75 mg tablet 75 mg PO BID #180 tabs 03/11/24 05/18/24 05/18/24 Rx valsartan 320 mg tablet 320 mg PO DAILY #90 tabs 05/03/24 05/18/24 05/18/24 Rx levofloxacin 750 mg tablet 750 mg PO DAILY #7 tabs 05/10/24 05/18/24 05/18/24 Rx Allergies Allergy/AdvReac Type Severity Reaction Status Date / Time No Known Allergies Allergy Verified 05/18/24 13:20 PFSH Acute 2 PFSH: Medical History Adult onset hypothyroidism COPD (chronic obstructive pulmonary disease) Pneumonia due to 2019-nCoV Anemia Insomnia Environmental and seasonal allergies High risk medication use EKG from 09/22/2019 showed the QRS duration of 100 ms Atrial fibrillation by electrocardiogram Asthma Benign hypertension Anxiety and depression Mixed hyperlipidemia Vitamin D deficiency Surgical History History of section History of hysterectomy History of oophorectomy History of cardiac radiofrequency ablation (RFA) patient is unsure but feels like this was about 20 years ago. Family History Father CAD (coronary artery disease) Lung disease Mother CAD (coronary artery disease) Cancer Dementia Other Hypertension Denies family history of Diabetes Clotting disorder Chronic kidney disease (CKD) Suicide Anesthesia complication Bleeding disorder Stroke Social History Smoking and tobacco/nicotine status: never used tobacco/nicotine Second hand smoke exposure: No Alcohol intake: never Substance/Drug Use: never Caregiver/support person: No Lives independently: Yes Household members: children Housing: House Marital status: / Number of children: 2 service: No Current occupational status: unemployed Pets and animals: Yes Do you think of yourself as: Straight/Heterosexual Current gender identity: Female Vitals/I&O/Wt Last Vital Signs Temp 97.7 F 05/18/24 19:13 Pulse 97 05/18/24 19:13 Resp 21 H 05/18/24 19:13 BP 107/92 05/18/24 19:13 Pulse Ox 100 05/18/24 19:13 O2 Del Method Room Air 05/18/24 19:13 05/18/24 05/18/24 05/18/24 06:59 14:59 22:59 Intake Total 20.042 / 20.042 Balance 20.042 / 20.042 Weight last 48 hrs Weight 95.254 kg Weight 93.44 kg Physical Exam 2 Narrative: A-fib without RVR Euvolemic GCS 15 Pleasant cooperative Awake and alert Hemodynamic stable S1, S2 variable Abdomen soft Lower Extremity No Edema Pleasant Cooperative AO x 4 Data 05/18/24 15:24 05/18/24 15:24 A&P Assessment and plan (1) Benign hypertension: (2) Cardiomyopathy: Qualifiers: Cardiomyopathy type: other Qualified Code(s): I42.8 - Other cardiomyopathies (3) HFrEF (heart failure with reduced ejection fraction): (4) Atrial fibrillation with rapid ventricular response: (5) Adult onset hypothyroidism: Plan A-fib with RVR She was put on Cardizem drip in the ER Keep potassium above 4, magnesium of 2 Compliant with her levothyroxine Increase the dose of metoprolol to 100 mg twice daily and increase the dose of Cardizem to 90 mg every 6 hours to make tenderness extremity grams daily at home she was taking 50 mg of metoprolol and 120 mg of diltiazem every 12 Patient has failed ablation in the past Follows up with Dr. Pringle No active sign of heart failure Heart failure seems to be compensated EF is slightly reduced around 45 to 49% Hold off on diuretics clinically does not look decompensated Turn off Cardizem drip 2 hours after getting p.o. regimen Symptomatic A-fib with RVR At rest her heart rate is well-controlled Her symptoms most get worse on exertion At this point she is hemodynamically stable No acute indication for cardiology consultation If her symptoms get worse she may need EP evaluation for her chronic A-fib I would like to increase the dose of rivaroxaban up to therapeutic dose of 20 mg daily instead of 15 mg, Iron deficiency anemia: Stable Monitor QTc interval patient is already on antipsychotics for her history of depression, current QTc is 480 Full code Cardiac diet Attestations 2 Medical Necessity Statement*: Anticipating discharge within 48 hours Diagnoses Benign hypertension I10 Other cardiomyopathy I42.8 Cardiomyopathy type: other HFrEF (heart failure with reduced ejection fraction) I50.20 Atrial fibrillation with rapid ventricular response I48.91 Adult onset hypothyroidism E03.8
[2024-05-18] MEDS: dilTIAZem 30 mg Tablet 90 MG PO (20:11)
[2024-05-18] MEDS: quetiapine 25 mg Tablet PO (20:11)
[2024-05-18] MEDS: atorvastatin 40 mg Tablet PO (20:12)
[2024-05-18 20:22] LABS: Chol HDL Ratio 2.51 mg/dL (0.0-4.40); Cholesterol 138 mg/dL (0-200); HDL Cholesterol 55 mg/dL (60-100); LDL Cholesterol Calculated 58 mg/dL (50-129); LDL HDL Ratio 1.05 RATIO (0.00-3.22); Thyroid Stimulating Hormone 1.37 uIU/mL (0.27-4.20); Triglycerides 124 mg/dL (0-150)
[2024-05-18 22:58] LABS: Estmated Average Glucose 111; Hemoglobin A1C 5.5 % (4.0-6.0)
[2024-05-19] VITALS (16 sets, daily range): BP systolic 94–120; BP diastolic 56–90; PULSE 50–96; RESP 14–22; TEMP 36.1–36.6; O2SAT 94–97; BMI 31.0
[2024-05-19] MEDS: dilTIAZem 30 mg Tablet 90 MG PO ×2 (01:05→08:00)
[2024-05-19 04:32] LABS: Basophils # 0.1 10^3/uL (0.0-0.1); Basophils % 0.6 %; Eosinophils # 0.2 10^3/uL (0.0-0.8); Eosinophils % 1.5 %; Hematocrit 37.7 % (36-47); Lymphocytes # 2.4 10^3/uL (0.8-4.8); Lymphocytes % 21.7 %; Mean Corpuscular HGB Conc 32.1 g/dL (30-55); Mean Corpuscular Hemoglobin 30.7 pg (27-33); Mean Corpuscular Volume 95.7 fl (85-98); Mean Platelet Volume 10.2 fL (7.4-10.4); Monocytes # 1.2 10^3/uL (0.2-0.9); Monocytes % 10.7 %; Neutrophils # 7.23 10^3/uL (1.8-7.7); Neutrophils % 64.3 %; Nucleated Red Blood Cells % 0 %; Platelet Count 287 10^3/cmm (157-399); Red Blood Count 3.94 10^6/uL (3.85-5.65); Red Cell Distribution Width 12.9 % (12.1-15.1); White Blood Count 11.24 10^3/uL (3.29-11.43)
[2024-05-19 04:59] LABS: Alanine Aminotransferase 10 U/L (0-33); Albumin Level 3.1 g/dL (3.5-5.2); Alkaline Phosphatase 80 U/L (35-105); Anion Gap 14.4 (5-19); Aspartate Amino Transferase 16 U/L (0-32); Blood Urea Nitrogen 20 mg/dL (8-23); Calcium 8.9 mg/dL (8.5-10.5); Carbon Dioxide 26 mmol/L (22-29); Chloride 105 mmol/L (98-107); Globulin 2.3 g/dL (1.3-4.6); Glucose 105 mg/dL (65-115); Magnesium 1.9 mg/dL (1.7-2.3); Osmolality Calculated 297 mOsm/kg (285-295); Potassium 3.4 mmol/L (3.5-5.1); Sodium 142 mmol/L (136-145); Total Bilirubin 0.9 mg/dL (0.15-1.2); Total Protein 5.4 g/dL (6.6-8.7)
[2024-05-19] MEDS: levothyroxine 50 mcg Tablet PO (08:00)
[2024-05-19] MEDS: ARIPiprazole 10 mg Tablet 5 MG PO (08:27)
[2024-05-19] MEDS: metoprolol tartrate 50 mg Tablet 75 MG PO (08:27)
[2024-05-19] MEDS: venlafaxine 75 mg Tablet PO ×2 (08:27→17:19)
[2024-05-19] MEDS: rivaroxaban 10 mg Tablet 20 MG PO (08:28)
[2024-05-19] MEDS: cetirizine 10 mg Tablet PO (08:28)
--- NOTE | 2024-05-19 09:12 | PC.CHAP ---
Pastoral Care Encounter/Spiritual Assessment Type of Contact [] Declined bread molder visit [] Patient/Family/Request visit [] Outpatient visit [] Follow-up visit [] Physician referral [] Code/Alert [x] Routine visit [] Staff referral [] Actively dying [] Patient sleeping [] Family support [] [] Out of room [] Palliative care [] [] Receiving care in room [] Pre-surgical visit [] Trauma [] Long length of stay [] ICU visit [] Other: Relational/Emotional Strength [x] Patient feels connected with others/family/visitors/staff [] Distress [] Loneliness/isolation [] Abandonment Spirituality of Patient [x] Person of Tania [] Attends Religious of their Tania [x] Believes in Prayer [] Reads Bible or Hinduism materials [] There are Spiritual issues to be addressed Np Interventions [x] Prayer [x] Active listening [] Non-anxious presence [x] Spiritual/emotional support [] Crisis/trauma care [] Spiritual counseling [] Bereavement support [] Provided bereavement packet [] Provided Bible/devotional materials [] Provided toy/stuffed animal, coloring book to patient or family member [] Provided Communion [] Anointing/Sanders [] Salvation [x] Completed spiritual assessment [] Other: Impact on Illness or Injury [] Angry [] Fearful [] Anxious [] Often cries [] Exhaustion [] Unable to work [] Unable to attend denominational [] Unable to walk/stand [] Unable to read [] Unable to drive [] Unable to eat/drink [] Unable to sleep [] Unable to be with family [] Patient intubated [] Other: Summary Time spent with patient 5 min
[2024-05-19] MEDS: ipratropium-albuterol 3 mL Neb INHALATION ×2 (11:19→21:24)
--- NOTE | 2024-05-19 11:53 | XR_ITS ---
WS: [id number] Exam: XR chest 1V portable [id number] Date/Time of Exam: 05/19/2024 12:04 PM Reason For Exam: r/o pneumonia Comparison 05/18/2024. Lungs are clear and fully inflated. Cardiomediastinal silhouette is unremarkable. No pleural effusion s. Bony structures are intact. XR/XR chest 1V portable [id number] IMPRESSION: 1. Negative chest-no change.
--- NOTE | 2024-05-19 11:56 | P.PN_ITS ---
Subjective 2 Subjective: Seen this morning. Bradycardic overnight. Dips down to 50s. She was transition to oral medication and drip was turned off. Urine at bedside heart rate is low 50s. She complains of dizziness and lightheadedness. She said she was recently being treated for some sort of upper respiratory infection. She was given an antibiotic which was changed to something else. Does not know the name. She went back to the doctor yesterday to see how she was doing and at that point was very hypotensive and blood pressure was down to 60s. She has been taking all her home medications as directed. Is not really bringing up any phlegm and not coughing. But has been sick for the last few days. Reviewing her doctors visit note from 10 May it states that on 02 May that she had yellow phlegm last week and did have a fever 101.8. She was short of breath. Did complain of nausea soft stool runny nose fatigue. She was given doxycycline and prednisone. Yesterday the doctor's visit her medication was changed to levofloxacin for 7 days. Patient does have a history of COPD and has had COVID-pneumonia before. He has a history of asthma. She does take nebulization solution at home and is on albuterol inhaler at home. She also takes fluticasone. Vitals/I&O/Wt Last Vital Signs Temp 97.8 F 05/19/24 11:50 Pulse 54 L 05/19/24 11:50 Resp 18 05/19/24 11:50 BP 110/62 05/19/24 11:50 Pulse Ox 95 05/19/24 11:50 O2 Del Method Room Air 05/19/24 11:50 05/18/24 05/19/24 05/19/24 22:59 06:59 14:59 Intake Total 391.625 / 391.625 360 / 360 Output Total 150 / 150 Balance 391.625 / 391.625 -150 / 241.625 360 / 360 Weight last 48 hrs Weight 95.254 kg Weight 95.254 kg Weight 93.44 kg Physical Exam 2 Narrative: General: Alert oriented x3, patient seen in bed appearing comfortable at this time. Does report being lightheaded and dizzy. Patient does appear to be dehydrated at this time. HEENT: Normocephalic, atraumatic, EOMI, breathing room air. Cardio: Regular rate rhythm, normal S1-S2, Respiratory: Good bilateral air entry, no wheezes no rhonchi appreciated GI: Abdomen soft, nontender, nondistended, bowel sounds + Behavior: Appropriate and cooperative Extremities: No edema bilateral lower extremities. Data 05/19/24 03:35 05/19/24 03:35 A&P Assessment and plan (1) Benign hypertension: (2) Cardiomyopathy: Qualifiers: Cardiomyopathy type: other Qualified Code(s): I42.8 - Other cardiomyopathies (3) HFrEF (heart failure with reduced ejection fraction): (4) Atrial fibrillation with rapid ventricular response: (5) Adult onset hypothyroidism: Plan A-fib with RVR She was put on Cardizem drip in the ER Keep potassium above 4, magnesium of 2 Compliant with her levothyroxine Increase the dose of metoprolol to 100 mg twice daily and increase the dose of Cardizem to 90 mg every 6 hours to make tenderness extremity grams daily at home she was taking 50 mg of metoprolol and 120 mg of diltiazem every 12 Patient has failed ablation in the past Follows up with Dr. Pringle No active sign of heart failure Heart failure seems to be compensated EF is slightly reduced around 45 to 49% Hold off on diuretics clinically does not look decompensated Turn off Cardizem drip 2 hours after getting p.o. regimen Symptomatic A-fib with RVR At rest her heart rate is well-controlled Her symptoms most get worse on exertion At this point she is hemodynamically stable No acute indication for cardiology consultation If her symptoms get worse she may need EP evaluation for her chronic A-fib I would like to increase the dose of rivaroxaban up to therapeutic dose of 20 mg daily instead of 15 mg, Iron deficiency anemia: Stable Monitor QTc interval patient is already on antipsychotics for her history of depression, current QTc is 480 Full code Cardiac diet 05/19/2024 Patient had a recent respiratory illness and was on prednisone and doxycycline. She went back to the doctor yesterday that was switched to levofloxacin. Does have a history of asthma and COPD. Patient has been bradycardic intermittently overnight and this morning as well. I will reduce metoprolol back down to 50 twice daily home dose and reduced the dose of Cardizem to 60 every 6. I will hold next dose of Cardizem 60 since patient's heart rate is in the 50s at this time. Discussed that with nursing staff. ? Patient appears to be dehydrated at this time. ? Order normal saline 500 cc bolus. Additional 500 cc to run at 60 cc/h till the bag finishes. ? Hold Lasix at this time ? Patient has been in sinus rhythm this morning but bradycardic ? Continue Xarelto 20 daily. ? Will recheck chest x-ray. ? Will check respiratory viral panel. ? She has completed a steroid course about 2 weeks ago. Her lungs are clear to auscultation. There are no wheezes or rhonchi. We do not need to do another course of steroids at this time. ? Will check sputum Gram stain culture ? I will hold off on adding levofloxacin at this time. ? Will continue DuoNeb every 6 hours as needed and add budesonide inhalation twice daily ? Repeat echo at this time. ? Will check orthostatic vitals. ?Patient requires continued hospitalization today secondary to dizziness and bradycardia. Once medications are optimized we will consider discharge in next 24 to 48 hours. Attestations 2 Medical Necessity Statement*: Atrial fibrillation now with bradycardia, lightheadedness dizziness. Requires continued hospitalization for closer cardiac monitoring and adjustment of medications. Diagnoses Benign hypertension I10 Other cardiomyopathy I42.8 Cardiomyopathy type: other HFrEF (heart failure with reduced ejection fraction) I50.20 Atrial fibrillation with rapid ventricular response I48.91 Adult onset hypothyroidism E03.8
--- NOTE | 2024-05-19 11:59 | PC.NURSE ---
Provider called and gave order to hold carizem dose that was just put in due to low heart rate, but give the dose due in 6 hours. Give NS now, give 500ml bolus and then the next 500 at 60ml/hr.
[2024-05-19] MEDS: sodium chloride 0.9% 1,000 ML 250 ML IV (12:28)
--- NOTE | 2024-05-19 13:01 | PC.NURSE ---
Confirmed with provider the magnesium sulfate order for patient, magnesium is 1.9 today. Provider ordered to give.
[2024-05-19] MEDS: magnesium sulfate premix 1 GM/100 ML PIGGYBACK IV (13:02)
[2024-05-19 16:07] LABS: Adenovirus Not Detected (NOT DETECT); Chlamydia Pneumoniae Not Detected (NOT DETECT); Coronavirus 229E,HKU1,NL63,OC4 Not Detected (NOT DETECT); Human Metapneumovirus Not Detected (NOT DETECT); Human Rhinovirus/Enterovirus Not Detected (NOT DETECT); Influenza A Not Detected (NOT DETECT); Influenza A H1 Not Detected (NOT DETECT); Influenza A H1-2009 Not Detected (NOT DETECT); Influenza A H3 Not Detected (NOT DETECT); Influenza B Not Detected (NOT DETECT); Mycoplasma Pneumoniae Not Detected (NOT DETECT); Parainfluenza Virus Type 1 Not Detected (NOT DETECT); Parainfluenza Virus Type 2 Not Detected (NOT DETECT); Parainfluenza Virus Type 3 Not Detected (NOT DETECT); Parainfluenza Virus Type 4 Not Detected (NOT DETECT); Respiratory Syncytial Virus A Not Detected (NOT DETECT); Respiratory Syncytial Virus B Not Detected (NOT DETECT); SARS-COV-2 Not Detected (NOT DETECT)
[2024-05-19] MEDS: dilTIAZem 30 mg Tablet 60 MG PO (17:19)
[2024-05-19] MEDS: sodium chloride 0.9% 500 ML 999 ML IV (18:00)
[2024-05-19] MEDS: quetiapine 25 mg Tablet PO (20:19)
[2024-05-19] MEDS: atorvastatin 40 mg Tablet PO (20:19)
[2024-05-19] MEDS: budesonide 0.5 mg/2 mL Neb INHALATION (21:24)
--- NOTE | 2024-05-19 23:38 | PC.NURSE ---
Per Dr Perez Lopressor 50mg due at at 2100 and Cardizem 60mg due at 2350 were not given as patent's HR was 45 - 65.
[2024-05-20] VITALS (10 sets, daily range): BP systolic 91–142; BP diastolic 55–101; PULSE 73–109; RESP 12–28; TEMP 36.3–36.9; O2SAT 94–99; BMI 30.9
[2024-05-20 04:00] LABS: Basophils # 0.1 10^3/uL (0.0-0.1); Basophils % 0.8 %; Eosinophils # 0.2 10^3/uL (0.0-0.8); Hematocrit 34.9 % (36-47); Lymphocytes # 2.3 10^3/uL (0.8-4.8); Lymphocytes % 26.1 %; Mean Corpuscular HGB Conc 32.4 g/dL (30-55); Mean Corpuscular Hemoglobin 30.5 pg (27-33); Mean Corpuscular Volume 94.3 fl (85-98); Mean Platelet Volume 10.1 fL (7.4-10.4); Monocytes % 11.4 %; Neutrophils # 5.25 10^3/uL (1.8-7.7); Neutrophils % 58.6 %; Nucleated Red Blood Cells % 0 %; Platelet Count 241 10^3/cmm (157-399); Red Cell Distribution Width 12.8 % (12.1-15.1); White Blood Count 8.96 10^3/uL (3.29-11.43)
[2024-05-20 04:25] LABS: Anion Gap 12.2 (5-19); Blood Urea Nitrogen 21 mg/dL (8-23); Calcium 8.6 mg/dL (8.5-10.5); Carbon Dioxide 26 mmol/L (22-29); Chloride 106 mmol/L (98-107); Glucose 103 mg/dL (65-115); Magnesium 2.2 mg/dL (1.7-2.3); Osmolality Calculated 293 mOsm/kg (285-295); Potassium 4.2 mmol/L (3.5-5.1); Sodium 140 mmol/L (136-145)
[2024-05-20] MEDS: dilTIAZem 30 mg Tablet 60 MG PO (05:20)
--- NOTE | 2024-05-20 05:30 | PC.NURSE ---
Dr. Perez contacted on phone about morning dose of Cardizem 60mg PO as HR 65-80 (afib) with BP 100/60. Dr. Perez did want this dose of Cardizem given.
[2024-05-20] MEDS: budesonide 0.5 mg/2 mL Neb INHALATION (07:35)
[2024-05-20] MEDS: ipratropium-albuterol 3 mL Neb INHALATION (07:35)
[2024-05-20] MEDS: venlafaxine 75 mg Tablet PO ×2 (08:00→18:13)
[2024-05-20] MEDS: ARIPiprazole 10 mg Tablet 5 MG PO (08:00)
[2024-05-20] MEDS: cetirizine 10 mg Tablet PO (08:00)
[2024-05-20] MEDS: rivaroxaban 10 mg Tablet 20 MG PO (08:00)
[2024-05-20] MEDS: levothyroxine 50 mcg Tablet PO (08:00)
--- NOTE | 2024-05-20 14:47 | P.CONIM_ITS ---
<Statement entered by Fei Stanley M.D - 05/20/24 20:40> Patient was evaluated and cared for in conjunction with an advanced practice practitioner. I personally examined the patient and reviewed the chart and all pertinent data including imaging, telemetry, and laboratory results. I discussed the patient in detail with the advanced practice practitioner. Please see their note for complete progress note, results and agreed upon plan of care for the patient. Patient's heart rate is controlled. In atrial fibrillation. Continue current medications and uptitrate if blood pressure is elevated. GENERAL: Patient is alert and oriented HEART: Irregularly irregular LUNGS: Clear to auscultation bilaterally EXTREMITIES: Lower extremities with no edema Providers/Reason For Consult 2 Consulting Physician/Specialty*: Dr Stanley, cardiology Reason for Consult*: Atrial fibrillation with RVR, hypotension, bradycardia Requesting Physician: Dr Motley Attending Physician: Carlee Motley MD Primary Care Provider: Marsha Kelly, SERVICE ORDER DISPATCHER-Rene History of Present Illness History of Present Illness Mere Preston is a 74 year old female with past medical history of chronic atrial fibrillation, cardiomyopathy, hypertension, HFrEF, sees Dr. Pringle in the cardiology clinic. Also has a history of iron deficiency anemia, anticoagulated with Xarelto. She presented to the emergency room on 05/18/2024 with atrial fibrillation with RVR, ventricular rates in the 150s, hypotension and near syncope. She was initially felt to be dehydrated, treated with IV hydration and diltiazem infusion, transitioned to oral diltiazem and oral metoprolol, developed some hypotension and bradycardia overnight, lowest documented heart rate 51 bpm in atrial fibrillation. She did have an upper respiratory febrile illness about 2 weeks ago and was treated with doxycycline. CBC unremarkable, BUN 21, creatinine 1.0 today. She did have 1+ leukocyte esterase in her urine on 05/18/2024, seems to have occasional UTIs since 2022, 11/2022, 10/2023, and now. She is not febrile and WBC 8.9 this morning, down from 12.9 on 05/18/2024. Currently she is sitting on the side of the bed eating lunch, does not have any presyncopal symptoms at this time but is still unsteady in her gait. Blood pressure is normotensive, in atrial fibrillation with ventricular rates running 80 to 105 bpm. Review of Systems 2 Card: Reports: irregular heart rhythm; Denies: chest pain, lightheadedness, syncope, pre-syncope, orthopnea or leg pain with exertion Resp: Reports: dyspnea; Denies: productive cough or wheezing GI: Denies: hematochezia : Denies: hematuria Derian/Lymph: Denies: easy bleeding Medications/Allergies Home Medications Medication Instructions Recorded Confirmed Last Taken Type cholecalciferol (vitamin D3) 125 125 mcg PO DAILY 08/14/20 05/18/24 05/18/24 History mcg (5,000 unit) capsule potassium chloride 20 mEq oral 20 meq PO DAILY #100 ea 03/13/22 05/18/24 05/18/24 Rx packet nebulizers #1 ea 08/01/22 05/18/24 Unknown Rx miscellaneous medical supply #1 ea 08/16/22 05/18/24 Unknown Rx (Blood Pressure Cuff) albuterol sulfate 2.5 mg/3 mL 2.5 mg (3 mL) inhalation QID PRN 02/20/23 05/18/24 05/08/24 Rx (0.083 %) solution for nebulization shortness of breath or wheezing #300 mL albuterol sulfate 90 mcg/actuation 2 inh inhalation Q6H PRN Shortness 04/01/23 05/18/24 05/08/24 History aerosol inhaler Of Breath diltiazem HCl 120 mg 120 mg PO BID #180 caps 08/19/23 05/18/24 05/18/24 07:00 Rx capsule,extended release 12 hr fluticasone propionate 50 2 spray intranasal DAILY #48 grams 12/25/23 05/18/24 05/18/24 Rx mcg/actuation nasal spray,suspension metoprolol tartrate 50 mg tablet 50 mg PO Q12H #180 tabs 01/12/24 05/18/24 05/18/24 Rx aripiprazole 5 mg tablet 5 mg PO DAILY #90 tabs 03/11/24 05/18/24 05/18/24 Rx atorvastatin 40 mg tablet 40 mg PO BEDTIME #90 tabs 03/11/24 05/18/24 05/17/24 Rx cetirizine 10 mg tablet (Zyrtec) 10 mg PO DAILY #90 tabs 03/11/24 05/18/24 05/18/24 Rx furosemide 20 mg tablet 20 mg PO DAILY #90 tabs 03/11/24 05/18/24 05/18/24 Rx levothyroxine 50 mcg tablet 50 mcg PO DAILY #90 tabs 03/11/24 05/18/24 05/18/24 Rx mometasone-formoterol HFA 100 2 puff inhalation Q12H #13 grams 03/11/24 05/18/24 05/18/24 07:00 Rx mcg-5 mcg/actuation aerosol inhaler (Dulera) quetiapine 25 mg tablet 25 mg PO .HS #90 tabs 03/11/24 05/18/24 05/17/24 Rx rivaroxaban 15 mg tablet (Xarelto) 15 mg PO DAILY #90 tabs 03/11/24 05/18/24 05/08/24 Rx venlafaxine 75 mg tablet 75 mg PO BID #180 tabs 03/11/24 05/18/24 05/18/24 Rx valsartan 320 mg tablet 320 mg PO DAILY #90 tabs 05/03/24 05/18/24 05/18/24 Rx levofloxacin 750 mg tablet 750 mg PO DAILY #7 tabs 05/10/24 05/18/24 05/18/24 Rx Allergies Allergy/AdvReac Type Severity Reaction Status Date / Time No Known Allergies Allergy Verified 05/18/24 13:20 Current Medications Generic Name Dose Route Start Last Admin Trade Name Freq PRN Reason Stop Dose Admin Albuterol/Ipratropium 3 ml 05/18/24 17:56 05/20/24 07:35 Ipratropium-Albuterol 3 Ml Neb INHALATION 3 ml Q6H PRN Administration SHORTNESS OF BREATH Aripiprazole 5 mg 05/19/24 09:00 05/20/24 08:00 Aripiprazole 10 Mg Tablet PO 5 mg DAILY ROSS Administration Atorvastatin Calcium 40 mg 05/18/24 21:00 05/19/24 20:19 Atorvastatin 40 Mg Tablet PO 40 mg BEDTIME ROSS Administration Budesonide 0.5 mg 05/19/24 20:00 05/20/24 07:35 Budesonide 0.5 Mg/2 Ml Neb INHALATION 0.5 mg BID.RESPIRATORY ROSS Administration Cetirizine HCl 10 mg 05/19/24 09:00 05/20/24 08:00 Cetirizine 10 Mg Tablet PO 10 mg DAILY ROSS Administration Diltiazem HCl 60 mg 05/19/24 11:50 05/20/24 05:20 Diltiazem 30 Mg Tablet PO 60 mg Q6H ROSS Administration Levothyroxine Sodium 50 mcg 05/19/24 09:00 05/20/24 08:00 Levothyroxine 50 Mcg Tablet PO 50 mcg DAILY ROSS Administration Metoprolol Tartrate 50 mg 05/19/24 21:00 05/20/24 09:31 Metoprolol Tartrate 50 Mg Tablet PO Not Given BID@0900,2100 [facility] Quetiapine Fumarate 25 mg 05/18/24 21:00 05/19/24 20:19 Quetiapine 25 Mg Tablet PO 25 mg BEDTIME ROSS Administration Rivaroxaban 20 mg 05/19/24 09:00 05/20/24 08:00 Rivaroxaban 10 Mg Tablet PO 20 mg DAILY ROSS Administration Venlafaxine HCl 75 mg 05/19/24 09:00 05/20/24 08:00 Venlafaxine 75 Mg Tablet PO 75 mg BID ROSS Administration PFSH Acute 2 PFSH: Medical History Adult onset hypothyroidism COPD (chronic obstructive pulmonary disease) Pneumonia due to 2019-nCoV Anemia Insomnia Environmental and seasonal allergies High risk medication use EKG from 09/22/2019 showed the QRS duration of 100 ms Atrial fibrillation by electrocardiogram Asthma Benign hypertension Anxiety and depression Mixed hyperlipidemia Vitamin D deficiency Surgical History History of section History of hysterectomy History of oophorectomy History of cardiac radiofrequency ablation (RFA) patient is unsure but feels like this was about 20 years ago. Family History Father CAD (coronary artery disease) Lung disease Mother CAD (coronary artery disease) Cancer Dementia Other Hypertension Denies family history of Diabetes Clotting disorder Chronic kidney disease (CKD) Suicide Anesthesia complication Bleeding disorder Stroke Social History Smoking and tobacco/nicotine status: never used tobacco/nicotine Second hand smoke exposure: No Alcohol intake: never Substance/Drug Use: never Caregiver/support person: No Lives independently: Yes Household members: children Housing: House Marital status: / Number of children: 2 service: No Current occupational status: unemployed Pets and animals: Yes Do you think of yourself as: Straight/Heterosexual Current gender identity: Female Vitals/I&O/Wt Last Vital Signs Temp 98.5 F 05/20/24 12:00 Pulse 96 05/20/24 12:00 Resp 16 05/20/24 12:00 BP 121/89 05/20/24 12:00 Pulse Ox 96 05/20/24 12:00 O2 Del Method Room Air 05/20/24 12:00 05/19/24 05/20/24 05/20/24 22:59 06:59 14:59 Intake Total 360 / 2640.000 1179.167 / 2640.000 356 / 356 Output Total 375 / 1225 500 / 1225 900 / 900 Balance -15 / 1415.000 679.167 / 1415.000 -544 / -544 Weight last 48 hrs Weight 209 lb 3 oz Weight 210 lb Weight 210 lb Weight 206 lb Physical Exam 2 Const: COMMON NORMALS: no acute distress and patient oriented x3 Chest: COMMONS NORMALS: normal inspection of the chest and normal palpation of entire chest wall CHEST: Yes Symmetrical chest wall rise Resp: COMMON NORMALS: normal respiratory effort, No retractions, No use of accessory muscles and clear to auscultation bilaterally EFFORT & INSPECTION: Yes symmetric chest movement AUSCULTATION: clear to auscultation bilaterally Cardio: COMMON NORMALS: regular rate, S1 normal heart sound present, S2 normal heart sound present, No gallops present (Cardio), No clicks present (Cardio), No murmurs present (Cardio) and No rub (Cardio) RATE: regular rate RHYTHM: a bnormal rhythm irregularly irregular HEART SOUNDS: S1 normal heart sound present and S2 normal heart sound present PERIPHERAL PULSES: radial pulses present, posterior tibial pulses present and dorsalis pedis present Extremity: GENERAL: No edema Neuro: COMMON NORMALS: patient oriented x3 and moves all extremities Psych: COMMON NORMALS: mental status grossly normal and cooperative Data 05/20/24 03:26 05/20/24 03:26 Micro: Microbiology 05/18/24 15:02 Urine Culture - Preliminary Urine,Clean Catch A&P Assessment and plan (1) HFrEF (heart failure with reduced ejection fraction): (2) Chronic atrial fibrillation: (3) Atrial fibrillation with rapid ventricular response: (4) Benign hypertension: Plan She was treated with antibiotics doxycycline, levofloxacin, Vibramycin for her illness 2 weeks ago, also at that visit had increased valsartan to 320 mg daily due to uncontrolled hypertension. Given that she appeared dehydrated on admission, that may have been the reason for the atrial fibrillation with RVR, and those 2 factors causing hypotension. For now given that she has adequate ventricular rate control, no current hypotension and no significant presyncopal symptoms, will continue diltiazem 60 mg 4 times daily. Can reduce metoprolol to 25 mg twice daily, hold if heart rate less than 60 or blood pressure less than 110 systolic. Coding Level of Care Code Acute Code for [facility] Diagnoses HFrEF (heart failure with reduced ejection fraction) I50.20 Chronic atrial fibrillation I48.20 Atrial fibrillation with rapid ventricular response I48.91 Benign hypertension I10
--- NOTE | 2024-05-20 15:22 | P.PN_ITS ---
Subjective 2 Subjective: Seen this morning. Overnight has been bradycardic. Metoprolol had to be held overnight. She complains of feeling dizzy this morning. She states it is better than when she was admitted however she still feels dizzy. She is also unsteady with her gait. Vitals/I&O/Wt Last Vital Signs Temp 98.5 F 05/20/24 12:00 Pulse 96 05/20/24 12:00 Resp 16 05/20/24 12:00 BP 121/89 05/20/24 12:00 Pulse Ox 96 05/20/24 12:00 O2 Del Method Room Air 05/20/24 12:00 05/20/24 05/20/24 05/20/24 06:59 14:59 22:59 Intake Total 1179.167 / 2640.000 356 / 356 Output Total 500 / 1225 900 / 900 Balance 679.167 / 1415.000 -544 / -544 Weight last 48 hrs Weight 94.886 kg Weight 95.254 kg Weight 95.254 kg Physical Exam 2 Narrative: General: Alert oriented x3, states she is dizzy. HEENT: Normocephalic, atraumatic, EOMI, breathing room air. Cardio: Regular rate rhythm, normal S1-S2, Respiratory: Good bilateral air entry, no wheezes no rhonchi appreciated GI: Abdomen soft, nontender, nondistended, bowel sounds + Behavior: Appropriate and cooperative Extremities: No edema bilateral lower extremities. Data 05/20/24 03:26 05/20/24 03:26 Micro: Microbiology 05/18/24 15:02 Urine Culture - Preliminary Urine,Clean Catch A&P Assessment and plan (1) Benign hypertension: (2) Cardiomyopathy: Qualifiers: Cardiomyopathy type: other Qualified Code(s): I42.8 - Other cardiomyopathies (3) HFrEF (heart failure with reduced ejection fraction): (4) Atrial fibrillation with rapid ventricular response: (5) Adult onset hypothyroidism: Plan A-fib with RVR She was put on Cardizem drip in the ER Keep potassium above 4, magnesium of 2 Compliant with her levothyroxine Increase the dose of metoprolol to 100 mg twice daily and increase the dose of Cardizem to 90 mg every 6 hours to make tenderness extremity grams daily at home she was taking 50 mg of metoprolol and 120 mg of diltiazem every 12 Patient has failed ablation in the past Follows up with Dr. Pringle No active sign of heart failure Heart failure seems to be compensated EF is slightly reduced around 45 to 49% Hold off on diuretics clinically does not look decompensated Turn off Cardizem drip 2 hours after getting p.o. regimen Symptomatic A-fib with RVR At rest her heart rate is well-controlled Her symptoms most get worse on exertion At this point she is hemodynamically stable No acute indication for cardiology consultation If her symptoms get worse she may need EP evaluation for her chronic A-fib I would like to increase the dose of rivaroxaban up to therapeutic dose of 20 mg daily instead of 15 mg, Iron deficiency anemia: Stable Monitor QTc interval patient is already on antipsychotics for her history of depression, current QTc is 480 Full code Cardiac diet 05/19/2024 Patient had a recent respiratory illness and was on prednisone and doxycycline. She went back to the doctor yesterday that was switched to levofloxacin. Does have a history of asthma and COPD. Patient has been bradycardic intermittently overnight and this morning as well. I will reduce metoprolol back down to 50 twice daily home dose and reduced the dose of Cardizem to 60 every 6. I will hold next dose of Cardizem 60 since patient's heart rate is in the 50s at this time. Discussed that with nursing staff. ? Patient appears to be dehydrated at this time. ? Order normal saline 500 cc bolus. Additional 500 cc to run at 60 cc/h till the bag finishes. ? Hold Lasix at this time ? Patient has been in sinus rhythm this morning but bradycardic ? Continue Xarelto 20 daily. ? Will recheck chest x-ray. ? Will check respiratory viral panel. ? She has completed a steroid course about 2 weeks ago. Her lungs are clear to auscultation. There are no wheezes or rhonchi. We do not need to do another course of steroids at this time. ? Will check sputum Gram stain culture ? I will hold off on adding levofloxacin at this time. ? Will continue DuoNeb every 6 hours as needed and add budesonide inhalation twice daily ? Repeat echo at this time. ? Will check orthostatic vitals. ?Patient requires continued hospitalization today secondary to dizziness and bradycardia. Once medications are optimized we will consider discharge in next 24 to 48 hours. 05/20/2024 She has been bradycardic and hypotensive with increase of medication. Still complains of dizziness. Has failed cardioversion in the past. ? Will consult cardiology for recommendations going forward. ? I will hold diltiazem at this time. Patient will need an event monitor at discharge. ? Echo is pending at this time. ? Continue Xarelto 20 daily. ?Consult cardiology for further recommendations. May consider discharge later today versus tomorrow. Attestations 2 Medical Necessity Statement*: Atrial fibrillation now with bradycardia, lightheadedness dizziness. Requires continued hospitalization for closer cardiac monitoring and adjustment of medications. Diagnoses Benign hypertension I10 Other cardiomyopathy I42.8 Cardiomyopathy type: other HFrEF (heart failure with reduced ejection fraction) I50.20 Atrial fibrillation with rapid ventricular response I48.91 Adult onset hypothyroidism E03.8
[2024-05-20] MEDS: acetaminophen 325 mg Tablet 650 MG PO (18:18)
[2024-05-20] MEDS: atorvastatin 40 mg Tablet PO (21:51)
[2024-05-20] MEDS: quetiapine 25 mg Tablet PO (21:51)
[2024-05-20] MEDS: metoprolol tartrate 50 mg Tablet PO (21:52)
[2024-05-21] VITALS (10 sets, daily range): BP systolic 125–150; BP diastolic 79–103; PULSE 68–99; RESP 14–24; TEMP 36.4–36.7; O2SAT 91–99; BMI 31.9
[2024-05-21 05:05] LABS: Basophils # 0.1 10^3/uL (0.0-0.1); Eosinophils # 0.2 10^3/uL (0.0-0.8); Eosinophils % 2.5 %; Hematocrit 36.2 % (36-47); Lymphocytes # 1.9 10^3/uL (0.8-4.8); Lymphocytes % 23.3 %; Mean Corpuscular HGB Conc 32.3 g/dL (30-55); Mean Corpuscular Hemoglobin 30.7 pg (27-33); Mean Platelet Volume 10.3 fL (7.4-10.4); Monocytes % 12.1 %; Neutrophils # 4.78 10^3/uL (1.8-7.7); Neutrophils % 60.2 %; Nucleated Red Blood Cells % 0 %; Platelet Count 249 10^3/cmm (157-399); Red Blood Count 3.81 10^6/uL (3.85-5.65); Red Cell Distribution Width 12.6 % (12.1-15.1); White Blood Count 7.94 10^3/uL (3.29-11.43)
[2024-05-21 05:34] LABS: Anion Gap 13.1 (5-19); Blood Urea Nitrogen 20 mg/dL (8-23); Calcium 8.7 mg/dL (8.5-10.5); Carbon Dioxide 26 mmol/L (22-29); Chloride 106 mmol/L (98-107); Creatinine Clr Calc Pharmacy 60.5213; Glucose 101 mg/dL (65-115); Magnesium 2.2 mg/dL (1.7-2.3); Osmolality Calculated 295 mOsm/kg (285-295); Potassium 4.1 mmol/L (3.5-5.1); Sodium 141 mmol/L (136-145)
[2024-05-21] MEDS: ipratropium-albuterol 3 mL Neb INHALATION (07:46)
[2024-05-21] MEDS: budesonide 0.5 mg/2 mL Neb INHALATION (07:46)
[2024-05-21] MEDS: ARIPiprazole 10 mg Tablet 5 MG PO (08:02)
[2024-05-21] MEDS: venlafaxine 75 mg Tablet PO ×2 (08:03→18:32)
[2024-05-21] MEDS: rivaroxaban 10 mg Tablet 20 MG PO (08:03)
[2024-05-21] MEDS: levothyroxine 50 mcg Tablet PO (08:03)
[2024-05-21] MEDS: metoprolol tartrate 50 mg Tablet PO (08:03)
[2024-05-21] MEDS: cetirizine 10 mg Tablet PO (09:11)
--- NOTE | 2024-05-21 09:55 | P.PN_ITS ---
<Statement entered by Fei Stanley M.D - 05/21/24 21:38> Patient was cared for in conjunction with an advanced practice practitioner. I personally examined the patient and reviewed the chart and all pertinent data including imaging, telemetry, and laboratory results. I discussed the patient in detail with the advanced practice practitioner. Please see their note for complete progress note, results and agreed upon plan of care for the patient. Patient has chronic atrial fibrillation. now showing signs of sick sinus syndrome. With rate control, heart rate dropped into 30s. Will benefit from pacemaker placement. Subjective 2 Subjective: She has done well overnight, sitting up in the chair eating breakfast this morning. She developed symptomatic bradycardia this morning after her morning dose of metoprolol, heart rate in the 30s. Due to poor ventricular rate control of atrial fibrillation and sick sinus syndrome, recommendation is for transfer for pacemaker placement. We do not have any physician in our facility that can place a pacemaker at this time. Vitals/I&O/Wt Last Vital Signs Temp 97.5 F L 05/21/24 07:44 Pulse 77 05/21/24 07:46 Resp 16 05/21/24 07:46 BP 150/91 05/21/24 07:44 Pulse Ox 97 05/21/24 07:46 O2 Del Method Room Air 05/21/24 07:46 05/20/24 05/21/24 05/21/24 22:59 06:59 14:59 Intake Total 360 / 716 120 / 120 Output Total 400 / 2100 800 / 2100 Balance -40 / -1384 -800 / -1384 120 / 120 Weight last 48 hrs Weight 216 lb 6 oz Weight 209 lb 3 oz Physical Exam 2 Const: COMMON NORMALS: no acute distress and patient oriented x3 GENERAL APPEARANCE: cooperative and comfortable ORIENTATION/CONSCIOUSNESS: Yes awake, Yes oriented to person, Yes oriented to place and Yes oriented to time Chest: COMMONS NORMALS: normal inspection of the chest and normal palpation of entire chest wall CHEST: Yes Symmetrical chest wall rise Resp: COMMON NORMALS: normal respiratory effort, No retractions, No use of accessory muscles and clear to auscultation bilaterally EFFORT & INSPECTION: Yes symmetric chest movement AUSCULTATION: clear to auscultation bilaterally Cardio: COMMON NORMALS: regular rate, S1 normal heart sound present, S2 normal heart sound present, No gallops present (Cardio), No clicks present (Cardio), No murmurs present (Cardio) and No rub (Cardio) RATE: regular rate RHYTHM: a bnormal rhythm irregularly irregular HEART SOUNDS: S1 normal heart sound present and S2 normal heart sound present PERIPHERAL PULSES: radial pulses present Extremity: COMMON NORMALS: no pedal edema Neuro: COMMON NORMALS: patient oriented x3 and moves all extremities S ENSORIUM/ORIENTATION: Yes oriented to person, Yes oriented to place and Yes oriented to time Data 05/21/24 04:11 05/21/24 04:11 Micro: Microbiology 05/18/24 15:02 Urine Culture - Final Urine,Clean Catch A&P Assessment and plan (1) Chronic atrial fibrillation: (2) HFrEF (heart failure with reduced ejection fraction): (3) Benign hypertension: Plan Blood pressures overnight have ranged 130-150/90s to 100s. Due to sick sinus syndrome, recommending transfer for pacemaker placement. Atrial fibrillation cannot be well-controlled with oral medication due to the symptomatic bradycardia. Attestations 2 Medical Necessity Statement*: Plan for transfer today Coding Level of Care Code Acute Code for [facility] Fwd Diagnoses Chronic atrial fibrillation I48.20 HFrEF (heart failure with reduced ejection fraction) I50.20 Benign hypertension I10
--- NOTE | 2024-05-21 13:44 | P.PN_ITS ---
Subjective 2 Subjective: Seen this morning. Patient has heart rate dropping down to 31 and symptomatic feeling dizzy while awake. Cardiology has recommended a pacemaker and transfer to higher level of care. Discussed with patient regarding the above. She states she will talk to her daughters and make a final decision and let us know Vitals/I&O/Wt Last Vital Signs Temp 97.8 F 05/21/24 12:00 Pulse 79 05/21/24 12:00 Resp 14 05/21/24 12:00 BP 133/84 05/21/24 12:00 Pulse Ox 99 05/21/24 12:00 O2 Del Method Room Air 05/21/24 12:00 05/20/24 05/21/24 05/21/24 22:59 06:59 14:59 Intake Total 360 / 716 356 / 356 Output Total 400 / 1300 800 / 2100 800 / 800 Balance -40 / -584 -800 / -1384 -444 / -444 Weight last 48 hrs Weight 98.146 kg Weight 94.886 kg Physical Exam 2 Narrative: General: Alert oriented x3, HEENT: Normocephalic, atraumatic, EOMI, breathing room air. Cardio: Bradycardic normal S1-S2, Respiratory: Good bilateral air entry, no wheezes no rhonchi appreciated GI: Abdomen soft, nontender, nondistended, bowel sounds + Behavior: Appropriate and cooperative Extremities: No edema bilateral lower extremities. Data 05/21/24 04:11 05/21/24 04:11 Micro: Microbiology 05/18/24 15:02 Urine Culture - Final Urine,Clean Catch A&P Assessment and plan (1) Benign hypertension: (2) Cardiomyopathy: Qualifiers: Cardiomyopathy type: other Qualified Code(s): I42.8 - Other cardiomyopathies (3) HFrEF (heart failure with reduced ejection fraction): (4) Atrial fibrillation with rapid ventricular response: (5) Adult onset hypothyroidism: Plan A-fib with RVR She was put on Cardizem drip in the ER Keep potassium above 4, magnesium of 2 Compliant with her levothyroxine Increase the dose of metoprolol to 100 mg twice daily and increase the dose of Cardizem to 90 mg every 6 hours to make tenderness extremity grams daily at home she was taking 50 mg of metoprolol and 120 mg of diltiazem every 12 Patient has failed ablation in the past Follows up with Dr. Pringle No active sign of heart failure Heart failure seems to be compensated EF is slightly reduced around 45 to 49% Hold off on diuretics clinically does not look decompensated Turn off Cardizem drip 2 hours after getting p.o. regimen Symptomatic A-fib with RVR At rest her heart rate is well-controlled Her symptoms most get worse on exertion At this point she is hemodynamically stable No acute indication for cardiology consultation If her symptoms get worse she may need EP evaluation for her chronic A-fib I would like to increase the dose of rivaroxaban up to therapeutic dose of 20 mg daily instead of 15 mg, Iron deficiency anemia: Stable Monitor QTc interval patient is already on antipsychotics for her history of depression, current QTc is 480 Full code Cardiac diet 05/19/2024 Patient had a recent respiratory illness and was on prednisone and doxycycline. She went back to the doctor yesterday that was switched to levofloxacin. Does have a history of asthma and COPD. Patient has been bradycardic intermittently overnight and this morning as well. I will reduce metoprolol back down to 50 twice daily home dose and reduced the dose of Cardizem to 60 every 6. I will hold next dose of Cardizem 60 since patient's heart rate is in the 50s at this time. Discussed that with nursing staff. ? Patient appears to be dehydrated at this time. ? Order normal saline 500 cc bolus. Additional 500 cc to run at 60 cc/h till the bag finishes. ? Hold Lasix at this time ? Patient has been in sinus rhythm this morning but bradycardic ? Continue Xarelto 20 daily. ? Will recheck chest x-ray. ? Will check respiratory viral panel. ? She has completed a steroid course about 2 weeks ago. Her lungs are clear to auscultation. There are no wheezes or rhonchi. We do not need to do another course of steroids at this time. ? Will check sputum Gram stain culture ? I will hold off on adding levofloxacin at this time. ? Will continue DuoNeb every 6 hours as needed and add budesonide inhalation twice daily ? Repeat echo at this time. ? Will check orthostatic vitals. ?Patient requires continued hospitalization today secondary to dizziness and bradycardia. Once medications are optimized we will consider discharge in next 24 to 48 hours. 05/20/2024 She has been bradycardic and hypotensive with increase of medication. Still complains of dizziness. Has failed cardioversion in the past. ? Will consult cardiology for recommendations going forward. ? I will hold diltiazem at this time. Patient will need an event monitor at discharge. ? Echo is pending at this time. ? Continue Xarelto 20 daily. ?Consult cardiology for further recommendations. May consider discharge later today versus tomorrow. 05/21/2024 -Patient has evidence of sick sinus syndrome. She has been symptomatic as well. ? Cardiology has recommended transfer to higher level of care for pacemaker placement. ? Had a discussion with patient along with cardiology awaiting discussion with the patient. She is agreeable to transfer for pacemaker at this point. ? Will initiate transfer process today. Attestations 2 Medical Necessity Statement*: Plan for transfer today Coding Level of Care Code Acute Code for [facility] Fwd Diagnoses Benign hypertension I10 Other cardiomyopathy I42.8 Cardiomyopathy type: other HFrEF (heart failure with reduced ejection fraction) I50.20 Atrial fibrillation with rapid ventricular response I48.91 Adult onset hypothyroidism E03.8
--- NOTE | 2024-05-21 16:01 | P.TS_ITS ---
Transfer Summary Providers Date of Admission: 05/18/24 20:47 Date of Discharge/Transfer: 05/26/24 Attending Provider at Admission: Carlee Motley MD Attending Provider at Transfer: Carlee Motley MD Primary Care Provider: BENEDICTO Pete Transfer Plans: Anticipated date of transfer: 05/26/24 . Receiving Facility: [facility] . Diagnoses at Discharge Discharge Diagnosis (1) Benign hypertension: Status: Chronic (2) Cardiomyopathy: Status: Acute Qualifiers: Cardiomyopathy type: other Qualified Code(s): I42.8 - Other cardiomyopathies (3) HFrEF (heart failure with reduced ejection fraction): Status: Acute (4) Atrial fibrillation with rapid ventricular response: Status: Chronic (5) Adult onset hypothyroidism: Status: Chronic Reason for Visit Reason for Visit A Fib Hospital Course Hospital Course Patient initially admitted with A-fib with RVR however subsequently became bradycardic after treatment. Patient is symptomatic with bradycardia at this point. Cardiology following the patient. She has failed cardioversion and ablation in the past. She has been diagnosed with sick sinus syndrome. Cardiology recommends to transfer to higher level of care for placement of pacemaker. Case discussed with [facility] hospitalist service. Patient has been accepted and will be transferred in stable condition. Physical Exam Narrative: General: Alert oriented x3, HEENT: Normocephalic, atraumatic, EOMI, breathing room air. Cardio: Bradycardic normal S1-S2, Respiratory: Good bilateral air entry, no wheezes no rhonchi appreciated GI: Abdomen soft, nontender, nondistended, bowel sounds + Behavior: Appropriate and cooperative Extremities: No edema bilateral lower extremities. TS Data Studies Completed and Pending Pending at discharge Category Date Time Status Basic Metabolic Panel AM LABS Lab 05/22/24 04:00 Ordered Complete Blood Count w/Auto AM LABS Lab 05/22/24 04:00 Ordered Magnesium AM LABS Lab 05/22/24 04:00 Ordered Sputum Culture and Gram Stain Stat Lab 05/19/24 11:55 Uncollected Completed Studies During Hospitalization Category Date Time Status CT head wo con* [id number] Stat Cat Scan 05/18/24 14:57 Completed XR chest 1V portable [id number] Routine Exams 05/19/24 11:53 Completed XR chest 1V portable [id number] Stat Exams 05/18/24 14:57 Completed US echo complete [CV. echo complete* [id number]] Routine Ultrasound 05/18/24 17:57 Completed Laboratory Last Values WBC 7.94 10^3/uL (3.29-11.43) 05/21/24 04:11 RBC 3.81 10^6/uL (3.85-5.65) L 05/21/24 04:11 Hgb 11.70 g/dL (11.27-16.99) 05/21/24 04:11 Hct 36.2 % (36-47) 05/21/24 04:11 MCV 95.0 fl (85-98) 05/21/24 04:11 MCH 30.7 pg (27-33) 05/21/24 04:11 MCHC 32.3 g/dL (30-55) 05/21/24 04:11 RDW 12.6 % (12.1-15.1) 05/21/24 04:11 Plt Count 249 10^3/cmm (157-399) 05/21/24 04:11 MPV 10.3 fL (7.4-10.4) 05/21/24 04:11 Neut % (Auto) 60.2 % 05/21/24 04:11 Lymph % (Auto) 23.3 % 05/21/24 04:11 [place] % (Auto) 12.1 % 05/21/24 04:11 Eos % (Auto) 2.5 % 05/21/24 04:11 Baso % (Auto) 1.0 % 05/21/24 04:11 Neut # (Auto) 4.78 10^3/uL (1.8-7.7) 05/21/24 04:11 Lymph # (Auto) 1.9 10^3/uL (0.8-4.8) 05/21/24 04:11 [place] # (Auto) 1.0 10^3/uL (0.2-0.9) H 05/21/24 04:11 Eos # (Auto) 0.2 10^3/uL (0.0-0.8) 05/21/24 04:11 Baso # (Auto) 0.1 10^3/uL (0.0-0.1) 05/21/24 04:11 Nucleated RBC % (auto) 0 % 05/21/24 04:11 Nucleated RBCs # 0.0 /100WBC 05/21/24 04:11 PT 19.30 SECONDS (12.1-14.9) H 05/18/24 15:24 INR 1.52 (0.8-1.2) H 05/18/24 15:24 Sodium 141 mmol/L (136-145) 05/21/24 04:11 Potassium 4.1 mmol/L (3.5-5.1) 05/21/24 04:11 Chloride 106 mmol/L (98-107) 05/21/24 04:11 Carbon Dioxide 26 mmol/L (22-29) 05/21/24 04:11 Anion Gap 13.1 (5-19) 05/21/24 04:11 BUN 20 mg/dL (8-23) 05/21/24 04:11 Creatinine 1.0 mg/dL (0.5-0.9) H 05/21/24 04:11 GFR Calculation Not Reportable 05/21/24 04:11 Glucose 101 mg/dL (65-115) 05/21/24 04:11 POC Glucose 87 mg/dL (70-110) 05/18/24 15:49 Estimat Average Glucose 111 05/18/24 15:24 Hemoglobin A1c 5.5 % (4.0-6.0) 05/18/24 15:24 Calculated Osmolality 295 mOsm/kg (285-295) 05/21/24 04:11 Calcium 8.7 mg/dL (8.5-10.5) 05/21/24 04:11 Magnesium 2.2 mg/dL (1.7-2.3) 05/21/24 04:11 Total Bilirubin 0.9 mg/dL (0.15-1.2) 05/19/24 03:35 AST 16 U/L (0-32) 05/19/24 03:35 ALT 10 U/L (0-33) 05/19/24 03:35 Alkaline Phosphatase 80 U/L (35-105) 05/19/24 03:35 Total Protein 5.4 g/dL (6.6-8.7) L 05/19/24 03:35 Albumin 3.1 g/dL (3.5-5.2) L 05/19/24 03:35 Globulin 2.3 g/dL (1.3-4.6) 05/19/24 03:35 Triglycerides 124 mg/dL (0-150) 05/18/24 15:24 Cholesterol 138 mg/dL (0-200) 05/18/24 15:24 LDL Cholesterol, Calc 58 mg/dL (50-129) 05/18/24 15:24 HDL Cholesterol 55 mg/dL (60-100) L 05/18/24 15:24 LDL/HDL Ratio 1.05 RATIO (0.00-3.22) 05/18/24 15:24 Cholesterol/HDL Ratio 2.51 mg/dL (0.0-4.40) 05/18/24 15:24 Procalcitonin 0.04 ng/mL (0-0.5) 05/18/24 15:24 TSH 1.25 uIU/mL (0.27-4.20) 05/18/24 15:24 TSH 1.37 uIU/mL (0.27-4.20) 05/18/24 15:24 Urine Color Yellow (Yellow) 05/18/24 15:02 Urine Appearance Clear (CLEAR) 05/18/24 15:02 Urine pH 6.0 (5-7) 05/18/24 15:02 Ur Specific [place] 1.014 (1.005-1.030) 05/18/24 15:02 Urine Protein Negative (Negative) 05/18/24 15:02 Urine Glucose (UA) Negative (Normal) 05/18/24 15:02 Urine Ketones Negative (Negative) 05/18/24 15:02 Urine Blood Negative (Negative) 05/18/24 15:02 Urine Nitrate Negative (Negative) 05/18/24 15:02 Urine Bilirubin Negative (Negative) 05/18/24 15:02 Urine Urobilinogen 0.2 mg/dL (Negative) 05/18/24 15:02 Ur Leukocyte Esterase 1+ (Negative) A 05/18/24 15:02 Urine RBC 0-2 /hpf (0-2) 05/18/24 15:02 Urine WBC 21-50 /hpf (0-5) H 05/18/24 15:02 Ur Squamous Epith Cells 0-5 /hpf (0-5) 05/18/24 15:02 Amorphous Sediment Not Reportable 05/18/24 15:02 Urine Bacteria None seen /hpf (NONE) 05/18/24 15:02 Hyaline Casts 3.30 /lpf 05/18/24 15:02 Adenovirus (PCR) Not detected (NOT DETECT) 05/19/24 13:15 C. pneumoniae DNA (PCR) Not detected (NOT DETECT) 05/19/24 13:15 Coronavirus 229E (PCR) Not detected (NOT DETECT) 05/19/24 13:15 Human Metapneumovir PCR Not detected (NOT DETECT) 05/19/24 13:15 Influenza A (H1) PCR Not detected (NOT DETECT) 05/19/24 13:15 Influ A (H1/09) PCR Not detected (NOT DETECT) 05/19/24 13:15 Influenza A (H3) PCR Not detected (NOT DETECT) 05/19/24 13:15 Influenza Type A (PCR) Not detected (NOT DETECT) 05/19/24 13:15 Influenza Type B (PCR) Not detected (NOT DETECT) 05/19/24 13:15 M. pneumoniae (PCR) Not detected (NOT DETECT) 05/19/24 13:15 Parainfluenza 1 (PCR) Not detected (NOT DETECT) 05/19/24 13:15 Parainfluenza 2 (PCR) Not detected (NOT DETECT) 05/19/24 13:15 Parainfluenza 3 (PCR) Not detected (NOT DETECT) 05/19/24 13:15 Parainfluenza 4 (PCR) Not detected (NOT DETECT) 05/19/24 13:15 RSV Type A (PCR) Not detected (NOT DETECT) 05/19/24 13:15 RSV Type B (PCR) Not detected (NOT DETECT) 05/19/24 13:15 Entero/Rhino (PCR) Not detected (NOT DETECT) 05/19/24 13:15 SARS-CoV-2 (PCR) Not detected (NOT DETECT) 05/19/24 13:[address] 05/18/24 14:57 IMPRESSION: No acute intracranial abnormality. If symptoms persist, consider further evaluation with MRI, if there are no contraindications to obtaining a MRI scan. Chest X-Ray 05/19/24 11:53 IMPRESSION: 1. Negative chest-no change. Recent Clincial Data Last Vital Signs Temp 97.8 F 05/21/24 12:00 Pulse 79 05/21/24 12:00 Resp 14 05/21/24 12:00 BP 133/84 05/21/24 12:00 Pulse Ox 99 05/21/24 12:00 O2 Del Method Room Air 05/21/24 12:00 Vital Signs Temp Pulse Resp BP Pulse Ox O2 Del Method 05/21/24 12:00 97.8 F 79 14 133/84 99 Room Air 05/21/24 07:46 77 16 97 Room Air 05/21/24 07:44 97.5 F L 68 16 150/91 98 Room Air 05/21/24 06:00 87 Intake & Output/Weight 05/19/24 05/20/24 05/21/24 05/22/24 06:59 06:59 06:59 06:59 Intake Total 391.625 / 871.671 3273.000 / 2640.000 716 / 716 356 / 356 Output Total 150 / 150 1225 / 1225 2100 / 2100 800 / 800 Balance 241.625 / 052.891 3395.000 / 1415.000 -1384 / -1384 -444 / -444 Weight 95.254 kg 94.886 kg 98.146 kg Vitals Last Vital Signs Temp 97.8 F 05/21/24 12:00 Pulse 79 05/21/24 12:00 Resp 14 05/21/24 12:00 BP 133/84 05/21/24 12:00 Pulse Ox 99 05/21/24 12:00 O2 Del Method Room Air 05/21/24 12:00 TS Medications Medications Acetaminophen (Acetaminophen 325 Mg Tablet) 650 mg PO Q6H PRN PRN Reason: Mild/Mod Pain Or Temp >/= 101 Last Admin: 05/20/24 18:18 Dose: 650 mg Albuterol/Ipratropium (Ipratropium-Albuterol 3 Ml Neb) 3 ml INHALATION Q6H PRN PRN Reason: SHORTNESS OF BREATH Last Admin: 05/21/24 07:46 Dose: 3 ml Aripiprazole (Aripiprazole 10 Mg Tablet) 5 mg PO DAILY ROSS Last Admin: 05/21/24 08:02 Dose: 5 mg Atorvastatin Calcium (Atorvastatin 40 Mg Tablet) 40 mg PO BEDTIME ROSS Last Admin: 05/20/24 21:51 Dose: 40 mg Budesonide (Budesonide 0.5 Mg/2 Ml Neb) 0.5 mg INHALATION BID.RESPIRATORY ROSS Last Admin: 05/21/24 07:46 Dose: 0.5 mg Cetirizine HCl (Cetirizine 10 Mg Tablet) 10 mg PO DAILY [facility] Last Admin: 05/21/24 09:11 Dose: 10 mg Diltiazem HCl (Diltiazem 30 Mg Tablet) 60 mg PO Q6H [facility] Last Admin: 05/20/24 05:20 Dose: 60 mg Levothyroxine Sodium (Levothyroxine 50 Mcg Tablet) 50 mcg PO DAILY [facility] Last Admin: 05/21/24 08:03 Dose: 50 mcg Metoprolol Tartrate (Metoprolol Tartrate 50 Mg Tablet) 50 mg PO BID@0900,2100 [facility] Last Admin: 05/21/24 08:03 Dose: 50 mg Ondansetron HCl (Ondansetron 2 Mg/Ml Sdv 2 Ml) 4 mg IVP Q8H PRN PRN Reason: vomiting, or N/V if npo Quetiapine Fumarate (Quetiapine 25 Mg Tablet) 25 mg PO BEDTIME [facility] Last Admin: 05/20/24 21:51 Dose: 25 mg Rivaroxaban (Rivaroxaban 10 Mg Tablet) 20 mg PO DAILY [facility] Last Admin: 05/21/24 08:03 Dose: 20 mg Venlafaxine HCl (Venlafaxine 75 Mg Tablet) 75 mg PO BID [facility] Last Admin: 05/21/24 08:03 Dose: 75 mg Discontinued Medications Diltiazem HCl (Diltiazem 30 Mg Tablet) 30 mg PO Q6H [facility] Last Admin: 05/19/24 02:08 Dose: Not Given Diltiazem HCl (Diltiazem 30 Mg Tablet) 90 mg PO Q6H [facility] Last Admin: 05/19/24 08:00 Dose: 90 mg Diltiazem HCl 100 mg/ Sodium (Chloride) 100 mls @ 0 mls/hr IV .Q0M [facility]; Protocol Last Titration: 05/19/24 19:36 Dose: Infused Sodium Chloride (Sodium Chloride 0.9%) 500 mls @ 999 mls/hr IV .Q31M ONE Stop: 05/19/24 12:20 Last Infusion: 05/19/24 23:50 Dose: Infused Sodium Chloride (Sodium Chloride 0.9%) 1,000 mls @ 60 mls/hr IV .[id number] [facility] Last Infusion: 05/19/24 23:44 Dose: Infused Magnesium Sulfate/Dextrose (Magnesium Sulfate Premix) 1 gm in 100 mls @ 200 mls/hr IV ONCE ONE Stop: 05/19/24 12:35 Last Infusion: 05/19/24 13:55 Dose: Infused Levofloxacin (Levofloxacin 750 Mg Tablet) 750 mg PO DAILY [facility]; Protocol Metoprolol Tartrate (Metoprolol Tartrate 50 Mg Tablet) 50 mg PO Q12H [facility] Last Admin: 05/18/24 19:27 Dose: 50 mg Metoprolol Tartrate (Metoprolol Tartrate 50 Mg Tablet) 100 mg PO BID@0900,2100 [facility] Last Admin: 05/18/24 20:13 Dose: Not Given Metoprolol Tartrate (Metoprolol Tartrate 50 Mg Tablet) 75 mg PO BID@0900,2100 [facility] Last Admin: 05/19/24 08:27 Dose: 75 mg Rivaroxaban (Rivaroxaban 10 Mg Tablet) 15 mg PO DAILY [facility] Allergies No Known Allergies Allergy (Verified 05/18/24 13:20) Home Medications cholecalciferol (vitamin D3) 125 mcg (5,000 unit) capsule 125 mcg PO DAILY 08/14/20 [History Confirmed 05/18/24] potassium chloride 20 mEq oral packet 20 meq PO DAILY #100 ea 03/13/22 [Rx Confi rmed 05/18/24] nebulizers #1 ea 08/01/22 [Rx Confirmed 05/18/24] miscellaneous medical supply (Blood Pressure Cuff) #1 ea 08/16/22 [Rx Confirmed 05/18/24] albuterol sulfate 2.5 mg/3 mL (0.083 %) solution for nebulization 2.5 mg (3 mL) inhalation QID PRN shortness of breath or wheezing #300 mL 02/20/23 [Rx Confirmed 05/18/24] albuterol sulfate 90 mcg/actuation aerosol inhaler 2 inh inhalation Q6H PRN Shortness Of Breath 04/01/23 [History Confirmed 05/18/24] diltiazem HCl 120 mg capsule,extended release 12 hr 120 mg PO BID #180 caps 08/19/23 [Rx Confirmed 05/18/24] fluticasone propionate 50 mcg/actuation nasal spray,suspension 2 spray intranasal DAILY #48 grams 12/25/23 [Rx Confirmed 05/18/24] metoprolol tartrate 50 mg tablet 50 mg PO Q12H #180 tabs 01/12/24 [Rx Confirmed 05/18/24] aripiprazole 5 mg tablet 5 mg PO DAILY #90 tabs 03/11/24 [Rx Confirmed 05/18/24] atorvastatin 40 mg tablet 40 mg PO BEDTIME #90 tabs 03/11/24 [Rx Confirmed 05/18/24] cetirizine 10 mg tablet (Zyrtec) 10 mg PO DAILY #90 tabs 03/11/24 [Rx Confirmed 05/18/24] furosemide 20 mg tablet 20 mg PO DAILY #90 tabs 03/11/24 [Rx Confirmed 05/18/24] levothyroxine 50 mcg tablet 50 mcg PO DAILY #90 tabs 03/11/24 [Rx Confirmed 05/18/24] mometasone-formoterol HFA 100 mcg-5 mcg/actuation aerosol inhaler (Dulera) 2 puff inhalation Q12H #13 grams 03/11/24 [Rx Confirmed 05/18/24] quetiapine 25 mg tablet 25 mg PO .HS #90 tabs 03/11/24 [Rx Confirmed 05/18/24] rivaroxaban 15 mg tablet (Xarelto) 15 mg PO DAILY #90 tabs 03/11/24 [Rx Confirmed 05/18/24] venlafaxine 75 mg tablet 75 mg PO BID #180 tabs 03/11/24 [Rx Confirmed 05/18/24] valsartan 320 mg tablet 320 mg PO DAILY #90 tabs 05/03/24 [Rx Confirmed 05/18/24] levofloxacin 750 mg tablet 750 mg PO DAILY #7 tabs 05/10/24 [Rx Confirmed 05/18/24] Discharge Plan Discharge Patient Disposition: Home Condition: Stable Prescriptions: No Action cholecalciferol (vitamin D3) 125 mcg (5,000 unit) capsule 125 mcg PO DAILY albuterol sulfate 2.5 mg /3 mL (0.083 %) solution for nebulization 2.5 mg inhalation QID PRN (Reason: shortness of breath or wheezing) Qty: 300 0RF fluticasone propionate 50 mcg/actuation spray,suspension 2 spray INTRANASAL DAILY Qty: 48 1RF aripiprazole 5 mg tablet 5 mg PO DAILY Qty: 90 1RF atorvastatin 40 mg tablet 40 mg PO BEDTIME Qty: 90 1RF cetirizine [Zyrtec] 10 mg tablet 10 mg PO DAILY Qty: 90 1RF furosemide 20 mg tablet 20 mg PO DAILY Qty: 90 1RF levothyroxine 50 mcg tablet 50 mcg PO DAILY Qty: 90 1RF Dulera 100-5 mcg/actuation HFA aerosol inhaler 2 puff inhalation Q12H Qty: 13 2RF quetiapine 25 mg tablet 25 mg PO .HS Qty: 90 1RF Xarelto 15 mg tablet 15 mg PO DAILY Qty: 90 1RF Rx Instructions: must administer with evening meal venlafaxine 75 mg tablet 75 mg PO BID Qty: 180 1RF (DME) Blood Pressure Cuff Misc See Rx Instructions .Route Qty: 1 0RF Rx Instructions: As directed (DME) nebulizers Misc See Rx Instructions .ROUTE .MEDSUPPLY Qty: 1 0RF Rx Instructions: As directed metoprolol tartrate 50 mg tablet 50 mg PO Q12H Qty: 180 3RF valsartan 320 mg tablet 320 mg PO DAILY Qty: 90 1RF Rx Instructions: dose increase levofloxacin 750 mg tablet 750 mg PO DAILY Qty: 7 0RF potassium chloride 20 mEq packet 20 meq PO DAILY Qty: 100 3RF diltiazem HCl 120 mg capsule,extended release 12 hr 120 mg PO BID Qty: 180 0RF albuterol sulfate 90 mcg/actuation HFA aerosol inhaler 2 inh INHALATION Q6H PRN (Reason: Shortness Of Breath) Referrals: Marsha Kelly FNP-C [Primary Care Provider] - 06/01/24 3:20 pm Patient Instructions: Opioid Safety Transfer Attestations Time Spent in Transfer Care: less than 30 min Quality Metrics Clinical Quality Measures [ No reported AMI, CVA or VTE this stay] Coding Level of Care Code Acute Code for Chg Fwd Diagnoses Benign hypertension I10 Other cardiomyopathy I42.8 Cardiomyopathy type: other HFrEF (heart failure with reduced ejection fraction) I50.20 Atrial fibrillation with rapid ventricular response I48.91 Adult onset hypothyroidism E03.8
[2024-05-21] MEDS: acetaminophen 325 mg Tablet 650 MG PO (18:40)
[2024-05-21] MEDS: amlodipine 5 mg Tablet 2.5 MG PO (22:23)
[2024-05-21] MEDS: atorvastatin 40 mg Tablet PO (22:23)
[2024-05-21] MEDS: quetiapine 25 mg Tablet PO (22:24)
[2024-05-22 00:31] VITALS: BP 143/78; PULSE 98; RESP 16; TEMP 36.9; O2SAT 96
[2024-05-22 02:00] VITALS: BP 143/78; PULSE 83; RESP 12; TEMP 36.9; O2SAT 95
== END 2024-05-22 01:30 | disposition home or self-care (01) ==
LOC: ER 16:30 → CSU 17:37
PROVIDERS: Admitting Provider Internal Medicine; Emergency Provider Emergency Medicine; PCP Nurse Practitioner; Visit Provider Internal Medicine
DX: I49.5 Sick sinus syndrome (principal); I48.20 Chronic atrial fibrillation, unspecified; Z79.890 Hormone replacement therapy; R26.2 Difficulty in walking, not elsewhere classified; J44.9 Chronic obstructive pulmonary disease, unspecified; Z86.16 Personal history of COVID-19; Z87.01 Personal history of pneumonia (recurrent); E78.2 Mixed hyperlipidemia; Z90.710 Acquired absence of both cervix and uterus; Z79.899 Other long term (current) drug therapy; Z79.01 Long term (current) use of anticoagulants; G47.00 Insomnia, unspecified; F32.A Depression, unspecified; F41.9 Anxiety disorder, unspecified; I42.8 Other cardiomyopathies; I11.0 Hypertensive heart disease with heart failure; I50.20 Unspecified systolic (congestive) heart failure; E03.8 Other specified hypothyroidism; D50.9 Iron deficiency anemia, unspecified; R00.1 Bradycardia, unspecified; Z11.52 Encounter for screening for COVID-19
CPT/HCPCS: 36415; 36416; 70450; 71045; 80048; 80053; 80061; 81001; 82962; 83036; 83735; 84145; 84443; 85025; 85610; 87086; 87486; 87581; 87633; 93005; 93306; 94640; 96365; 96367; 96376; 97112; 97161; 97530; 99285; A9270; G0378; J3475; J3490; J7030; J7040; J7626

== ENCOUNTER → 2024-07-14 14:51 | Outpatient (BNVA) | payer MEDICARE, OTHER, SELFPAY | PROVIDERS: PCP Nurse Practitioner; Visit Provider Internal Medicine Cardiovascular Disease | DX: R07.9 Chest pain, unspecified (principal) | CPT/HCPCS: 93005; 99214 ==

== ENCOUNTER → 2024-08-18 10:42 | Outpatient (BNVA) | payer MEDICARE, OTHER, SELFPAY | PROVIDERS: PCP Nurse Practitioner; Visit Provider Internal Medicine Cardiovascular Disease | DX: Z45.018 Encounter for adjustment and management of other part of cardiac pacemaker (principal) | CPT/HCPCS: 93296 ==

== ENCOUNTER 2024-08-24 10:28 | Outpatient (CLI) | payer MEDICARE, OTHER, SELFPAY ==
--- NOTE | 2024-08-24 11:00 | USCV_ITS ---
Mere Preston Age: 74 Gender: F : 1950 Exam Date: 08/24/2024 11:11 Ordering Phys: Marsha Kelly Technologist: MITESH Exam Location: [facility] [place] Indication: Pulsatile abdominal AO HISTORY: Diameter (cm) AP x Transverse x Length Velocity (cm/s) Waveform Prox Aorta: 2.20 x 2.50 x 53.00 Triphasic Mid Aorta: 1.90 x 2.10 x 57.40 Triphasic Distal Aorta: 1.80 x 1.50 x 55.60 Triphasic Right Iliac Prox: 1.14 x 1.21 x 73.30 Triphasic Left Iliac Prox: 1.07 x 1.16 x 78.40 Triphasic Stent Prox Landing x x Aneurysmal Sac Max x x Lt Lat Sac Dim Rt Lat Sac Dim Stent Dist Landing x x Right Iliac Stent x x Left Iliac Stent x x Right Renal Art Left Renal Art FINDINGS: CONCLUSIONS No evidence of abdominal aortic or bilateral iliac aneurysm. Brice Carson MD (Electronically Signed) Final Date: 24 Aug 2024 16:24 S
== END 2024-08-24 10:29 | disposition home or self-care (01) ==
PROVIDERS: PCP Nurse Practitioner; Visit Provider Nurse Practitioner
DX: R09.89 Other specified symptoms and signs involving the circulatory and respiratory systems (principal)
CPT/HCPCS: 76706

== ENCOUNTER → 2024-08-30 10:00 | Outpatient (BNVA) | payer MEDICARE, OTHER, SELFPAY | PROVIDERS: PCP Nurse Practitioner; Visit Provider Nurse Practitioner Family | DX: I48.20 Chronic atrial fibrillation, unspecified (principal); E78.2 Mixed hyperlipidemia; Z95.0 Presence of cardiac pacemaker; I11.0 Hypertensive heart disease with heart failure; I50.20 Unspecified systolic (congestive) heart failure; I42.8 Other cardiomyopathies; I71.43 Infrarenal abdominal aortic aneurysm, without rupture; Z98.890 Other specified postprocedural states; Z79.01 Long term (current) use of anticoagulants | CPT/HCPCS: 36415; 80048; 83880; 85025; 99214 ==

== ENCOUNTER → 2024-09-06 11:50 | Outpatient (BNVA) | payer MEDICARE, OTHER, SELFPAY | PROVIDERS: PCP Nurse Practitioner; Visit Provider Nurse Practitioner | DX: I10 Essential (primary) hypertension (principal); E78.2 Mixed hyperlipidemia; E03.8 Other specified hypothyroidism | CPT/HCPCS: 80061; 84439; 84443; 84481 ==

== ENCOUNTER 2024-09-27 18:47 | Emergency (ER) | payer MEDICARE, OTHER, SELFPAY ==
[2024-09-27 18:50] VITALS: BP 150/105; PULSE 78; RESP 16; TEMP 36.3; O2SAT 98; BMI 31.0
--- NOTE | 2024-09-27 19:00 | ECG_ITS ---
[facility] Test Date: 2024-09-27 Pat Name: Mere Preston Department: Room: Gender: Female Map Clerk: : 1950 Requested By: Mian Kumari Order Number: [id number] Gagandeep MD: Sharon Pringle M.D. Measurements Intervals [place] Rate: 74 P: 0 GA: 0 QRS: -80 QRSD: 154 T: 61 QT: 444 QTc: 493 Interpretive Statements ELECTRONIC VENTRICULAR PACEMAKER ST DEPRESSION, CONSIDER SUBENDOCARDIAL INJURY [0.1+ mV ST DEPRESSION] Compared to ECG 07/14/2024 15:08:18 ST (T wave) deviation now present Electronically Signed On 09-29-2024 22:06:51 CDT by Sharon Pringle M.D. [id number]
--- NOTE | 2024-09-27 19:00 | ED_ITS ---
HPI - Recheck/Abnormal Lab/Rx 2 General: Chief Complaint: Recheck/Abnormal Lab/Rx Stated Complaint: HEADACHE Time Seen by Provider: 09/27/24 18:48 History of Present Illness: 74-year-old female presents emergency ro om concerned about her blood pressures that she has had variations in her blood pressure she showed me on her phone which did not type to them and her phone anywhere from 170s to 160s. Initially when she arrived here she 150/105 when I came to her room to the blood pressure is 131/96. She denies chest pain or abdominal pain her only other symptom is headache. Slight blurry vision which has started to clear Related Data Home Medications ?Medication ?Instructions ?Recorded ?Confirmed cholecalciferol (vitamin D3) 125 125 mcg PO DAILY 07/2109/06/24 mcg (5,000 unit) capsule albuterol sulfate 90 mcg/actuation 2 inh inhalation Q6 H PRN Shortness 04/01/23 09/06/24 aerosol inhaler Of Breath latanoprost 0.005 % eye drops 1 drp ophthalmic (eye) D AILY 08/30/24 09/06/24 Previous Rx's ?Medication ?Instructions ?Recorded nebulizers #1 ea 08/01/22 miscellaneous medical supply #1 ea 08/16/22 (Blood Pressure Cuff) albuterol sulfate 2.5 mg/3 mL 2.5 mg (3 mL) inhalation QID PRN 02/20/23 (0.083 %) solution for nebulization shortness of breat h or wheezing #300 mL aripiprazole 5 mg tablet 5 mg PO DAILY #90 tabs 06/01 mometasone-formoterol HFA 100 2 puff inhalation Q12H # 13 grams 06/01/24 mcg-5 mcg/actuation aerosol inhaler (Dulera) rivaroxaban 15 mg tablet (Xarelto) 15 mg PO DAILY #30 tabs 07/15/24 sacubitril 24 mg-valsartan 26 mg 1 tab PO BID #60 tabs 08/30/24 tablet (Entresto) atorvastatin 40 mg tablet 40 mg PO BEDTIME #90 tabs cetirizine 10 mg tablet (Zyrtec) 10 mg PO DAILY #90 ta bs 09/06/24 famotidine 20 mg tablet (Pepcid) 20 mg PO DAILY #90 ta bs 09/06/24 fluticasone propionate 50 2 spray intranasal DAILY #48 grams 09/06/24 mcg/actuation nasal spray,suspension furosemide 20 mg tablet 20 mg PO DAILY #90 tabs 08/19 01/13 levothyroxine 50 mcg tablet 50 mcg PO DAILY #90 tabs 0 09/06/24 venlafaxine 75 mg tablet 75 mg PO BID #180 tabs 09/06 quetiapine 50 mg tablet 50 mg PO .HS #90 tabs Allergies Allergy/AdvReac Type Severity Reaction Status Date / Time No Known Allergies Allergy Verified 09/06/24 11:16 Review of Systems 2 Const: Denies: fever(s) or chills Card: Denies: chest pain Resp: Denies: dyspnea GI: Denies: abdominal pain : Denies: dysuria, urinary frequency or urinary urgency Musc: Denies: neck pain or back pain Skin/Breast: Denies: rash PFSH ED 2 PFSH: Medical History History of cardiac pacemaker in situ May 2024 [place], [place] Adult onset hypothyroidism COPD (chronic obstructive pulmonary disease) Pneumonia due to 2019-nCoV Anemia Insomnia Environmental and seasonal allergies High risk medication use EKG from 09/22/2019 showed the QRS duration of 100 ms Atrial fibrillation by electrocardiogram Asthma Benign hypertension Anxiety and depression Mixed hyperlipidemia Vitamin D deficiency Surgical History History of section History of hysterectomy History of oophorectomy History of cardiac radiofrequency ablation (RFA) patient is unsure but feels like this was about 20 years ago. Family History Father CAD (coronary artery disease) Lung disease Mother CAD (coronary artery disease) Cancer Dementia Other Hypertension Denies family history of Diabetes Clotting disorder Chronic kidney disease (CKD) Suicide Anesthesia complication Bleeding disorder Stroke Social History Smoking and tobacco/nicotine status: never used tobacco/nicotine Second hand smoke exposure: No Alcohol intake: never Substance/Drug Use: never Caregiver/support person: No Lives independently: Yes Household members: children Housing: House Marital status: / Number of children: 2 service: No Current occupational status: unemployed Pets and animals: Yes Do you think of yourself as: Straight/Heterosexual Current gender identity: Female Physical Exam 2 Const: COMMON NORMALS: no acute distress GENERAL APPEARANCE: cooperative and comfortable ORIENTATION/CONSCIOUSNESS: Yes awake, Yes oriented to person, Yes oriented to place and Yes oriented to time HENMT: COMMON NORMALS: normocephalic, atraumatic and hearing grossly normal bilaterally HEAD & SCALP: normocephalic and atraumatic Resp: COMMON NORMALS: normal respiratory effort, No retractions, No use of accessory muscles and clear to auscultation bilaterally AUSCULTATION: clear to auscultation bilaterally Cardio: COMMON NORMALS: regular rate, regular rhythm and No murmurs present (Cardio) RATE: regular rate RHYTHM: regular rhythm GI: COMMON NORMALS: Soft to palpation and No hepatosplenomegaly present A USCULTATION: Yes normoactive bowel sounds PALPATION: Yes Soft to palpation, No Tenderness to palpation present (GI), No Guarding due to palpation present (GI) and Yes No hepatosplenomegaly present Extremity: COMMON NORMALS: normal to inspection, capillary refill normal, no clubbing, cyanosis or edema, no calf tenderness and no pedal edema OTHER: No focal neurologic deficits noted. No facial asymmetry no visual field defects. Strength and range of motion all extremities normal sensation all extremities normal Neuro: SENSORIUM/ORIENTATION: Yes oriented to person, Yes oriented to place and Yes oriented to time Skin: COMMON NORMALS: no rashes or lesions noted GENERAL SKIN EXAM: no rashes or lesions noted Course 2 Vital Signs: Vital signs: Vital Signs Temperature 97.4 F L 09/27/24 18:50 Pulse Rate 87 09/27/24 20:48 Respiratory Rate 16 09/27/24 20:48 Blood Pressure 138/94 09/27/24 20:48 Pulse Oximetry 98 09/27/24 20:48 Oxygen Delivery Me thod Room Air 09/27/24 20:09 MDM - Recheck/Abnormal Lab/Rx Medical Decision Making Blood pressure normalized headache resolved after getting Toradol. Discharge patient home continue same blood pressure medications and follow-up with primary care doctor within the next week Medical Records I reviewed the patient's medical records. Lab Data I reviewed the patient's lab results. 09/27/24 19:10 09/27/24 19:10 Laboratory Results WBC 6.71 10^3/uL (3.29-11.43) 09/27/24 19:10 RBC 4.62 10^6/uL (3.85-5.65) 09/27/24 19:10 Hgb 14.00 g/dL (11.27-16.99) 09/27/24 19:10 Hct 41.6 % (36-47) 09/27/24 19:10 MCV 90.0 fl (85-98) 09/27/24 19:10 MCH 30.3 pg (27-33) 09/27/24 19:10 MCHC 33.7 g/dL (30-55) 09/27/24 19:10 RDW 12.3 % (12.1-15.1) 09/27/24 19:10 Plt Count 296 10^3/cmm (157-399) 09/27/24 19:10 MPV 9.8 fL (7.4-10.4) 09/27/24 19:10 Neut % (Auto) 58.3 % 09/27/24 19:10 Lymph % (Auto) 27.0 % 09/27/24 19:10 Alfalfa % (Auto) 8.2 % 09/27/24 19:10 Eos % (Auto) 5.1 % 09/27/24 19:10 Baso % (Auto) 1.0 % 09/27/24 19:10 Neut # (Auto) 3.91 10^3/uL (1.8-7.7) 09/27/24 19:10 Lymph # (Auto) 1.8 10^3/uL (0.8-4.8) 09/27/24 19:10 Alfalfa # (Auto) 0.6 10^3/uL (0.2-0.9) 09/27/24 19:10 Eos # (Auto) 0.3 10^3/uL (0.0-0.8) 09/27/24 19:10 Baso # (Auto) 0.1 10^3/uL (0.0-0.1) 09/27/24 19:10 Nucleated RBC % (auto) 0 % 09/27/24 19:10 Nucleated RBCs # 0.0 /100WBC 09/27/24 19:10 Sodium 144 mmol/L (136-145) 09/27/24 19:10 Potassium 3.6 mmol/L (3.5-5.1) 09/27/24 19:10 Chloride 104 mmol/L (98-107) 09/27/24 19:10 Carbon Dioxide 25 mmol/L (22-29) 09/27/24 19:10 Anion Gap 18.6 (5-19) 09/27/24 19:10 BUN 13 mg/dL (8-23) 09/27/24 19:10 Creatinine 0.8 mg/dL (0.5-0.9) 09/27/24 19:10 GFR Calculation Not Reportable 09/27/24 19:10 Glucose 86 mg/dL (65-115) 09/27/24 19:10 Calculated Osmolality 297 mOsm/kg (285-295) H 09/27/24 19:10 Calcium 9.1 mg/dL (8.5-10.5) 09/27/24 19:10 Total Bilirubin 0.7 mg/dL (0.15-1.2) 09/27/24 19:10 AST 19 U/L (0-32) 09/27/24 19:10 ALT 12 U/L (0-33) 09/27/24 19:10 Alkaline Phosphatase 109 U/L (35-105) H 09/27/24 19:10 Total Protein 6.8 g/dL (6.6-8.7) 09/27/24 19:10 Albumin 4.0 g/dL (3.5-5.2) 09/27/24 19:10 Globulin 2.8 g/dL (1.3-4.6) 09/27/24 19:10 Urine Color Yellow (Yellow) 09/27/24 20:20 Urine Appearance Clear (CLEAR) 09/27/24 20:20 Urine pH 6.0 (5-7) 09/27/24 20:20 Ur Specific [place] 1.014 (1.005-1.030) 09/27/24 20:20 Urine Protein Negative (Negative) 09/27/24 20:20 Urine Glucose (UA) Negative (Normal) 09/27/24 20:20 Urine Ketones Negative (Negative) 09/27/24 20:20 Urine Blood Negative (Negative) 09/27/24 20:20 Urine Nitrate Negative (Negative) 09/27/24 20:20 Urine Bilirubin Negative (Negative) 09/27/24 20:20 Urine Urobilinogen 1.0 mg/dL (Negative) 09/27/24 20:20 Ur Leukocyte Esterase Negative (Negative) 09/27/24 20:20 Urine RBC 0-2 /hpf (0-2) 09/27/24 20:20 Urine WBC 0-5 /hpf (0-5) 09/27/24 20:20 Ur Squamous Epith Cells 0-5 /hpf (0-5) 09/27/24 20:20 Amorphous Sediment Not Reportable 09/27/24 20:20 Urine Bacteria None seen /hpf (NONE) 09/27/24 20:20 Hyaline Casts 0.40 /lpf 09/27/24 20:20 All radiology interpretation(s) finalized by discharge Discharge Plan Discharge Patient Disposition: Home Clinical Impression: Benign hypertension, Headache Condition: Stable Prescriptions: No Action cholecalciferol (vitamin D3) 125 mcg (5,000 unit) capsule 125 mcg PO DAILY albuterol sulfate 2.5 mg /3 mL (0.083 %) solution for nebulization 2.5 mg inhalation QID PRN (Reason: shortness of breath or wheezing) Qty: 300 0RF Xarelto 15 mg tablet 15 mg PO DAILY Qty: 30 1RF Rx Instructions: must administer with evening meal (DME) Blood Pressure Cuff Misc See Rx Instructions .Route Qty: 1 0RF Rx Instructions: As directed (DME) nebulizers Misc See Rx Instructions .ROUTE .MEDSUPPLY Qty: 1 0RF Rx Instructions: As directed atorvastatin 40 mg tablet 40 mg PO BEDTIME Qty: 90 1RF cetirizine [Zyrtec] 10 mg tablet 10 mg PO DAILY Qty: 90 1RF famotidine [Pepcid] 20 mg tablet 20 mg PO DAILY Qty: 90 1RF fluticasone propionate 50 mcg/actuation spray,suspension 2 spray INTRANASAL DAILY Qty: 48 1RF furosemide 20 mg tablet 20 mg PO DAILY Qty: 90 1RF levothyroxine 50 mcg tablet 50 mcg PO DAILY Qty: 90 1RF venlafaxine 75 mg tablet 75 mg PO BID Qty: 180 1RF quetiapine 50 mg tablet 50 mg PO .HS Qty: 90 1RF Rx Instructions: dose increase Dulera 100-5 mcg/actuation HFA aerosol inhaler 2 puff inhalation Q12H Qty: 13 2RF aripiprazole 5 mg tablet 5 mg PO DAILY Qty: 90 1RF latanoprost 0.005 % drops 1 drp ophthalmic (eye) DAILY Entresto 24-26 mg tablet 1 tab PO BID Qty: 60 1RF albuterol sulfate 90 mcg/actuation HFA aerosol inhaler 2 inh INHALATION Q6H PRN (Reason: Shortness Of Breath) Discharge Orders: Discharge ED (Routine); Ordered 09/27/24 Ordered By: Mian Medrano Referrals: Marsha Kelly, [facility] [Primary Care Provider, Family Practice] Discharge Diet: Usual diet Discharge Activity: Resume usual activity Patient Instructions: Opioid Safety, Pain Management Activity Restrictions/Additional Instructions: Thank you for choosing [facility] for your healthcare needs today. It is very important that you follow up as instructed or that you return to the Emergency Department should you have concerns or if your condition changes or worsens in any way. You were seen in the emergency room with complaints of a headache and elevated blood pressure. At this point would not recommend any changes in your blood pressure medicines. Follow-up with your primary care doctor to reevaluate blood pressure within the next 7 to 10 days. Print Language: Gambian Coding Level of Care Code ED Board Mixer Tender for Nicole Avalos
[2024-09-27 19:25] LABS: Basophils # 0.1 10^3/uL (0.0-0.1); Eosinophils # 0.3 10^3/uL (0.0-0.8); Eosinophils % 5.1 %; Hematocrit 41.6 % (36-47); Lymphocytes # 1.8 10^3/uL (0.8-4.8); Mean Corpuscular HGB Conc 33.7 g/dL (30-55); Mean Corpuscular Hemoglobin 30.3 pg (27-33); Mean Platelet Volume 9.8 fL (7.4-10.4); Monocytes # 0.6 10^3/uL (0.2-0.9); Monocytes % 8.2 %; Neutrophils # 3.91 10^3/uL (1.8-7.7); Neutrophils % 58.3 %; Nucleated Red Blood Cells % 0 %; Platelet Count 296 10^3/cmm (157-399); Red Blood Count 4.62 10^6/uL (3.85-5.65); Red Cell Distribution Width 12.3 % (12.1-15.1); White Blood Count 6.71 10^3/uL (3.29-11.43)
--- NOTE | 2024-09-27 19:30 | PC.NURSE ---
patient states she has had hypertension all day. States her systolic has ranged from 150-180 systolic and 92-123 diastolic. Currently on Valsartan BID. Patient tells me she takes it once daily though. She also c/o left shoulder pain and a headache. No visual changes. No other neuro deficits.
[2024-09-27] MEDS: ketorolac 30 mg/mL INJ IVP (19:34)
[2024-09-27 19:36] LABS: Alanine Aminotransferase 12 U/L (0-33); Alkaline Phosphatase 109 U/L (35-105); Anion Gap 18.6 (5-19); Aspartate Amino Transferase 19 U/L (0-32); Blood Urea Nitrogen 13 mg/dL (8-23); Calcium 9.1 mg/dL (8.5-10.5); Carbon Dioxide 25 mmol/L (22-29); Chloride 104 mmol/L (98-107); Globulin 2.8 g/dL (1.3-4.6); Glucose 86 mg/dL (65-115); Osmolality Calculated 297 mOsm/kg (285-295); Potassium 3.6 mmol/L (3.5-5.1); Sodium 144 mmol/L (136-145); Total Bilirubin 0.7 mg/dL (0.15-1.2); Total Protein 6.8 g/dL (6.6-8.7)
[2024-09-27] MEDS: prochlorperazine 10 mg/2 mL Inj IVP (19:36)
[2024-09-27 20:09] VITALS: BP 115/84; PULSE 72; RESP 18; O2SAT 97
[2024-09-27 20:33] LABS: Bilirubin Urine Negative (Negative); Blood Urine Negative (Negative); Glucose Urine UA Negative (Normal); Ketones Urine Negative (Negative); Leukocyte Esterase Urine Negative (Negative); Nitrate Urine Negative (Negative); Protein Urine Negative (Negative); Specific Gravity, Urine 1.014 (1.005-1.030); Urine Appearance Clear (CLEAR); Urine Color Yellow (Yellow)
[2024-09-27 20:35] LABS: Add Urine Microscopic? YES; Bacteria Urine None Seen /hpf; RBC Urine 0-2 /hpf (0-2); Squamous Epithelial Cell Urine 0-5 /hpf (0-5); WBC Urine 0-5 /hpf (0-5)
[2024-09-27 20:48] VITALS: BP 138/94; PULSE 87; RESP 16; O2SAT 98
== END 2024-09-27 20:48 | disposition home or self-care (01) ==
PROVIDERS: Emergency Provider Family Medicine; PCP Nurse Practitioner
DX: I10 Essential (primary) hypertension (principal); R51.9 Headache, unspecified; Z95.0 Presence of cardiac pacemaker; E03.9 Hypothyroidism, unspecified; J44.9 Chronic obstructive pulmonary disease, unspecified; E78.5 Hyperlipidemia, unspecified; Z79.899 Other long term (current) drug therapy; Z79.890 Hormone replacement therapy
CPT/HCPCS: 80053; 81001; 85025; 93005; 96374; 96375; 99284; J0780; J1885

== ENCOUNTER → 2024-10-12 12:47 | Outpatient (BNVA) | payer MEDICARE, OTHER, SELFPAY | PROVIDERS: PCP Nurse Practitioner; Visit Provider Nurse Practitioner Family | DX: I11.0 Hypertensive heart disease with heart failure (principal); I50.20 Unspecified systolic (congestive) heart failure; I48.20 Chronic atrial fibrillation, unspecified; Z95.0 Presence of cardiac pacemaker; Z79.01 Long term (current) use of anticoagulants | CPT/HCPCS: 99214 ==

== ENCOUNTER → 2025-01-17 15:07 | Outpatient (BNVA) | payer MEDICARE, OTHER, SELFPAY | PROVIDERS: PCP Nurse Practitioner; Visit Provider Nurse Practitioner | DX: E55.9 Vitamin D deficiency, unspecified (principal); I10 Essential (primary) hypertension; E78.2 Mixed hyperlipidemia; E03.8 Other specified hypothyroidism | CPT/HCPCS: 80053; 80061; 82306; 84439; 84443; 84481 ==

== ENCOUNTER → 2025-01-19 11:45 | Outpatient (BNVA) | payer MEDICARE, OTHER, SELFPAY | PROVIDERS: PCP Nurse Practitioner; Visit Provider Internal Medicine Cardiovascular Disease | DX: I48.20 Chronic atrial fibrillation, unspecified (principal); Z79.01 Long term (current) use of anticoagulants; E78.2 Mixed hyperlipidemia; I11.0 Hypertensive heart disease with heart failure; I50.20 Unspecified systolic (congestive) heart failure; I42.9 Cardiomyopathy, unspecified; I71.40 Abdominal aortic aneurysm, without rupture, unspecified; Z95.0 Presence of cardiac pacemaker; R06.02 Shortness of breath | CPT/HCPCS: 36415; 83880; 99214 ==

== ENCOUNTER 2025-02-08 14:07 | Outpatient (CLI) | payer MEDICARE, OTHER, SELFPAY ==
--- NOTE | 2025-02-08 14:14 | XR_ITS ---
WS: [id number] SCREENING DEXA SCAN [facility] CLINICAL INFORMATION: ASYMPTOMATIC MENOPAUSAL STATE COMPARISON: 2015 FINDINGS: The L1-L4 bone mineral density measures 1.100 g/cm2. This corresponds to a T score score of -0.7 and Z score of 0.1. Left femoral neck bone mineral density measures 0.908 g/cm2. This corresponds to a T score of -0.8 and Z score of 0.2. Right femoral neck bone mineral density measures 0.907 g/cm2. This corresponds to a T score -0.8of and Z score of 0.2. Mean femoral neck bone mineral density measures 0.907 g/cm2. This corresponds to a T score of -0.8 and Z score of 0.2. XR/XR DEXA axial skeleton* [id number] IMPRESSION: Normal bone mineralization. Patient's FRAX calculated 10 year probability for major osteoporotic fracture i s 13.7% and osteoporotic hip fracture is 3.7%. Bone density lumbar spine decrease -0.2% Bone density femoral necks decrease -9.6%
--- NOTE | 2025-02-08 14:14 | MM_ITS ---
WS: [id number] BILATERAL 3D TOMOSYNTHESIS DIGITAL SCREENING MAMMOGRAPHY WITH CAD CLINICAL INFORMATION: SCREENING HISTORY: Screening mammogram. No current complaints. COMPARISON: 2023 TECHNIQUE: Bilateral CC and MLO views. FINDINGS: The breasts are composed of heterogeneous fibroglandular density tissue, which can limit the detection of small underlying mass lesions. No suspicious mass, asymmetry, calcifications, or architectural distortion. No evidence of malignancy. Incidental punctate and lucent centered calcifications. MM/MM [facility] tomosynthesis [id number] IMPRESSION: DENSITY: There are scattered areas of fibroglandular density. BI-RADS: 2 - Benign. FOLLOW UP: 1 Year Follow-up Recommend return to annual screening mammography.
== END 2025-02-08 14:08 | disposition home or self-care (01) ==
LOC: RAD 14:08
PROVIDERS: PCP Nurse Practitioner; Visit Provider Nurse Practitioner
DX: Z12.31 Encounter for screening mammogram for malignant neoplasm of breast (principal); Z78.0 Asymptomatic menopausal state; R92.323 Mammographic fibroglandular density, bilateral breasts
CPT/HCPCS: 77063; 77067; 77080

== ENCOUNTER → 2025-03-02 13:27 | Outpatient (BNVA) | payer OTHER, SELFPAY | PROVIDERS: PCP Nurse Practitioner; Visit Provider Nurse Practitioner | DX: I10 Essential (primary) hypertension (principal) | CPT/HCPCS: 80048 ==

== ENCOUNTER → 2025-03-23 14:50 | Outpatient (BNVA) | payer MEDICARE, OTHER, SELFPAY | PROVIDERS: PCP Nurse Practitioner; Visit Provider Clinical Nurse Specialist Adult Health | DX: R35.0 Frequency of micturition (principal) | CPT/HCPCS: 81000 ==